=== PATIENT | female | born 1990 | race Caucasian/White ===

== ENCOUNTER 2016-08-10 12:25 | Emergency (ER) | payer OTHER ==
[~2016-08-10] VITALS: Ht 165.1 cm; Wt 142.7 kg
[~2016-08-10 12:25] MED LIST: CEPH500C PO; LORA-741 PO; NYSTPOW2 TOP; NZRCR TOP; SULF800T23 PO; TRAM-10 PO
[2016-08-10 12:30] VITALS: TEMP 36.6; Ht 165.1 cm; Wt 142.7 kg
[2016-08-10] MEDS ORDERED: PROCHLORPERAZINE 5 MG/ML 2 ML VIAL IV STA (12:52)
[2016-08-10] MEDS ORDERED: DEXAMETHASONE SOD INJ 4 MG/ML VIAL IV STA (12:52)
[2016-08-10] MEDS ORDERED: ACETAMINOPHEN 500 MG TAB PO STA (12:52)
[2016-08-10] MEDS ORDERED: DiphenhydrAMINE HCL 50 MG/ML VIAL IV STA (12:52)
[2016-08-10] MEDS ORDERED: SODIUM CHLORIDE 0.9% 1000ML 1,000 ML IV STA ×2 (12:52)
--- NOTE | 2016-08-10 13:16 | EMERGENCY ROOM VISIT NOTE ---
History Report prepared by Shukri: Bryce Pulido Under the Supervision of: Dr. Hayder Castro M.D. First contact with patient: 12:49 Chief Complaint: SHORTNESS OF BREATH Stated Complaint: SOB, DIZZY, STABBING PAINS, SWELLING Nursing Triage Summary: pt to the ED with c/o all over body aches weakness and SOB pt speaking full sent no resp distress History of Present Illness The patient is a 25 year old female who presents to the Emergency Room with complaints of a persistent headache beginning four days ago. She has a recent history of migraines. She states that she had a Toradol shot yesterday after she had been experiencing a migraine for past four days. The patient states that she developed several symptoms after receiving the Toradol shot. Her symptoms included recurrent nose bleeds, generalized body pain, generalized weakness, and shortness of breath. She rates her headache as an 8/10 in severity. The patient denies any fevers or cough. She has no known sick contacts. She denies any chance of . Source of History: patient Onset: four days ago Position: head Symptom Intensity: 8/10 Timing: other (persistent) Associated Symptoms: + SOB, + weakness (generalized), No cough, No fevers Note: The patient also complains of generalized body pain and recurrent nosebleeds. Review of Systems See HPI for pertinent positives & negatives. A total of 10 systems reviewed and were otherwise negative. Past Medical & Surgical Medical Problems: (1) History of PCOS Surgical Problems: (1) Hx of tonsillectomy (2) [place] teeth extracted Family History Cancer Diabetes mellitus Gallbladder disease Heart disease Hypertension Kidney disease Kidney stones Seizures Social History Smoking Status: Never Smoker Alcohol Use: none Drug Use: none Marital Status: in relationship Housing Status: lives with family Occupation Status: employed Current/Historical Medications Scheduled Cephalexin Monohydrate (Keflex), 1 CAP PO TID Cephalexin Monohydrate (Keflex), 500 MG PO TID Ketoconazole (Ketoconazole), 1 APPL TOP UD Nystatin (Mycostatin), 1 APPL TOP UD Sulfa/Trimethoprim (Bactrim Ds 800MG/160MG), 1 TAB PO BID Scheduled PRN Lorazepam (Ativan), 0.5 MG PO Q4H PRN for Anxiety Tramadol (Ultram), 50 MG PO Q4H PRN for Pain Allergies Coded Allergies: Furosemide (Unverified Allergy, Unknown, hives, 08/10/16) Physical Exam Vital Signs Date Time Temp Pulse Resp B/P Pulse Ox O2 Delivery O2 Flow Rate FiO2 08/10/16 15:26 77 18 125/76 98 08/10/16 14:13 72 18 133/86 95 Room Air 08/10/16 12:30 36.6 87 20 139/85 99 Room Air Physical Exam GENERAL: Patient is in no acute distress. HEENT: No acute trauma, normocephalic atraumatic, mucous membranes moist, no nasal congestion, no scleral icterus. Pupils equal and reactive to light. NECK: No stridor, no adenopathy, no meningismus, trachea is midline. LUNGS: Clear to auscultation bilaterally, no wheeze, no rhonchi, breath sounds equal. HEART: Without murmurs gallops or rubs, regular rate and rhythm. ABDOMEN: Soft, nontender, bowel sounds positive, no hernias, no peritonitis. EXTREMITIES: No cyanosis or edema, full range of motion of all the joints without pain or difficulty, no signs for acute trauma. NEUROLOGIC: Oriented x 3, no acute motor or sensory deficits, no focal weakness. No cerebellar deficits. SKIN: No rash, no jaundice, no diaphoresis Medical Decision & Procedures ER Provider Diagnostic Interpretation: X ray results and stated below per my interpretation and radiologist interpretation. Other radiology results and stated below per my review and radiologist interpretation: CT SCAN OF THE BRAIN WITHOUT IV CONTRAST FINDINGS: Brain parenchyma: The brain parenchyma is normal in appearance. There is no hemorrhage, mass effect, or evidence of acute territorial ischemia by CT criteria. Greer-white matter is preserved. No extra-axial fluid collection is seen. Ventricles, sulci, cisterns: Normal in configuration. Intracranial vasculature: The visualized intracranial vasculature at the skull base is normal in appearance. Calvarium: Unremarkable. Sinuses and mastoids: The visualized paranasal sinuses are clear. The mastoid air cells are well pneumatized. Orbits: The bony orbits are grossly intact. IMPRESSION: No acute intracranial abnormality. Electronically signed by: Hayder Munoz M.D. TWO VIEW CHEST FINDINGS: PA and lateral chest radiographs are compared to study dated 07/05/2015 and correlated with chest CT dated 07/08/2013. The examination is degraded by large body habitus. The cardiomediastinal silhouette is unremarkable. There are low lung volumes. The lungs and pleural spaces are clear. There is no pneumothorax. The bony thorax appears intact. IMPRESSION: Low lung volumes with no active disease in the chest. Electronically signed by: Hayder Munoz M.D. Laboratory Results 08/10/16 13:10 Red Blood Count 4.71, Mean Corpuscular Volume 79.2, Mean Corpuscular Hemoglobin 26.1, Mean Corpuscular Hemoglobin Concent 33.0, Mean Platelet Volume 9.5, Neutrophils (%) (Auto) 69.6, Lymphocytes (%) (Auto) 21.6, Monocytes (%) (Auto) 7.1, Eosinophils (%) (Auto) 0.9, Basophils (%) (Auto) 0.4, Neutrophils # (Auto) 6.74, Lymphocytes # (Auto) 2.09, Monocytes # (Auto) 0.69, Eosinophils # (Auto) 0.09, Basophils # (Auto) 0.04 08/10/16 13:10 Test 08/10/16 12:46 08/10/16 13:10 Urine Color YELLOW Urine Appearance CLEAR (CLEAR) Urine pH 5.0 (4.5-7.5) Urine Specific [place] 1.020 (1.000-1.030) Urine Protein TRACE (NEG) Urine Glucose (UA) NEG (NEG) Urine Ketones NEG (NEG) Urine Occult Blood 3+ (NEG) Urine Nitrite NEG (NEG) Urine Bilirubin NEG (NEG) Urine Urobilinogen NEG (NEG) Urine Leukocyte Esterase TRACE (NEG) Urine RBC 5-10 /hpf (0-4) Urine WBC 10-30 /hpf (0-5) Urine Epithelial Cells 10-20 /lpf (0-5) Urine Bacteria 3+ (NEG) White Blood Count 9.69 K/uL (4.8-10.8) Red Blood Count 4.71 M/uL (4.2-5.4) Hemoglobin 12.3 g/dL (12.0-16.0) Hematocrit 37.3 % (37-47) Mean Corpuscular Volume 79.2 fL (80-100) Mean Corpuscular Hemoglobin 26.1 pg (25-34) Mean Corpuscular Hemoglobin Concent 33.0 g/dl (32-36) Platelet Count 307 K/uL (130-400) Mean Platelet Volume 9.5 fL (7.4-10.4) Neutrophils (%) (Auto) 69.6 % Lymphocytes (%) (Auto) 21.6 % Monocytes (%) (Auto) 7.1 % Eosinophils (%) (Auto) 0.9 % Basophils (%) (Auto) 0.4 % Neutrophils # (Auto) 6.74 K/uL (1.4-6.5) Lymphocytes # (Auto) 2.09 K/uL (1.2-3.4) Monocytes # (Auto) 0.69 K/uL (0.11-0.59) Eosinophils # (Auto) 0.09 K/uL (0-0.5) Basophils # (Auto) 0.04 K/uL (0-0.2) RDW Standard Deviation 39.4 fL (36.4-46.3) RDW Coefficient of Variation 13.9 % (11.5-14.5) Immature Granulocyte % (Auto) 0.4 % Immature Granulocyte # (Auto) 0.04 K/uL (0.00-0.02) Erythrocyte Sedimentation Rate 16 mm/hr (0-21) Anion Gap 9.0 mmol/L (3-11) Est Creatinine Clear Calc Drug Dose 156.9 ml/min Estimated GFR () 120.6 Estimated GFR (Non- 104.0 BUN/Creatinine Ratio 18.6 (10-20) Calcium Level 9.3 mg/dl (8.5-10.1) Human Chorionic Gonadotropin, Qual NEG (NEG) Laboratory results reviewed by me. Medications Administered Medications (Trade) Dose Ordered Sig/Lonnie Route Start Time Stop Time Status Last Admin Dose Admin Prochlorperazine Edisylate 10 mg 10 mg NOW STAT IV 08/10/16 12:52 08/10/16 12:56 DC 08/10/16 13:10 10 MG Sodium Chloride 1,000 ml @ 999 mls/hr Q1H1M STAT IV 08/10/16 12:52 08/10/16 13:52 DC 08/10/16 12:52 999 MLS/HR Sodium Chloride (Nss 1000ml) 1,000 ml @ 200 mls/hr Q5H STAT IV 08/10/16 12:52 08/10/16 15:55 DC 08/10/16 12:52 200 MLS/HR Diphenhydramine HCl (Benadryl Inj) 50 mg NOW STAT IV 08/10/16 12:52 08/10/16 12:56 DC 08/10/16 13:10 50 MG Dexamethasone Sodium Phosphate (Decadron Inj) 10 mg NOW STAT IV 08/10/16 12:52 08/10/16 12:56 DC 08/10/16 13:10 10 MG Acetaminophen (Tylenol Tab) 1,000 mg NOW STAT PO 08/10/16 12:52 08/10/16 12:56 DC 08/10/16 13:09 1,000 MG ED Course 1251: The patient was evaluated in room C11. A complete history and physical exam was performed. 1252: Ordered Tylenol Tab 1000 mg PO, Decadron Inj 10 mg IV, Benadryl Inj 50 mg IV, Sodium Chloride 1000 ml @ 200 mls/hr IV, Sodium Chloride 1000 ml @ 999 mls/ hr IV, Compazine 10 mg IV. 1454: Reevaluated the patient. Discussed results and discharge instructions: she verbalized understanding and agreement. The patient is ready for discharge. Medical Decision The patient is a 25 year old female who presents to the ED with complaints of a headache. Differential diagnoses considered include migraine headache, tensions headache, dehydration, infection, intracranial bleeding, intracranial mass, pneumonia, meningitis, as well as other etiologies were considered. There is no leukocytosis or concerning anemia. No significant electrolyte abnormality or kidney failure. testing was negative. Sedimentation rate was not elevated making ongoing infection/inflammation less likely. Urinalysis shows possible infection, urine culture is pending. Brain CT shows no acute bleed or mass effect. On exam, the patient was not febrile or toxic, she had no signs of meningismus. There were no focal neurologic deficits. Chest film was done, no evidence for pneumonia or CHF, no mediastinal widening. The patient presents with multiple complaints, her primary complaint though was a headache. She has had headaches similar to this in the past. The patient received IV Compazine, IV Benadryl, IV Decadron. She was given oral Tylenol and IV saline. She feels markedly improved. The patient is being discharged. I will have her on Keflex for 1 week for the possibility of a UTI, rest and hydration were encouraged. She was reassured and discharged home with outpatient follow-up. Her headache does seem migrainous. Impression Primary Impression: Headache Additional Impressions: SOB (shortness of breath) UTI (urinary tract infection) Scribe Attestation The scribe's documentation has been prepared under my direction and personally reviewed by me in its entirety. I confirm that the note above accurately reflects all work, treatment, procedures, and medical decision making performed by me. Departure Information Dispostion Home / Self-Care Prescriptions Cephalexin Monohydrate (Keflex) 500 Mg Cap 500 MG PO TID for 7 Days, #21 CAP Prov: Hayder Castro M.D. 08/10/16 Referrals Berkley Pavon D.O. (PCP) Forms HOME CARE DOCUMENTATION FORM, IMPORTANT VISIT INFORMATION Patient Instructions My [facility] Additional Instructions rest sleep stay well hydrated return if worsening keflex 3x per day for [address] scan and chest film were ok today Problem Qualifiers
[2016-08-10 13:24] LABS: BASO % 0.4 %; BASO ABS # 0.04 K/uL (0-0.2); COMPLETE YES; EOS % 0.9 %; HEMATOCRIT 37.3 % (37-47); IG% 0.4 %; LYMPH % 21.6 %; LYMPH ABS # 2.09 K/uL (1.2-3.4); MEAN CELL VOLUME 79.2 fL (80-100); MEAN CORPUSCULAR HEMOGLOBIN 26.1 pg (25-34); MEAN PLATELET VOLUME 9.5 fL (7.4-10.4); MONO % 7.1 %; NEUT % 69.6 %; PLATELET COUNT 307 K/uL (130-400); RED BLOOD COUNT 4.71 M/uL (4.2-5.4); WHITE BLOOD COUNT 9.69 K/uL (4.8-10.8)
[2016-08-10 13:29] LABS: MANUAL MICROSCOPIC REQUIRED? YES; REVIEW REQ? NO; URINE APPEARANCE CLEAR (CLEAR); URINE BILIRUBIN NEG (NEG); URINE COLOR YELLOW; URINE NITRITE NEG (NEG); UROBILINOGEN NEG (NEG)
[2016-08-10 13:42] LABS: BUN/CREATININE RATIO 18.6 (10-20); CALCIUM 9.3 mg/dl (8.5-10.1); CREATININE 0.79 mg/dl (0.60-1.20); POTASSIUM 3.9 mmol/L (3.5-5.1)
[2016-08-10 13:44] LABS: URINE BACTERIA 3+ (NEG)
--- NOTE | 2016-08-10 13:44 | DIAGNOSTIC IMAGING REPORT ---
CT SCAN OF THE BRAIN WITHOUT IV CONTRAST CLINICAL HISTORY: Dizziness. Headache. COMPARISON STUDY: CT the brain dated 07/05/2015. TECHNIQUE: Unenhanced axial CT scan of the brain is performed from the vertex to the skull base. Automated dose control exposure was utilized. CT DOSE: 537.48 mGy.cm FINDINGS: Brain parenchyma: The brain parenchyma is normal in appearance. There is no hemorrhage, mass effect, or evidence of acute territorial ischemia by CT criteria. Greer-white matter is preserved. No extra-axial fluid collection is seen. Ventricles, sulci, cisterns: Normal in configuration. Intracranial vasculature: The visualized intracranial vasculature at the skull base is normal in appearance. Calvarium: Unremarkable. Sinuses and mastoids: The visualized paranasal sinuses are clear. The mastoid air cells are well pneumatized. Orbits: The bony orbits are grossly intact. IMPRESSION: No acute intracranial abnormality. Electronically signed by: Hayder Munoz M.D. 08/10/2016 1:42 PM Dictated Date/Time: 08/10/2016 1:41 PM
[2016-08-10 13:47] LABS: ZZUR CULT IF INDIC CLEAN CATCH YES
[2016-08-10 13:51] LABS: PREG INTERNAL POSITIVE QC POS CONTROL LINE
[2016-08-10 13:52] LABS: PREG INTERNAL NEGATIVE QC NEG CLEAR BACKGROUND
--- NOTE | 2016-08-10 14:21 | DIAGNOSTIC IMAGING REPORT ---
TWO VIEW CHEST CLINICAL HISTORY: Dyspnea. FINDINGS: PA and lateral chest radiographs are compared to study dated 07/05/2015 and correlated with chest CT dated 07/08/2013. The examination is degraded by large body habitus. The cardiomediastinal silhouette is unremarkable. There are low lung volumes. The lungs and pleural spaces are clear. There is no pneumothorax. The bony thorax appears intact. IMPRESSION: Low lung volumes with no active disease in the chest. Electronically signed by: Hayder Munoz M.D. 08/10/2016 2:20 PM Dictated Date/Time: 08/10/2016 2:19 PM
[2016-08-10] MEDS ORDERED: CEPH500C PO (14:59)
[2016-08-10 15:26] VITALS: BP 125/76; PULSE 77; O2SAT 98
== END 2016-08-10 15:27 | disposition home or self-care (01) ==
LOC: C.EDB 12:25 → C.EDC 15:27
DX: R51 Headache (principal); R06.02 Shortness of breath; N39.0 Urinary tract infection, site not specified

== ENCOUNTER 2016-11-13 09:40 | Emergency (ER) | payer OTHER ==
[~2016-11-13] VITALS: Ht 165.1 cm; Wt 139.4 kg
[~2016-11-13 09:40] MED LIST changes: -SULF800T23 PO
[2016-11-13 09:42] VITALS: TEMP 36.8; Ht 165.1 cm; Wt 139.4 kg
[2016-11-13] MEDS ORDERED: ONDANSETRON INJ 2 MG/ML 2 ML VIAL IV STA (09:50)
[2016-11-13] MEDS ORDERED: SODIUM CHLORIDE 0.9% 1000ML 1,000 ML IV STA ×2 (09:50)
--- NOTE | 2016-11-13 09:58 | EMERGENCY ROOM VISIT NOTE ---
History Report prepared by Shukri: Mayelin Benitez Under the Supervision of: Dr. Norma Alejandra M.D. First contact with patient: 09:47 Chief Complaint: VOMITING Stated Complaint: NAUSEA, VOMITING - REFERRED DUE TO DEHYDRATION History of Present Illness The patient is a 26 year old female who presents to the Emergency Room with complaints of multiple episodes of vomiting beginning a few days prior to arrival. The patient has been experiencing nausea and diarrhea also. She states that she does feel dehydrated. The patient is experiencing lower abdominal pain that she describes as a stabbing sensation. She denies a fever today but states that the past few days she did have one but has been taking Tylenol. The patient denies chance, exposure to illness or blood in vomit. Her LNMP was in June. She still has her gallbladder. 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 A total of 10 systems reviewed and were otherwise negative. Past Medical & Surgical Medical Problems: (1) History of PCOS Surgical Problems: (1) Hx of tonsillectomy (2) [place] teeth extracted Family History Cancer Diabetes mellitus Gallbladder disease Heart disease Hypertension Kidney disease Kidney stones Seizures Social History Smoking Status: Never Smoker Alcohol Use: none Drug Use: none Marital Status: in relationship Housing Status: lives with family Occupation Status: employed Current/Historical Medications Scheduled Ketoconazole (Ketoconazole), 1 APPL TOP UD Ondasetron Odt (Zofran Odt), 4 MG SL Q6H Scheduled PRN Lorazepam (Ativan), 0.5 MG PO Q4H PRN for Anxiety Tramadol (Ultram), 50 MG PO Q4H PRN for Pain Allergies Coded Allergies: Furosemide (Unverified Allergy, Unknown, hives, 08/10/16) Physical Exam Vital Signs Date Time Temp Pulse Resp B/P Pulse Ox O2 Delivery O2 Flow Rate FiO2 11/13/16 12:01 68 18 123/72 98 11/13/16 09:42 36.8 71 18 170/88 96 Room Air Physical Exam Vital signs reviewed. General: Obese female, in no significant distress. HEENT: No scleral icterus, PERRLA, neck supple. Atraumatic. Cardiovascular: Regular rate and rhythm, no extra sounds. Pulmonary: Clear to auscultation bilaterally, normal work of breathing. Abdomen: Soft, nontender, nondistended, positive bowel sounds. Musculoskeletal: Atraumatic, no peripheral edema. Neurologic: Patient awake alert and oriented x 3, full strength in all 4 extremities. Cranial nerves 2 through 12 grossly intact. Skin: Warm, dry, no rash Medical Decision & Procedures Laboratory Results 11/13/16 10:20 Red Blood Count 4.98, Mean Corpuscular Volume 79.9, Mean Corpuscular Hemoglobin 25.9, Mean Corpuscular Hemoglobin Concent 32.4, Mean Platelet Volume 9.2, Neutrophils (%) (Auto) 64.9, Lymphocytes (%) (Auto) 27.5, Monocytes (%) (Auto) 5.4, Eosinophils (%) (Auto) 1.5, Basophils (%) (Auto) 0.3, Neutrophils # (Auto) 4.84, Lymphocytes # (Auto) 2.05, Monocytes # (Auto) 0.40, Eosinophils # (Auto) 0.11, Basophils # (Auto) 0.02 11/13/16 10:20 Test 11/13/16 00:00 11/13/16 10:20 Urine Color YELLOW Urine Appearance CLOUDY (CLEAR) Urine pH 5.0 (4.5-7.5) Urine Specific [place] 1.023 (1.000-1.030) Urine Protein NEG (NEG) Urine Glucose (UA) NEG (NEG) Urine Ketones NEG (NEG) Urine Occult Blood 3+ (NEG) Urine Nitrite NEG (NEG) Urine Bilirubin NEG (NEG) Urine Urobilinogen NEG (NEG) Urine Leukocyte Esterase MODERATE (NEG) Urine WBC (Auto) 10-30 /hpf (0-5) Urine RBC (Auto) 0-4 /hpf (0-4) Urine Hyaline Casts (Auto) 1-5 /lpf (0-5) Urine Epithelial Cells (Auto) >30 /lpf (0-5) Urine Bacteria (Auto) 1+ (NEG) Urine Yeast (Auto) (NONE PRSENT) Urine Test NEG (NEG) White Blood Count 7.45 K/uL (4.8-10.8) Red Blood Count 4.98 M/uL (4.2-5.4) Hemoglobin 12.9 g/dL (12.0-16.0) Hematocrit 39.8 % (37-47) Mean Corpuscular Volume 79.9 fL (80-100) Mean Corpuscular Hemoglobin 25.9 pg (25-34) Mean Corpuscular Hemoglobin Concent 32.4 g/dl (32-36) Platelet Count 292 K/uL (130-400) Mean Platelet Volume 9.2 fL (7.4-10.4) Neutrophils (%) (Auto) 64.9 % Lymphocytes (%) (Auto) 27.5 % Monocytes (%) (Auto) 5.4 % Eosinophils (%) (Auto) 1.5 % Basophils (%) (Auto) 0.3 % Neutrophils # (Auto) 4.84 K/uL (1.4-6.5) Lymphocytes # (Auto) 2.05 K/uL (1.2-3.4) Monocytes # (Auto) 0.40 K/uL (0.11-0.59) Eosinophils # (Auto) 0.11 K/uL (0-0.5) Basophils # (Auto) 0.02 K/uL (0-0.2) RDW Standard Deviation 40.3 fL (36.4-46.3) RDW Coefficient of Variation 14.1 % (11.5-14.5) Immature Granulocyte % (Auto) 0.4 % Immature Granulocyte # (Auto) 0.03 K/uL (0.00-0.02) Anion Gap 5.0 mmol/L (3-11) Est Creatinine Clear Calc Drug Dose 198.5 ml/min Estimated GFR () 145.0 Estimated GFR (Non- 125.1 BUN/Creatinine Ratio 14.7 (10-20) Calcium Level 8.6 mg/dl (8.5-10.1) Magnesium Level 2.2 mg/dl (1.8-2.4) Total Bilirubin 0.4 mg/dl (0.2-1) Direct Bilirubin < 0.1 mg/dl (0-0.2) Aspartate Amino Transf (AST/SGOT) 9 U/L (15-37) Alanine Aminotransferase (ALT/SGPT) 26 U/L (12-78) Alkaline Phosphatase 90 U/L (45-117) Total Protein 6.7 gm/dl (6.4-8.2) Albumin 3.2 gm/dl (3.4-5.0) Lipase 113 U/L (73-393) Date/Time Source Procedure Growth Status 11/13/16 00:00 Urine , Clean Catch Urine Culture - Final THREE TYPES OF ORGANSIMS PRESENT, ALL... Complete Laboratory results per my review. Medications Administered Medications (Trade) Dose Ordered Sig/Lonnie Route Start Time Stop Time Status Last Admin Dose Admin Sodium Chloride 1,000 ml @ 200 mls/hr Q5H STAT IV 11/13/16 09:50 11/13/16 12:37 DC 11/13/16 10:29 200 MLS/HR Sodium Chloride (Nss 1000ml) 1,000 ml @ 999 mls/hr Q1H1M STAT IV 11/13/16 09:50 11/13/16 10:50 DC 11/13/16 10:29 999 MLS/HR ED Course 0948: Past medical records reviewed. The patient was evaluated in room B5. A complete history and physical examination was performed. 0950: Sodium Chloride 1,000 ml @ 999 mls/hr IV, Sodium Chloride 1,000 ml @ 200 mls/hr IV, Zofran Inj 8 mg IV. 1141: I reevaluated the patient. 1156: Upon reevaluation, the patient appeared to have improvement of her symptoms. I discussed findings with her. She verbalized agreement of the treatment plan. She was discharged home. Medical Decision The patient is a 26 year old female who presents to the ED with complaints of vomiting. Differentials includes gastroenteritis, food borne illness, infections, appendicitis, diverticulitis, inflammatory bowel disease, obstruction, GI bleed, biliary pathology, as well as others were entertained. This patient was evaluated and appeared to be in some discomfort. IV access was obtained and laboratory work was drawn. The patient was placed on the classroom monitor and found to be in a normal sinus rhythm. Patient was hydrated with normal saline solution, refused IV Zofran. Patient's laboratory work is unrevealing. Patient was feeling much better after the above interventions. She was discharged follow-up with her primary care physician. She will return to the ER for worsening of symptoms or any medical concerns. Impression Primary Impression: Vomiting Scribe Attestation The scribe's documentation has been prepared under my direction and personally reviewed by me in its entirety. I confirm that the note above accurately reflects all work, treatment, procedures, and medical decision making performed by me. Departure Information Dispostion Home / Self-Care Prescriptions Ondasetron Odt (ZOFRAN ODT) 4 Mg Tab 4 MG SL Q6H for Nausea, #20 TAB Prov: Norma Alejandra M.D. 11/13/16 Referrals Berkley Pavon D.O. (PCP) Forms HOME CARE DOCUMENTATION FORM, IMPORTANT VISIT INFORMATION Patient Instructions My [facility] Additional Instructions Diagnosis: Vomiting Drink plenty of clear fluids. Zofran 4 mg ODT every 6 hours as needed for nausea. Follow-up with your physician this week for reevaluation. Return to the ER for worsening of symptoms or any medical concerns.
[2016-11-13 10:31] LABS: BASO % 0.3 %; BASO ABS # 0.02 K/uL (0-0.2); COMPLETE YES; EOS % 1.5 %; HEMATOCRIT 39.8 % (37-47); IG% 0.4 %; LYMPH % 27.5 %; LYMPH ABS # 2.05 K/uL (1.2-3.4); MEAN CELL VOLUME 79.9 fL (80-100); MEAN CORPUSCULAR HEMOGLOBIN 25.9 pg (25-34); MEAN CORPUSCULAR HGB CONC 32.4 g/dl (32-36); MEAN PLATELET VOLUME 9.2 fL (7.4-10.4); MONO % 5.4 %; NEUT % 64.9 %; PLATELET COUNT 292 K/uL (130-400); RED BLOOD COUNT 4.98 M/uL (4.2-5.4); WHITE BLOOD COUNT 7.45 K/uL (4.8-10.8)
[2016-11-13 10:45] LABS: URINE APPEARANCE CLOUDY (CLEAR); URINE BILIRUBIN NEG (NEG); URINE COLOR YELLOW; URINE EPITHELIAL CELL AUTO >30 /lpf (0-5); URINE NITRITE NEG (NEG); URINE SPECIFIC GRAVITY 1.023 (1.000-1.030); UROBILINOGEN NEG (NEG); ZZUR CULT IF INDIC CLEAN CATCH YES
[2016-11-13 10:47] LABS: ALT/SGPT 26 U/L (12-78); AST/SGOT 9 U/L (15-37); BLOOD UREA NITROGEN 9 mg/dl (7-18); BUN/CREATININE RATIO 14.7 (10-20); CALCIUM 8.6 mg/dl (8.5-10.1); CARBON DIOXIDE 30 mmol/L (21-32); CHLORIDE 110 mmol/L (98-107); CREATININE 0.61 mg/dl (0.60-1.20); GLUCOSE 110 mg/dl (70-99); MAGNESIUM 2.2 mg/dl (1.8-2.4); POTASSIUM 4.1 mmol/L (3.5-5.1); SODIUM 145 mmol/L (136-145)
[2016-11-13 10:49] LABS: MANUAL MICROSCOPIC REQUIRED? NO; REVIEW REQ? YES
[2016-11-13 10:50] LABS: ALKALINE PHOSPHATASE 90 U/L (45-117)
[2016-11-13] MEDS ORDERED: ONDA4TAB10 SL (11:52)
[2016-11-13 12:01] VITALS: BP 123/72; PULSE 68; O2SAT 98
== END 2016-11-13 12:03 | disposition home or self-care (01) ==
LOC: C.EDB 09:41
DX: R11.2 Nausea with vomiting, unspecified (principal); R19.7 Diarrhea, unspecified; R10.30 Lower abdominal pain, unspecified; R50.9 Fever, unspecified; E28.2 Polycystic ovarian syndrome; Z83.3 Family history of diabetes mellitus; Z82.49 Family history of ischemic heart disease and other diseases of the circulatory system; Z84.1 Family history of disorders of kidney and ureter; Z82.0 Family history of epilepsy and other diseases of the nervous system

== ENCOUNTER 2017-01-16 12:19 | Emergency (ER) | payer OTHER ==
[~2017-01-16] VITALS: Ht 165.1 cm; Wt 138.8 kg
[~2017-01-16 12:19] MED LIST changes: -CEPH500C PO; -NYSTPOW2 TOP; +ONDA4TAB10 SL
[2017-01-16 12:22] VITALS: TEMP 36.7; Ht 165.1 cm; Wt 138.8 kg
[2017-01-16] MEDS ORDERED: PROCHLORPERAZINE 5 MG/ML 2 ML VIAL IV STA (13:13)
[2017-01-16] MEDS ORDERED: DiphenhydrAMINE HCL 50 MG/ML VIAL IV STA (13:13)
[2017-01-16] MEDS ORDERED: DEXAMETHASONE SOD INJ 10 MG/ML VIAL IV ONE (13:15)
[2017-01-16 13:29] LABS: BASO % 0.5 %; BASO ABS # 0.04 K/uL (0-0.2); COMPLETE YES; EOS % 1.3 %; HEMATOCRIT 43.1 % (37-47); IG% 0.5 %; MEAN CELL VOLUME 81.3 fL (80-100); MEAN CORPUSCULAR HEMOGLOBIN 26.8 pg (25-34); MEAN CORPUSCULAR HGB CONC 32.9 g/dl (32-36); MEAN PLATELET VOLUME 9.8 fL (7.4-10.4); MONO % 4.9 %; NEUT % 67.8 %; PLATELET COUNT 326 K/uL (130-400); WHITE BLOOD COUNT 8.39 K/uL (4.8-10.8)
[2017-01-16 13:34] LABS: BUN/CREATININE RATIO 12.6 (10-20); CALCIUM 9.2 mg/dl (8.5-10.1); MAGNESIUM 2.1 mg/dl (1.8-2.4); POTASSIUM 3.9 mmol/L (3.5-5.1)
[2017-01-16 13:36] LABS: ALB/GLOB RATIO 0.9 (0.9-2)
--- NOTE | 2017-01-16 13:42 | EMERGENCY ROOM VISIT NOTE ---
History First contact with patient: 12:58 Chief Complaint: DIZZY Stated Complaint: NAUSEA,MIGRAINE, DIZZINESS, LIGHTHEADED Nursing Triage Summary: pt states, "My mom made me come in here." pt c/o intermittent dizziness and migraines for past month. pt states 2 weeks ago she became dizzy in the shower and fell. pt hit head on shower, -loc. pt was seen at a urgent care and was told she sprained her left ankle. today she became dizzy/lightheaded since this AM. mother became concerned and was told to come here. mother is not present in triage. History of Present Illness The patient is a 26 year old female who presents to the Emergency Room with complaints of a migraine 3 days. The patient states she has been having migraines intermittently for a few weeks. The migraines to make her dizzy and lightheaded. She states approximately 2 weeks ago, she had a migraine which was giving her the symptoms, so she got into the shower, where she fell and sprained her ankle. The patient does not like taking her prescription for Imitrex because it makes her feel nauseated and fatigued. She states this episode, she did take the medication, then it made her vomit. She was seen here in July for the same symptoms, where she had a CT scan of her head completed as well as a chest x-ray. The patient states the symptoms and pain she is experiencing now are the same as her typical migraines, however it seems to be lasting longer this time. The patient states she has not changed anything in her life recently to cause her worsening symptoms. She does follow with Dr. Amaya for her migraines, however has not seen neurology. The patient reports nausea, vomiting, frontal headache which radiates to her face and makes her teeth hurt. The patient does admit to body aches and weakness when she is experiencing all of her symptoms. She does report occasional palpitations, however states she has been worked up for this in the past with a negative event recorder. The patient denies visual disturbances, loss of consciousness, altered mental status, pain in a different location of her head, fever, chills, or other associated symptoms. The patient states she did take an Excedrin migraine pill this morning at approximately 8 AM. Review of Systems A complete 10 point review of systems was reviewed with the patient with pertinent positives and negatives as per history of present illness. All else were negative. Past Medical/Surgical History Medical Problems: (1) History of PCOS Surgical Problems: (1) Hx of tonsillectomy (2) [place] teeth extracted Migraines, seizures Family History Cancer Diabetes mellitus Gallbladder disease Heart disease Hypertension Kidney disease Kidney stones Seizures Social History Smoking Status: Never Smoker Alcohol Use: none Drug Use: none Marital Status: in relationship Housing Status: lives with family Occupation Status: employed Current/Historical Medications Scheduled Ondasetron Odt (Zofran Odt), 4 MG SL Q6H Scheduled PRN Lorazepam (Ativan), 0.5 MG PO Q4H PRN for Anxiety Tramadol (Ultram), 50 MG PO Q4H PRN for Pain Allergies Coded Allergies: Furosemide (Unverified Allergy, Unknown, hives, 08/10/16) Physical Exam Vital Signs Date Time Temp Pulse Resp B/P (MAP) Pulse Ox O2 Delivery O2 Flow Rate FiO2 01/16/17 14:13 74 18 92/62 97 Room Air 01/16/17 12:59 80 114/77 89 145/88 93 118/96 01/16/17 12:22 36.7 88 18 146/88 96 Room Air Physical Exam Vital Signs: Reviewed Nurse's notes, vital signs stable. GENERAL: 26-year-old female, who appears in pain, but non toxic in appearance and in no acute distress. MENTAL STATUS: Alert, oriented, and coherent. HEENT: Normocephalic. PERRLA. EOMI. Nares patent without nuchal rigidity. Tympanic membranes pearly tompkins without erythema or effusion bilaterally. Mucous membranes moist. NECK: Supple, no nuchal rigidity, nontender, no lymphadenopathy. HEART: Regular rhythm and normal rate without murmurs, ectopy, gallops, or rubs. LUNGS: Clear to auscultation bilaterally without wheezes, rales or rhonchi. No dullness to percussion. No accessory muscle use. No retractions. SKIN: Normal. NEUROLOGICAL: Pupils are round, equal and react to light. The optic fundi are normal and the discs are flat. The patient moves all extremities well and the gait is normal. Normal cerebellar function testing. Medical Decision & Procedures ER Provider Diagnostic Interpretation: Labs: Without concerning anemia, leukocytosis, or thrombocytopenia. Urine test negative. Electrolytes, renal, and liver function tests without acute abnormalities. U/A with mild elevations in WBC, Leukocyte esterase, and RBC. There were significant epithelial cells noted. I did review previous U/A's and they have been consistent with these findings. I do not feel that the patient is experiencing a urinary etiology of illness, and instead, feel that this was a contaminated specimen, and encouraged the patient to follow-up with her PCP, especially if she is experiencing any urinary symptoms. Laboratory Results 01/16/17 12:40 Red Blood Count 5.30, Mean Corpuscular Volume 81.3, Mean Corpuscular Hemoglobin 26.8, Mean Corpuscular Hemoglobin Concent 32.9, Mean Platelet Volume 9.8, Neutrophils (%) (Auto) 67.8, Lymphocytes (%) (Auto) 25.0, Monocytes (%) (Auto) 4.9, Eosinophils (%) (Auto) 1.3, Basophils (%) (Auto) 0.5, Neutrophils # (Auto) 5.69, Lymphocytes # (Auto) 2.10, Monocytes # (Auto) 0.41, Eosinophils # (Auto) 0.11, Basophils # (Auto) 0.04 01/16/17 12:40 Test 01/16/17 12:16 01/16/17 12:26 01/16/17 12:40 Urine Color YELLOW Urine Appearance CLEAR (CLEAR) Urine pH 5.0 (4.5-7.5) Urine Specific [place] 1.025 (1.000-1.030) Urine Protein NEG (NEG) Urine Glucose (UA) NEG (NEG) Urine Ketones NEG (NEG) Urine Occult Blood NEG (NEG) Urine Nitrite NEG (NEG) Urine Bilirubin NEG (NEG) Urine Urobilinogen NEG (NEG) Urine Leukocyte Esterase SMALL (NEG) Urine WBC (Auto) 10-30 /hpf (0-5) Urine RBC (Auto) 5-10 /hpf (0-4) Urine Hyaline Casts (Auto) 1-5 /lpf (0-5) Urine Epithelial Cells (Auto) >30 /lpf (0-5) Urine Bacteria (Auto) 1+ (NEG) Urine Renal Epithelial Cells /lpf (0-5) Urine Yeast (Auto) (NONE PRSENT) Urine Test NEG (NEG) White Blood Count 8.39 K/uL (4.8-10.8) Red Blood Count 5.30 M/uL (4.2-5.4) Hemoglobin 14.2 g/dL (12.0-16.0) Hematocrit 43.1 % (37-47) Mean Corpuscular Volume 81.3 fL (80-100) Mean Corpuscular Hemoglobin 26.8 pg (25-34) Mean Corpuscular Hemoglobin Concent 32.9 g/dl (32-36) Platelet Count 326 K/uL (130-400) Mean Platelet Volume 9.8 fL (7.4-10.4) Neutrophils (%) (Auto) 67.8 % Lymphocytes (%) (Auto) 25.0 % Monocytes (%) (Auto) 4.9 % Eosinophils (%) (Auto) 1.3 % Basophils (%) (Auto) 0.5 % Neutrophils # (Auto) 5.69 K/uL (1.4-6.5) Lymphocytes # (Auto) 2.10 K/uL (1.2-3.4) Monocytes # (Auto) 0.41 K/uL (0.11-0.59) Eosinophils # (Auto) 0.11 K/uL (0-0.5) Basophils # (Auto) 0.04 K/uL (0-0.2) RDW Standard Deviation 41.6 fL (36.4-46.3) RDW Coefficient of Variation 14.1 % (11.5-14.5) Immature Granulocyte % (Auto) 0.5 % Immature Granulocyte # (Auto) 0.04 K/uL (0.00-0.02) Anion Gap 5.0 mmol/L (3-11) Est Creatinine Clear Calc Drug Dose 120.7 ml/min Estimated GFR () 90.1 Estimated GFR (Non- 77.7 BUN/Creatinine Ratio 12.6 (10-20) Calcium Level 9.2 mg/dl (8.5-10.1) Magnesium Level 2.1 mg/dl (1.8-2.4) Total Bilirubin 0.6 mg/dl (0.2-1) Aspartate Amino Transf (AST/SGOT) 16 U/L (15-37) Alanine Aminotransferase (ALT/SGPT) 33 U/L (12-78) Alkaline Phosphatase 92 U/L (45-117) Total Protein 7.6 gm/dl (6.4-8.2) Albumin 3.6 gm/dl (3.4-5.0) Globulin 4.0 gm/dl (2.5-4.0) Albumin/Globulin Ratio 0.9 (0.9-2) Medications Administered Medications (Trade) Dose Ordered Sig/Lonnie Route Start Time Stop Time Status Last Admin Dose Admin Diphenhydramine HCl (Benadryl Inj) 50 mg NOW STAT IV 01/16/17 13:13 01/16/17 13:17 DC 01/16/17 13:28 50 MG Prochlorperazine Edisylate (Compazine Inj) 10 mg NOW STAT IV 01/16/17 13:13 01/16/17 13:17 DC 01/16/17 13:28 10 MG Dexamethasone Sodium Phosphate (Decadron Inj) 10 mg NOW ONCE IV 01/16/17 13:15 01/16/17 13:17 DC 01/16/17 13:28 10 MG Sodium Chloride 500 ml @ 999 mls/hr Q31M STAT IV 01/16/17 13:50 01/16/17 14:20 DC 01/16/17 14:12 999 MLS/HR ED Course The patient was seen and evaluated as above. Labs were drawn. I reviewed the patient's previous medical records. She was seen in the ED for the same symptoms in July of this year. The patient was given IV medications: 10mg Decadron, 50mg Benadryl, 10mg Compazine, as she was given in July and experienced complete resolution of her symptoms at that time. The patient was given 500mL NSS Bolus. She did report significant improvement in her symptoms. I reviewed all lab work-up and discharge instructions and she was discharged home in good condition. Medical Decision The patient presented today c/o migraine with associated dizziness, lightheadedness, and nausea. This is similar to her previous episodes of severe migraines. Throughout the course of the patient's care, I considered etiologies including migraine, headache, medication-induced headache, dehydration, intracranial hemorrhage, malignancy, and others. Based on negative lab work and almost full resolution of symptoms with medications given in the ED, I do feel that this headache is migrainous. I did consider further imaging of the patient's head, however based on her current symptoms being similar to previous symptoms, and previous history of negative CT scan completed in July, I feel that outpatient work-up is appropriate for this patient. Impression Primary Impression: Migraine Additional Impression: Dizziness Departure Information Dispostion Home / Self-Care Condition GOOD Referrals Berkley Pavon D.O. (PCP) Emily Kraus D.O. Patient Instructions ED Headache Migraine, My [facility] Additional Instructions DO NOT drive, drink alcohol, operate machinery, or perform dangerous activities today. You were given medications in the ER that can affect your ability to safely function or operate a vehicle, as they can make you feel very tired. Rest today in a quiet, peaceful, dark environment and get a full 8-10 hrs of sleep tonight. Avoid loud noises, smoke/smoking, alcohol, bright lights, stress, or physical exertion today to minimize the chance the headache may return. Continue current medications as prescribed. Consider adding a Magnesium supplement, as this can help with headaches and migraines. Look into a migraine diet and follow this, as this can help with frequency of migraines. Drink plenty of fluids, as proper hydration can aid in the reduction of migraine symptoms. Ibuprofen(Motrin, Advil) may be used for fever or pain. Use 600mg every six hours as needed. Take with food. Avoid using more than 2400mg in a 24 hour period. Do not use 2400mg per day for more than three consecutive days without physician direction. Prolonged inappropriate use can lead to stomach upset or ulcers. (AND/OR) Acetaminophen(Tylenol) may be used for fever or pain. Use 1000mg every six hours as needed. Avoid using more than 3000mg in a 24 hour period. Return to the ER for passing out, worsening headache, vision problems, neck stiffness/pain, fevers, vomiting, worsening of your condition, or as needed. Follow up with your primary physician in 2-3 days for a recheck of your current condition. Please follow-up with them regarding your abnormal U/A, especially if you begin experiencing urinary symptoms. Consider follow-up with neurology regarding worsening migraine headaches. Problem Qualifiers Primary Impression: Migraine Migraine type: without aura Status migrainosus presence: with status migrainosus Intractability: not intractable Qualified Codes: G43.001 - Migraine without aura, not intractable, with status migrainosus
[2017-01-16] MEDS ORDERED: SODIUM CHLORIDE 0.9% 500ML 500 ML IV STA (13:50)
[2017-01-16 14:02] LABS: URINE APPEARANCE CLEAR (CLEAR); URINE BILIRUBIN NEG (NEG); URINE COLOR YELLOW; URINE EPITHELIAL CELL AUTO >30 /lpf (0-5); URINE NITRITE NEG (NEG); URINE SPECIFIC GRAVITY 1.025 (1.000-1.030); UROBILINOGEN NEG (NEG)
[2017-01-16 14:05] LABS: MANUAL MICROSCOPIC REQUIRED? NO; REVIEW REQ? YES
[2017-01-16 14:11] LABS: ZZUR CULT IF INDIC CLEAN CATCH YES
[2017-01-16 14:13] VITALS: BP 92/62; PULSE 74; O2SAT 97
== END 2017-01-16 14:40 | disposition home or self-care (01) ==
LOC: C.EDB 12:20 → C.EDA 14:40
DX: G43.001 Migraine without aura, not intractable, with status migrainosus (principal); R42 Dizziness and giddiness; E28.2 Polycystic ovarian syndrome; Z90.89 Acquired absence of other organs; Z98.818 Other dental procedure status; Z83.3 Family history of diabetes mellitus; Z82.49 Family history of ischemic heart disease and other diseases of the circulatory system; Z84.1 Family history of disorders of kidney and ureter; Z82.0 Family history of epilepsy and other diseases of the nervous system

== ENCOUNTER 2017-01-24 00:37 | Emergency (ER) | payer OTHER ==
[~2017-01-24] VITALS: Ht 165.1 cm; Wt 140.9 kg
[~2017-01-24 00:37] MED LIST changes: -NZRCR TOP
[2017-01-24 00:41] VITALS: TEMP 36.6; Ht 165.1 cm; Wt 140.9 kg
[2017-01-24] MEDS ORDERED: METOCLOPRAMIDE HCL INJ 5 MG/ML 2 ML VIAL IM STA (01:02)
[2017-01-24] MEDS ORDERED: KETOROLAC TROMETHAMINE 60 MG/2 ML VIAL IM STA (01:02)
[2017-01-24 01:41] VITALS: BP 126/67; PULSE 93; O2SAT 98
--- NOTE | 2017-01-24 04:02 | EMERGENCY ROOM VISIT NOTE ---
History First contact with patient: 00:45 Chief Complaint: HEADACHE Stated Complaint: NAUSEA,VOMITING,MIGRAINE,DIZZINESS History of Present Illness The patient is a 26 year old female who presents to the Emergency Room with complaints of nausea, vomiting, lightheadedness and migraine for the past few hours. Patient has a history of migraines and symptoms feel similar. Headache was slow in onset. 6 out of 10 throughout the temporal region. Patient denies numbness, tingling, localized weakness, vision problems, chest pain, dyspnea, fever, chills, neck stiffness, cold symptoms, abdominal pain. She is tolerate by mouth fluids and food. Review of Systems See HPI for pertinent positives & negatives. A total of 10 systems reviewed and were otherwise negative. Past Medical/Surgical History Medical Problems: (1) History of PCOS Surgical Problems: (1) Hx of tonsillectomy (2) [place] teeth extracted Family History Cancer Diabetes mellitus Gallbladder disease Heart disease Hypertension Kidney disease Kidney stones Seizures Social History Smoking Status: Never Smoker Alcohol Use: none Drug Use: none Marital Status: in relationship Housing Status: lives with family Occupation Status: employed Current/Historical Medications No Active Prescriptions or Reported Meds Physical Exam Vital Signs Date Time Temp Pulse Resp B/P (MAP) Pulse Ox O2 Delivery O2 Flow Rate FiO2 01/24/17 01:41 93 18 126/67 98 01/24/17 00:41 36.6 89 20 146/94 97 Room Air Pain Rating (0-10): 8.0 Physical Exam VITALS: Vitals are noted on the nurse's note and reviewed by myself. Vital signs stable. GENERAL: Pleasant female ambulating without difficulties, in no acute distress, nondiaphoretic, well-developed well-nourished. SKIN: The skin was without rashes, erythema, edema, or bruising. There is no tenting of the skin. Capillary reflex less than 2 seconds. HEAD: Normocephalic atraumatic. EARS: External auditory canals clear, tympanic membranes pearly tompkins without erythema or effusion bilaterally. EYES: Pupils equal round and reactive to light and accommodation. Conjunctivae without injection, sclerae without icterus. Extraocular movements intact. NOSE: Patent, turbinates without inflammation or discharge. No sinus tenderness. MOUTH: Mucous membranes moist. Pharynx without erythema or exudate. Uvula midline. Airway patent. Tongue does not deviate. NECK: Supple without nuchal rigidity. No lymphadenopathy. No thyromegaly. Cervical spine is nontender. No JVD. No meningeal signs HEART: Regular rate and rhythm without murmurs gallops or rubs. LUNGS: Clear to auscultation bilaterally without wheezes, rales or rhonchi. No dullness to percussion. No retractions or accessory muscle use. ABDOMEN: Positive bowel sounds x 4. Normal tympanic percussion. Soft, nontender, without masses or organomegaly. Glass sign negative. No guarding or rebound tenderness. MUSCULOSKELETAL: No muscle atrophy, erythema, or edema noted. NEURO: Patient was alert and oriented to person place and time. Normal sensation to light and sharp touch. No focal neurological deficits. Cranial nerves II through XII grossly intact. No pronator drift. Cerebellar exam intact Medical Decision & Procedures Medications Administered Medications (Trade) Dose Ordered Sig/Lonnie Route Start Time Stop Time Status Last Admin Dose Admin Metoclopramide HCl (Reglan Inj) 10 mg NOW STAT IM 01/24/17 01:02 01/24/17 01:03 DC 01/24/17 01:24 10 MG Ketorolac Tromethamine (Toradol Inj) 60 mg NOW STAT IM 01/24/17 01:02 01/24/17 01:03 DC 01/24/17 01:23 60 MG ED Course Prior records/ancillary studies reviewed. Additional history obtained from family. Triage Nursing notes reviewed. The patient's history was concerning for headache. Differential diagnosis: Etiologies such as migraine headache, meningitis, sinusitis, CO exposure, ICH, SAH, infection, tumor, headache, sinus thrombosis, arterial dissection, as well as others were entertained. Physical examination findings: As above. Non-focal. ER treatment provided: Toradol, Reglan IM On reassessment the patient felt better. Diagnostics interpreted by me: Deferred This appears to be consistent with migraine. Patient was neurovascularly and neurologically intact. She was well-appearing. No meningeal signs. She is advised to follow-up family care in a few days or here in the ER sooner for headache, fevers, neck stiffness, worsening signs or symptoms or as needed. By the evaluation outlined above emergent etiologies such as meningitis, sinusitis , CO exposure, ICH, SAH, infection, temporal arteritis, tumor, sinus thrombosis , arterial dissection, as well as others were deemed relatively unlikely. The pt informed about the findings as listed above. All questions were answered and pleased with the treatment. Return instructions were outlined and the patient was discharged in stable condition. Referral: The patient was referred back to their primary care physician for follow-up in 2 to 3 days for a recheck of the current condition. Medical Decision As above Medication Reconcilliation Current Medication List: was personally reviewed by me Blood Pressure Screening Patient's blood pressure: Normal blood pressure Impression Primary Impression: Migraine Departure Information Dispostion Home / Self-Care Condition GOOD Prescriptions No Active Prescriptions or Reported Meds Referrals Berkley Pavon D.O. (PCP) Forms HOME CARE DOCUMENTATION FORM, IMPORTANT VISIT INFORMATION Patient Instructions Headaches Migraine and Tension, My [facility] Additional Instructions DO NOT drive, drink alcohol, operate machinery, or perform dangerous activities today. You were given medications in the ER that can affect your ability to safely function or operate a vehicle. Rest today in a quiet, peaceful, dark environment and get a full 8-10 hrs of sleep tonight. Avoid loud noises, smoke/smoking, alcohol, bright lights, stress, or physical exertion today to minimize the chance the headache may return. Continue current medications. Ibuprofen(Motrin, Advil) may be used for fever or pain. Use 600mg every six hours as needed. Take with food. Avoid using more than 2400mg in a 24 hour period. Do not use 2400mg per day for more than three consecutive days without physician direction. Prolonged inappropriate use can lead to stomach upset or ulcers. (AND/OR) Acetaminophen(Tylenol) may be used for fever or pain. Use 1000mg every six hours as needed. Avoid using more than 3000mg in a 24 hour period. Return to the ER for passing out, worsening headache, vision problems, neck stiffness/pain, fevers, vomiting, worsening of your condition, or as needed. Follow up with your primary physician and/or a neurologist in 2-3 days for a recheck of your current condition. Problem Qualifiers Primary Impression: Migraine Migraine type: without aura Status migrainosus presence: without status migrainosus Intractability: not intractable Qualified Codes: G43.009 - Migraine without aura, not intractable, without status migrainosus
== END 2017-01-24 01:41 | disposition home or self-care (01) ==
LOC: C.EDB 00:38 → C.EDC 01:41
DX: G43.009 Migraine without aura, not intractable, without status migrainosus (principal); E28.2 Polycystic ovarian syndrome; Z83.3 Family history of diabetes mellitus; Z82.49 Family history of ischemic heart disease and other diseases of the circulatory system; Z84.1 Family history of disorders of kidney and ureter; Z82.0 Family history of epilepsy and other diseases of the nervous system

== ENCOUNTER 2017-09-11 12:18 | Emergency (ER) | payer OTHER ==
[~2017-09-11] VITALS: Ht 165.1 cm; Wt 137.0 kg
[2017-09-11 12:23] VITALS: TEMP 36.7; Ht 165.1 cm; Wt 137.0 kg
[2017-09-11] MEDS ORDERED: SODIUM CHLORIDE 0.9% 1000ML 1,000 ML IV STA (12:52)
[2017-09-11] MEDS ORDERED: ONDANSETRON INJ 2 MG/ML 2 ML VIAL IV STA (12:52)
[2017-09-11 13:04] LABS: BASO % 0.3 %; BASO ABS # 0.02 K/uL (0-0.2); EOS % 1.7 %; EOS ABS # 0.12 K/uL (0-0.5); HEMATOCRIT 40.9 % (37-47); IG# 0.03 K/uL (0.00-0.02); LYMPH ABS # 1.96 K/uL (1.2-3.4); MEAN CELL VOLUME 82.5 fL (80-100); MEAN CORPUSCULAR HEMOGLOBIN 28.2 pg (25-34); MEAN CORPUSCULAR HGB CONC 34.2 g/dl (32-36); MEAN PLATELET VOLUME 9.3 fL (7.4-10.4); MONO % 5.4 %; MONO ABS # 0.39 K/uL (0.11-0.59); NEUT % 65.2 %; NEUT ABS # 4.75 K/uL (1.4-6.5); PLATELET COUNT 277 K/uL (130-400); RED CELL DISTRIBUTION WIDTH CV 13.2 % (11.5-14.5); RED CELL DISTRIBUTION WIDTH SD 39.9 fL (36.4-46.3); WHITE BLOOD COUNT 7.27 K/uL (4.8-10.8)
[2017-09-11 13:16] LABS: ALBUMIN 3.6 gm/dl (3.4-5.0); CALCIUM 8.8 mg/dl (8.5-10.1); CREATININE 0.67 mg/dl (0.60-1.20); POTASSIUM 3.5 mmol/L (3.5-5.1)
[2017-09-11 13:19] LABS: TOTAL PROTEIN 7.6 gm/dl (6.4-8.2)
[2017-09-11] MEDS ORDERED: BUPR75TA20 PO (13:51)
[2017-09-11] MEDS ORDERED: GLC/500 PO (13:51)
[2017-09-11] MEDS ORDERED: ONDA4TAB10 SL (14:51)
[2017-09-11 14:56] VITALS: BP 155/99; PULSE 66; O2SAT 100
--- NOTE | 2017-09-12 07:19 | EMERGENCY ROOM VISIT NOTE ---
ED Visit Note First contact with patient: 12:25 Chief Complaint: Abdominal pain. History of Present Illness: Ms. Johansen is a 27 year-old white female who ambulates into the ED accompanied by her complaining of generalized quadrant abdominal pain. Historically patient reports reports a history of polycystic ovary syndrome. She denies any abdominal surgeries. Patient reports a gradual onset of diffuse abdominal pain that started 3-4 days ago. Since that time the pain has been constant but has waxed and waned in intensity. The pain is currently described as cramping sensation diffusely in her abdomen. The pain is nonradiating. She has not identified any aggravating or alleviating factors related to the pain. She has not taken any medications for pain prior to arrival at the hospital. Associated with her pain she reports she has had multiple episodes of vomiting; up to 5 times, per day. The vomitus is bilious in nature and she has not seen any blood in her vomit. She also reports that she has been also having multiple episodes of diarrhea; she reports up to 10 per day. She describes her diarrhea as light brown and mostly liquid with a few formed components. She denies seeing any blood or melena. She has not taken any medications for her vomiting or diarrhea. Additionally she expresses concerns about possible dehydration because of these episodes. Lastly just prior to discharge patient reports that she has been having ongoing light vaginal bleeding for several months with no associated symptoms. Patient denies fevers, chills, sweats, lightheadedness, dizziness, recent antibiotic use in the last 3 months, no travel outside [place] in the last 6 months. Skin eruptions, skin color changes, upper respiratory tract symptoms, shortness of breath, chest pain, urinary symptoms, hematuria, back pain. Review of Systems: As noted above in history of present illness. All body systems were reviewed and found to be negative as noted above. Past Medical History: As noted above, unspecified skin disorder, asthma, bronchitis, pneumonia, status post wisdom teeth extraction and tonsillectomy. Current Medications: Glucophage, Wellbutrin. Allergies to Medications: Lasix. Social History: Patient is employed; she lives with her and feels safe in her home environment; she denies tobacco and alcohol use. Physical Examination: Vital Signs: Date Time Temp Pulse Resp B/P (MAP) Pulse Ox O2 Delivery O2 Flow Rate FiO2 3/15/18 14:56 66 18 155/99 100 Room Air 09/11/17 13:36 66 20 108/79 98 Room Air 09/11/17 12:23 36.7 64 16 164/106 97 GENERAL: 27-year-old female in mild distress due to symptoms, nontoxic-appearing , afebrile and hemodynamically stable. NEUROLOGICAL: Awake, alert and oriented to person, place and time. Answering questions appropriately and following commands. Normal gait. Good hand eye coordination. SKIN: Warm, dry and pink. No soft tissue eruptions or trauma noted. HEENT: Atraumatic and normocephalic. PERRLA. Sclera white and conjunctiva pink. Oral cavity moist and pink. Pharynx is nonerythematous or edematous. Speech normal. No lymphadenopathy. Trachea midline. No jugular venous distention. BACK: No tenderness over the bony spine. No CVA tenderness. THORAX: Lungs sounds are clear to auscultation and equal bilaterally with symmetrical chest wall. No wheezing, rales or rhonchi. No crepitus, tenderness , subcutaneous air or deformities noted. HEART: Regular rate and rhythm. No gallops, rubs or murmurs are appreciated. ABDOMEN: Obese and soft with mild diffuse tenderness throughout her abdomen. Positive bowel sounds in all quadrants. No guarding, rigidity or organomegaly. EXTREMITIES: Moves all extremities well on command and with purpose. All distal neurovascular statuses are intact and equal bilaterally. ED Course: Patient is assessed as noted above. Patient's medication list was reviewed. Laboratory Testing: Test 09/11/17 12:45 09/11/17 13:09 09/11/17 14:45 Range/Units White Blood Count 7.27 4.8-10.8 K/uL Red Blood Count 4.96 4.2-5.4 M/uL Hemoglobin 14.0 12.0-16.0 g/dL Hematocrit 40.9 37-47 % Mean Corpuscular Volume 82.5 80-100 fL Mean Corpuscular Hemoglobin 28.2 25-34 pg Mean Corpuscular Hemoglobin Concent 34.2 32-36 g/dl Platelet Count 277 130-400 K/uL Mean Platelet Volume 9.3 7.4-10.4 fL Neutrophils (%) (Auto) 65.2 % Lymphocytes (%) (Auto) 27.0 % Monocytes (%) (Auto) 5.4 % Eosinophils (%) (Auto) 1.7 % Basophils (%) (Auto) 0.3 % Neutrophils # (Auto) 4.75 1.4-6.5 K/uL Lymphocytes # (Auto) 1.96 1.2-3.4 K/uL Monocytes # (Auto) 0.39 0.11-0.59 K/uL Eosinophils # (Auto) 0.12 0-0.5 K/uL Basophils # (Auto) 0.02 0-0.2 K/uL RDW Standard Deviation 39.9 36.4-46.3 fL RDW Coefficient of Variation 13.2 11.5-14.5 % Immature Granulocyte % (Auto) 0.4 % Immature Granulocyte # (Auto) 0.03 0.00-0.02 K/uL Sodium Level 140 136-145 mmol/L Potassium Level 3.5 3.5-5.1 mmol/L Chloride Level 107 98-107 mmol/L Carbon Dioxide Level 27 21-32 mmol/L Anion Gap 6.0 3-11 mmol/L Blood Urea Nitrogen 11 7-18 mg/dl Creatinine 0.67 0.60-1.20 mg/dl Est Creatinine Clear Calc Drug Dose 177.2 ml/min Estimated GFR () 139.6 Estimated GFR (Non- 120.5 BUN/Creatinine Ratio 16.6 10-20 Random Glucose 99 70-99 mg/dl Calcium Level 8.8 8.5-10.1 mg/dl Total Bilirubin 0.8 0.2-1 mg/dl Direct Bilirubin 0.1 0-0.2 mg/dl Aspartate Amino Transf (AST/SGOT) 25 15-37 U/L Alanine Aminotransferase (ALT/SGPT) 39 12-78 U/L Alkaline Phosphatase 99 45-117 U/L Total Protein 7.6 6.4-8.2 gm/dl Albumin 3.6 3.4-5.0 gm/dl Lipase 100 73-393 U/L Human Chorionic Gonadotropin, Qual NEG NEG Bedside Troponin I < 0.030 0-0.045 ng/ml Urine Color DK YELLOW Urine Appearance CLOUDY CLEAR Urine pH 5.0 4.5-7.5 Urine Specific Commodore 1.027 1.000-1.030 Urine Protein NEG NEG Urine Glucose (UA) NEG NEG Urine Ketones NEG NEG Urine Occult Blood 3+ NEG Urine Nitrite NEG NEG Urine Bilirubin NEG NEG Urine Urobilinogen NEG NEG Urine Leukocyte Esterase SMALL NEG Urine WBC (Auto) >30 0-5 /hpf Urine RBC (Auto) 5-10 0-4 /hpf Urine Hyaline Casts (Auto) 0 0-5 /lpf Urine Epithelial Cells (Auto) >30 0-5 /lpf Urine Bacteria (Auto) 1+ NEG Urine Pathogenic Casts 0 /lpf Urine Mucus PRESENT NONE PRSENT Urine Yeast (Auto) NONE PRSENT Patient was offered imaging studies and refused. Patient was hydrated with normal saline and she received 4 mg of Zofran IV for nausea. Patient was offered pain medications and refused. Patient was not able to supply me with a stool study for testing. Patient was reassessed multiple times during her stay in the emergency department. Patient was educated about today's findings and instructed on her treatment plan ; she verbalized understanding and agreement with this plan. Clinical Impression: Gastroenteritis. Decision-Making: Initially my differential diagnosis I considered gastroenteritis, bowel obstruction, colitis, diverticulitis, C. difficile and other diarrheal disease. Disposition: Patient discharged home in stable condition accompanied by her ; prior to departure she was reassessed and subjectively reported she was pain and symptom-free. She reported while in the emergency department she had no additional episodes of diarrhea or vomiting. Plan: Patient is encouraged to use 650 mg of acetaminophen every 6 hours as needed for pain. Patient was prescribed Zofran 4 mg every 6 hours as needed for nausea/vomiting. Patient was encouraged to use OTC Imodium for diarrhea and follow packaging instructions. Patient was encouraged to stay well-hydrated with increased clear fluids. Patient was encouraged to use a bland diet for the next 48 hours. Patient was encouraged to follow-up with her PCP for recheck if no better in 3- 4 days. Patient was encouraged to return the ED for worsening pain, worsening vomiting/ diarrhea, bloody vomitus/diarrhea, fevers or any new/concerning symptoms.
== END 2017-09-11 15:21 | disposition home or self-care (01) ==
LOC: C.EDB 12:19 → C.EDA 15:21
DX: K52.9 Noninfective gastroenteritis and colitis, unspecified (principal); Z91.040 Latex allergy status; J45.909 Unspecified asthma, uncomplicated

== ENCOUNTER 2020-06-01 21:53 | Inpatient (IN) ==
[2020-06-01] MEDS ORDERED: KETOROLAC 30 MG/ML VIAL IV STA (22:13)
[2020-06-01] MEDS ORDERED: DEXAMETHASONE SOD INJ 10 MG/ML VIAL IV ONE (22:13)
[2020-06-01] MEDS ORDERED: ACETAMINOPHEN 1,000 MG/100 ML VIAL IV STA (22:13)
[2020-06-01] MEDS ORDERED: SODIUM CHLORIDE 0.9% 1000ML 1,000 ML IV SCH ×2 (22:15→23:45)
--- NOTE | 2020-06-01 22:25 | Emergency Department Note ---
History of Present Illness General Chief complaint: Flu Like Symptoms Stated complaint: COUGH, SOB, FEVER Time Seen by Provider: 06/01/20 22:01 History of Present Illness Maximum Pain Intensity: 6 This is a 29-year-old female presenting to the emergency department for evaluation of fevers, chills, and difficulty breathing. The patient is employed at a local [employer], [employer], and has had multiple exposures to COVID- 19. The patient has had flulike symptoms for about the past 2 weeks and has had negative COVID-19 testing on 05/20/2020, and 05/23/2020. The patient ultimately purchased a home pulse oximeter and has been monitoring her breathing at home. When the patient walks up and down stairs she states that her saturation is dropping into the low 80s. She feels short of breath at rest and is 90% on room air. The patient has been taking intermittent ibuprofen for her fever. She does have a nonproductive cough and has been using an inhaler at home without significant relief of symptoms. The patient states that she feels worse today, and did contact her PCP, who evidently referred her to the ER for further evaluation. She rates her current discomfort a 6/10. She is diabetic and states her sugars have been doing well. Home Medications Medication Instructions Recorded Confirmed Type atorvastatin 20 mg PO DAILY 10/17/19 06/01/20 History empagliflozin [Jardiance] 10 mg PO DAILY 10/17/19 06/01/20 History semaglutide [Ozempic] 2 mg SUBCUT WK 10/17/19 06/01/20 History metformin 500 mg PO BID 05/23/20 06/01/20 History albuterol sulfate 2 inha INH Q6H PRN 06/01/20 06/01/20 History benzonatate 200 mg PO TID PRN 06/01/20 06/01/20 History ondansetron HCl 4 mg PO DIRECTED PRN 06/01/20 06/01/20 History sumatriptan succinate 100 mg PO DIRECTED PRN 06/01/20 06/01/20 History Allergies Allergy/AdvReac Type Severity Reaction Status Date / Time No Known Allergies Allergy Verified 06/01/20 22:49 Past Med/Surg History Medical History (Updated 06/02/20 @ 01:25 by Michi Browne PA-C) Abnormal uterine bleeding Anemia SIGNIFICANT ABNORMAL UTERINE BLEEDING= REASON FOR PROCEDURE Diabetes mellitus PER PATIENT, ON METFORMIN 2/2 PCOS; HGBA1C 7.5% ON PREOP LABS 07/24/18 History of PCOS ON METFORMIN Migraine Morbid obesity Surgical History History of tonsillectomy History of wisdom tooth extraction Social History Smoking Status: Never smoker Second Hand Exposure: No; Hx Alcohol Use: No Hx Substance Use: No Preferred Language: Macedonian Communication Ability: Effective Mint Wafer Depositor Required: No Beliefs That Will Affect Care: None Current Living Situation: Spouse Feels Safe at Home: Yes Assistive Devices: Glasses Review of Systems A total of 10 systems reviewed and were otherwise negative Physical Exam Vital Signs Vital Signs - 24 hr 06/01/20 21:54 06/01/20 22:46 06/01/20 22:56 Temperature 38.7 C H Temperature Source Temporal Artery Scan Pulse Rate 117 H 111 H 111 H Pulse Rate [Right Radial] Pulse Rate from SpO2 Sensor 111 H 110 H Respiratory Rate 18 22 22 Respiratory Effort / Characteristics Blood Pressure 147/89 H 138/83 Blood Pressure Mean 108 106 Pulse Oximetry 90 92 92 Oxygen Delivery Method Room Air Sepsis Recent Fever Within 48 Hours Yes Sepsis New/Unexplained Change in Mental Status No Sepsis Action Taken by Nursing No Action Required 06/01/20 23:00 06/01/20 23:01 06/01/20 23:10 Temperature Temperature Source Pulse Rate 109 H 110 H 107 H Pulse Rate [Right Radial] Pulse Rate from SpO2 Sensor 109 H 110 H Respiratory Rate 24 19 22 Respiratory Effort / Characteristics Blood Pressure 166/126 H Blood Pressure Mean 146 Pulse Oximetry 92 92 Oxygen Delivery Method Sepsis Recent Fever Within 48 Hours Sepsis New/Unexplained Change in Mental Status Sepsis Action Taken by Nursing 06/01/20 23:20 06/01/20 23:30 06/01/20 23:31 Temperature Temperature Source Pulse Rate 104 H 101 H 105 H Pulse Rate [Right Radial] Pulse Rate from SpO2 Sensor 105 H 101 H 107 H Respiratory Rate 23 20 Respiratory Effort / Characteristics Blood Pressure Blood Pressure Mean 142 Pulse Oximetry 94 93 92 Oxygen Delivery Method Sepsis Recent Fever Within 48 Hours Sepsis New/Unexplained Change in Mental Status Sepsis Action Taken by Nursing 06/01/20 23:40 06/01/20 23:50 06/02/20 00:00 Temperature Temperature Source Pulse Rate 102 H 100 H 97 H Pulse Rate [Right Radial] Pulse Rate from SpO2 Sensor 103 H 100 H 97 H Respiratory Rate 20 Respiratory Effort / Characteristics Blood Pressure Blood Pressure Mean Pulse Oximetry 93 94 90 Oxygen Delivery Method Sepsis Recent Fever Within 48 Hours Sepsis New/Unexplained Change in Mental Status Sepsis Action Taken by Nursing 06/02/20 00:02 06/02/20 00:10 06/02/20 00:20 Temperature Temperature Source Pulse Rate 96 H 98 H 90 Pulse Rate [Right Radial] Pulse Rate from SpO2 Sensor 97 H 98 H 92 H Respiratory Rate 15 24 22 Respiratory Effort / Characteristics Blood Pressure Blood Pressure Mean 210 Pulse Oximetry 91 93 95 Oxygen Delivery Method Sepsis Recent Fever Within 48 Hours Sepsis New/Unexplained Change in Mental Status Sepsis Action Taken by Nursing 06/02/20 00:40 06/02/20 00:50 06/02/20 01:00 Temperature Temperature Source Pulse Rate 89 86 88 Pulse Rate [Right Radial] Pulse Rate from SpO2 Sensor 89 87 88 Respiratory Rate 19 25 H Respiratory Effort / Characteristics Blood Pressure 113/71 Blood Pressure Mean 86 Pulse Oximetry 94 92 93 Oxygen Delivery Method Sepsis Recent Fever Within 48 Hours Sepsis New/Unexplained Change in Mental Status Sepsis Action Taken by Nursing 06/02/20 01:01 06/02/20 01:10 06/02/20 01:20 Temperature Temperature Source Pulse Rate 83 87 83 Pulse Rate [Right Radial] Pulse Rate from SpO2 Sensor 84 87 83 Respiratory Rate 24 22 Respiratory Effort / Characteristics Blood Pressure Blood Pressure Mean Pulse Oximetry 93 93 92 Oxygen Delivery Method Sepsis Recent Fever Within 48 Hours Sepsis New/Unexplained Change in Mental Status Sepsis Action Taken by Nursing 06/02/20 01:30 06/02/20 01:31 06/02/20 01:40 Temperature Temperature Source Pulse Rate 94 H 85 86 Pulse Rate [Right Radial] Pulse Rate from SpO2 Sensor 90 85 86 Respiratory Rate 16 20 Respiratory Effort / Characteristics Blood Pressure 134/86 Blood Pressure Mean 99 Pulse Oximetry 91 90 90 Oxygen Delivery Method Sepsis Recent Fever Within 48 Hours Sepsis New/Unexplained Change in Mental Status Sepsis Action Taken by Nursing 06/02/20 01:46 06/02/20 01:50 06/02/20 02:00 Temperature Temperature Source Pulse Rate 89 93 H Pulse Rate [Right Radial] 79 Pulse Rate from SpO2 Sensor 88 Respiratory Rate 23 Respiratory Effort / Characteristics Non-Labored Spontaneous Blood Pressure 139/91 Blood Pressure Mean 104 Pulse Oximetry 90 92 94 Oxygen Delivery Method Room Air Sepsis Recent Fever Within 48 Hours Sepsis New/Unexplained Change in Mental Status Sepsis Action Taken by Nursing 06/02/20 02:01 Temperature Temperature Source Pulse Rate 96 H Pulse Rate [Right Radial] Pulse Rate from SpO2 Sensor Respiratory Rate Respiratory Effort / Characteristics Blood Pressure Blood Pressure Mean Pulse Oximetry Oxygen Delivery Method Sepsis Recent Fever Within 48 Hours Sepsis New/Unexplained Change in Mental Status Sepsis Action Taken by Nursing VITALS: Vitals are noted on the nurse's note and reviewed by myself. Vital signs with noted tachycardia and fever. O2 sat is 90% on room air. GENERAL: Morbidly obese white female who appears ill on presentation. She is with noted dry cough. She is able to speak in full sentences. HEAD: Normocephalic atraumatic. MOUTH: Mucous membranes moist. Tonsils are not enlarged. Pharynx without erythema, blood, or exudate. Uvula midline. Airway patent. NECK: Supple without nuchal rigidity. No lymphadenopathy. No thyromegaly. Cervical spine is nontender. HEART: Tachycardic rate with regular rhythm LUNGS: Distant but generally clear ABDOMEN: Positive normal bowel sounds x 4. Soft, nontender, without masses or organomegaly. No guarding or rebound tenderness. MUSCULOSKELETAL: No muscle atrophy, erythema, or edema noted. Full range of motion in all extremities NEURO: Patient was alert and oriented to person place and time. CN II through XII grossly intact. Course Administered Medications Discontinued Medications Albuterol (Albut/Ipratrop 3mg/0.5mg Neb 3 Ml Vial) 3 ml NEB NOW STA Stop: 06/02/20 01:32 Last Admin: 06/02/20 01:45 Dose: 3 ml Documented by: [id number] Dexamethasone (Dexamethasone Sod Inj 10 Mg/Ml Vial) 10 mg IV NOW ONE Stop: 06/01/20 22:14 Last Admin: 06/01/20 22:49 Dose: 10 mg Documented by: [id number] Sodium Chloride (Nss 1000ml) 1,000 mls @ 999 mls/hr IV .Q1H1M RAFFAELE Stop: 06/01/20 23:15 Last Infusion: 06/02/20 00:05 Dose: 0 mls/hr Documented by: [id number] Admin: 06/01/20 22:48 Dose: 999 mls/hr Documented by: [id number] Acetaminophen (Ofirmev) 1,000 mg in 100 mls @ 400 mls/hr IV NOW STA Stop: 06/01/20 22:27 Last Infusion: 06/01/20 23:31 Dose: 0 mls/hr Documented by: [id number] Admin: 06/01/20 22:48 Dose: 400 mls/hr Documented by: [id number] Sodium Chloride (Nss 1000ml) 1,000 mls @ 999 mls/hr IV .Q1H1M RAFFAELE Stop: 06/02/20 00:45 Last Infusion: 06/02/20 01:20 Dose: 0 mls/hr Documented by: [id number] Admin: 06/02/20 00:17 Dose: 999 mls/hr Documented by: [id number] Piperacillin Sod/Tazobactam Sod (Zosyn) 4.5 gm in 120 mls @ 240 mls/hr IV NOW ONE Stop: 06/02/20 00:46 Last Infusion: 06/02/20 01:20 Dose: 0 mls/hr Documented by: [id number] Admin: 06/02/20 00:44 Dose: 240 mls/hr Documented by: [id number] Doxycycline Hyclate 100 mg/ (Dextrose) 110 mls @ 50 mls/hr IV NOW STA Stop: 06/02/20 03:47 Last Infusion: 06/02/20 04:00 Dose: 0 mls/hr Documented by: [id number] Admin: 06/02/20 01:56 Dose: 50 mls/hr Documented by: [id number] Insulin Glargine (Insulin Glargine Solostar 100 Units/Ml 3 Ml Pen) 10 units SC NOW STA Stop: 06/02/20 01:43 Last Admin: 06/02/20 02:04 Dose: 10 units Documented by: [id number] Cosigned by: [id number] Ioversol (Optiray 320 125ml) 125 ml IV ONCE ONE Stop: 06/02/20 00:48 Last Admin: 06/02/20 00:47 Dose: 86 ml Documented by: [id number] Ketorolac Tromethamine (Ketorolac 30 Mg/Ml Vial) 30 mg IV NOW STA Stop: 06/01/20 22:14 Last Admin: 06/01/20 22:49 Dose: 30 mg Documented by: [id number] Potassium Chloride (Potassium Chloride Crtab 20 Meq Tabcr) 40 meq PO NOW STA Stop: 06/02/20 01:34 Last Admin: 06/02/20 01:56 Dose: 40 meq Documented by: [id number] Critical Care Time I have personally spent greater than 32 minutes of critical care time in the direct management of this patient. This includes bedside care, interpretation of diagnostic studies, and testing, discussion with consultants, patient, and family members, and other required patient management activities. This 32 minutes is in excess of all separately billable procedures. Medical Decision Making Differential Diagnosis Differential diagnosis: Etiologies such as viral syndrome, otitis, pharyngitis, pneumonia, influenza, meningitis, urinary tract infection, septic arthritis, soft tissue infectious process, intra-abdominal process, sepsis, bacteremia, as well as others were entertained. Laboratory Data Result diagrams: 06/01/20 22:42 06/01/20 22:42 Lab Results 06/01/20 06/01/20 06/01/20 Range/Units 22:41 22:41 22:41 WBC (4.8-10.8) K/uL RBC (4.2-5.4) M/uL Hgb (12.0-16.0) g/dL Hct (37-47) % MCV (80-100) fL MCH (25-34) pg MCHC (32-36) g/dL RDW Std Deviation (36.4-46.3) fL RDW Coeff of Irvin (11.5-14.5) % Plt Count (130-400) K/uL MPV (7.4-10.4) fL Immature Gran % (Auto) % Neut % (Auto) % Lymph % (Auto) % Parke % (Auto) % Eos % (Auto) % Baso % (Auto) % Neut # (Auto) (1.4-6.5) K/uL Lymph # (Auto) (1.2-3.4) K/uL Parke # (Auto) (0.11-0.59) K/uL Eos # (Auto) (0-0.5) K/uL Baso # (Auto) (0-0.2) K/uL Immature Gran # (Auto) (0.00-0.02) K/uL PT 10.7 (9.0-12.0) Seconds INR 1.0 (0.9-1.1) APTT 28.5 (21.0-31.0) Seconds PTT Ratio 1.0 D-Dimer 910 H* (0-500) ug/L FEU VBG pH (7.36-7.41) VBG pCO2 (38-50) mmHg VBG pO2 mmHg VBG HCO3 mmol/L VBG O2 Saturation % VBG Base Excess mEq/L Barometric Pressure mm/Hg Sodium (136-145) mmol/L Potassium (3.5-5.1) mmol/L Chloride (98-107) mmol/L Carbon Dioxide (21-32) mmol/L Anion Gap (3-11) BUN (7-18) mg/dl Creatinine (0.6-1.2) mg/dl Est Cr Clr Drug Dosing ml/min Est GFR ( Amer) Est GFR (Non-Af Amer) BUN/Creatinine Ratio (10-20) Glucose (70-99) mg/dl Lactate (0.4-2.0) mmol/L Calcium (8.5-10.1) mg/dl Magnesium (1.8-2.4) mg/dl Total Bilirubin (0.2-1) mg/dl AST (15-37) U/L ALT (12-78) U/L Alkaline Phosphatase (45-117) U/L Troponin I (0-0.045) ng/ml Total Protein (6.4-8.2) gm/dl Albumin (3.4-5.0) gm/dl Globulin (2.5-4.0) gm/dl Albumin/Globulin Ratio (0.9-2) TSH (0.300-4.500) uIu/ml HCG, Qual Negative (Negative) Urine Color Urine Appearance (Clear) Urine pH (4.5-7.5) Ur Specific Bunn (1.000-1.030) Urine Protein (Negative) Urine Glucose (UA) (Negative) Urine Ketones (Negative) Urine Blood (Negative) Urine Nitrite (Negative) Urine Bilirubin (Negative) Urine Urobilinogen (Negative) Ur Leukocyte Esterase (Negative) Lyme Disease IgG Ab Negative (Negative) Lyme Disease IgM Ab Negative (Negative) COVID-19 Eval Order Influ A Molecular Assay (Negative) Influ B Molecular Assay (Negative) SARS-CoV-2, RNA, NAAT (NEGATIVE) Blood Type A Positive Antibody Screen NEGATIVE 06/01/20 06/01/20 06/01/20 Range/Units 22:42 22:42 22:42 WBC 4.96 (4.8-10.8) K/uL RBC 4.70 (4.2-5.4) M/uL Hgb 13.6 (12.0-16.0) g/dL Hct 39.3 (37-47) % MCV 83.6 (80-100) fL MCH 28.9 (25-34) pg MCHC 34.6 (32-36) g/dL RDW Std Deviation 41.1 (36.4-46.3) fL RDW Coeff of Irvin 13.4 (11.5-14.5) % Plt Count 198 (130-400) K/uL MPV 9.3 (7.4-10.4) fL Immature Gran % (Auto) 0.4 % Neut % (Auto) 75.0 % Lymph % (Auto) 18.1 % Parke % (Auto) 6.3 % Eos % (Auto) 0.0 % Baso % (Auto) 0.2 % Neut # (Auto) 3.72 (1.4-6.5) K/uL Lymph # (Auto) 0.90 L (1.2-3.4) K/uL Parke # (Auto) 0.31 (0.11-0.59) K/uL Eos # (Auto) 0.00 (0-0.5) K/uL Baso # (Auto) 0.01 (0-0.2) K/uL Immature Gran # (Auto) 0.02 (0.00-0.02) K/uL PT (9.0-12.0) Seconds INR (0.9-1.1) APTT (21.0-31.0) Seconds PTT Ratio D-Dimer (0-500) ug/L FEU VBG pH (7.36-7.41) VBG pCO2 (38-50) mmHg VBG pO2 mmHg VBG HCO3 mmol/L VBG O2 Saturation % VBG Base Excess mEq/L Barometric Pressure mm/Hg Sodium 137 (136-145) mmol/L Potassium 3.2 L (3.5-5.1) mmol/L Chloride 101 (98-107) mmol/L Carbon Dioxide 28 (21-32) mmol/L Anion Gap 8.0 (3-11) BUN 6 L (7-18) mg/dl Creatinine 0.84 (0.6-1.2) mg/dl Est Cr Clr Drug Dosing 137.5 ml/min Est GFR ( Amer) 108.9 Est GFR (Non-Af Amer) 93.9 BUN/Creatinine Ratio 7.3 L (10-20) Glucose 248 H (70-99) mg/dl Lactate 3.1 H* (0.4-2.0) mmol/L Calcium 8.5 (8.5-10.1) mg/dl Magnesium 1.8 (1.8-2.4) mg/dl Total Bilirubin 1.3 H (0.2-1) mg/dl AST 44 H (15-37) U/L ALT 70 (12-78) U/L Alkaline Phosphatase 106 (45-117) U/L Troponin I < 0.015 (0-0.045) ng/ml Total Protein 6.9 (6.4-8.2) gm/dl Albumin 3.0 L (3.4-5.0) gm/dl Globulin 3.9 (2.5-4.0) gm/dl Albumin/Globulin Ratio 0.8 L (0.9-2) TSH 0.843 (0.300-4.500) uIu/ml HCG, Qual (Negative) Urine Color Urine Appearance (Clear) Urine pH (4.5-7.5) Ur Specific Bunn (1.000-1.030) Urine Protein (Negative) Urine Glucose (UA) (Negative) Urine Ketones (Negative) Urine Blood (Negative) Urine Nitrite (Negative) Urine Bilirubin (Negative) Urine Urobilinogen (Negative) Ur Leukocyte Esterase (Negative) Lyme Disease IgG Ab (Negative) Lyme Disease IgM Ab (Negative) COVID-19 Eval Order Influ A Molecular Assay (Negative) Influ B Molecular Assay (Negative) SARS-CoV-2, RNA, NAAT (NEGATIVE) Blood Type Antibody Screen 06/01/20 06/01/20 06/01/20 Range/Units 22:42 22:55 22:55 WBC (4.8-10.8) K/uL RBC (4.2-5.4) M/uL Hgb (12.0-16.0) g/dL Hct (37-47) % MCV (80-100) fL MCH (25-34) pg MCHC (32-36) g/dL RDW Std Deviation (36.4-46.3) fL RDW Coeff of Irvin (11.5-14.5) % Plt Count (130-400) K/uL MPV (7.4-10.4) fL Immature Gran % (Auto) % Neut % (Auto) % Lymph % (Auto) % Parke % (Auto) % Eos % (Auto) % Baso % (Auto) % Neut # (Auto) (1.4-6.5) K/uL Lymph # (Auto) (1.2-3.4) K/uL Parke # (Auto) (0.11-0.59) K/uL Eos # (Auto) (0-0.5) K/uL Baso # (Auto) (0-0.2) K/uL Immature Gran # (Auto) (0.00-0.02) K/uL PT (9.0-12.0) Seconds INR (0.9-1.1) APTT (21.0-31.0) Seconds PTT Ratio D-Dimer (0-500) ug/L FEU VBG pH 7.42 H (7.36-7.41) VBG pCO2 42 (38-50) mmHg VBG pO2 28 mmHg VBG HCO3 27 mmol/L VBG O2 Saturation < 60.0 % VBG Base Excess 1.9 mEq/L Barometric Pressure 736.4 mm/Hg Sodium (136-145) mmol/L Potassium (3.5-5.1) mmol/L Chloride (98-107) mmol/L Carbon Dioxide (21-32) mmol/L Anion Gap (3-11) BUN (7-18) mg/dl Creatinine (0.6-1.2) mg/dl Est Cr Clr Drug Dosing ml/min Est GFR ( Amer) Est GFR (Non-Af Amer) BUN/Creatinine Ratio (10-20) Glucose (70-99) mg/dl Lactate (0.4-2.0) mmol/L Calcium (8.5-10.1) mg/dl Magnesium (1.8-2.4) mg/dl Total Bilirubin (0.2-1) mg/dl AST (15-37) U/L ALT (12-78) U/L Alkaline Phosphatase (45-117) U/L Troponin I (0-0.045) ng/ml Total Protein (6.4-8.2) gm/dl Albumin (3.4-5.0) gm/dl Globulin (2.5-4.0) gm/dl Albumin/Globulin Ratio (0.9-2) TSH (0.300-4.500) uIu/ml HCG, Qual (Negative) Urine Color Urine Appearance (Clear) Urine pH (4.5-7.5) Ur Specific Bunn (1.000-1.030) Urine Protein (Negative) Urine Glucose (UA) (Negative) Urine Ketones (Negative) Urine Blood (Negative) Urine Nitrite (Negative) Urine Bilirubin (Negative) Urine Urobilinogen (Negative) Ur Leukocyte Esterase (Negative) Lyme Disease IgG Ab (Negative) Lyme Disease IgM Ab (Negative) COVID[facility]19 [facility] Molecular Assay Negative (Negative) Influ B Molecular Assay Negative (Negative) SARS-CoV-2, RNA, NAAT (NEGATIVE) Blood Type Antibody Screen 06/01/20 06/02/20 06/02/20 Range/Units 22:55 00:15 00:43 WBC (4.8-10.8) K/uL RBC (4.2-5.4) M/uL Hgb (12.0-16.0) g/dL Hct (37-47) % MCV (80-100) fL MCH (25-34) pg MCHC (32-36) g/dL RDW Std Deviation (36.4-46.3) fL RDW Coeff of Irvin (11.5-14.5) % Plt Count (130-400) K/uL MPV (7.4-10.4) fL Immature Gran % (Auto) % Neut % (Auto) % Lymph % (Auto) % Parke % (Auto) % Eos % (Auto) % Baso % (Auto) % Neut # (Auto) (1.4-6.5) K/uL Lymph # (Auto) (1.2-3.4) K/uL Parke # (Auto) (0.11-0.59) K/uL Eos # (Auto) (0-0.5) K/uL Baso # (Auto) (0-0.2) K/uL Immature Gran # (Auto) (0.00-0.02) K/uL PT (9.0-12.0) Seconds INR (0.9-1.1) APTT (21.0-31.0) Seconds PTT Ratio D-Dimer (0-500) ug/L FEU VBG pH (7.36-7.41) VBG pCO2 (38-50) mmHg VBG pO2 mmHg VBG HCO3 mmol/L VBG O2 Saturation % VBG Base Excess mEq/L Barometric Pressure mm/Hg Sodium (136-145) mmol/L Potassium (3.5-5.1) mmol/L Chloride (98-107) mmol/L Carbon Dioxide (21-32) mmol/L Anion Gap (3-11) BUN (7-18) mg/dl Creatinine (0.6-1.2) mg/dl Est Cr Clr Drug Dosing ml/min Est GFR ( Amer) Est GFR (Non-Af Amer) BUN/Creatinine Ratio (10-20) Glucose (70-99) mg/dl Lactate 1.3 (0.4-2.0) mmol/L Calcium (8.5-10.1) mg/dl Magnesium (1.8-2.4) mg/dl Total Bilirubin (0.2-1) mg/dl AST (15-37) U/L ALT (12-78) U/L Alkaline Phosphatase (45-117) U/L Troponin I (0-0.045) ng/ml Total Protein (6.4-8.2) gm/dl Albumin (3.4-5.0) gm/dl Globulin (2.5-4.0) gm/dl Albumin/Globulin Ratio (0.9-2) TSH (0.300-4.500) uIu/ml HCG, Qual (Negative) Urine Color Yellow Urine Appearance Clear (Clear) Urine pH 5.0 (4.5-7.5) Ur Specific Bunn 1.021 (1.000-1.030) Urine Protein Negative (Negative) Urine Glucose (UA) 2+ H (Negative) Urine Ketones Negative (Negative) Urine Blood Negative (Negative) Urine Nitrite Negative (Negative) Urine Bilirubin Negative (Negative) Urine Urobilinogen Negative (Negative) Ur Leukocyte Esterase Negative (Negative) Lyme Disease IgG Ab (Negative) Lyme Disease IgM Ab (Negative) COVID-19 Eval Order Influ A Molecular Assay (Negative) Influ B Molecular Assay (Negative) SARS-CoV-2, RNA, NAAT NEGATIVE (NEGATIVE) Blood Type Antibody Screen Imaging Data Radiologist's Impression: Preliminary Findings Only See Final Report For Complete Findings CTA CHEST: No pulmonary embolus. Bilateral infiltrates. Reduced lung volumes. Mild mediastinal and hilar adenopathy Fatty liver. Generous sized liver and spleen. MDM Narrative Physical exam and history were performed. Nursing notes, EMR, and Medication List were personally reviewed. Patient appears to have fever and shortness of breath symptoms bringing her to the ER. 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 She was cared for using COVID-19 precautions. IV access was established and labs were obtained. The patient was given IV fluids, IV Tylenol, IV Toradol, and IV Decadron. The case was discussed with my attending physician, Dr. Gonzales who remained involved in care and decision-making. Blood cultures were gathered. An order was placed for continuous cardiac monitoring. The monitor shows a rate of 80 with normal sinus rhythm. The patient's blood work is as above and was reviewed. She does not have a significantly elevated white blood cell count, gross anemia, bandemia, or significant electrolyte imbalance. INR is 1.0. VBG is fairly unremarkable. Glucose is 248. Lactic acid is elevated at 3.1 and she was given additional fluids. Troponin x1 is negative. D-dimer is elevated at over 900 and she was sent to CT scan for CTA. Urine does not show gross evidence of infection. Influenza is negative. In-house COVID-19 test is negative. Chest x-ray was reviewed by myself and my attending and we do have concern for bilateral pneumonia. CT scan was ultimately reviewed as well by myself and radiology, and CT scan does show bilateral infiltrates without acute pulmonary emboli. On reevaluation the patient did start to feel much better. Her pulse normalized and her temperature began to improve. She did feel somewhat better after the Decadron and continue to have a pulse ox of roughly 93%. We did start her on Zosyn here in the ER. Overall the patient does not appear well for discharge home. The concern is that she has a bilateral pneumonia with hypoxia and possible sepsis. She does have multiple negative COVID-19 test, but this does remain a concern. The case was discussed with the on-call hospitalist who agreed to evaluate patient here in the ER. Please see their dictation for further patient course, plan, and disposition. The chart was completed utilizing [employer] Voice Recognition Software. Grammatical errors, random word insertions, pronoun errors, and incomplete sentences are an occasional consequence of this system due to software limitations, ambient noise, and hardware issues. Any formal questions or concerns about the content, text, or information contained within the body of this dictation should be directly addressed to the provider for clarification. . Impression & Plan Sepsis, Fever, Pneumonia, Shortness of breath, Hypoxia Discharge Plan Visit Data Chief Complaint: Flu Like Symptoms Stated Complaint: COUGH, SOB, FEVER ED Provider: Buddy Gonzales ED Midlevel Provider: Michi Browne Discharge Problem: Sepsis, Fever, Pneumonia, Shortness of breath, Hypoxia Patient Disposition: Admitted As Inpatient Discharge Instructions Interventions: ED Discharge Assessment Last Done: 06/02/20 04:18 Discharge Problem: Sepsis Qualifiers: Sepsis type: sepsis due to unspecified organism Sepsis acute organ dysfunction status: without acute organ dysfunction Qualified Code(s): A41.9 - Sepsis, unspecified organism Fever Qualifiers: Fever type: unspecified Qualified Code(s): R50.9 - Fever, unspecified Pneumonia Qualifiers: Aspiration pneumonia type: unspecified Laterality: bilateral Lung location: unspecified part of lung
[2020-06-01 22:57] LABS: Base Excess VBG 1.9 mEq/L; HCO3 VBG 27 mmol/L; PCO2 VBG 42 mmHg (38-50); PO2 VBG 28 mmHg; pH VBG 7.42 (7.36-7.41)
[2020-06-01 23:02] LABS: Basophils # (auto) 0.01 K/uL (0-0.2); Basophils % (auto) 0.2 %; Hematocrit (blood only) 39.3 % (37-47); Hemoglobin 13.6 g/dL (12.0-16.0); Immature Granulocytes # (auto) 0.02 K/uL (0.00-0.02); Immature Granulocytes % (auto) 0.4 %; Lymphocytes % (auto) 18.1 %; Mean Corpuscular Hemoglobin 28.9 pg (25-34); Mean Corpuscular Hgb Conc 34.6 g/dL (32-36); Mean Corpuscular Volume 83.6 fL (80-100); Mean Platelet Volume 9.3 fL (7.4-10.4); Monocytes # (auto) 0.31 K/uL (0.11-0.59); Monocytes % (auto) 6.3 %; Neutrophils # (auto) 3.72 K/uL (1.4-6.5); Platelet Count 198 K/uL (130-400); RDW Coefficient of Variation 13.4 % (11.5-14.5); RDW Standard Deviation 41.1 fL (36.4-46.3); White Blood Count 4.96 K/uL (4.8-10.8)
[2020-06-01 23:08] LABS: Oxygen Saturation VBG < 60.0 %
[2020-06-01 23:10] LABS: Partial Thromboplastin Time 28.5 Seconds (21.0-31.0); Prothrombin Time 10.7 Seconds (9.0-12.0)
[2020-06-01 23:20] LABS: D Dimer 910 ug/L FEU (0-500)
[2020-06-01 23:21] LABS: Alanine Aminotransferase 70 U/L (12-78); Aspartate Aminotransferase 44 U/L (15-37); BUN Creatinine Ratio 7.3 (10-20); Blood Urea Nitrogen 6 mg/dl (7-18); Calcium 8.5 mg/dl (8.5-10.1); Carbon Dioxide 28 mmol/L (21-32); Chloride 101 mmol/L (98-107); Creatinine Clr Calc Pharmacy 137.5 ml/min; Est GFR (African American) 108.9; Est GFR (Non-African American) 93.9; Glucose 248 mg/dl (70-99); Potassium 3.2 mmol/L (3.5-5.1); Sodium 137 mmol/L (136-145)
[2020-06-01 23:29] LABS: Pregnancy Test, Serum Negative (Negative)
[2020-06-01 23:30] LABS: Influenza A virus by PCR Negative (Negative); Influenza B virus by PCR Negative (Negative)
[2020-06-01 23:32] LABS: Albumin Globulin Ratio 0.8 (0.9-2); Alkaline Phosphatase 106 U/L (45-117); Bilirubin,Total 1.3 mg/dl (0.2-1); Globulin 3.9 gm/dl (2.5-4.0); Thyroid Stimulating Hormone 0.843 uIu/ml (0.300-4.500); Total Protein 6.9 gm/dl (6.4-8.2); Troponin I < 0.015 ng/ml (0-0.045)
[2020-06-01 23:58] LABS: Lyme Ab IgG w/WB Rflx Negative (Negative); Lyme Ab IgM w/WB Rflx Negative (Negative)
[2020-06-02] MEDS ORDERED: PIPERACILL/TAZOBAC CONSULT ACTIVE PRN (00:17)
[2020-06-02] MEDS ORDERED: PIPERACILLIN/TAZOBACTAM 4.5 GM/120 ML BAG IV ONE (00:17)
[2020-06-02 00:44] LABS: Appearance Urine Clear (Clear); Bilirubin Urine Negative (Negative); Blood Urine Negative (Negative); Color Urine Yellow; Glucose Urine UA 2+ (Negative); Ketones Urine Negative (Negative); Leukocyte Esterase Urine Negative (Negative); Nitrite Urine Negative (Negative); Protein Urine Negative (Negative); Specific Gravity Urine 1.021 (1.000-1.030); Urobilinogen Urine Negative (Negative)
[2020-06-02] MEDS ORDERED: OPTIRAY 320 125ml IV ONE (00:47)
[2020-06-02] MEDS ORDERED: ALBUT/IPRATROP 3MG/0.5MG NEB 3 ML VIAL NEB STA (01:31)
[2020-06-02] MEDS ORDERED: POTASSIUM CHLORIDE CRTAB 20 MEQ TABCR PO STA (01:33)
[2020-06-02] MEDS ORDERED: DOXYCYCLINE HYCLATE 100 MG in DEXTROSE 5% 100 ML IV STA (01:36)
[2020-06-02] MEDS ORDERED: INSULIN GLARGINE SOLOSTAR 100 UNITS/ML 3 ML PEN SC STA ×2 (01:42→07:28)
[2020-06-02 01:50] LABS: Magnesium 1.8 mg/dl (1.8-2.4)
--- NOTE | 2020-06-02 02:15 | History & Physical Report ---
Date of Service June 02, 2020 Assessment & Plan (1) Severe sepsis: SIRS plus hypoxemia plus lactic acidosis secondary to community-acquired bronchopneumonia Rule out C. difficile DM2 on oral medications, patient hyperglycemic Hemoglobin A1c of 6.7, May 2019 Hypokalemia secondary to diarrhea symptoms fatty liver as per records anxiety/mood disorder, at baseline Medical telemetry Cultures, Ceftriaxone, Doxycycline Nebs, prednisone course given bronchospasm and hypoxemia Stool C. difficile Replace potassium, IVF Basal insulin, ISS BG goal [id number], carb count coverage, update hemoglobin A1c DVT prophylaxis per Lovenox subcu Full code Text document was generated using [employer] voice recognition software. It may contain grammatical or spelling errors. Kindly contact undersigned for clarification of any documentation item in question. History of Present Illness Chief Complaint: Hypoxemia, worsening shortness of breath Primary Care Provider: Berkley Pavon, History obtained from patient and records. Medical history significant for DM2 on oral medications, fatty liver as per records, PCOS, anxiety/mood disorder. Few weeks history of flulike symptoms, fever, chills, dry cough symptoms. No chest pain, no S OB. No aspiration. Loose stools nonbloody without abdominal pain. 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 2 outpatient Covid 19 tests were negative. Supportive management recommended by PCP on telemedicine visit 2 days ago. At home yesterday, patient noted O2 sats to be 80s with home pulse ox. Worsening shortness of breath and cough symptoms without chest pain. At the ER, patient received Zosyn for sepsis. Decadron given as well. Medical History as above Surgical History : Dental surgery, hysteroscopy with by biopsy and polypectomy, tonsillectomy/adenoidectomy Family History : Breast cancer, ITP, diabetes, heart disease, ovarian cancer, uterine cancer Personal/Social history : Non-smoker, no EtOH intake, [employer] Allergies Allergy/AdvReac Type Severity Reaction Status Date / Time No Known Allergies Allergy Verified 06/01/20 22:49 Home Medications Medication Instructions Recorded Confirmed Type atorvastatin 20 mg PO DAILY 10/17/19 06/01/20 History empagliflozin [Jardiance] 10 mg PO DAILY 10/17/19 06/01/20 History semaglutide [Ozempic] 2 mg SUBCUT WK 10/17/19 06/01/20 History metformin 500 mg PO BID 05/23/20 06/01/20 History albuterol sulfate 2 inha INH Q6H PRN 06/01/20 06/01/20 History benzonatate 200 mg PO TID PRN 06/01/20 06/01/20 History ondansetron HCl 4 mg PO DIRECTED PRN 06/01/20 06/01/20 History sumatriptan succinate 100 mg PO DIRECTED PRN 06/01/20 06/01/20 History Past Med/Surg History Medical History (Updated 06/02/20 @ 07:47 by Miguel Diaz MD) Abnormal uterine bleeding Anemia SIGNIFICANT ABNORMAL UTERINE BLEEDING= REASON FOR PROCEDURE Diabetes mellitus PER PATIENT, ON METFORMIN 2/2 PCOS; HGBA1C 7.5% ON PREOP LABS 07/24/18 History of PCOS ON METFORMIN Migraine Morbid obesity Surgical History History of tonsillectomy History of wisdom tooth extraction Social History Smoking Status: Never smoker Second Hand Exposure: No; Hx Alcohol Use: No Hx Substance Use: No Preferred Language: [place] Islander Communication Ability: Effective Staff Counsel Required: No Beliefs That Will Affect Care: None Current Living Situation: Spouse and Family Current Living Situation Comment: and children Other Information That Helps Us Care for You: No Feels Safe at Home: Yes Safety Concerns: Feels Safe At This Time Assistive Devices: Glasses Review of Systems Review of Systems: As per HPI, all 10 systems reviewed, all other ROS negative Physical Exam Physical Exam: GENERAL: Slightly uncomfortable, morbidly obese, minimal respiratory distress SKIN: Normal color, warm HEENT: [place] palpebral conjunctivae, no ptosis, dry buccal mucosa NECK : Supple, short neck, no tenderness CHEST : Decreased breath sounds, occasional expiratory wheezes, no tenderness HEART : RRR, no obvious murmurs ABDOMEN: Some distention, nontender EXTREMITIES : Minimal LE swelling, no LE tenderness, no other conspicuous deformities noted NEUROLOGIC : Coherent, no facial asymmetry, no other gross focality Results & Data Results & Data ([facility]) Vital Signs (Past 12 Hours) Vital Signs Temp Pulse Pulse Resp BP Pulse Ox 06/02/20 01:46 79 23 90 12/04/20 01:00 88 25 H 113/71 93 06/02/20 00:50 86 19 92 06/02/20 00:40 89 94 06/02/20 00:20 90 22 95 06/02/20 00:10 98 H 24 93 06/02/20 00:02 96 H 15 91 06/02/20 00:00 97 H 90 06/01/20 23:50 100 H 20 94 06/01/20 23:40 102 H 93 06/01/20 23:31 105 H 20 92 06/01/20 23:30 101 H 93 06/01/20 23:20 104 H 23 94 06/01/20 23:10 107 H 22 06/01/20 23:01 110 H 19 92 06/01/20 23:00 109 H 24 166/126 H 92 06/01/20 22:56 111 H 22 92 06/01/20 22:46 111 H 22 138/83 92 06/01/20 21:54 38.7 C H 117 H 18 147/89 H 90 Laboratory Results Laboratory Results WBC 4.96 K/uL (4.8-10.8) 06/01/20 22:42 RBC 4.70 M/uL (4.2-5.4) 06/01/20 22:42 Hgb 13.6 g/dL (12.0-16.0) 06/01/20 22:42 Hct 39.3 % (37-47) 06/01/20 22:42 MCV 83.6 fL (80-100) 06/01/20 22:42 MCH 28.9 pg (25-34) 06/01/20 22:42 MCHC 34.6 g/dL (32-36) 06/01/20 22:42 RDW Std Deviation 41.1 fL (36.4-46.3) 06/01/20 22:42 RDW Coeff of Irvin 13.4 % (11.5-14.5) 06/01/20 22:42 Plt Count 198 K/uL (130-400) 06/01/20 22:42 MPV 9.3 fL (7.4-10.4) 06/01/20 22:42 Immature Gran % (Auto) 0.4 % 06/01/20 22:42 Neut % (Auto) 75.0 % 06/01/20 22:42 Lymph % (Auto) 18.1 % 06/01/20 22:42 [place] % (Auto) 6.3 % 06/01/20 22:42 Eos % (Auto) 0.0 % 06/01/20 22:42 Baso % (Auto) 0.2 % 06/01/20 22:42 Neut # (Auto) 3.72 K/uL (1.4-6.5) 06/01/20 22:42 Lymph # (Auto) 0.90 K/uL (1.2-3.4) L 06/01/20 22:42 [place] # (Auto) 0.31 K/uL (0.11-0.59) 06/01/20 22:42 Eos # (Auto) 0.00 K/uL (0-0.5) 06/01/20 22:42 Baso # (Auto) 0.01 K/uL (0-0.2) 06/01/20 22:42 Immature Gran # (Auto) 0.02 K/uL (0.00-0.02) 06/01/20 22:42 PT 10.7 Seconds (9.0-12.0) 06/01/20 22:41 INR 1.0 (0.9-1.1) 06/01/20 22:41 APTT 28.5 Seconds (21.0-31.0) 06/01/20 22:41 PTT Ratio 1.0 06/01/20 22:41 D-Dimer 910 ug/L FEU (0-500) H* 06/01/20 22:41 VBG pH 7.42 (7.36-7.41) H 06/01/20 22:42 VBG pCO2 42 mmHg (38-50) 06/01/20 22:42 VBG pO2 28 mmHg 06/01/20 22:42 VBG HCO3 27 mmol/L 06/01/20 22:42 VBG O2 Saturation < 60.0 % 06/01/20 22:42 VBG Base Excess 1.9 mEq/L 06/01/20 22:42 Barometric Pressure 736.4 mm/Hg 06/01/20 22:42 Sodium 137 mmol/L (136-145) 06/01/20 22:42 Potassium 3.2 mmol/L (3.5-5.1) L 06/01/20 22:42 Chloride 101 mmol/L (98-107) 06/01/20 22:42 Carbon Dioxide 28 mmol/L (21-32) 06/01/20 22:42 Anion Gap 8.0 (3-11) 06/01/20 22:42 BUN 6 mg/dl (7-18) L 06/01/20 22:42 Creatinine 0.84 mg/dl (0.6-1.2) 06/01/20 22:42 Est Cr Clr Drug Dosing 137.5 ml/min 06/01/20 22:42 Est GFR ( Amer) 108.9 06/01/20 22:42 Est GFR (Non-Af Amer) 93.9 06/01/20 22:42 BUN/Creatinine Ratio 7.3 (10-20) L 06/01/20 22:42 Glucose 248 mg/dl (70-99) H 06/01/20 22:42 Lactate 1.3 mmol/L (0.4-2.0) 06/02/20 00:43 Calcium 8.5 mg/dl (8.5-10.1) 06/01/20 22:42 Magnesium 1.8 mg/dl (1.8-2.4) 06/01/20 22:42 Total Bilirubin 1.3 mg/dl (0.2-1) H 06/01/20 22:42 AST 44 U/L (15-37) H 06/01/20 22:42 ALT 70 U/L (12-78) 06/01/20 22:42 Alkaline Phosphatase 106 U/L (45-117) 06/01/20 22:42 Troponin I < 0.015 ng/ml (0-0.045) 06/01/20 22:42 Total Protein 6.9 gm/dl (6.4-8.2) 06/01/20 22:42 Albumin 3.0 gm/dl (3.4-5.0) L 06/01/20 22:42 Globulin 3.9 gm/dl (2.5-4.0) 06/01/20 22:42 Albumin/Globulin Ratio 0.8 (0.9-2) L 06/01/20 22:42 TSH 0.843 uIu/ml (0.300-4.500) 12/03/20 22:42 HCG, Qual Negative (Negative) 06/01/20 22:41 Urine Color Yellow 06/02/20 00:15 Urine Appearance Clear (Clear) 06/02/20 00:15 Urine pH 5.0 (4.5-7.5) 06/02/20 00:15 Ur Specific [place] 1.021 (1.000-1.030) 06/02/20 00:15 Urine Protein Negative (Negative) 06/02/20 00:15 Urine Glucose (UA) 2+ (Negative) H 06/02/20 00:15 Urine Ketones Negative (Negative) 06/02/20 00:15 Urine Blood Negative (Negative) 06/02/20 00:15 Urine Nitrite Negative (Negative) 06/02/20 00:15 Urine Bilirubin Negative (Negative) 06/02/20 00:15 Urine Urobilinogen Negative (Negative) 06/02/20 00:15 Ur Leukocyte Esterase Negative (Negative) 06/02/20 00:15 Lyme Disease IgG Ab Negative (Negative) 06/01/20 22:41 Lyme Disease IgM Ab Negative (Negative) 06/01/20 22:41 COVID-19 Eval Order Covid19 IDNow [facility] 06/01/20 22:55 Influ A Molecular Assay Negative (Negative) 06/01/20 22:55 Influ B Molecular Assay Negative (Negative) 06/01/20 22:55 SARS-CoV-2, RNA, NAAT NEGATIVE (NEGATIVE) 06/01/20 22:55 Blood Type A Positive 06/01/20 22:41 Antibody Screen NEGATIVE 06/01/20 22:[address] chest initial read: Bilateral infiltrates. Reduced lung volumes. Mild mediastinal and hilar adenopathy. Fatty liver. Generous sized liver and spleen. EKG as per my interpretation:Rate 110, sinus tachycardia, normal axis, no ischemia
[2020-06-02] MEDS ORDERED: ACETAMINOPHEN 325 MG TAB PO PRN (04:37)
[2020-06-02] MEDS ORDERED: traMADol HCL 50 MG TABLET PO PRN (04:37)
[2020-06-02] MEDS ORDERED: PROMETHAZINE HCL 12.5 MG in SODIUM CHLORIDE 0.9% 50 ML IV PRN (04:37)
[2020-06-02] MEDS ORDERED: POTASSIUM CHLORIDE 40 MEQ in SODIUM CHLORIDE 0.9% 1000ML 1,000 ML IV ONE (04:37)
[2020-06-02] MEDS ORDERED: MAGNESIUM SULFATE / D5W 1 GM/100 ML BAG IV ONE (04:37)
[2020-06-02] MEDS ORDERED: GLUCOSE 10 TABS/TUBE PO PRN (04:37)
[2020-06-02] MEDS ORDERED: GLUCAGON FOR INJ 1 MG VIAL SQ PRN (04:37)
[2020-06-02] MEDS ORDERED: DEXTROSE 50% 50 ML SYRINGE IV PRN (04:37)
[2020-06-02] MEDS ORDERED: GLUCOSE 40% GEL 15 GM TUBE PO PRN (04:37)
[2020-06-02] MEDS ORDERED: CARBOHYDRATES FOR HYPOGLYCEMIA PO PRN (04:37)
[2020-06-02] MEDS: guaiFENesin 600 MG TABCR PO SCH ×3 (05:38→21:58)
[2020-06-02] MEDS: INSULIN ASPART 100 UNITS/ML 3 ML PEN SC SCH ×5 (05:39→22:00)
[2020-06-02 06:32] LABS: Hemoglobin 13.2 g/dL (12.0-16.0); Immature Granulocytes # (auto) 0.01 K/uL (0.00-0.02); Immature Granulocytes % (auto) 0.4 %; Lymphocytes % (auto) 21.6 %; Mean Corpuscular Hemoglobin 28.1 pg (25-34); Mean Corpuscular Hgb Conc 33.8 g/dL (32-36); Mean Platelet Volume 9.4 fL (7.4-10.4); Monocytes # (auto) 0.06 K/uL (0.11-0.59); Monocytes % (auto) 2.2 %; Neutrophils # (auto) 2.11 K/uL (1.4-6.5); Neutrophils % (auto) 75.8 %; Platelet Count 186 K/uL (130-400); RDW Coefficient of Variation 13.6 % (11.5-14.5); RDW Standard Deviation 41.2 fL (36.4-46.3); White Blood Count 2.78 K/uL (4.8-10.8)
[2020-06-02 07:09] LABS: BUN Creatinine Ratio 11.8 (10-20); Creatinine Clr Calc Pharmacy 195.6 ml/min; Est GFR (African American) 142.8; Est GFR (Non-African American) 123.2; Potassium 3.7 mmol/L (3.5-5.1)
--- NOTE | 2020-06-02 07:18 | XRay Report ---
XR chest 1V portable HISTORY: 29 years-old Female Fever. Cough. Covid exposures. Acute cough with fever COMPARISON: CTA of the chest 06/02/2020, chest radiograph 05/23/2020 TECHNIQUE: Portable AP view of the chest FINDINGS: The cardiac silhouette is upper limits of normal in size. Mediastinal contours are within normal limi ts. Lungs are mildly hypoinflated. Patchy bilateral airspace opacities. No pneumothorax, pleural effu emmie or overt pulmonary edema. Bones appear grossly intact. IMPRESSION: Patchy bilateral airspace opacities are suggestive of multifocal pneumonia. ACT 112: Negative or not required by law. The above report was generated using voice recognition software. It may contain grammatical, syntax o r spelling errors. Electronically signed by: David Garcia M.D. 06/02/2020 7:16 AM
[2020-06-02 07:21] LABS: Beta-Hydroxybutyrate 2.35 mg/dl (0.2-2.81)
--- NOTE | 2020-06-02 07:46 | Electrocardiogram Report ---
Test Reason : Blood Pressure : / mmHG Vent. Rate : 111 BPM Atrial Rate : 111 BPM P-R Int : 170 ms QRS Dur : 082 ms QT Int : 314 ms P-R-T Axes : 022 023 017 degrees QTc Int : 427 ms Sinus tachycardia Abnormal ECG When compared with ECG of 24-JUL-2018 14:08, No significant change was found Confirmed by Ross Carranza ([id number]) on 06/02/2020 7:46:05 AM Referred By: REFERRED SELF Confirmed By:Andrae Carranza
[2020-06-02] MEDS: ALBUT/IPRATROP 3MG/0.5MG NEB 3 ML VIAL NEB SCH ×3 (07:51→15:10)
--- NOTE | 2020-06-02 08:10 | CT Scan Report ---
CT ANGIOGRAM OF THE CHEST CLINICAL HISTORY: Cough and fever. Elevated d-dimer. COMPARISON STUDY: Chest x-ray dated 06/01/2020. Chest CT dated 07/08/2013. TECHNIQUE: Following the IV administration of 86 cc of Optiray 320, CT angiogram of the chest was per formed from the upper abdomen to the thoracic inlet utilizing the pulmonary embolus protocol. Images are reviewed in the axial, sagittal, and coronal planes. 3-D MIPS images are created and assessed. IV contrast was administered without complication. A dose lowering technique was utilized adhering to the principles of ALARA. The examination is degraded by motion artifact. CT DOSE: 859.77 mGy.cm FINDINGS: Thyroid: Mildly enlarged and normal in attenuation. Thoracic aorta: The thoracic aorta is normal in caliber and demonstrates bovine variant arch anatomy. No dissection is seen. Pulmonary vasculature: The pulmonary trunk is dilated measuring up to 3.4 cm in diameter. This sugges ts pulmonary artery hypertension. There are no filling defects identified in main, lobar, or proximal segmental pulmonary branches to suggest pulmonary embolus. Evaluation of the peripheral branches is degraded by motion artifact. Heart: The heart is normal in size and without pericardial effusion. Lungs and pleural spaces: Evaluation of the lung parenchyma is degraded by motion artifact. There is multifocal airspace consolidation seen throughout both lungs, most confluent in the upper lobes and i n the left lower lobe. No pleural effusion is identified. The trachea and central airways are clear. Mediastinum: There are prominent subcentimeter mediastinal lymph nodes. Earlene: Mildly enlarged hilar lymph nodes measure up to 12 mm short axis. Axillae: There is no axillary lymphadenopathy. Upper abdomen: The liver is enlarged and steatotic. The spleen is enlarged, measuring over 16 cm in l ength. Skeletal structures: No lytic or blastic bony lesions are seen. IMPRESSION: 1. There is no evidence of pulmonary embolus in the main, lobar, or proximal segmental pulmonary bjorn lisandro. Evaluation of the peripheral branches is degraded by motion artifact. 2. Multifocal airspace consolidation is typical for pneumonia. Radiographic follow-up to resolution i s recommended. 3. Hepatomegaly and hepatic steatosis. 4. Splenomegaly. 5. Mildly enlarged hilar lymph nodes are likely on a reactive basis. 6. Additional findings as above. ACT 112: Negative or not required by law. Electronically signed by: Hayder Munoz M.D. 06/02/2020 8:09 AM
[2020-06-02] MEDS ORDERED: INSULIN HUMAN NPH SC SCH (09:00)
[2020-06-02] MEDS ORDERED: predniSONE 20 MG TAB PO SCH (09:00)
[2020-06-02] MEDS: ATORVASTATIN 20 MG TAB PO SCH (09:35)
[2020-06-02] MEDS: ENOXAPARIN INJ 40 MG/0.4 ML SYR SQ SCH (09:35)
[2020-06-02] MEDS: predniSONE 20 MG TAB PO SCH (09:36)
[2020-06-02] MEDS: cefTRIAXone SODIUM 2,000 MG in DEXTROSE 5% 50 ML IV SCH (09:36)
[2020-06-02] MEDS: NovoLIN-N (NPH) PER UNIT CHARGE SQ SCH (09:38)
[2020-06-02] MEDS: ACETAMINOPHEN 325 MG TAB PO PRN (15:42)
[2020-06-02] MEDS: BENZONATATE 100 MG CAPSULE PO PRN (15:42)
--- NOTE | 2020-06-02 18:22 | Hospitalist Progress Note ---
Date of Service June 02, 2020 Assessment & Plan (1) Severe sepsis: Met sepsis criteria on admission with tachycardia, febrile and elevated Lactate CXR on admission showed patchy bilateral airspace opacities are suggestive of multifocal pneumonia. CTA chest showed no evidence of pulmonary embolus in the main, lobar, or proximal segmental pulmonary arteries. Multifocal airspace consolidation is typical for pneumonia. COVID 19 and influenza negative on admission (Pt had multiple negative COVID 19 tests) Received dexamethasone and Zosyn in the ER Currently on Doxy and IV rocephin and prednisone Continue oxygen supplement and respiratory treatment If no improvement, will consider to consult pulmonology Blood cx pending Continue monitor closely Diabetes type 2 Last hba1c 6.7 Will check Hba1c Continue insulin and Novolog sliding scale while inpatient Hypokalemia Possible related to diarrhea K on admission 3.2 , replaced K 3.7 today Continue monitor BMP Diarrhea Stool for Cidff negative Continue monitor electrolytes Elevated D-dimer Mostly due to acute illness/Pneumonia CTA chest showed no evidence of PE DVT prophylaxis On Lovenox subcu Full code Admission and Anticipated Discharge Date Admission Date: June 02, 2020 Subjective Follow up for SOB Pt was seen and examined Lying in bed with no distress Pt said that she continues to cough and unable to spit the phlegm out She said that her breathing seems to feel a little better compare to when she came Denies any chest pain, palpitation, dizziness and fever Physical Exam Physical Exam: General- No acute distress Head- atraumatic Eyes- PERRL, EOMI, ENT- oropharynx clear Neck- supple, no JVD Lungs- clear to auscultation Heart- regular rhythm; no murmur Abdomen- normal bowel sounds, soft, nontender Extremities- no calf tenderness Neuro- alert, oriented x 3; PERRL, EOMI; no facial palsy; no dysarthria Skin- warm & dry Results & Data Results & Data ([facility]) Vital Signs (Past 12 Hours) Vital Signs Temp Pulse Pulse Resp BP Pulse Ox 06/02/20 15:26 36.7 C 99 H 22 115/79 06/02/20 15:10 75 16 92 06/02/20 15:00 77 06/02/20 11:00 36.9 C 101 H 30 H 127/78 90 06/02/20 10:46 107 H 19 90 06/02/20 07:51 78 16 94 06/02/20 07:40 70 06/02/20 07:00 36.5 C 85 30 H 145/91 H 92 06/02/20 06:45 82
[2020-06-02] MEDS: ALBUTEROL HFA 8 GM INHALER INH SCH (20:12)
[2020-06-02] MEDS: IPRATROPIUM BROMIDE HFA INHALER INH SCH (20:12)
[2020-06-02] MEDS: DOXYCYCLINE HYCLATE 100 MG CAP PO SCH (21:59)
[2020-06-03] MEDS: ACETAMINOPHEN 325 MG TAB PO PRN (00:27)
[2020-06-03] MEDS: BENZONATATE 100 MG CAPSULE PO PRN ×2 (00:27→08:11)
[2020-06-03] MEDS: IPRATROPIUM BROMIDE HFA INHALER INH SCH ×4 (07:32→21:56)
[2020-06-03] MEDS: ALBUTEROL HFA 8 GM INHALER INH SCH ×5 (07:33→21:57)
[2020-06-03] MEDS: INSULIN ASPART 100 UNITS/ML 3 ML PEN SC SCH ×4 (08:00→20:32)
[2020-06-03] MEDS: ATORVASTATIN 20 MG TAB PO SCH (09:00)
[2020-06-03] MEDS ORDERED: INSULIN GLARGINE SOLOSTAR 100 UNITS/ML 3 ML PEN SC SCH ×4 (09:00→12:35)
[2020-06-03] MEDS: NovoLIN-N (NPH) PER UNIT CHARGE SQ SCH (09:27)
[2020-06-03] MEDS: guaiFENesin 600 MG TABCR PO SCH ×2 (09:27→20:30)
[2020-06-03] MEDS: ENOXAPARIN INJ 40 MG/0.4 ML SYR SQ SCH (09:27)
[2020-06-03] MEDS: cefTRIAXone SODIUM 2,000 MG in DEXTROSE 5% 50 ML IV SCH (09:28)
[2020-06-03] MEDS: predniSONE 20 MG TAB PO SCH (09:28)
[2020-06-03] MEDS: DOXYCYCLINE HYCLATE 100 MG CAP PO SCH ×2 (09:29→20:30)
[2020-06-03] MEDS ORDERED: PHARMACY GLYCEMIC MGMT CONSULT PRN (11:45)
[2020-06-03 17:15] LABS: Alanine Aminotransferase 50 U/L (12-78); Albumin Level 2.6 gm/dl (3.4-5.0); Aspartate Aminotransferase 21 U/L (15-37); BUN Creatinine Ratio 20.2 (10-20); Blood Urea Nitrogen 10 mg/dl (7-18); Calcium 8.4 mg/dl (8.5-10.1); Carbon Dioxide 26 mmol/L (21-32); Chloride 110 mmol/L (98-107); Creatinine Clr Calc Pharmacy 230.1 ml/min; Est GFR (African American) > 150.0; Est GFR (Non-African American) 129.9; Glucose 170 mg/dl (70-99); Sodium 141 mmol/L (136-145)
[2020-06-03 17:31] LABS: Albumin Globulin Ratio 0.7 (0.9-2); Alkaline Phosphatase 92 U/L (45-117); Bilirubin,Total 0.7 mg/dl (0.2-1); Globulin 3.6 gm/dl (2.5-4.0); Total Protein 6.2 gm/dl (6.4-8.2)
--- NOTE | 2020-06-03 18:46 | Hospitalist Progress Note ---
Date of Service June 03, 2020 Assessment & Plan (1) Severe sepsis: Met sepsis criteria on admission with tachycardia, febrile and elevated Lactate CXR on admission showed patchy bilateral airspace opacities are suggestive of multifocal pneumonia. CTA chest showed no evidence of pulmonary embolus in the main, lobar, or proximal segmental pulmonary arteries. Multifocal airspace consolidation is typical for pneumonia. COVID 19 and influenza negative on admission (Pt had multiple negative COVID 19 tests) Received dexamethasone and Zosyn in the ER Currently on Doxy and IV Rocephin and prednisone Continue oxygen supplement and respiratory treatment Will consult pulmonology, case discussed with Dr. Spears Blood cx no growth so far Will check biofire Continue monitor closely Diabetes type 2 Last hba1c 6.7. Continue to hold oral med Continue insulin and Novolog sliding scale while inpatient Hypokalemia Possible related to diarrhea K on admission 3.2 , replaced K stable Continue monitor BMP Diarrhea Stool for Cidff negative Continue monitor electrolytes Elevated D-dimer Mostly due to acute illness/Pneumonia CTA chest showed no evidence of PE DVT prophylaxis On Lovenox subcu Full code Admission and Anticipated Discharge Date Admission Date: June 02, 2020 Subjective Pt was seen and examined for follow up of SOB Lying in bed with no distress. Pt said that she continues to cough. She said that her breathing is the same compare to yesterday. Denies any chest pain, palpitation, dizziness and fever Physical Exam Physical Exam: General- No acute distress Head- atraumatic Eyes- PERRL, EOMI, ENT- oropharynx clear Neck- supple, no JVD Lungs- clear to auscultation Heart- regular rhythm; no murmur Abdomen- normal bowel sounds, soft, nontender Extremities- no calf tenderness Neuro- alert, oriented x 3; PERRL, EOMI; no facial palsy; no dysarthria Skin- warm & dry
[2020-06-03] MEDS: guaiFENesin/CODEINE 100MG/10MG 5ML UDC PO PRN (20:29)
[2020-06-03] MEDS ORDERED: Nursing to Pharmacy Communication SCH (21:45)
[2020-06-04] MEDS: INSULIN ASPART 100 UNITS/ML 3 ML PEN SC SCH ×6 (00:13→20:49)
[2020-06-04] MEDS: BENZONATATE 100 MG CAPSULE PO PRN ×2 (00:38→12:44)
[2020-06-04 06:06] LABS: Estimated Average Glucose 146 mg/dl; Hemoglobin A1C 6.7 % (4.5-5.6)
[2020-06-04] MEDS: ALBUTEROL HFA 8 GM INHALER INH SCH (07:16)
[2020-06-04] MEDS: IPRATROPIUM BROMIDE HFA INHALER INH SCH (07:16)
[2020-06-04 08:07] LABS: Basophils # (auto) 0.01 K/uL (0-0.2); Basophils % (auto) 0.2 %; Hematocrit (blood only) 37.5 % (37-47); Hemoglobin 12.7 g/dL (12.0-16.0); Immature Granulocytes # (auto) 0.04 K/uL (0.00-0.02); Immature Granulocytes % (auto) 0.7 %; Lymphocytes # (auto) 1.41 K/uL (1.2-3.4); Lymphocytes % (auto) 23.9 %; Mean Corpuscular Hemoglobin 29.1 pg (25-34); Mean Corpuscular Hgb Conc 33.9 g/dL (32-36); Mean Corpuscular Volume 85.8 fL (80-100); Mean Platelet Volume 9.5 fL (7.4-10.4); Monocytes # (auto) 0.43 K/uL (0.11-0.59); Monocytes % (auto) 7.3 %; Neutrophils # (auto) 4.02 K/uL (1.4-6.5); Neutrophils % (auto) 67.9 %; Platelet Count 249 K/uL (130-400); RDW Coefficient of Variation 13.5 % (11.5-14.5); RDW Standard Deviation 42.5 fL (36.4-46.3); Red Blood Count 4.37 M/uL (4.2-5.4); White Blood Count 5.91 K/uL (4.8-10.8)
[2020-06-04] MEDS: DOXYCYCLINE HYCLATE 100 MG CAP PO SCH (08:48)
[2020-06-04] MEDS: ENOXAPARIN INJ 40 MG/0.4 ML SYR SQ SCH (08:49)
[2020-06-04] MEDS: predniSONE 20 MG TAB PO SCH (08:49)
[2020-06-04] MEDS: ATORVASTATIN 20 MG TAB PO SCH (08:50)
[2020-06-04] MEDS: guaiFENesin 600 MG TABCR PO SCH ×2 (08:50→20:47)
[2020-06-04] MEDS ORDERED: INSULIN GLARGINE SOLOSTAR 100 UNITS/ML 3 ML PEN SC SCH ×2 (09:00→21:00)
[2020-06-04] MEDS ORDERED: NovoLIN-N (NPH) PER UNIT CHARGE SQ SCH (09:00)
[2020-06-04] MEDS: cefTRIAXone SODIUM 2,000 MG in DEXTROSE 5% 50 ML IV SCH (09:05)
--- NOTE | 2020-06-04 10:14 | Pharmacy Report ---
Pharmacy Glycemic Short Note 2 - Date of Service June 04, 2020 - Glycemic Short BSG Results (Last 24 hours): 06/03/20 06/03/20 06/03/20 03:35 11:24 16:38 Glucose 170 H POC Glucose 259 H 226 H 06/03/20 06/04/20 06/04/20 20:21 00:09 03:47 Glucose POC Glucose 213 H 131 H 173 H 06/04/20 07:33 Glucose POC Glucose 142 H OUTPATIENT ANTIDIABETIC REGIMEN: * Metformin 500 mg PO BIDM * Jardiance 10 mg PO daily * Ozempic 2 mg SC weekly (Wednesdays) * HbA1c: 6.7% (06/03/20) ASSESSMENT: * BH is a 29 year old female with sepsis secondary to community-acquired bronchopneumonia * Currently ordered ceftriaxone, doxycycline, and prednisone 20 mg PO daily * BSGs very poorly controlled during this admission * Pharmacy consulted yesterday afternoon for BSG of 259 mg/dL at lunch * Changes made yesterday include: increasing Lantus dose and tightening Novolog considerably * BSGs since time of consult, 226, 213, 131, 173, and 142 mg/dL * Continue with tightened Novolog parameters * Fasting BSG this morning of 142 mg/dL * Will plan for Lantus 25 units SC BID * Prednisone discontinued -> will discontinue NPH and loosen currently ordered insulin doses/parameters PLAN FOR INPATIENT GLYCEMIC CONTROL: * Hold outpatient oral diabetes medications * Basal insulin - Lantus scale, discontinue NPH * NPH 20 units (0.15 unit/kg) SQ given this morning with prednisone * - Prednisone now discontinued, so will discontinue NPH * Lantus 25 units SQ given this morning * Will utilize Lantus scale ongoing given discontinuation of steroids (15-25 units - see EHR for details) * Bolus insulin - loosen * NovoLog per scale ACHS or Q6hrs while NPO * Goal Range: Low 110 mg/dL - High 140 mg/dL * Correction Factor: 20 mg/dL/unit * Nutritional / Prandial insulin per carb ratio of 1 unit per 7 grams CHO consumed PLAN FOR DISCHARGE: * Reasonable HbA1c goal for most non- adults is less than 7% * HbA1c of 6.7% is at goal - reasonable to continue outpatient regimen at discharge
--- NOTE | 2020-06-04 10:49 | Pulmonary Consultation ---
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 Presentation is consistent with community-acquired pneumonia. I suspect that given the constellation of signs and symptoms (infiltrates seen on her CT chest, her fever of 101.7 on arrival and cough), she likely has pneumonia, possibly atypical. Her procalcitonin was within normal limits, but the procalcitonin level can be normal in atypical bacterial pneumonia. I recommended adding a urine Legionella. COVID-19 testing has been negative on multiple occasions. Bio fire testing was negative. I will change the doxycycline to azithromycin for coverage of possible Legionella pneumonia. Additionally, she was previously on doxycycline as an outpatient and failed outpatient therapy. I am going to discontinue prednisone as I do not think that it has a significant role here. It can worsen her underlying diabetes and mood disorder. Obesity and V/Q mismatch is likely contributing to her hypoxia. I encouraged ambulation during hospitalization. Weight loss and exercise is advised (her BMI is 51.1). Pulmonary will continue to follow along with you. Thank you for the consult. Please call with questions. Aspiration pneumonia type: unspecified Laterality: bilateral Lung location: unspecified part of lung (2) Shortness of breath: (3) Hypoxia: (4) Diabetes mellitus: (5) Morbid obesity: History of Present Illness Reason for Consultation: Multifocal infiltrates on CT chest and hypoxia Requesting Physician: Dr. Pavon Attending Physician: Savanah Marroquin MD History of Present Illness 29-year-old female with a past medical history of morbid obesity, fatty liver disease, PCOS, endometriosis, depression, anxiety, diabetes mellitus type 2 and mood disorder who presented to the hospital due to flulike symptoms, dry cough and shortness of breath. Patient is an [employer] SWITCH[employer] OPERATOR in a skilled nursing with many COVID-19 patients. She has been tested twice before for COVID-19 which have been negative. She had a bio fire test today which is pending. She had a chest x-ray on May 20 with no overt findings. Chest x-ray on May 23 with no significant findings aside for mild right hemidiaphragmatic elevation. Chest x-ray on 06/01/2020 demonstrated patchy bilateral airspace opacities. CTA of her chest on 06/02/2020 demonstrated multifocal airspace consolidation and mildly enlarged hilar lymph nodes. No pleural effusions were seen. CBC has not demonstrated any significant peripheral eosinophilia. Procalcitonin level of 0.06 whichis within normal limits. CBC within normal limits. She did have leukopenia present yesterday which has resolved. On arrival on 06/01/2020 her lactate was 3.1. It has since normalized. She is currently on Rocephin and doxycycline. She is also currently on 20 mg of prednisone for bronchospasm. She received a course of doxycycline on May 23 when she was discharged from the ER. She notes that her symptoms seem to be improving slightly. She continues to have a very significant cough. She notes that when she uses an inhaler she coughs very vigorously the point of almost having emesis. She notes that she has a dry cough. She denies any hemoptysis. No current fevers. She does have shortness of breath with minimal exertion. She describes that she was sick with pneumonia in July. She notes that she frequently gets pneumonia. She has a daughter with asthma. She lives in an apartment in [facility]. They have forced air heating. They do not have any pets. She is a non-smoker. She does not use e-cigarettes or vaping. 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 She notes that she lost 40 to 50 pounds over the last 3 months with diet and exercise. She denies any history of snoring. She has no family history of obstructive sleep apnea that she is aware of. Allergies Allergy/AdvReac Type Severity Reaction Status Date / Time No Known Allergies Allergy Verified 06/01/20 22:49 Home Medications Medication Instructions Recorded Confirmed Type atorvastatin 20 mg PO DAILY 10/17/19 06/01/20 History empagliflozin [Jardiance] 10 mg PO DAILY 10/17/19 06/01/20 History semaglutide [Ozempic] 2 mg SUBCUT WK 10/17/19 06/01/20 History metformin 500 mg PO BID 05/23/20 06/01/20 History albuterol sulfate 2 inha INH Q6H PRN 06/01/20 06/01/20 History benzonatate 200 mg PO TID PRN 06/01/20 06/01/20 History ondansetron HCl 4 mg PO DIRECTED PRN 06/01/20 06/01/20 History sumatriptan succinate 100 mg PO DIRECTED PRN 06/01/20 06/01/20 History Patient History Medical History Abnormal uterine bleeding Anemia SIGNIFICANT ABNORMAL UTERINE BLEEDING= REASON FOR PROCEDURE Diabetes mellitus PER PATIENT, ON METFORMIN 2/2 PCOS; HGBA1C 7.5% ON PREOP LABS 07/24/18 History of PCOS ON METFORMIN Migraine Morbid obesity Surgical History History of tonsillectomy History of wisdom tooth extraction Social History Smoking Status: Never smoker Second Hand Exposure: No; Hx Alcohol Use: No Hx Substance Use: No Preferred Language: Czech Communication Ability: Effective Patient Observer Required: No Beliefs That Will Affect Care: None Current Living Situation: Spouse and Family Current Living Situation Comment: and children Other Information That Helps Us Care for You: No Feels Safe at Home: Yes Safety Concerns: Feels Safe At This Time Assistive Devices: Glasses and Oxygen - Continuous Review of Systems Review of Systems: All systems reviewed & are unremarkable except as noted in HPI & below Results & Data Results & Data ([place]) Vital Signs (Past 12 Hours) Vital Signs Temp Pulse Pulse Resp BP Pulse Ox 06/04/20 07:44 98.1 F 63 18 120/82 94 06/04/20 07:30 47 L 06/04/20 07:18 66 20 94 06/04/20 02:15 87 06/03/20 23:30 98.1 F 55 L 18 141/86 H 97 I personally reviewed her CT chest, vital signs and labs. PG Care Time/CCT Total # of Minutes Spent Total Time Spent with Patient: Total time spent is greater than 50% in coordination of care (as documented) at patient's floor/unit and/or counseling patient: Coding Level of Care Code 63092 Inpt Consult Level 5 Diagnoses Pneumonia J18.9 Aspiration pneumonia type: unspecified Laterality: bilateral Lung location: unspecified part of lung Shortness of breath R06.02 Hypoxia R09.02 Diabetes mellitus E11.9 Morbid obesity E66.01
[2020-06-04 10:53] LABS: Adenovirus PCR Not Detected (NotDetected); Bordetella parapertussis PCR Not Detected (NotDetected); Bordetella pertussis PCR Not Detected (NotDetected); Chlamydia pneumoniae PCR Not Detected (NotDetected); Coronavirus 229E PCR Not Detected (NotDetected); Coronavirus CoV-2 (COVID19)PCR Not Detected (NotDetected); Coronavirus HKU1 PCR Not Detected (NotDetected); Coronavirus NL63 PCR Not Detected (NotDetected); Coronavirus OC43PCR Not Detected (NotDetected); Human Metapneumovirus PCR Not Detected (NotDetected); Influenza A PCR Not Detected (NotDetected); Influenza B PCR Not Detected (NotDetected); Mycoplasma pneumoniae PCR Not Detected (NotDetected); Parainfluenza Virus 1 PCR Not Detected (NotDetected); Parainfluenza Virus 2 PCR Not Detected (NotDetected); Parainfluenza Virus 3 PCR Not Detected (NotDetected); Parainfluenza Virus 4 PCR Not Detected (NotDetected); Respiratory Syncytial VirusPCR Not Detected (NotDetected); Rhinovirus/Enterovirus PCR Not Detected (NotDetected)
[2020-06-04] MEDS ORDERED: ALBUTEROL HFA 8 GM INHALER INH PRN (10:57)
[2020-06-04] MEDS ORDERED: IPRATROPIUM BROMIDE HFA INHALER INH PRN (10:58)
[2020-06-04] MEDS ORDERED: AZITHROMYCIN 500 MG in DEXTROSE 5% 250 ML IV ONE (11:00)
--- NOTE | 2020-06-04 17:30 | Hospitalist Progress Note ---
Date of Service June 04, 2020 Assessment & Plan (1) Severe sepsis: Met sepsis criteria on admission with tachycardia, febrile and elevated Lactate CXR on admission showed patchy bilateral airspace opacities are suggestive of multifocal pneumonia. CTA chest showed no evidence of pulmonary embolus in the main, lobar, or proximal segmental pulmonary arteries. Multifocal airspace consolidation is typical for pneumonia. COVID 19 and influenza negative on admission (Pt had multiple negative COVID 19 tests) Received dexamethasone and Zosyn in the ER Currently on Doxy and IV Rocephin and prednisone Continue oxygen supplement and respiratory treatment Pulmonology consulted, case discussed with Dr. Spears Steroid was discontinued and antibiotic was changed to Zithromax Blood cx no growth so far Will check biofire pending Continue monitor closely Diabetes type 2 Last hba1c 6.7. Continue to hold oral med Continue insulin and Novolog sliding scale while inpatient Hypokalemia Possible related to diarrhea K on admission 3.2 , replaced K stable Continue monitor BMP Obesity BMI 49 Counseling on weight loss Diarrhea Stool for Cidff negative Continue monitor electrolytes Elevated D-dimer Mostly due to acute illness/Pneumonia CTA chest showed no evidence of PE DVT prophylaxis On Lovenox subcu Full code Admission and Anticipated Discharge Date Admission Date: June 02, 2020 Subjective Pt was seen and examined for follow up of SOB Lying in bed with no distress. Pt said that she continues to cough, but unable to spit the phlegm out Denies any chest pain, palpitation, dizziness and fever Physical Exam Physical Exam: General- No acute distress Head- atraumatic Eyes- PERRL, EOMI, ENT- oropharynx clear Neck- supple, no JVD Lungs- clear to auscultation Heart- regular rhythm; no murmur Abdomen- normal bowel sounds, soft, nontender Extremities- no calf tenderness Neuro- alert, oriented x 3; PERRL, EOMI; no facial palsy; no dysarthria Skin- warm & dry Results & Data Results & Data ([facility]) Vital Signs (Past 12 Hours) Vital Signs Temp Pulse Pulse Resp BP Pulse Ox 06/04/20 16:00 74 06/04/20 14:59 36.7 C 63 18 142/77 H 96 06/04/20 07:44 36.7 C 63 18 120/82 94 06/04/20 07:30 47 L 06/04/20 07:18 66 20 94
[2020-06-04] MEDS: guaiFENesin/CODEINE 100MG/10MG 5ML UDC PO PRN (21:04)
[2020-06-05] MEDS: BENZONATATE 100 MG CAPSULE PO PRN (02:07)
[2020-06-05 07:11] LABS: Creatinine Clr Calc Pharmacy 182.2 ml/min; Est GFR (African American) 140.5; Est GFR (Non-African American) 121.2
[2020-06-05] MEDS: ATORVASTATIN 20 MG TAB PO SCH (07:39)
[2020-06-05] MEDS: ENOXAPARIN INJ 40 MG/0.4 ML SYR SQ SCH (07:39)
[2020-06-05] MEDS: guaiFENesin 600 MG TABCR PO SCH (07:39)
[2020-06-05] MEDS: guaiFENesin/CODEINE 100MG/10MG 5ML UDC PO PRN (07:42)
[2020-06-05] MEDS: cefTRIAXone SODIUM 2,000 MG in DEXTROSE 5% 50 ML IV SCH (07:48)
[2020-06-05] MEDS: INSULIN ASPART 100 UNITS/ML 3 ML PEN SC SCH ×2 (08:30→12:33)
[2020-06-05] MEDS ORDERED: INSULIN GLARGINE SOLOSTAR 100 UNITS/ML 3 ML PEN SC SCH (09:00)
[2020-06-05] MEDS ORDERED: AZITHROMYCIN 250 MG in DEXTROSE 5% 250 ML IV SCH (09:00)
--- NOTE | 2020-06-05 09:43 | Pulmonology Progress Note ---
Date of Service June 05, 2020 Assessment & Plan (1) Pneumonia: Impression: 29-year-old female admitted with patchy parenchymal infiltrates concerning for bronchopneumonia but negative procalcitonin, negative bio fire, and multiple negative Covid tests. She is on day #2 Rocephin azithromycin and appears to be clinically improving with improvement in her oxygen saturations. Recommendation: 1. Probable pneumonia: This could be an atypical infection. Agree with a azithromycin. Can transition Rocephin to Ceftin to complete 7 to 10-day course once she is felt appropriate for transition to outpatient therapy. Outpatient clinical follow-up with her primary care provider in 2 to 3 weeks including possible repeat chest x-ray may be warranted. 2. Patient was encouraged to get out of bed and ambulate. Ambulatory oxygen saturation should be assessed prior to dismissal from the hospital. Available to assist if needed. Please contact us if we can be of additional assistance. Aspiration pneumonia type: unspecified Laterality: bilateral Lung location: unspecified part of lung (2) Shortness of breath: (3) Hypoxia: Admission and Anticipated Discharge Date Admission Date: June 02, 2020 Subjective Patient seen and examined. Discussed with Dr. Spears. She reports feeling better. She continues to have a dry nonproductive cough. No shortness of breath and she has been weaned off oxygen with oxygen saturations 88-90 on room air. Her fever curve is better. She denies any chest pain. No night sweats. She is tolerating antibiotics well. Review of Systems Review of Systems: All systems reviewed & are unremarkable except as noted in HPI & below Physical Exam Constitutional: WD/WN, vitals as above Neck: trachea midline, no thyromegaly Respiratory: normal respiratory effort Auscultation: + rales Cardiovascular: RRR, no murmur, no edema Gastrointestinal (Abdomen): normal bowel sounds, soft, nontender, no hepatosplenomegaly Musculoskeletal: Extremities: extremities normal to inspection Skin: no rashes, warm and dry Neurologic: Nonfocal exam Lymphatic: no cervical lymphadenopathy Results & Data Results & Data ([facility]) Vital Signs (Past 12 Hours) Vital Signs Temp Pulse Pulse Resp BP Pulse Ox 06/05/20 08:35 90 06/05/20 07:28 36.5 C 52 L 20 142/90 H 94 06/05/20 04:21 36.5 C 49 L 20 156/83 H 95 06/05/20 00:00 52 L 06/04/20 23:00 37.1 C 50 L 20 162/97 H 96 Laboratory Results 06/04/20 07:26 06/05/20 05:49 Diagnostic Findings No new imaging PG Care Time/CCT Total # of Minutes Spent Total Time Spent with Patient: Total time spent is greater than 50% in coordination of care (as documented) at patient's floor/unit and/or counseling patient: Coding Level of Care Code 01044 Subseq Hosp Care Lvl 3 Diagnoses Pneumonia J18.9 Aspiration pneumonia type: unspecified Laterality: bilateral Lung location: unspecified part of lung Shortness of breath R06.02 Hypoxia R09.02
--- NOTE | 2020-06-05 12:01 | Pharmacy Report ---
Glycemic Control Progress Note - Date of Service June 05, 2020 - Scope Glycemic Pharmacist consulted for glycemic control to write orders per [facility] inpatient glycemic control protocol. - Objective Accuchecks BSG(last 24 hours):: 06/03/20 06/04/20 06/04/20 07:35 16:39 20:10 POC Glucose 219 H 240 H 237 H 06/05/20 06/05/20 07:36 11:50 POC Glucose 92 111 H HbA1c:: Hemoglobin A1c 6.7 % (4.5-5.6) H 06/03/20 03:35 - Recent Pertinent Medications The patient is currently receiving: * Basal insulin: Lantus 25 units every 12 hours * Correctional Insulin: Novolog Correction per scale ACHS Goal Range: Low 110 mg/dL - High 140 mg/dL Correction Factor: 20 mg/dL/unit * Prandial insulin: Per carb ratio of 1 unit per 7 grams CHO consumed - Outpatient Anti-Diabetic Meds metformin 500 mg BID Jardiance 10 mg daily Ozempic on Wednesdays - Assessment & Plan ASSESSMENT: * See progress note from 06/03/20 for more background info, in short: * Pt receiving SQ basal bolus insulin regimen for hyperglycemia secondary to b aseline DM (outpatient regimen on hold). Patient currently receiving Rocephin and Zithromax. She was receiving prednisone 20 mg daily but last dose was yesterday. * Patient is currently receiving an average of 106 units of insulin per day * 70 units of basal insulin * 36 units of prandial/correctional insulin * BSGs ranging 136 - 240 mg/dl over the past 24hrs * Changes needed to insulin regimen: * AM Fasting BSG = 92 mg/dl. This is in goal range for patient based on inpatient targets and co-morbidities. Fasting BSG trended downwards rapidly from 142 mg/dL to 92 mg/dL. Will reduce basal insulin by 20% to Lantus 20 units BID (less than weight-based stress of 2). * Post-prandial BSGs are in range therefore no changes needed to CF/CR. These were already loosened yesterday. * Total daily dose = ? units. Expect to drastically decrease with steroid use. * Additional notes / comments: continue to hold oral medications PLAN FOR INPATIENT GLYCEMIC CONTROL: * DECREASING Lantus to 20 units SQ BID * Continuing correction factor of 20 mg/dl/unit * Continuing carb ratio of 1 unit per 7 grams CHO consumed * Continuing goal range of Low 110 mg/dL - High 140 mg/dL RECOMMENDATIONS FOR DISCHARGE: * Patient's HbA1C is well controlled for her age. Continue current regimen. * Could consider titrating metformin to maximum tolerated dose (ideally 1000 mg BID). This will not cause hypoglycemia and should not affect other medications. Thank you.
--- NOTE | 2020-06-05 16:00 | Hospitalist Progress Note ---
Date of Service June 05, 2020 Assessment & Plan (1) Severe sepsis: Met sepsis criteria on admission with tachycardia, febrile and elevated Lactate CXR on admission showed patchy bilateral airspace opacities are suggestive of multifocal pneumonia. CTA chest showed no evidence of pulmonary embolus in the main, lobar, or proximal segmental pulmonary arteries. Multifocal airspace consolidation is typical for pneumonia. COVID 19 and influenza negative on admission (Pt had multiple negative COVID 19 tests) Received dexamethasone and Zosyn in the ER Currently on Doxy and IV Rocephin and prednisone Continue oxygen supplement and respiratory treatment Pulmonology consulted Steroid was discontinued and antibiotic doxycycline was changed to Zithromax Blood cx no growth so far Biofire was negative Pt would like to go home today because she missed her kids case discussed with Dr. Sarkar recommended to transition Rocephin to Ceftin to complete 7 to 10-day course Will need a repeat CXR in 2 to 3 weeks with her PCP 2 step exercise done today that suggested pt will need 2L NC with ambulation Diabetes type 2 Last hba1c 6.7. Will resume PO diabetes med on discharge Continue insulin and Novolog sliding scale while inpatient Hypokalemia Possible related to diarrhea K on admission 3.2 , replaced K stable Continue monitor BMP Obesity BMI 49 Counseling on weight loss Diarrhea Stool for Cidff negative Continue monitor electrolytes Elevated D-dimer Mostly due to acute illness/Pneumonia CTA chest showed no evidence of PE DVT prophylaxis On Lovenox subcu Full code Disposition Discharge home today Admission and Anticipated Discharge Date Admission Date: June 02, 2020 Subjective Pt was seen and seen examined Sitting in chair with no distress Pt said that she feels a little better She said that she wants to go home today She said that she missed her kids She does not want to spend another night in the hospital She had a 2 step exercised done that suggested that she will require 2L NC on ambulation She said that he cough improves Currently denies any chest pain, palpitation, dizziness and fever Physical Exam Physical Exam: General- No acute distress Head- atraumatic Eyes- PERRL, EOMI, ENT- oropharynx clear Neck- supple, no JVD Lungs- clear to auscultation Heart- regular rhythm; no murmur Abdomen- normal bowel sounds, soft, nontender Extremities- no calf tenderness Neuro- alert, oriented x 3; PERRL, EOMI; no facial palsy; no dysarthria Skin- warm & dry Results & Data Results & Data ([facility]) Vital Signs (Past 12 Hours) Vital Signs Temp Pulse Pulse Pulse Pulse Pulse Resp 06/05/20 14:06 100 H 107 H 97 H 80 06/05/20 11:53 36.5 C 72 18 06/05/20 08:35 06/05/20 07:28 36.5 C 52 L 20 06/05/20 04:21 36.5 C 49 L 20 Resp Resp Resp BP Pulse Ox Pulse Ox Pulse Ox 06/05/20 14:06 19 18 18 90 87 L 06/05/20 11:53 122/88 90 06/05/20 08:35 90 06/05/20 07:28 142/90 H 94 06/05/20 04:21 156/83 H 95 Pulse Ox Pulse Ox 06/05/20 14:06 93 93 06/05/20 11:53 06/05/20 08:35 06/05/20 07:28 06/05/20 04:21
--- NOTE | 2020-06-09 00:04 | Discharge Summary ---
Date of Service June 05, 2020 Admission HPI Per Admitting Provider History obtained from patient and records. Medical history significant for DM2 on oral medications, fatty liver as per records, PCOS, anxiety/mood disorder. Few weeks history of flulike symptoms, fever, chills, dry cough symptoms. No chest pain, no S OB. No aspiration. Loose stools nonbloody without abdominal pain. 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 2 outpatient Covid 19 tests were negative. Supportive management recommended by PCP on telemedicine visit 2 days ago. At home yesterday, patient noted O2 sats to be 80s with home pulse ox. Worsening shortness of breath and cough symptoms without chest pain. At the ER, patient received Zosyn for sepsis. Decadron given as well. Medical History as above Surgical History : Dental surgery, hysteroscopy with by biopsy and polypectomy, tonsillectomy/adenoidectomy Family History : Breast cancer, ITP, diabetes, heart disease, ovarian cancer, uterine cancer Personal/Social history : Non-smoker, no EtOH intake, [employer] Admission Exam Per Admitting Provider GENERAL: Slightly uncomfortable, morbidly obese, minimal respiratory distress SKIN: Normal color, warm HEENT: Maurice palpebral conjunctivae, no ptosis, dry buccal mucosa NECK : Supple, short neck, no tenderness CHEST : Decreased breath sounds, occasional expiratory wheezes, no tenderness HEART : RRR, no obvious murmurs ABDOMEN: Some distention, nontender EXTREMITIES : Minimal LE swelling, no LE tenderness, no other conspicuous deformities noted NEUROLOGIC : Coherent, no facial asymmetry, no other gross focality Principal Diagnosis Pneumonia Diabetes type 2 Hypokalemia Diarrhea Elevated D-dimer Discharge Exam General- No acute distress Head- atraumatic Eyes- PERRL, EOMI, ENT- oropharynx clear Neck- supple, no JVD Lungs- clear to auscultation Heart- regular rhythm; no murmur Abdomen- normal bowel sounds, soft, nontender Extremities- no calf tenderness Neuro- alert, oriented x 3; PERRL, EOMI; no facial palsy; no dysarthria Skin- warm & dry Discharge Data Allergies Allergy/AdvReac Type Severity Reaction Status Date / Time No Known Allergies Allergy Verified 06/01/20 22:49 Consultations 06/02/20 01:19 ED Decision to Admit Stat 06/04/20 07:00 Consult Pulmonology Routine Ordered Studies 06/02/20 00:12 CT angio chest PE protocol Urgent CT ANGIOGRAM OF THE CHEST CLINICAL HISTORY: Cough and fever. Elevated d-dimer. COMPARISON STUDY: Chest x-ray dated 06/01/2020. Chest CT dated 07/08/2013. TECHNIQUE: Following the IV administration of 86 cc of Optiray 320, CT angiogram of the chest was performed from the upper abdomen to the thoracic inlet utilizing the pulmonary embolus protocol. Images are reviewed in the axial, sagittal, and coronal planes. 3-D MIPS images are created and assessed. IV contrast was administered without complication. A dose lowering technique was utilized adhering to the principles of ALARA. The examination is degraded by motion artifact. CT DOSE: 859.77 mGy.cm FINDINGS: Thyroid: Mildly enlarged and normal in attenuation. Thoracic aorta: The thoracic aorta is normal in caliber and demonstrates bovine variant arch anatomy. No dissection is seen. Pulmonary vasculature: The pulmonary trunk is dilated measuring up to 3.4 cm in diameter. This suggests pulmonary artery hypertension. There are no filling defects identified in main, lobar, or proximal segmental pulmonary branches to suggest pulmonary embolus. Evaluation of the peripheral branches is degraded by motion artifact. Heart: The heart is normal in size and without pericardial effusion. Lungs and pleural spaces: Evaluation of the lung parenchyma is degraded by motion artifact. There is multifocal airspace consolidation seen throughout both lungs, most confluent in the upper lobes and in the left lower lobe. No pleural effusion is identified. The trachea and central airways are clear. Mediastinum: There are prominent subcentimeter mediastinal lymph nodes. Earlene: Mildly enlarged hilar lymph nodes measure up to 12 mm short axis. Axillae: There is no axillary lymphadenopathy. Upper abdomen: The liver is enlarged and steatotic. The spleen is enlarged, measuring over 16 cm in length. Skeletal structures: No lytic or blastic bony lesions are seen. IMPRESSION: 1. There is no evidence of pulmonary embolus in the main, lobar, or proximal segmental pulmonary arteries. Evaluation of the peripheral branches is degraded by motion artifact. 2. Multifocal airspace consolidation is typical for pneumonia. Radiographic follow-up to resolution is recommended. 3. Hepatomegaly and hepatic steatosis. 4. Splenomegaly. 5. Mildly enlarged hilar lymph nodes are likely on a reactive basis. 6. Additional findings as above. ACT 112: Negative or not required by law. Electronically signed by: Hayder Munoz M.D. 06/02/2020 8:09 AM Dictated: 06/02/20803Transcribed: 06/02/20803 XR chest 1V portable HISTORY: 29 years-old Female Fever. Cough. Covid exposures. Acute cough with fever COMPARISON: CTA of the chest 06/02/2020, chest radiograph 05/23/2020 TECHNIQUE: Portable AP view of the chest FINDINGS: The cardiac silhouette is upper limits of normal in size. Mediastinal contours are within normal limits. Lungs are mildly hypoinflated. Patchy bilateral airspace opacities. No pneumothorax, pleural effusion or overt pulmonary edema. Bones appear grossly intact. IMPRESSION: Patchy bilateral airspace opacities are suggestive of multifocal pneumonia. ACT 112: Negative or not required by law. The above report was generated using voice recognition software. It may contain grammatical, syntax or spelling errors. Electronically signed by: David Garcia M.D. 06/02/2020 7:16 AM Dictated: 06/02/20714Transcribed: 06/02/20714 Hospital Course (1) Severe sepsis: Met sepsis criteria on admission with tachycardia, febrile and elevated Lactate CXR on admission showed patchy bilateral airspace opacities are suggestive of multifocal pneumonia. CTA chest showed no evidence of pulmonary embolus in the main, lobar, or proximal segmental pulmonary arteries. Multifocal airspace consolidation is typical for pneumonia. COVID 19 and influenza negative on admission (Pt had multiple negative COVID 19 tests) Received dexamethasone and Zosyn in the ER Currently on Doxy and IV Rocephin and prednisone Continue oxygen supplement and respiratory treatment Pulmonology consulted Steroid was discontinued and antibiotic doxycycline was changed to Zithromax Blood cx no growth so far Biofire was negative Pt would like to go home today because she missed her kids case discussed with Dr. Sarkar recommended to transition Rocephin to Ceftin to c omplete 7 to 10-day course Will need a repeat CXR in 2 to 3 weeks with her PCP 2 step exercise done today that suggested pt will need 2L NC with ambulation Diabetes type 2 Last hba1c 6.7. Will resume PO diabetes med on discharge Continue insulin and Novolog sliding scale while inpatient Hypokalemia Possible related to diarrhea K on admission 3.2 , replaced K stable Continue monitor BMP Obesity BMI 49 Counseling on weight loss Diarrhea Stool for Cidff negative Continue monitor electrolytes Elevated D-dimer Mostly due to acute illness/Pneumonia CTA chest showed no evidence of PE DVT prophylaxis On Lovenox subcu Full code Disposition Discharge home today Total Time Total Time Spent Total Time Spent (In Minutes): 35 minutes Total Time Includes: Examination of the Patient, Discharge Planning, Medication Reconciliation, Communication With Other Providers and Other Discharge Plan Discharge Items Patient Disposition: Home - Self-Care Reason For Visit: sepsis Discharge Diagnosis: Pneumonia Diabetes type 2 Hypokalemia Diarrhea Elevated D-dimer Activity: Resume your previous activity Non-emergency contact: Primary Care Provider Call non-emergency contact if: you have any medication questions and your temperature is above 101 Follow-up/Referrals: Berkley Pavon DO [Primary Care Provider] - (Date & Time 06/09/2020 10:00 AM Provider Berkley Pavon DO Department [facility] ) Diet: Carb Consistent or DM2 Addtl Attending Provider Instructions: Follow up with your primary care provider Dr. Sales on 06/09/2020 @ 10:00 AM Your physician will order a repeat Chest xray for you in 3 to 4 weeks Complete the course of the antibiotic with Ceftin and Zithromax Continue oxygen supplement with 2L NC with ambulation (Needs oxygen on discharge) Continue monitor your blood sugar Counseling on diet and weight loss Seek medical attention if you develop any fever or worsening shortness breath Pending Studies at Discharge: Yes Studies:: Urine legionella pending Stand-Alone Forms: My My[employer], Smoking Cessation Medications and DC Order Prescriptions: New azithromycin [Zithromax] 250 mg tablet 250 mg PO DAILY 5 Days Qty: 5 RF: 0 cefdinir 300 mg capsule 300 mg PO BID 5 Days Qty: 10 RF: 0 Continued sumatriptan succinate 100 mg tablet 100 mg PO DIRECTED PRN (Reason: Migraine Headache) RF: 0 ondansetron HCl 4 mg tablet 4 mg PO DIRECTED PRN (Reason: Nausea) RF: 0 benzonatate 200 mg capsule 200 mg PO TID PRN (Reason: Cough) RF: 0 albuterol sulfate 90 mcg/actuation HFA aerosol inhaler 2 inha INH Q6H PRN (Reason: Shortness Of Breath Or Wheezing) RF: 0 atorvastatin 20 mg tablet 20 mg PO DAILY RF: 0 Jardiance 10 mg tablet 10 mg PO DAILY RF: 0 Ozempic 0.25 mg or 0.5 mg(2 mg/1.5 mL) pen injector 2 mg SUBCUT WK RF: 0 metformin 500 mg tablet extended release 24 hr 500 mg PO BID RF: 0 Discharge Orders: Discharge Order (Routine); Ordered 06/05/20 Ordered By: Savanah Marroquin Admission Data Admit Date/Time: 06/02/20 02:09 Attending Provider: Savanah Marroquin Admit Provider: Miguel Diaz Primary Care Provider: Berkley Pavon Other Providers: Miguel Diaz ; David Spears Other Interventions: Discharge Summary Assessment (RN) Last Done: 06/05/20 16:51
== END 2020-06-05 17:30 | disposition home or self-care (01) | DRG 871 ==
LOC: ED 21:53 → 2N 06-02 02:09

== ENCOUNTER 2023-07-18 05:30 | Observation (INO) ==
--- NOTE | 2023-07-14 16:21 | Anesthesiology Consultation ---
Date of Service July 14, 2023 Assessment & Plan (1) Encounter for pre-operative examination: Plan - check BSG, BMP, EKG and urine test STAT am DOS. Fluid orders to anesthesiologist review am DOS. - semaglutide instructions: Patient informed by PAT RN to stop 7 days prior to surgery. - Per log feeder on 07/14/2023: No known infectious disease contacts, current infectious disease symptoms in past 10 days or COVID positive test result in the past 30 days. Chart Review Chart Review: Acceptable Risk for Surgery and Patient NOT seen in Pre Admission Testing History Surgery Operation Date: 07/18/23 07:00 Proposed Procedures p Total Laparoscopic Hysterectomy, Bilateral Salpingectomy and Cystoscopy, Possible Laparotomy as Any Indicated Procedure - Demetrio Ge MD Height/Weight Height: 5 ft 4.75 in Weight: 127.913 kg Allergies Allergy/AdvReac Type Severity Reaction Status Date / Time No Known Allergies Allergy Verified 07/18/23 05:51 Medications Home Medications Medication Instructions Recorded Confirmed Last Taken atorvastatin 20 mg tablet 20 mg PO HS 10/17/19 07/18/23 07/17/23 20:30 semaglutide 0.25 mg or 0.5 mg (2 0.5 mg subcut WE 10/17/19 07/18/23 07/06/23 20:30 mg/1.5 mL) subcutaneous pen injector (Ozempic) cyclobenzaprine 10 mg tablet 10 mg PO UD PRN Spasms 09/17/20 07/18/23 Unknown multivitamin 1 tab PO QAM 10/27/20 07/18/23 07/15/23 08:00 cholecalciferol (vitamin D3) 125 125 mcg PO WK 07/14/23 07/18/23 07/11/23 08:00 mcg (5,000 unit) tablet (Vitamin D3) galcanezumab-gnlm 120 mg/mL 120 mg subcut MONTHLY 07/14/23 07/18/23 06/23/23 subcutaneous syringe (Emgality) ibuprofen 600 mg tablet 600 mg PO Q6H PRN Pain 07/14/23 07/18/23 Unknown rizatriptan 10 mg tablet (Maxalt) 10 mg PO DIRECTED 07/14/23 07/18/23 Unknown topiramate 100 mg tablet (Topamax) 100 mg PO HS 07/14/23 07/18/2307/17/24 20:30 Active Medications Generic Name Dose Route Start Last Admin Trade Name Jani PRN Reason Stop Dose Admin Lactated Ringer's 1,000 mls @ 125 mls/hr 07/18/23 06:00 07/18/23 06:14 Lr IV 07/18/23 13:59 125 mls/hr .Q8H RAFFAELE Administration Scopolamine 1 mg 07/18/23 06:39 07/18/23 06:43 Scopolamine 1 Mg Tdsy TD 07/18/23 06:40 1 mg ONE ONE Administration Past Medical History Medical History GERD (gastroesophageal reflux disease) Dysphagia follows with [facility] Fatty liver Iron deficiency anemia Nodular thyroid disease monitors every 6 mos History of COVID-19 Dx 04/2020. Symptoms at time of fever, SOB, body aches > resolved DM type 2 (diabetes mellitus, type 2) NIDDM Thyroid goiter Severe sepsis due to bilat pneumonia 2019 Abnormal uterine bleeding Morbid obesity History of PCOS Migraine Past Family History Family History Grandfather (Maternal) Diabetes Mother Diabetes Grandmother (Maternal) Diabetes Other No family history of adverse response to anesthesia Past Surgical History Surgical History History of endometrial ablation History of arthroscopy left knee History of D&C History of wisdom tooth extraction History of tonsillectomy Social History Smoking Status: Never smoker Do You Dip or Chew Tobacco: No Hx Alcohol Use: No Hx Substance Use: No substance use type: does not use Physical Exam Vital Signs Last Vital Signs Temp 36.7 C 07/18/23 05:59 Pulse 82 07/18/23 05:59 Resp 20 07/18/23 05:59 BP 133/83 07/18/23 05:59 Pulse Ox 99 07/18/23 05:59 O2 Del Method Room Air 07/18/23 05:59 Testing Laboratory Results 07/18/23 05:43 07/18/23 05:52 POC Glucose 135 H 07/18/23 05:43 POC Ur Test NEG 07/08/2023 WBC: 8.1 H/H: PLATELETS: 280,000
[2023-07-18] MEDS ORDERED: LACTATED RINGER'S 1,000 ML IV SCH ×2 (06:00→10:30)
[2023-07-18 06:19] LABS: BUN Creatinine Ratio 16.9 (10-20); Calcium 8.8 mg/dl (8.6-10.3); Creatinine Clr Calc Pharmacy 154.4 ml/min; Est GFR (African American) 130.6 ml/min; Est GFR (Non-African American) 112.7 ml/min; Potassium 3.4 mmol/L (3.5-5.1)
[2023-07-18] MEDS ORDERED: SCOPOLAMINE 1 MG TDSY TD ONE ×2 (06:39→06:42)
[2023-07-18] MEDS ORDERED: ePHEDrine sulfate 50 MG/ML AMP IV PRN (06:41)
[2023-07-18] MEDS ORDERED: ATROPINE SULFATE 0.1 MG/ML 10ML SYR IV PRN (06:41)
[2023-07-18] MEDS ORDERED: PROMETHAZINE HCL 6.25 MG in SODIUM CHLORIDE 0.9% 50 ML IV PRN (06:41)
[2023-07-18] MEDS ORDERED: ONDANSETRON INJ 2 MG/ML 2 ML VIAL IV PRN ×2 (06:41→10:29)
[2023-07-18] MEDS ORDERED: HYDROmorphone INJ 1 MG/ML SYRINGE IV PRN (06:41)
[2023-07-18] MEDS ORDERED: MIDAZOLAM HCL 1 MG/ML 2ML VIAL ONE (06:47)
[2023-07-18] MEDS ORDERED: PROPOFOL IV EMULSION 10 MG/ML 20 ML VIAL IV ONE (06:47)
[2023-07-18] MEDS ORDERED: DEXAMETHASONE SOD INJ 4 MG/ML VIAL ONE (06:47)
[2023-07-18] MEDS ORDERED: fentaNYL citrate PF 100 MCG/2 ML VIAL ONE (06:47)
[2023-07-18] MEDS ORDERED: LIDOCAINE 2% 2 ML VIAL/AMP(20MG/ML) INFIL ONE (06:47)
[2023-07-18] MEDS ORDERED: ONDANSETRON INJ 2 MG/ML 2 ML VIAL ONE ×2 (06:47→08:25)
[2023-07-18] MEDS ORDERED: METHYLENE BLUE 0.5% 10 ML VIAL ONE (06:49)
[2023-07-18] MEDS ORDERED: BUPIVACAINE/EPINEPHRINE 0.5% MPF 1:200,000 30 ML VIAL ONE (06:49)
--- NOTE | 2023-07-18 07:09 | History & Physical Bridge Note ---
Date of Service July 18, 2023 History & Physical Bridge Note I have examined the patient, reviewed the History & Physical and in the interval since the performance of the History & Physical I have noted the following changes of clinical significance: no changes noted
--- OUTSIDE RECORDS SUMMARY | 2023-07-18 07:22 | External Medical Summary | Summary of Care ---
Author Name Unknown Organization [facility] Address [address] [place] [address] Phone [phone] Care Team Providers Care Call Center Recruiter Name Role Phone Unavailable Primary Care Provider Unavailabl e Reason for Visit * Reason Comments Pre-Op Testing Encounter Details Date Type Department Care Team (Late st Contact Info) Description 07/08/2023 2:30 PM EST Office [facility] [address] [place] [address] Demetrio Ge MD [address] [place] [address] Preop testing* Allergies No known active allergiesdocumented as of this encounter (statuses as of 07/08/2023) Medications Medication Sig Dispensed Refills Start Date End Date Status Multiple Vitamins-Minerals (WOMENS MULTI VITAMIN & MINERAL) TABS Take 1 Tablet by mouth in the morning. 0 Active OneTouch Verio IQ System w/Device Kit Test once a day e 1165 1 Kit 1 02/02/2021 Active OneTouch Verio In Vitro Strip (Glucose Blood) Test once a day e 1165 100 Strip 3 08/17/2021 Active traZODone HCl 100 MG Oral Tablet (Desyrel) One tablet daily at bedtime 30 Tablet 5 08/27/2022 Active Clindamycin Phosphate 1 % External Gel Apply topically to affected area 2 times a day. To affected area of skin. 60 g 11 09/25/2022 Active Clinitest Rapid COVID-19 Test In Vitro Kit (COVID-19 At Home Antigen Test) test as directed 5 Kit 0 10/17/2022 Active Topiramate 50 MG Oral Tablet (topAMAX) TAKE TWO TABLETS BY MOUTH AT BEDTIME 180 Tablet 3 07/12/2022 4 Active OneTouch Delica Plus [id number] USE TO TEST ONCE DAILY 100 Each 3 07/10/2022 4 Active Emgality 120 MG/ML Subcutaneous Solution Auto-injector (Galcanezumab-gnlm) Inject 1 mL under the skin every month. 1 mL 5 03/07/2023 Active Ventolin HFA 108 (90 Base) MCG/ACT Inhalation Aerosol Solution Inhale 2 Puffs by mouth in the morning and 2 Puffs at noon and 2 Puffs in the evening and 2 Puffs before bedtime. 18 g 2 03/22/2023 Active Famotidine 10 MG Oral Tablet (Pepcid AC)Indications:Reflu x pharyngitis Take 1 Tablet by mouth in the morning and 1 Tablet before bedtime. 30 Tablet 4 03/25/2023 Active Additional Information Patient not taking.Reported on 07/08/2023 Azelastine HCl 0.1 % Nasal Solution (Astelin)Indications :Chronic rhinitis Administer 1 [place] into nostril in the morning and 1 [place] before bedtime. 30 mL 6 03/25/2023 Active Atorvastatin Calcium 20 MG Oral Tablet (Lipitor)Indications :Dyslipidemia, goal LDL below 100 TAKE ONE TABLET BY MOUTH EVERY DAY 90 Tablet 1 04/07/2023 4 Active Omeprazole 20 MG Oral Capsule Delayed Release (PriLOSEC) Take 1 Capsule by mouth in the morning for 20 days. 1 hour before the first meal of the day. 20 Capsule 0 04/05/2023 4 Active Benzonatate 100 MG Oral Capsule Take 1 Capsule by mouth 3 times a day as needed for Cough. 30 Capsule 1 04/05/2023 Active Ozempic (2 MG/DOSE) 8 MG/3ML Subcutaneous Solution Pen-injector (Semaglutide (2 MG/DOSE))Indications :PCOS (polycystic ovarian syndrome),Type 2 diabetes mellitus (HCC) INJECT 2MG UNDER THE SKIN ONCE A WEEK 9 mL 6 06/05/2023 12/06/202 4 Active Rizatriptan Benzoate 10 MG Oral Tablet Disintegrating Take 1 Tablet by mouth as needed for Migraine. May repeat in 2 hours if needed. Do not take more than 20mg in 24 hours. 10 Tablet 3 06/24/2023 Active Vitamin D (Ergocalciferol) 1.25 MG (45559 UT) Oral Capsule (Drisdol) Take 1 Capsule by mouth once a week. 8 Capsule 0 06/24/2023 Active documented as of this encounter (statuses as of 07/08/2023) Active Problems Problem Noted Date Diagnosed Date Body mass index (BMI) of 45.0 to 49.9 in adult 0 10/07/2022 Overview: Per Obesity protocol - bmi= 49.00 01/13/13 Migraine without aura and wi thout status migrainosus, not intractable 05/07/2022 Morbid obesity due to excess calories 09/09/2019 Iron deficiency anemia due to chronic blood loss 07/14/2018 PCOS (polycystic ovarian syndrome) 03/06/2017 Iron deficiency anemia 11/07/2014 Fatty liver 09/15/2014 Anxiety 11/26/2013 Type 2 diabetes mellitus 05/28/2012 Overview: GESTATIONAL DIABETES -. Recommend monitoring blood sugars four times daily with Fasting Blood Sugar (FBS) and 1 hour postprandial measurements, with goal of keeping FBS <90 and 1h PP <140. Patients should report blood sugar levels to [facility] department weekly. - . Dietary consult to be done PANCHO to instruct patient on appropriate nutrition and diet to aid in control of blood sugars. - . If medication is required to control blood sugars, then should have [facility] ultrasound for growth every 4 weeks. . Recommend surveillance and delivery as follows: - If blood sugars are well-controlled by diet alone, delivery should be accomplished by 41w 0d with surveillance (twice weekly NST/weekly OLIVA) after 40w 0d. - If patient requires medications to control blood sugars or if signs of macrosomia/IUGR exist, then recommend twice weekly NST/weekly OLIVA starting at 32 weeks and delivery after 39w 0d and accomplished by EDC. - If poor blood sugar control may recommend delivery at 37-38 weeks after amniocentesis to prove lung maturity. 8. Recommend intrapartum monitoring of blood sugars every 1-2 hours and treatment with insulin (either SC or IV) as indicated. 9. Recommend FBS be checked prior to patient's hospital discharge after delivery. 10. Recommend 2 hour glucose tolerance testing with 75-gram glucose load 6-8 weeks to ensure that her diabetes resolves after delivery. documented as of this encounter (statuses as of 07/08/2023) Resolved Problems Problem Noted Date Diagnosed Date Resolved Date Major depressive disorder, r ecurrent episode, moderate 04/24/2018 04/05/2023 Body mass index (BMI) of 50. 0 to 59.9 in adult 03/31/2017 10/10/2022 Overview: Per Obesity protocol #1 - bmi= 49.00 01/13/13 Obesity, morbid (more than 1 00 lbs over ideal weight or BMI > 40) 01/13/2013 04/03/2017 Overview: bmi= 49.00 01/13/13 Injury of foot, left 01/13/2013 017 Contusion of knee, left 01/13/2013 09/0 12/2016 Strain of knee and leg, left 01/13/2013 03/06/2017 ADVANCE DIRECTIVE INFORMATION 08/17/2012 08/17/2012 Overview: No, Advance Directive brochure offered, patient declined. labor 07/10/2012 03/06/2017 Overview: + FFN 07/08. Cervix closed, +contractions 07/10: Betamethasone 12mg, started on procardia 10mg q4h. Pt advised to have 2nd betamethasone at L&D on 07/11. Obesity, morbid (more than 1 00 lbs over ideal weight or BMI > 40) 06/18/2012 03/06/2017 Overview: 1. Recommend restricting weight gain during to 11-20 pounds. Consider referral for nutrition consult. (consult placed) 2. For patients with Class 3 obesity, we recommend baseline pre-eclamptic labs - wnl 4. Recommend [facility] ultrasound for anatomy screen at 20 weeks and for growth every 6 to 8 weeks after 24 weeks. NL GROWTH AT 32 WK 35 wks - EFW 2728 398 gm = 6 lbs 0 ozs (67 %) 5. For patients with Class 3 obesity, we recommend surveillance with twice weekly NST/weekly OLIVA to begin at 32 weeks and delivery by EDC. 6. Recommend anesthesia consult during the antepartum period. (Consult placed 06/22/12.) Supervision of high-risk pre gnancy of young multigravida 06/11/2012 09/26/2014 Overview: Sign permit for Bt Induction scheduled 09/14 at 39 1/7. Abnormal maternal glucose to lerance, complicating , childbirth, or the puerperium, unspecified as to episode of care 04/03/2012 06/18/2012 Overview: Failed 3hr GTT at 15 weeks. Care Analyst/educator appt ordered, blood sugar supplies ordered Pt has not gotten MA active thus far (04/23/2012) states info is at MA office. Advised pt to call our office when MA is active so we can set up appt for business controller and she can get supplies at pharmacy. F/u at next visit to ensure this is done. Encounter for supervision of other normal 02/19/2012 06/18/2012 Overview: Urine culture contaminated at [facility], repeat next visit. Urine culture obtained 02/22/12 Ivy Olivas LPN UTI-rx given. KRIS next visit - contam, consider neg ICD-10 update of inactive term Hx of preeclampsia, prior pr egnancy, currently 02/19/2012 09/26/2014 Overview: Preeclampsia labs ordered at [facility]--WNL. 24hr urine protein 0.07 Obesity in 02/19/2012 012 Overview: Early glucola 175- 3hr GTT ordered documented as of this encounter (statuses as of 07/08/2023) Immunizations Name Administration Dates Next Due COVID-19 mRNA, LNP-s, No Pre serve, 2-Dose Series (Moderna) 11/23/2020,10/24/2020 DT - Diptheria/Tetanus (PEDS) 06/24/2009, 006 DTaP Dipth/Tet/Acell Pertussis (Infanrix), Peds 02/27/1996,10/27/1992,02/16/1991,12/21,1990 Diptheria/Tetanus (Adult) 06/24/2009 Hepatitis B, 0-19 yrs 09/12/2003, 003,08/13/2002,07/16 Hepatitis B, 20+ yrs 09/09/2019,02/26/2019,01/22 IPV - Polio Virus Vaccine (Inact) 1995,10/27/1992,1990,11/03 MMR - Measles/Mumps/Rubella Vaccine 08/28,08/11/2017,02/27/1996,12/22 PPD 08/11/2017,08/04/2017 Pneumococcal Conjugate Vacci ne, 20-valent ([id number]) 06/13/2022 Pneumococcal Polysaccharide PPV23 (Pneumovax) 07/28/2018 Seasonal Influenza Virus Vac cine, Unspecified Formulation 04/04/2020,03/09/2019,04/17/2018 Seasonal Influenza, PF, 6 M & above, IM , (FluLaval or Fluzone) 04/05/2023,04/03/2022,04/04/2020,03/09,04/17/2018 Seasonal Influenza, Split, I IV3, With Preserve, Inj 03/09/2015 TDAP (age 10 and older)(Boostrix) 07/28/2018, Varicella Vaccine (Chicken Pox) 07/16/2002 documented as of this encounter Social History Tobacco Use Types Packs/Day Years Used Date Smoking Tobacco: Never Smokeless Tobacco: Never Alcohol Use Standard Drinks/Week Comments No 0 (1 standard drink = 0.6 oz pur e alcohol) PHQ-2 Answer Date Recorded PHQ Adult Total Score 0 06/11/2022 Hunger Vital Sign Answer Date Recorded Worried About Running Out of Food in the Last Ye ar Never true 08/06/2019 Ran Out of Food in the Last Year Never true 08/06/2019 Sex and Gender Information Value Date Recorded Sex Assigned at Not on file Gender Identity Not on file Sexual Orientation Not on file Job Start Date Occupation Industry Not on file Not on file Not on file documented as of this encounter Last Filed Vital Signs Vital Sign Reading Time Taken Comments Blood Pressure 118/84 07/08/2023 2:19 PM EST Pulse - - Temperature 36.4 C (97.5 F) 07/08/2023 2:19 PM ES T Respiratory Rate - - Oxygen Saturation - - Inhaled Oxygen Concentration - - Weight 130.6 kg (288 lb) 07/08/2023 2:19 PM EST Height 163.8 cm (5' 4.49") 07/08/2023 2:19 PM ES T Body Mass Index 48.69 07/08/2023 2:19 PM EST documented in this encounter Progress Notes * Demetrio Ge MD - 07/08/2023 2:44 PM EST Pt here for preop History and physical examination done Consnet obtained documented in this encounter H&P Notes * Demetrio Ge MD - 07/08/2023 2:41 PM EST Images from the original note were not included. [place] [id number] Appt line [phone] Patient is a 32-year-old status post endometrial ablation and failed medical management which included IUD Nexplanon and OCP. Patient had an ablation performed in October 2022 and continues to report heavy bleeding with menses patient wishes to have hysterectomy. 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 Denies h/o STDs and abnormal Paps. Her past medical/surgical histories and current medications are recorded in the electronic record. Past Surgical History: Procedure Laterality Date DENTAL SURGERY PROCEDURE NEC 06/30/2007 no comps HYSTEROSCOPY W/BIOPSY AND/OR POLYPECTOMY W/WO D&C 2019 INFORMATION 11/17/2020 D&C, EM ablation KNEE ARTHROSCOPY/MENISCECTOMY Left 11/16/2021 ARTHROSCOPY KNEE MEDIAL OR LATERAL MENISCECTOMY performed by Claudio Mendez Jr., MD at OR [facility] REMOVE TONSILS & ADENOIDS, AGE 12+ 06/30/2007 no comps Family History Problem Relation Age of Onset Hypertension Mother Thyroid Disorder Mother Ovarian cancer Mother 26 had oophorectomy and complete hysterectomy Other (insomnia) Mother Heart Disorder Father Hypertension Father Colon polyps Father Other (endometriosis) Sister Uterine cancer Sister 27 had full hysterectomy Other (pcos) Sister Blood Disorder Daughter ITP Diabetes Grandmother (Maternal) ovarian and uterine Ovarian cancer Grandmother (Maternal) Diabetes Grandfather (Maternal) Ovarian cancer Grandfather (Maternal) Breast Cancer Grandfather (Maternal) Cancer Grandmother (Paternal) ovarian + uterine at same time (premenopausal), uterine and recently breast cancer Diabetes Aunt (Unspecified) Breast Cancer Aunt (Unspecified) History Social History Socioeconomic History Marital status: Spouse name: Not on file Number of children: 1 Years of education: 14 Highest education level: Not on file Occupational History Occupation: unemployed 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 Tobacco Use Smoking status: Never Smokeless tobacco: Never Substance and Sexual Activity Alcohol use: No Drug use: No Comment: denies Sexual activity: Yes Partners: Male control/protection: Surgical Comment: vasectomy Other Topics Concern Not on file Social History Narrative Not on file Social Determinants of Health Financial Resource Strain: Not on file Food Insecurity: No Food Insecurity (08/06/2019) Hunger Vital Sign Worried About Running Out of Food in the Last Year: Never true Ran Out of Food in the Last Year: Never true Transportation Needs: Not on file Physical Activity: Not on file Stress: Not on file Social Connections: Not on file Intimate Partner Violence: Not on file Housing Stability: Not on file @[employer]S@ Physical Exam: BP 118/84 | Temp 36.4 C (97.5 F) | Ht 1.638 m (5' 4.49") | Wt 130.6 kg (288 lb) | LMP (LMP Unknown) | BMI 48.69 kg/m | BSA 2.44 m CV: S1, S2. Regular rate and Rhythm Lungs: Clear to auscultation bilaterally. Abdomen: Soft Extremities: Soft non tender calves bilaterally. A/P: 32 year old year old Failed endometrial ablation Body mass index is 48.69 kg/m. We have discussed the risk alternatives and complications of surgery including more surgery to correct complication,risk of anesthesia,infection,damage to internal organs and . We have also discussed the possibility that pt's present situation may not change. Pt is aware and wishes to proceed to surgery. Consent is signed Pt scheduled for the ff procedures 1. Total laparoscopic hysterectomy 2. Bilateral salpingectomy 4. Possible laparotomy 5. Possible cystoscopy Demetrio Ge MD 07/08/2023 2:42 PM documented in this encounter Nursing Notes * Nicole Huddleston LPN - 07/08/2023 2:19 PM EST Pre-op, DOS 07/18/23. TLH, BL salpingectomy, possible laparotomy. documented in this encounter Plan of Treatment Upcoming Encounters Date Type Department Care Team (Late st Contact Info) Description 07/22/2023 11:20 AM EST Office Visit Family [facility] [place] [address] [place] [id number] Ashish Vicente MD [address] [place] [address] 08/04/2023 11:30 AM EST Office Visit Gynecology/Obstetrics [facility] [address] [place] [address] Demetrio Ge MD [address] [facility] [place] [address] 12/02/2023 7:00 AM EDT Appointment Radiology, [address] [place] [address] 12/19/2023 11:30 AM EDT Office Visit Endocrinology, [place] [address] [place] [address] Edgar Suazo CRNP [address] [place] [address] 02/19/2024 10:00 AM EDT Office Visit Endocrinology, [place] [address] [place] [address] Patricia Coffman MD 03/31/2024 7:40 AM EDT Office Visit Neurology, [place] [address] [place] [address] Serenity Gandara PA-C [facility] [address] Health Maintenance Due Date Last Done Comments HPV/Co-Test 2020 Diabetic Foot Exam 02/01/2021 02/02/2020, 03/09/2019 Diabetic Eye Exam 12/18/2022 12/18/2021, 04/06/2020 COVID-19 Vaccine ( season) 2023 11/23/2020, 10/24/2020 Cervical Cancer Screening 04/07/2023 Pap Smear 04/07/2023 04/07/2020, 02/2020, 05/20/2017, Additional history exists Depression Screening 06/11/2023 06/11/2022 HbA1c 12/19/2023 06/19/2023, 01/29, 04/09/2022, Additional history exists Albumin/Creatinine Ratio 04/06/2024 023, 09/28/2021, 09/07/2020, Additional history exists GFR 04/25/2024 04/25/2023, 01/29, 04/09/2022, Additional history exists DTaP,Tdap,and Td Vaccines (11 - Td or Tdap) 07/28/2028 07/28/2018, 06/24/2009, 06/24/2009, Additional history exists Hepatitis B Completed 09/09/2019, 01/30, 01/22/2019, Additional history exists Pneumococcal Vaccine: Pediatrics (0 to 5 Years) and At-Risk Patients (6 to 64 Years) Completed 06/13/2022, 07/28/2018 Influenza Vaccine (FLU shot) Completed 12/2022, 04/03/2022, 04/04/2020, Additional history exists GARDASIL-HPV IMMUNIZATION SERIES Aged Out No longer eligible based on patient's age to complete this topic MENINGOCOCCAL (MENACTRA/MENVEO) Aged Out No longer eligible based on patient's age to complete this topic documented as of this encounter Medical Devices Not on filedocumented as of this encounter Visit Diagnoses Diagnosis Preop testing- Primary Preoperative examination, unspecified documented in this encounter
--- OUTSIDE RECORDS SUMMARY | 2023-07-18 07:22 | External Medical Summary | Summary of Care ---
Author Name Unknown Organization [facility] Address [address] [place] [address] Phone [phone] Care Team Providers Care Central Office Repairer Name Role Phone Unavailable Primary Care Provider Unavailabl e Reason for Visit * Reason Comments Outpatient Testing Encounter Details Date Type Department Care Team (Late st Contact Info) Description 07/08/2023 3:40 PM EST Laboratory Laboratory [facility] [address] [place] [address] [facility] [address] [facility] [place] [address] Preop testing Allergies No known active allergiesdocumented as of [...] 3 07/12/2022 4 Active OneTouch Delica Plus [id number] USE TO TEST ONCE DAILY 100 Each [...] Nasal Solution (Astelin)Indications :Chronic rhinitis Administer 1 [place] into nostril in the morning and 1 [place] before bedtime. 30 mL 6 03/25/2023 Active [...] ONCE A WEEK 9 mL 6 06/05/2023 4 Active Rizatriptan Benzoate 10 MG Oral Tablet Disintegrating Take 1 Tablet by mouth as needed for Migraine. May repeat in 2 hours if needed. Do not take more than 20mg in 24 hours. 10 Tablet 3 06/24/2023 Active Vitamin D (Ergocalciferol) 1.25 MG (83260 UT) Oral Capsule (Drisdol) Take 1 Capsule [...] Patients should report blood sugar levels to [facility] department weekly. - . Dietary consult to be done PANCHO to instruct patient on appropriate nutrition and diet to aid in control of blood sugars. - . If medication is required to control blood sugars, then should have [facility] ultrasound for growth every 4 weeks. . [...] left 01/13/2013 017 Contusion of knee, left 01/13/2013/0 12/2016 Strain of knee and leg, left [...] baseline pre-eclamptic labs - wnl 4. Recommend M ultrasound for anatomy screen at 20 weeks [...] Overview: Failed 3hr GTT at 15 weeks. Plasma Table Operator/educator appt ordered, blood sugar supplies ordered Pt has not gotten MA active thus far (04/23/2012) states info is at MA office. Advised pt to call our office when MA is active so we can set up appt for acute specialist and she can get supplies at pharmacy. F/u at next visit to ensure this is done. Encounter for supervision of other normal 02/19/2012 06/18/2012 Overview: Urine culture contaminated at [facility], repeat next visit. Urine culture obtained 02/22/12 Ivy Olivas LPN UTI-rx given. KRIS next visit - contam, consider neg ICD-10 update of inactive term Hx of preeclampsia, prior pr egnancy, currently 02/19/2012 09/26/2014 Overview: Preeclampsia labs ordered at [facility]--WNL. 24hr urine protein 0.07 Obesity in [...] PPD 08/11/2017,08/04/2017 Pneumococcal Conjugate Vacci ne, 20-valent ([id number]) 06/13/2022 Pneumococcal Polysaccharide PPV23 (Pneumovax) 07/28/2018 Seasonal [...] on file documented as of this encounter Plan of Treatment Upcoming Encounters Date Type Department Care Team (Late st Contact Info) Description 07/22/2023 11:20 AM EST Office Visit [facility] [address] [facility] [place] [address] Ashish Vicente MD 21 [facility] [place] [address] 08/04/2023 11:30 AM EST Office Visit Gynecology/Obstetrics [facility] [address] [facility] [place] [address] Demetrio Ge MD 132 [facility] [place] [address] 12/02/2023 7:00 AM EDT Appointment Radiology, [address] [place] [address] 12/19/2023 11:30 AM EDT Office Visit Endocrinology, [place] [address] [place] [address] Edgar Suazo CRNP [address] [place] [address] 02/19/2024 10:00 AM EDT Office Visit Endocrinology, [place] [address] [place] [address] Patricia Coffman MD 03/31/2024 7:40 AM EDT [facility] [place] [facility] [address] Serenity Gandara PA-C [facility] [place] [address] Pending Results Name Type Priority Associated Diagnoses Date /Time CBC WITH WBC DIFFERENTIAL Lab Routine Preop testing 07/08/2023 3:23 PM EST CBC Lab Routine Preop testing 07/08/2023 3:23 PM EST DIFFERENTIAL, AUTOMATED Lab Routine Preop testing 07/08/2023 3:23 PM EST Health Maintenance Due Date Last Done Comments [...] of this encounter Visit Diagnoses Diagnosis Preop testing Preoperative examination, unspecified documented in this encounter
--- OUTSIDE RECORDS SUMMARY | 2023-07-18 07:23 | External Medical Summary | Summary of Care ---
Author Name Unknown Organization [facility] Address [address] [place] [address] Phone [phone] Care Team Providers Care Bowling Alley Manager Name Role Phone Unavailable Primary Care Provider Unavailabl e Reason for Visit * Reason Onset Date Comments Appointment 07/03/2023 Encounter Details Date Type Department Care Team (Late st Contact Info) Description 07/03/2023 Telephone Gynecology/Obstetrics [facility] [address] [place] [address] Demetrio Ge MD [address] [place] [address] Appointment Allergies No known active allergiesdocumented as of this encounter (statuses as of 07/03/2023) Medications Medication Sig Dispensed Refills Start Date End Date Status Multiple Vitamins-Minerals (WOMENS MULTI VITAMIN & MINERAL) TABS Take 1 Tablet by mouth in the morning. 0 Active DropletTouch Verio IQ System w/Device Kit Test once [...] as directed 5 Kit 0 10/17/2022 Active Additional Information Patient not taking.Reported on 04/05/2023 Topiramate 50 MG Oral Tablet (topAMAX) TAKE TWO TABLETS BY MOUTH AT BEDTIME 180 Tablet 3 07/12/2022 4 Active OneTouch Delica Plus Oliyun79H USE TO TEST ONCE DAILY 100 Each [...] before bedtime. 30 Tablet 4 03/25/2023 Active Azelastine HCl 0.1 % Nasal Solution (Astelin)Indications :Chronic rhinitis Administer 1 Ismay into nostril in the morning and 1 Ismay before bedtime. 30 mL 6 03/25/2023 Active Atorvastatin Calcium 20 MG Oral Tablet (Lipitor)Indications :Dyslipidemia, goal LDL below 100 TAKE ONE TABLET BY MOUTH EVERY DAY 90 Tablet 1 04/07/2023 4 Active Benzonatate 100 MG Oral Capsule [...] 06/24/2023 Active Vitamin D (Ergocalciferol) 1.25 MG (53555 UT) Oral Capsule (Drisdol) Take 1 Capsule by mouth once a week. 8 Capsule 0 06/24/2023 Active documented as of this encounter (statuses as of 07/03/2023) Active Problems Problem Noted Date Diagnosed Date [...] Patients should report blood sugar levels to [facility] department weekly. - . Dietary consult to be done PANCHO to instruct patient on appropriate nutrition and diet to aid in control of blood sugars. - . If medication is required to control blood sugars, then should have [facility] ultrasound for growth every 4 weeks. . [...] as of this encounter (statuses as of 07/03/2023) Resolved Problems Problem Noted Date Diagnosed Date [...] left 01/13/2013 017 Contusion of knee, left 01/13/201312/2016 Strain of knee and leg, left 01/13/2013 [...] Overview: Failed 3hr GTT at 15 weeks. Bun Panner/educator appt ordered, blood sugar supplies ordered Pt has not gotten MA active thus far (04/23/2012) states info is at MA office. Advised pt to call our office when MA is active so we can set up appt for residential installer and she can get supplies at pharmacy. F/u at next visit to ensure this is done. Encounter for supervision of other normal 02/19/2012 06/18/2012 Overview: Urine culture contaminated at [facility], repeat next visit. Urine culture obtained 02/22/12 Ivy Olivas LPN UTI-rx given. KRIS next visit - contam, consider neg ICD-10 update of inactive term Hx of preeclampsia, prior pr egnancy, currently 02/19/2012 09/26/2014 Overview: Preeclampsia labs ordered at [facility]--WNL. 24hr urine protein 0.07 Obesity in 02/19/2012 012 Overview: Early glucola 175- 3hr GTT ordered documented as of this encounter (statuses as of 07/03/2023) Immunizations Name Administration Dates Next Due COVID-19 mRNA, LNP-s, No Pre serve, 2-Dose Series (Moderna) 11/23/2020,10/24/2020 DT - Diptheria/Tetanus (PEDS) 06/24/2009, 006 DTaP Dipth/Tet/Acell Pertussis (Infanrix), Peds 02/27/1996,10/27/1992,02/16/1991,12/21,1990 Diptheria/Tetanus (Adult) 06/24/2009 Hepatitis B, 0-19 yrs 09/12/2003, 003,08/13/2002,07/16 Hepatitis B, 20+ yrs 09/09/2019,02/26/2019,01/22 IPV - Polio Virus Vaccine (Inact) 1995,10/27/1992,1990,11/03 MMR - Measles/Mumps/Rubella Vaccine 08/28,08/11/2017,02/27/1996,12/22 PPD 08/11/2017,08/04/2017 Pneumococcal Conjugate Vacci ne, 20-valent ([id number]) 06/13/2022 Pneumococcal Polysaccharide PPV23 (Pneumovax) 07/28/2018 Seasonal [...] on file documented as of this encounter Miscellaneous Notes * Telephone Encounter - Nancy Bueno OSA - 07/03/2023 5:18 PM EST Pt called in wondering when she would be scheduled for her hysterectomy is staying she was told someone was to reach out to her 2 months ago no one reached out yet please assist Thank you documented in this encounter Plan of Treatment Upcoming Encounters Date Type Department Care Team (Late st Contact Info) Description 07/11/2023 11:00 AM EST Office Visit [facility] [place] [facility] [address] Ashish Vicente MD 21 [facility] [place] [address] 12/02/2023 7:00 AM EDT Appointment Radiology, [address] [place] [address] 12/19/2023 11:30 AM EDT Office Visit Endocrinology, [place] [address] [place] [address] Edgar Suazo CRNP [address] [place] [address] 02/19/2024 10:00 AM EDT Office Visit Endocrinology, [place] [address] [place] [address] Patricia Coffman MD 03/31/2024 7:40 AM EDT Office Visit Neurology, [place] [address] [place] [address] Serenity Gandara PA-C 21 [facility] [place] [address] Health Maintenance Due Date Last Done Comments [...]
--- OUTSIDE RECORDS SUMMARY | 2023-07-18 07:23 | External Medical Summary ---
Author Name Unknown Address Unknown Organization K[facility] [place] [address] Laboratory Report Ordering Provider Test Date Status OLGA ROBLEDO 07/08/2023 15:23:30 Final Observation Date Value Abnormality Reference (Units ) Status WBC, Total 07/08/2023 15:23:30 8.19 4.00-10.8 0 (K/uL) Final RBC 07/08/2023 15:23:30 4.68 3.85-5.15 (M/uL) Final Hemoglobin 07/08/2023 15:23:30 13.6 12.0-15.3 (g/dL) Final HCT 07/08/2023 15:23:30 40.4 36.0-45.2 (%) Final MCV 07/08/2023 15:23:30 86.3 81.5-97.5 (fL) Final MCH 07/08/2023 15:23:30 29.1 27.0-34.0 (pg) Final MCHC 07/08/2023 15:23:30 33.7 32.0-36.0 (g/dL) Final RDW 07/08/2023 15:23:30 13.2 11.5-15.5 (%) Final Platelets 07/08/2023 15:23:30 280 140-400 (K /uL) Final MPV 07/08/2023 15:23:30 10.0 6.6-11.1 ( fL) Final Performing Location [facility] [place] [address]
--- OUTSIDE RECORDS SUMMARY | 2023-07-18 07:23 | External Medical Summary | Summary of Care ---
Author Name Unknown Organization [facility] Address [address] [place] [address] Phone [phone] Care Team Providers Care Chain Tender Name Role Phone Unavailable Primary Care Provider Unavailabl e Reason for Visit * Reason Onset Date Comments Appointment 07/03/2023 Encounter Details Date Type Department Care Team (Late st Contact Info) Description 07/03/2023 Telephone Gynecology/Obstetrics [facility] [address] [place] [address] Demetrio Ge MD [address] [place] [address] Appointment Allergies No known active allergiesdocumented as of this encounter (statuses as of 07/04/2023) Medications Medication Sig Dispensed Refills Start Date End Date Status Multiple Vitamins-Minerals (WOMENS MULTI VITAMIN & MINERAL) TABS Take 1 Tablet by mouth in the morning. 0 Active CompuMedTouch Verio IQ System w/Device Kit Test once [...] 3 07/12/2022 4 Active OneTouch Delica Plus [id number] USE TO TEST ONCE DAILY 100 Each [...] Nasal Solution (Astelin)Indications :Chronic rhinitis Administer 1 [place] into nostril in the morning and 1 [place] before bedtime. 30 mL 6 03/25/2023 Active [...] 06/24/2023 Active Vitamin D (Ergocalciferol) 1.25 MG (37569 UT) Oral Capsule (Drisdol) Take 1 Capsule by mouth once a week. 8 Capsule 0 06/24/2023 Active documented as of this encounter (statuses as of 07/04/2023) Active Problems Problem Noted Date Diagnosed Date [...] Patients should report blood sugar levels to [facility] department weekly. - . Dietary consult to be done PANCHO to instruct patient on appropriate nutrition and diet to aid in control of blood sugars. - . If medication is required to control blood sugars, then should have [facility] ultrasound for growth every 4 weeks. . [...] as of this encounter (statuses as of 07/04/2023) Resolved Problems Problem Noted Date Diagnosed Date [...] Overview: Failed 3hr GTT at 15 weeks. Hardboard Supervisor/educator appt ordered, blood sugar supplies ordered Pt has not gotten MA active thus far (04/23/2012) states info is at MA office. Advised pt to call our office when MA is active so we can set up appt for parts facilitator and she can get supplies at pharmacy. F/u at next visit to ensure this is done. Encounter for supervision of other normal 02/19/2012 06/18/2012 Overview: Urine culture contaminated at [facility], repeat next visit. Urine culture obtained 02/22/12 Ivy Olivas LPN UTI-rx given. KRIS next visit - contam, consider neg ICD-10 update of inactive term Hx of preeclampsia, prior pr egnancy, currently 02/19/2012 09/26/2014 Overview: Preeclampsia labs ordered at [facility]--WNL. 24hr urine protein 0.07 Obesity in 02/19/2012 012 Overview: Early glucola 175- 3hr GTT ordered documented as of this encounter (statuses as of 07/04/2023) Immunizations Name Administration Dates Next Due COVID-19 mRNA, LNP-s, No Pre serve, 2-Dose Series (Moderna) 11/23/2020,10/24/2020 DT - Diptheria/Tetanus (PEDS) 06/24/2009, 006 DTaP Dipth/Tet/Acell Pertussis (Infanrix), Peds 02/27/1996,10/27/1992,02/16/1991,12/21,1990 Diptheria/Tetanus (Adult) 06/24/2009 Hepatitis B, 0-19 yrs 09/12/2003, 003,08/13/2002,07/16 Hepatitis B, 20+ yrs 09/09/2019,02/26/2019,01/22 IPV - Polio Virus Vaccine (Inact) 1995,10/27/1992,1990,11/03 MMR - Measles/Mumps/Rubella Vaccine 08/28,08/11/2017,02/27/1996,12/22 PPD 08/11/2017,08/04/2017 Pneumococcal Conjugate Vacci ne, 20-valent ([id number]) 06/13/2022 Pneumococcal Polysaccharide PPV23 (Pneumovax) 07/28/2018 Seasonal [...] encounter Miscellaneous Notes * Telephone Encounter - Kristan Garcia, VALERIE - 07/04/2023 7:31 AM EST Looks like this pt see Dr. Ge * Telephone Encounter - Nancy BuenoVALERIE - 07/03/2023 5:18 PM EST Pt called [...] Description 07/11/2023 11:00 AM EST Office Visit [address] [place] [address] Ashish Vicente MD [address] [facility] [place] [address] 12/02/2023 7:00 AM EDT Appointment Radiology, [facility] [address] [facility] [address] 12/19/2023 11:30 AM EDT Office Visit Endocrinology, [place] [address] [place] [address] Edgar Suazo CRNP [address] [place] [address] 02/19/2024 10:00 AM EDT Office Visit Endocrinology, [place] [address] [place] [address] Patricia Coffman MD 03/31/2024 7:40 AM EDT Office Visit Neurology, [place] [address] [place] [address] Serenity Gandara PA-C 21 [facility] [place] [address] Health Maintenance Due Date Last Done Comments [...]
--- OUTSIDE RECORDS SUMMARY | 2023-07-18 07:23 | External Medical Summary | Summary of Care ---
Author Name Unknown Organization [facility] Address [address] [place] [address] Phone [phone] Care Team Providers Care Academic Support Director Name Role Phone Unavailable Primary Care Provider Unavailabl e Reason for Visit * Reason Comments Outpatient Testing Encounter Details Date Type Department Care Team (Late st Contact Info) Description 07/08/2023 3:40 PM EST Laboratory Laboratory [facility] [address] [place] [address] [facility] [address] [facility] [place] [address] Preop testing Allergies No known active allergiesdocumented [...] 3 07/12/2022 4 Active OneTouch Delica Plus Pordsv44O USE TO TEST ONCE DAILY 100 Each [...] Nasal Solution (Astelin)Indications :Chronic rhinitis Administer 1 Harvey into nostril in the morning and 1 Harvey before bedtime. 30 mL 6 03/25/2023 Active [...] 06/24/2023 Active Vitamin D (Ergocalciferol) 1.25 MG (53173 UT) Oral Capsule (Drisdol) Take 1 Capsule [...] Patients should report blood sugar levels to [facility] department weekly. - . Dietary consult to be done PANCHO to instruct patient on appropriate nutrition and diet to aid in control of blood sugars. - . If medication is required to control blood sugars, then should have [facility] ultrasound for growth every 4 weeks. [...] Overview: Failed 3hr GTT at 15 weeks. Liner Man/educator appt ordered, blood sugar supplies ordered Pt has not gotten MA active thus far (04/23/2012) states info is at MA office. Advised pt to call our office when MA is active so we can set up appt for boiler/chiller technician and she can get supplies at pharmacy. F/u at next visit to ensure this is done. Encounter for supervision of other normal 02/19/2012 06/18/2012 Overview: Urine culture contaminated at [facility], repeat next visit. Urine culture obtained 02/22/12 Ivy Olivas LPN UTI-rx given. KRIS next visit - contam, consider neg ICD-10 update of inactive term Hx of preeclampsia, prior pr egnancy, currently 02/19/2012 09/26/2014 Overview: Preeclampsia labs ordered at [facility]--WNL. 24hr urine protein 0.07 Obesity in 02/19/2012 [...] PPD 08/11/2017,08/04/2017 Pneumococcal Conjugate Vacci ne, 20-valent ([id number]) 06/13/2022 Pneumococcal Polysaccharide PPV23 (Pneumovax) 07/28/2018 Seasonal [...] Description 07/22/2023 11:20 AM EST Office Visit [facility] 21 [facility] [place] [address] Ashish Vicente MD 21 [facility] [place] [address] 08/04/2023 11:30 AM EST Office Visit Gynecology/Obstetrics [facility] 132 [facility] [place] [address] Demetrio Ge MD 132 [facility] [place] [address] 12/02/2023 7:00 AM EDT Appointment Radiology, [address] [place] [address] 12/19/2023 11:30 AM EDT Office Visit Endocrinology, [place] [address] [place] [address] Edgar Suazo CRNP [address] [place] [address] 02/19/2024 10:00 AM EDT Office Visit Endocrinology, [place] [address] [place] [address] Patricia Coffman MD 03/31/2024 7:40 AM EDT Office Visit Neurology, [place] [address] [facility] [address] Serenity Gandara PA-C [address] [place] [place] [address] Pending Results Name Type Priority Associated Diagnoses [...]
--- OUTSIDE RECORDS SUMMARY | 2023-07-18 07:23 | External Medical Summary ---
Author Name Unknown Address Unknown Organization [facility] [place] [address] Laboratory Report Ordering Provider Test Date Status OLGA ROBLEDO 07/08/2023 15:23:30 Final Observation Date Value Abnormality Reference (Units ) Status SYNC LEUKOCYTES IN BLOOD BY AUTOMATED COUNT 07/08/2023 15:23:30 8.19 4.00-10.80 (K/uL) Final Segs 07/08/2023 15:23:30 65.4 40.0-75.0 (%) Final Lymphs % 07/08/2023 15:23:30 24.4 18.0-42.0 (%) Final Monos 07/08/2023 15:23:30 8.2 1.0-11.0 (%) Final Eosinophils 07/08/2023 15:23:30 1.5 0.0-6.0 (%) Final Basos 07/08/2023 15:23:30 0.5 0.0-2.0 (%) Final Absolute Segs 07/08/2023 15:23:30 5.36 1.80-7.70 (K/uL) Final Lymphs, absolute 07/08/2023 15:23:30 2.00 1.00-4.80 (K/ul) Final Monos, Abs 07/08/2023 15:23:30 0.67 0.00-1.10 (K/uL) Final Eos, Abs 07/08/2023 15:23:30 0.12 0.00-0.70 (K/uL) Final Basos, Abs 07/08/2023 15:23:30 0.04 0.00-0.20 (K/uL) Final Performing Location [facility] [place] [address]
--- OUTSIDE RECORDS SUMMARY | 2023-07-18 07:23 | External Medical Summary | Summary of Care ---
Author Name Unknown Organization [facility] Address [address] [place] [address] Phone [phone] Care Team Providers Care Wrapper Stemmer Hand Name Role Phone Unavailable Primary Care Provider Unavailabl e Reason for Visit * Reason Onset Date Comments Appointment 07/03/2023 Encounter Details Date Type Department Care Team (Late st Contact Info) Description 07/03/2023 Telephone Gynecology/Obstetrics [facility] [address] [place] [address] Demetrio Ge MD [address] [employer] [place] [address] Appointment Allergies No known active allergiesdocumented as of this encounter (statuses as of 07/04/2023) Medications Medication Sig Dispensed Refills Start Date End Date Status Multiple Vitamins-Minerals (WOMENS MULTI VITAMIN & MINERAL) TABS Take 1 Tablet by mouth in the morning. 0 Active Global Value CommerceTouch Verio IQ System w/Device Kit Test once [...] 3 07/12/2022 4 Active OneTouch Delica Plus Medovm13T USE TO TEST ONCE DAILY 100 Each [...] Nasal Solution (Astelin)Indications :Chronic rhinitis Administer 1 [place] into nostril in the morning and 1 [place] before bedtime. 30 mL 6 03/25/2023 Active [...] 06/24/2023 Active Vitamin D (Ergocalciferol) 1.25 MG (23896 UT) Oral Capsule (Drisdol) Take 1 Capsule [...] Patients should report blood sugar levels to [facility] department weekly. - . Dietary consult to be done PANCHO to instruct patient on appropriate nutrition and diet to aid in control of blood sugars. - . If medication is required to control blood sugars, then should have [facility] ultrasound for growth every 4 weeks. [...] Overview: Failed 3hr GTT at 15 weeks. Hyperion Analyst/educator appt ordered, blood sugar supplies ordered Pt has not gotten MA active thus far (04/23/2012) states info is at MA office. Advised pt to call our office when MA is active so we can set up appt for rn birthing and she can get supplies at pharmacy. F/u at next visit to ensure this is done. Encounter for supervision of other normal 02/19/2012 06/18/2012 Overview: Urine culture contaminated at [facility], repeat next visit. Urine culture obtained 02/22/12 Ivy Olivas LPN UTI-rx given. KRIS next visit - contam, consider neg ICD-10 update of inactive term Hx of preeclampsia, prior pr egnancy, currently 02/19/2012 09/26/2014 Overview: Preeclampsia labs ordered at [facility]--WNL. 24hr urine protein 0.07 Obesity [...] PPD 08/11/2017,08/04/2017 Pneumococcal Conjugate Vacci ne, 20-valent ([id number]) 06/13/2022 Pneumococcal Polysaccharide PPV23 (Pneumovax) 07/28/2018 Seasonal [...] encounter Miscellaneous Notes * Telephone Encounter - Rosemary Torres OSA - 07/04/2023 8:08 AM EST LM on pt VM to call and schedule surgery. Pt was seen by Dr Ge on 06/03/23. * Telephone Encounter - Kristan Garcia OSA - 07/04/2023 7:31 AM EST Looks like this pt see Dr. Ge * Telephone Encounter - Nancy Bueno OSA [...] Description 07/11/2023 11:00 AM EST Office Visit [address] [address] [place] [address] 12/02/2023 7:00 AM EDT Appointment Radiology, [facility] [address] [place] [address] 12/19/2023 11:30 AM EDT Office Visit Endocrinology, [place] [address] [place] [address] Edgar Suazo CRNP [address] [place] [address] 02/19/2024 10:00 AM EDT Office Visit Endocrinology, [place] [address] [place] [address] Patricia Coffman MD 03/31/2024 7:40 AM EDT Office Visit Neurology, [place] [address] Serenity Gandara PA-C [place] [address] Health Maintenance Due Date Last Done Comments [...]
--- OUTSIDE RECORDS SUMMARY | 2023-07-18 07:23 | External Medical Summary | Summary of Care ---
Author Name Unknown Organization [facility] Address [address] [place] [address] Phone [phone] Care Team Providers Care Materials Inspector Name Role Phone Unavailable Primary Care Provider Unavailabl e Reason for Visit * Reason Onset Date Comments Appointment 07/03/2023 Encounter Details Date Type Department Care Team (Late st Contact Info) Description 07/03/2023 Telephone Gynecology/Obstetrics [facility] [address] [place] [address] Demetrio Ge MD [address] [employer] [place] [address] Appointment Allergies No known active allergiesdocumented as of this encounter (statuses as of 07/04/2023) Medications Medication Sig Dispensed Refills Start Date End Date Status Multiple Vitamins-Minerals (WOMENS MULTI VITAMIN & MINERAL) TABS Take 1 Tablet by mouth in the morning. 0 Active PakSenseTouch Verio IQ System w/Device Kit Test once [...] 3 07/12/2022 4 Active OneTouch Delica Plus Wwhral51K USE TO TEST ONCE DAILY 100 Each [...] Nasal Solution (Astelin)Indications :Chronic rhinitis Administer 1 [place] into nostril in the morning and 1 [place] before bedtime. 30 mL 6 03/25/2023 Active [...] 06/24/2023 Active Vitamin D (Ergocalciferol) 1.25 MG (53391 UT) Oral Capsule (Drisdol) Take 1 Capsule [...] Patients should report blood sugar levels to [facility] department weekly. - . Dietary consult to be done PANCHO to instruct patient on appropriate nutrition and diet to aid in control of blood sugars. - . If medication is required to control blood sugars, then should have [facility] ultrasound for growth every 4 weeks. [...] Overview: Failed 3hr GTT at 15 weeks. Implementation Engineer/educator appt ordered, blood sugar supplies ordered Pt has not gotten MA active thus far (04/23/2012) states info is at MA office. Advised pt to call our office when MA is active so we can set up appt for global compensation analyst and she can get supplies at pharmacy. F/u at next visit to ensure this is done. Encounter for supervision of other normal 02/19/2012 06/18/2012 Overview: Urine culture contaminated at [facility], repeat next visit. Urine culture obtained 02/22/12 Ivy Olivas LPN UTI-rx given. KRIS next visit - contam, consider neg ICD-10 update of inactive term Hx of preeclampsia, prior pr egnancy, currently 02/19/2012 09/26/2014 Overview: Preeclampsia labs ordered at [facility]--WNL. 24hr urine protein 0.07 Obesity in 02/19/2012 [...] PPD 08/11/2017,08/04/2017 Pneumococcal Conjugate Vacci ne, 20-valent ([id number]) 06/13/2022 Pneumococcal Polysaccharide PPV23 (Pneumovax) 07/28/2018 Seasonal [...] Encounter - Rosemary Torres OSA - 07/04/2023 9:33 AM EST Pt scheduled for surgery on 07/18/23. Pt aware of dates. * Telephone Encounter - Rosemary Torres OSA [...] 07/08/2023 2:30 PM EST Office Visit Gynecology/Obstetrics [facility] [address] [place] [address] Demetrio Ge MD 132 [place] [address] 07/11/2023 11:00 AM EST Office Visit [place] [address] [place] [phone] Ashish Vicente MD [address] [place] [address] 08/04/2023 11:30 AM EST Office Visit Gynecology/Obstetrics [facility] Ashraf [address] [place] [address] Demetrio Ge MD [address] [place] [address] 12/02/2023 7:00 AM EDT Appointment Radiology, [facility] [address] [facility] [address] 12/19/2023 11:30 AM EDT Office Visit Endocrinology, [place] [address] [place] [address] Edgar Suazo CRNP [address] [place] [address] 02/19/2024 10:00 AM EDT Office Visit Endocrinology, [address] [address] Patricia Coffman MD 03/31/2024 7:40 AM EDT Office Visit Neurology, [place] 21 [facility] [place] [address] Serenity Gandara PA-C 21 [facility] [place] [address] Health Maintenance Due Date Last Done Comments HPV/Co-Test 2020 Diabetic Foot Exam 02/01/2021 02/02/2020, 03/09/2019 Diabetic Eye Exam 12/18/2022 12/18/2021, 04/06/2020 COVID-19 Vaccine ( season) 2023 11/23/2020, 10/24/2020 Cervical Cancer Screening 04/07/2023 Pap Smear 04/07/2023 04/07/2020, 1002/2020, 05/20/2017, Additional history exists Depression Screening 06/11/2023 06/11/2022 HbA1c 12/19/2023 06/19/2023, 0807/2022, 04/09/2022, Additional history exists Albumin/Creatinine Ratio 04/06/2024 [...]
--- OUTSIDE RECORDS SUMMARY | 2023-07-18 07:24 | External Medical Summary | Summary of Care ---
Author Name Unknown Organization [facility] Address [address] [place] [address] Phone [phone] Care Team Providers Care Special Trackwork Blacksmith Name Role Phone Unavailable Primary Care Provider Unavailabl e Encounter Details Date Type Department Care Team (Latest Contact Info) Description 07/02/2023 8:55 AM EST - 07/02/2023 11:59 PM EST Hospital Encounter Radiology, [address] [id number] Arrived Discharge Disposition: Home - Self Care Allergies No known active allergiesdocumented as of this encounter (statuses as of 07/03/2023) Medications Medication Sig Dispensed Refills Start Date End Date Status Multiple Vitamins-Minerals (WOMENS MULTI VITAMIN & MINERAL) TABS Take 1 Tablet by mouth in the morning. 0 Active EosceneTouch Verio IQ System w/Device Kit Test once [...] 3 07/12/2022 4 Active OneTouch Delica Plus [id number] USE TO TEST ONCE DAILY 100 Each [...] Nasal Solution (Astelin)Indications :Chronic rhinitis Administer 1 [place] into nostril in the morning and 1 [place] before bedtime. 30 mL 6 03/25/2023 Active [...] 06/24/2023 Active Vitamin D (Ergocalciferol) 1.25 MG (11644 UT) Oral Capsule (Drisdol) Take 1 Capsule [...] Patients should report blood sugar levels to [facility] department weekly. - . Dietary consult to be done PANCHO to instruct patient on appropriate nutrition and diet to aid in control of blood sugars. - . If medication is required to control blood sugars, then should have [facility] ultrasound for growth every 4 weeks. [...] 01/13/2013 017 Contusion of knee, left 01/13/2013 09/12/2016 Strain of knee and leg, left 01/13/2013 [...] baseline pre-eclamptic labs - wnl 4. Recommend MFM ultrasound for anatomy screen at 20 weeks [...] Overview: Failed 3hr GTT at 15 weeks. Personal Financial Counselor/educator appt ordered, blood sugar supplies ordered Pt has not gotten MA active thus far (04/23/2012) states info is at MA office. Advised pt to call our office when MA is active so we can set up appt for scalp treatment specialist and she can get supplies at pharmacy. F/u at next visit to ensure this is done. Encounter for supervision of other normal 02/19/2012 06/18/2012 Overview: Urine culture contaminated at [facility], repeat next visit. Urine culture obtained 02/22/12 Ivy Olivas LPN UTI-rx given. KRIS next visit - contam, consider neg ICD-10 update of inactive term Hx of preeclampsia, prior pr egnancy, currently 02/19/2012 09/26/2014 Overview: Preeclampsia labs ordered at [facility]--WNL. 24hr urine protein 0.07 Obesity in 02/19/2012 [...] PPD 08/11/2017,08/04/2017 Pneumococcal Conjugate Vacci ne, 20-valent ([id number]) 06/13/2022 Pneumococcal Polysaccharide PPV23 (Pneumovax) 07/28/2018 Seasonal [...] Description 07/11/2023 11:00 AM EST [place] [facility] [address] [place] [place] [address] Ashish Vicente MD [address] [place] [address] 12/02/2023 7:00 AM EDT Appointment Radiology, [facility] [address] [facility] [place] [address] 12/19/2023 11:30 AM EDT Office Visit Endocrinology, [place] [address] [place] [address] Edgar Suazo CRNP [address] [place] [address] 02/19/2024 10:00 AM EDT Office Visit Endocrinology, [place] [address] [place] [address] Patricia Coffman MD 03/31/2024 7:40 AM EDT Office Visit Neurology, [place] [address] [address] [facility] [place] [address] Serenity Gandara PA-C [address] [facility] [address] Health Maintenance Due Date Last Done Comments [...] Not on filedocumented as of this encounter Procedures Procedure Name Priority Date/Time Associated Diagnosis Comments FLUORO SWALLOWING FUNCTION W VIDEO CINE Routine 07/02/2023 10:00 AM EST Pharyngoesophageal dysphagia Multinodular goiter documented in this encounter Administered Medications Inactive Administered Medications - up to 3 most recent administrations Medication Order MAR Action Action Date Dose Rate Site barium sulfate 60% (Ez Paque) oral susp 90 mL 90 mL, Oral, ONCE, On Fri07/02/23 at 1031, For 1 dose, Radiology Medication Routing (Non-IR) Given 07/02/2023 10:30 AM EST 90 mL documented in this encounter
--- OUTSIDE RECORDS SUMMARY | 2023-07-18 07:24 | External Medical Summary | Summary of Care ---
Author Name Unknown Organization [facility] Address [address] [place] [address] Phone [phone] Care Team Providers Care Media Production Support Manager Name Role Phone Unavailable Primary Care Provider Unavailabl e Reason for Visit * Reason Onset Date Comments Test Results 07/03/2023 Encounter Details Date Type Department Care Team (Late st Contact Info) Description 07/03/2023 Telephone Otolaryngology, [facility] [place] [address] [place] [phone] Rhea Baker MD [address] [place] [address] Test Results Allergies No known active allergiesdocumented as of this encounter (statuses as of 07/03/2023) Medications Medication Sig Dispensed Refills Start Date End Date Status Multiple Vitamins-Minerals (WOMENS MULTI VITAMIN & MINERAL) TABS Take 1 Tablet by mouth in the morning. 0 Active HaolianluoTouch Verio IQ System w/Device Kit Test once [...] 3 07/12/2022 4 Active OneTouch Delica Plus [id number] USE TO TEST ONCE DAILY 100 Each [...] Nasal Solution (Astelin)Indications :Chronic rhinitis Administer 1 [place] into nostril in the morning and 1 [place] before bedtime. 30 mL 6 03/25/2023 Active [...] 06/24/2023 Active Vitamin D (Ergocalciferol) 1.25 MG (91510 UT) Oral Capsule (Drisdol) Take 1 Capsule [...] Patients should report blood sugar levels to [facility] department weekly. - . Dietary consult to be done PANCHO to instruct patient on appropriate nutrition and diet to aid in control of blood sugars. - . If medication is required to control blood sugars, then should have [facility] ultrasound for growth every 4 weeks. [...] baseline pre-eclamptic labs - wnl 4. Recommend [facility] ultrasound for anatomy screen at 20 weeks [...] Overview: Failed 3hr GTT at 15 weeks. Acoustical Engineer/educator appt ordered, blood sugar supplies ordered Pt has not gotten MA active thus far (04/23/2012) states info is at MA office. Advised pt to call our office when MA is active so we can set up appt for chief i dispatcher and she can get supplies at pharmacy. F/u at next visit to ensure this is done. Encounter for supervision of other normal 02/19/2012 06/18/2012 Overview: Urine culture contaminated at [facility], repeat next visit. Urine culture obtained 02/22/12 Ivy Olivas LPN UTI-rx given. KRIS next visit - contam, consider neg ICD-10 update of inactive term Hx of preeclampsia, prior pr egnancy, currently 02/19/2012 09/26/2014 Overview: Preeclampsia labs ordered at [facility]--WNL. 24hr urine protein 0.07 Obesity in [...] PPD 08/11/2017,08/04/2017 Pneumococcal Conjugate Vacci ne, 20-valent ([id number]) 06/13/2022 Pneumococcal Polysaccharide PPV23 (Pneumovax) 07/28/2018 Seasonal [...] encounter Miscellaneous Notes * Telephone Encounter - Merline Ceballos LPN - 07/03/2023 1:43 PM EST Patient aware and verbalized understanding. * Telephone Encounter - Rhea Baker MD - 07/03/2023 1:30 PM EST The patient know swallow study was normal. documented in this encounter Plan of Treatment Upcoming Encounters Date Type Department Care Team (Late st Contact Info) Description 07/11/2023 11:00 AM EST Office [address] [place] [address] Ashish Vicente MD [address] [place] [address] 12/02/2023 7:00 AM EDT Appointment Radiology, [facility] [address] [facility] [place] [address] 12/19/2023 11:30 AM EDT Office Visit Endocrinology, [place] [address] [place] [address] Edgar Suazo CRNP [address] [place] [address] 02/19/2024 10:00 AM EDT Office Visit Endocrinology, [place] [address] [place] [address] Patricia Coffman MD 03/31/2024 7:40 AM EDT Office Visit Neurology, [place] [address] [facility] [place] [address] Serenity Gandara PA-C [address] [facility] [address] Health Maintenance Due Date Last Done Comments [...]
--- OUTSIDE RECORDS SUMMARY | 2023-07-18 07:24 | External Medical Summary | Summary of Care ---
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 [employer] Name Role Phone Unavailable Primary Care Provider Unavailabl e Reason for Visit * Reason Comments NEW PATIENT Thyroid Status Encounter Details Date Type Department Care Team (Late st Contact Info) Description 06/19/2023 11:30 AM EST Office Visit Endocrinology, [place] [address], [place] [id number] Edgar Suazo CRNP [address], [place] [id number] Type 2 diabetes mellitus without complication, without long-term current use of insulin (HCC)*; Multinodular goiter; Left thyroid nodule Allergies No known active allergiesdocumented as of this encounter (statuses as of 06/19/2023) Medications Medication Sig Dispensed Refills Start Date End Date Status Multiple Vitamins-Minerals (WOMENS MULTI VITAMIN & MINERAL) TABS Take 1 Tablet by mouth in the morning. 0 Active CityzenithTouch Verio IQ System w/Device Kit Test once a day e 1165 1 Kit 1 02/02/2021 Active OneTouch Verio In Vitro Strip (Glucose Blood) Test once a day e 1165 100 Strip 3 08/17/2021 Active Rizatriptan Benzoate 10 MG Oral Tablet Disintegrating Take 1 Tablet by mouth as needed for Migraine. May repeat in 2 hours if needed. Do not take more than 20mg in 24 hours. 10 Tablet 3 07/09/2022 Active traZODone HCl 100 MG Oral Tablet [...] 3 07/12/2022 4 Active OneTouch Delica Plus [id number] USE TO TEST ONCE DAILY 100 Each 3 07/10/2022 4 Active Emgality 120 MG/ML Subcutaneous Solution Auto-injector (GalcanezOSIsoft-[facility]) Inject 1 mL under the skin every [...] Nasal Solution (Astelin)Indications :Chronic rhinitis Administer 1 [place] into nostril in the morning and 1 Dayton before bedtime. 30 mL 6 03/25/2023 Active [...] of the day. 20 Capsule 0 04/05/2023 3 Active Benzonatate 100 MG Oral Capsule Take 1 Capsule by mouth 3 times a day as needed for Cough. 30 Capsule 1 04/05/2023 Active Ozempic (2 MG/DOSE) 8 MG/3ML Subcutaneous Solution Pen-injector (Semaglutide (2 MG/DOSE))Indications :PCOS (polycystic ovarian syndrome),Type 2 diabetes mellitus (HCC) INJECT 2MG UNDER THE SKIN ONCE A WEEK 9 mL 6 06/05/2023 4 Active documented as of this encounter (statuses as of 06/19/2023) Active Problems Problem Noted Date Diagnosed Date [...] Patients should report blood sugar levels to [facility] department weekly. - . Dietary consult to be done PANCHO to instruct patient on appropriate nutrition and diet to aid in control of blood sugars. - . If medication is required to control blood sugars, then should have [facility] ultrasound for growth every 4 weeks. [...] as of this encounter (statuses as of 06/19/2023) Resolved Problems Problem Noted Date Diagnosed Date [...] baseline pre-eclamptic labs - wnl 4. Recommend [facility] ultrasound for anatomy screen at 20 [...] Overview: Failed 3hr GTT at 15 weeks. Community Outreach Advocate/educator appt ordered, blood sugar supplies ordered Pt has not gotten MA active thus far (04/23/2012) states info is at MA office. 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 F/u at next visit to ensure this is done. Encounter for supervision of other normal 02/19/2012 06/18/2012 Overview: Urine culture contaminated at [facility], repeat next visit. Urine culture obtained 02/22/12 Ivy Olivas LPN UTI-rx given. KRIS next visit - contam, consider neg ICD-10 update of inactive term Hx of preeclampsia, prior pr egnancy, currently 02/19/2012 09/26/2014 Overview: Preeclampsia labs ordered at [facility]--WNL. 24hr urine protein 0.07 Obesity in 02/19/2012 012 Overview: Early glucola 175- 3hr GTT ordered documented as of this encounter (statuses as of 06/19/2023) Immunizations Name Administration Dates Next Due COVID-19 mRNA, LNP-s, No Pre serve, 2-Dose Series (Moderna) 11/23/2020,10/24/2020 DT - Diptheria/Tetanus (PEDS) 06/24/2009, 006 DTaP Dipth/Tet/Acell Pertussis (Infanrix), Peds 02/27/1996,10/27/1992,02/16/1991,12/21,1990 Diptheria/Tetanus (Adult) 06/24/2009 Hepatitis B, 0-19 yrs 09/12/2003, 003,08/13/2002,07/16 Hepatitis B, 20+ yrs 09/09/2019,02/26/2019,01/22 IPV - Polio Virus Vaccine (Inact) 1995,10/27/1992,1990,11/03 MMR - Measles/Mumps/Rubella Vaccine 08/28,08/11/2017,02/27/1996,12/22 PPD 08/11/2017,08/04/2017 Pneumococcal Conjugate Vacci ne, 20-valent ([id number]) 06/13/2022 Pneumococcal Polysaccharide PPV23 (Pneumovax) 07/28/2018 Seasonal [...] Date Smoking Tobacco: Never Smokeless Tobacco: Never Tobacco Cessation:Counseling Given: Not Answered Alcohol Use Standard Drinks/Week Comments No 0 [...] Sign Reading Time Taken Comments Blood Pressure 117/79 06/19/2023 11:10 AM EST Pulse 72 06/19/2023 11:10 AM EST Temperature 36.9 C (98.4 F) 06/19/2023 11:[address] Respiratory Rate - - Oxygen Saturation - - Inhaled Oxygen Concentration - - Weight 128.4 kg (283 lb) 06/19/2023 11:10 AM EST Height 163.8 cm (5' 4.49") 06/19/2023 11:[address] Body Mass Index 47.84 06/19/2023 11:10 AM EST documented in this encounter Progress Notes * Edgar Suazo CRNP - 06/19/2023 11:30 AM EST Follow-up of Nodular thyroid disease Thyroid goiter Dysphagia--not suggestive of compressive symptoms from goiter Type 2 diabetes mellitus Referred by: Augustina Dawkins PA-C History: Goiter Subcentimeter nodules Continues with dysphagia, follows with ENT. Will be completing additional testing. Continues on Ozempic for her DM. Last FNA completed 06/2022 on left lobe nodule = benign No history of head/neck irradiation No history of hyper/hypothyroidism. Hyper or hypothyroid treatment :No. Family history: Thyroid disease: Sister- hypothyroidism Thyroid cancer: Mother- thyroid cancer Mother- ovarian cancer Has seen ENT due to her neck symptoms: ENT provided the same recommendations as endocrinology evaluation/ recommendations: Per ENT: Called and spoke with Mrs. Johansen, reviewed recent ultrasound results. Dr. Sage does not feel that the size of the thyroid gland is not causing her compressive symptoms. Recommending to continue surveillance as recommended by endocrinology. No surgical intervention atthis time. ENT at [facility] - completing a swallowing study (scheduled next month). Placed on omeprazole, Claritin, and nasal spray. Also seen by audiology - normal hearing per their report. CT scan in March did not demonstrate any compression on surrounding structures. Sees ENT again next month. 11/13/2020 ACTH stim test done---due to her concerns: ACTH 16.5 Appropriate response of cortisol----ruling out adrenal insufficiency -TSH receptor antibody positive rest of the antibodies are negative Ref. Range 04/27/2020 12:19 TSH RECEPTOR AB Latest Ref Range: <=2.00 IU/L 2.40 (H) Ref. Range 04/27/2020 12:19 THYROID PEROXIDASE AB Latest Ref Range: <34 IU/mL <5.0 Normal TSH: TSH 0.27 - 4.2 uIU/mL 1.36 07/2020 Normal dexamethasone suppression test----ruling out [place] syndrome Cortisol, Post 1mg Dexamethasone supression <=1.8 ug/dL 0.7 --normal FSH, LH, estradiol Normal thyroid function test DHEA-SULFATE 18 - 391 mcg/dL 150 Interval history: Type 2 DM: Checks BS on and off --does not have a PCP currently to manage diabetes Hemoglobin AIC Results: Lab Results Component Value Date/Time HEMOGLOBIN A1C - [facility] 5.7 (H) 02/18/2023 11:42 AM HEMOGLOBIN A1C - [facility] 6.6 (H) 04/09/2022 11:28 AM HEMOGLOBIN A1C - [facility] 7.3 (H) 09/28/2021 11:01 AM HEMOGLOBIN A1C - [facility] 6.7 (H) 04/06/2020 12:37 PM HEMOGLOBIN A1C - [facility] 7.1 (H) 11/26/2019 03:59 PM HEMOGLOBIN A1C - [facility] 9.2 (H) 07/23/2019 04:15 PM -on Ozempic 2 mg per week -Jardiance 10 mg daily--stopped- due to yeast infection -metformin-stopped-- uncontrolled GI issues Weight: Stable Diet: Tried keto Recently started back on low carb, No known macro or microvascular complications Hyperlipidemia: On atorvastatin 04/09/2022: Triglycerides <=174 mg/dL 214 High Nodular thyroid: No thyroid medications She has been anxious and worried about the left nodule with FH of thyroid cancer (mother with lymphnode Mets) Status post FNA: 07/11/2022: A. Thyroid, Left, CT/US guided Fine Needle Aspiration: Adequacy: Satisfactory for evaluation. Category: Benign ([place] classification II). Interpretation: Benign follicular nodule. Other: Cellblock: The histological sections of the cellblock preparation are hypocellular. Evaluations: TSH Results: Lab Results Component Value Date/Time TSH - [facility] 2.05 02/18/2023 11:42 AM TSH - [facility] 2.03 04/09/2022 11:28 AM TSH - [facility] 2.49 09/28/2021 11:01 AM TSH - [facility] 1.36 04/06/2020 12:37 PM TSH - [facility] 3.09 01/01/2018 11:42 AM TSH - [facility] 1.62 05/20/2017 09:34 AM TSH RECEPTOR AB 2.40 (H) 04/27/2020 12:19 PM Imaging: Exam: US Soft Tissue Head and Neck, Thyroid Exam date and time: 03/11/2023 3:59 PM Age: 32 years old Clinical indication: Nontoxic single thyroid nodule; Nontoxic multinodular goiter; Nontoxic goiter, unspecified; Type 2 diabetes mellitus without complications; Hyperlipidemia, unspecified; Additional info: Thyroid nodule-- monitoring TECHNIQUE: Imaging protocol: Real-time ultrasound scan of the neck with image documentation. Exam focused on the thyroid. COMPARISON: US HEAD AND NECK 03/30/2022 12:11 PM FINDINGS: Right thyroid lobe: 10.1 mL. Homogeneous echotexture without dominant solid or suspicious nodule. Left thyroid lobe: 9.1 mL. Homogeneous echotexture with a solid isoechoic nodule measuring 5 x 8 x 8 mm. Isthmus: 4 mm IMPRESSION: 1. No significant change in subcentimeter solid LEFT thyroid lobe nodule (TI-RADS 3). 2. Nonvisualization of the nodule in the RIGHT lobe identified on the previous exam. 03/2022: FINDINGS: Right thyroid lobe: 3.5 x 2.4 x 2.0 cm/13.1 mL. Homogeneously enlarged thyroid with few subcentimeter nodules largest hypoechoic nodule along its posterior margin measuring 4 x 6 x 6 mm. Left thyroid lobe: 5.6 x 2.5 x 1.7 cm/12.2 mL. Homogeneously enlarged thyroid with a few scattered subcentimeter nodules, largest echogenic nodule in its inferior pole measuring 5 x 7 x 9 mm. Isthmus: 4 mm IMPRESSION: 1. Diffusely enlarged thyroid gland demonstrating a few scattered subcentimeter nodules. 2. RIGHT lobe nodule not clearly discernible on the prior study and LEFT lobe nodule is unchanged. 3. Recommend correlation with thyroid function tests/thyroid scan, correlation with prior histopathology results and/or repeat FNA of the dominant nodule. 05/03/2020 CT neck:----did not show any airway compression IMPRESSION 1. Mild thyromegaly with a small 4 mm nodule along the lower left thyroid pole. 2. No pathologically enlarged cervical adenopathy. 05/03/2020 barium swallow: IMPRESSION Unremarkable esophagram. Medication review/evaluating weight gain: -she is noted to have diabetes Reports no specific provider monitoring or managing her diabetes Would benefit from endocrinology evaluation and follow-up MEDS Current Outpatient Medications Medication Sig Dispense Refill Multiple Vitamins-Minerals (WOMENS MULTI VITAMIN & MINERAL) TABS Take 1 Tablet by mouth in the morning. YUPPTV IQ System w/Device Kit Test once a day e 1165 1 Kit 1 YUPPTV In Vitro Strip (Glucose Blood) Test once a day e 1165 100 Strip 3 Rizatriptan Benzoate 10 MG Oral Tablet Disintegrating Take 1 Tablet by mouth as needed for Migraine. May repeat in 2 hours if needed. Do not take more than 20mg in 24 hours. 10 Tablet 3 traZODone HCl 100 MG Oral Tablet (Desyrel) One tablet daily at bedtime 30 Tablet 5 Clindamycin Phosphate 1 % External Gel Apply topically to affected area 2 times a day. To affected area of skin. 60 g 11 Topiramate 50 MG Oral Tablet (topAMAX) TAKE TWO TABLETS BY MOUTH AT BEDTIME 180 Tablet 3 Crowd Technologiesuch Delica Plus [id number] USE TO TEST ONCE DAILY 100 Each 3 Emgality 120 MG/ML Subcutaneous Solution Auto-injector (Galcanezumab-[facility]) Inject 1 mL under the skin every month. 1 mL 5 Ventolin HFA 108 (90 Base) MCG/ACT Inhalation Aerosol Solution Inhale 2 Puffs by mouth in the morning and 2 Puffs at noon and 2 Puffs in the evening and 2 Puffs before bedtime. 18 g 2 Famotidine 10 MG Oral Tablet (Pepcid AC) Take 1 Tablet by mouth in the morning and 1 Tablet before bedtime. 30 Tablet 4 Azelastine HCl 0.1 % Nasal Solution (Astelin) Administer 1 Dayton into nostril in the morning and 1 [place] before bedtime. 30 mL 6 Atorvastatin Calcium 20 MG Oral Tablet (Lipitor) TAKE ONE TABLET BY MOUTH EVERY DAY 90 Tablet 1 Omeprazole 20 MG Oral Capsule Delayed Release (PriLOSEC) Take 1 Capsule by mouth in the morning for20 days. 1 hour before the first meal of the day. 20 Capsule 0 Benzonatate 100 MG Oral Capsule Take 1 Capsule by mouth 3 times a day as needed for Cough. 30 Capsule 1 Ozempic (2 MG/DOSE) 8 MG/3ML Subcutaneous Solution Pen-injector (Semaglutide (2 MG/DOSE)) INJECT 2MG UNDER THE SKIN ONCE A WEEK 9 mL 6 Clinitest Rapid COVID-19 Test In Vitro Kit (COVID-19 At Home Antigen Test) test as directed (Patient not taking: Reported on 04/05/2023) 5 Kit 0 No current facility-administered medications for this visit. ROS As above in HPI PE Filed Vitals: 06/19/23 1110 BP: 117/79 Pulse: 72 Temp: 36.9 C (98.4 F) Weight: 128.4 kg (283 lb) Height: 1.638 m (5' 4.49") Body mass index is 47.84 kg/m. General appearance: Well-developed, well-nourished, not in distress Pleasant and obese female Eyes: JEANIE, EOMI ENT: Normal mucous membrane Hump at the base of the neck Neck: Diffusely enlarged goiter, no palpable thyroid nodule, no cervical lymphadenopathy Cardiovascular system: Regular rate and rhythm, no murmur, no lower extremity swelling Respiratory system: Clear breath sounds bilaterally Gastrointestinal system/ abdomen: Non tender No abnormal stretch wong Musculoskeletal: No kyphosis/ joint swelling Neurological: Awake alert and oriented x3 Psychiatric: Cooperative and appropriate mood RECORDS I reviewed the available medical records and have summarized the relevant information per HPI above. Labs and imaging as above IMP Type 2 diabetes mellitus without complication, without long-term current use of insulin (HCC) (Primary) - US HEAD AND NECK; Future; Expected date: 12/19/2023 - TSH WITH FREE T4 IF INDICATED; Future; Expected date: 06/19/2023 - HEMOGLOBIN A1C; Future; Expected date: 06/19/2023 - 25-HYDROXY VITAMIN D; Future; Expected date: 06/19/2023 Multinodular goiter - US HEAD AND NECK; Future; Expected date: 12/19/2023 - TSH WITH FREE T4 IF INDICATED; Future; Expected date: 06/19/2023 Left thyroid nodule - US HEAD AND NECK; Future; Expected date: 12/19/2023 - TSH WITH FREE T4 IF INDICATED; Future; Expected date: 06/19/2023 Follow Up: Return in about 6 months (around 12/19/2023) for Thyroid f/u. 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 | For: Thyroid f/u I spent a total of 30-39 minutes (exact time 30 mins) on the date of service in preparation, delivery, and documentation of the care provided to Yvonne Johansen excluding any time spent in the performance of separately billed services. MISSY [facility], [address] [address] documented in this encounter Nursing Notes * Thea Brar MED ASSIST - 06/19/2023 11:04 AM EST Patient was instructed to not get up on the exam table/exam chair until directed and assisted by their provider; patient is to remain seated in the chair/ wheelchair/ exam table/ exam chair for fall prevention and safety reasons. Patient is aware to have assistance to step down off exam table/exam chair with personnel. Patient voiced full comprehension of instructions. Patient denies any signs or symptoms of Covid. Thea Brar MA Adult Endocrinology documented in this encounter Plan of Treatment Upcoming Encounters Date Type Department Care Team (Late st Contact Info) Description 06/19/2023 12:30 PM EST Laboratory Outpatient Laboratory, [address] [address] [place], Lab B[facility] [place] [address] Type 2 diabetes mellitus without complication, without long-term current use of insulin (HCC); Multinodular goiter; Left thyroid nodule 07/01/2023 11:00 AM EST Office Visit Otolaryngology [facility] [address] [place] [address] Rhea Baker MD [address] [place] [address] 07/01/2023 11:00 AM EST Rehab Services Voice Lab [facility] [place] [address] Ton Mcdermott, CCC-RIGGER HELPER [address] [facility] [place] [address] 07/02/2023 9:00 AM EST Rehab Services Voice Lab, [facility] [address] [place] [address] Ton Mcdermott, CCC-RIGGER HELPER [address] [facility] [place] [address] 07/02/2023 9:30 AM EST Appointment Radiology, [facility] [address] [place] [address] 07/11/2023 11:00 AM EST Office Visit [facility] [address] [facility] [place] [phone] Ashish Vicente [facility] [address] 12/02/2023 7:00 AM EDT Appointment Radiology, [address] [place] [address] 12/19/2023 11:30 AM EDT Office Visit Endocrinology, [address] [place] [address] Edgar Shah CRNP [address] [place] [address] 02/19/2024 10:00 AM EDT Office Visit Endocrinology, [place] [address] [place] [address] Patricia Coffman MD 03/31/2024 7:40 AM EDT Office Visit Neurology, [place] [address] [place] [address] Serenity Gandara PA-C [address] [facility] [place], [place] [id number] Scheduled Orders Name Type Priority Associated Diagnoses Orde r Schedule US HEAD AND NECK Medical Imaging Routine Type 2 diabetes mellitus without complication, without long-term current use of insulin (HCC) Multinodular goiter Left thyroid nodule Expected: 12/19/2023, Expires: 07/20/2024 TSH WITH FREE T4 IF INDICATED Lab Routine Type 2 diabetes mellitus without complication, without long-term current use of insulin (HCC) Multinodular goiter Left thyroid nodule Expected: 06/19/2023, Expires: 06/19/2024 HEMOGLOBIN A1C Lab Routine Type 2 diabetes mellitus without complication, without long-term current use of insulin (HCC) Expected: 06/19/2023, Expires: 06/19/2024 25-HYDROXY VITAMIN D Lab Routine Type 2 diabetes mellitus without complication, without long-term current use of insulin (HCC) Expected: 06/19/2023, Expires: 06/19/2024 Health Maintenance Due Date Last Done Comments HPV/Co-Test 2020 Diabetic Foot Exam 02/01/2021 02/02/2020, 03/09/2019 Diabetic Eye Exam 12/18/2022 12/18/2021, 04/06/2020 COVID-19 Vaccine ( season) 2023 11/23/2020, 10/24/2020 Cervical Cancer Screening 04/07/2023 Pap Smear 04/07/2023 04/07/2020, 10/02/2020, 05/20/2017, Additional history exists Depression Screening 06/11/2023 06/11/2022 HbA1c 08/21/2023 02/18/2023, 03/30, 09/28/2021, Additional history exists Albumin/Creatinine Ratio 04/06/2024 023, [...] as of this encounter Visit Diagnoses Diagnosis Type 2 diabetes mellitus without complication, without long-term current use of insulin (HCC)- Primary Multinodular goiter Nontoxic multinodular goiter Left thyroid nodule Nontoxic uninodular goiter Type 2 diabetes mellitus without complication, without long-term current use of insulin (HCC) Multinodular goiter Nontoxic multinodular goiter Left thyroid nodule Nontoxic uninodular goiter documented in this encounter
--- OUTSIDE RECORDS SUMMARY | 2023-07-18 07:24 | External Medical Summary | Summary of Care ---
Author Name Unknown Organization [facility] Address [address] [place] [address] Phone [phone] Care Team Providers Care Resistor Coater Name Role Phone Unavailable Primary Care Provider Unavailabl e Reason for Visit * Reason Comments Voice Change dysphagia Encounter Details Date Type Department Care Team (Late st Contact Info) Description 07/01/2023 11:00 AM EST Rehab Services Voice Lab [facility] [address] [place] [address] Ton Mcdermott, [facility] [employer] OPERATOR [address] [place] [address] Voice disorder* Allergies No known active allergiesdocumented as of this encounter (statuses as of 07/01/2023) Medications Medication Sig Dispensed Refills Start Date [...] 3 07/12/2022 4 Active OneTouch Delica Plus [id number] USE TO TEST ONCE DAILY 100 Each 3 07/10/2022 4 Active Emgality 120 MG/ML Subcutaneous Solution Auto-injector (Galcanezumab-gn) Inject 1 mL under the skin every [...] Nasal Solution (Astelin)Indications :Chronic rhinitis Administer 1 [place] into nostril in the morning and 1 [place] before bedtime. 30 mL 6 03/25/2023 Active [...] 06/24/2023 Active Vitamin D (Ergocalciferol) 1.25 MG (21621 UT) Oral Capsule (Drisdol) Take 1 Capsule by mouth once a week. 8 Capsule 0 06/24/2023 Active documented as of this encounter (statuses as of 07/01/2023) Active Problems Problem Noted Date Diagnosed Date [...] Patients should report blood sugar levels to [facility] department weekly. - . Dietary consult to be done PANCHO to instruct patient on appropriate nutrition and diet to aid in control of blood sugars. - . If medication is required to control blood sugars, then should have [facility] ultrasound for growth every 4 weeks. . [...] as of this encounter (statuses as of 07/01/2023) Resolved Problems Problem Noted Date Diagnosed Date [...] Overview: Failed 3hr GTT at 15 weeks. Gang Investigator/educator appt ordered, blood sugar supplies ordered Pt has not gotten MA active thus far (04/23/2012) states info is at MA office. Advised pt to call our office when MA is active so we can set up appt for social problems specialist and she can get supplies at pharmacy. F/u at next visit to ensure this is done. Encounter for supervision of other normal 02/19/2012 06/18/2012 Overview: Urine culture contaminated at [facility], repeat next visit. Urine culture obtained 02/22/12 Ivy Olivas LPN UTI-rx given. KRIS next visit - contam, consider neg ICD-10 update of inactive term Hx of preeclampsia, prior pr egnancy, currently 02/19/2012 09/26/2014 Overview: Preeclampsia labs ordered at [facility]--WNL. 24hr urine protein 0.07 Obesity in 02/19/2012 012 Overview: Early glucola 175- 3hr GTT ordered documented as of this encounter (statuses as of 07/01/2023) Immunizations Name Administration Dates Next Due COVID-19 mRNA, LNP-s, No Pre serve, 2-Dose Series (Moderna) 11/23/2020,10/24/2020 DT - Diptheria/Tetanus (PEDS) 06/24/2009, 006 DTaP Dipth/Tet/Acell Pertussis (Infanrix), Peds 02/27/1996,10/27/1992,02/16/1991,12/21,1990 Diptheria/Tetanus (Adult) 06/24/2009 Hepatitis B, 0-19 yrs 09/12/2003, 003,08/13/2002,07/16 Hepatitis B, 20+ yrs 09/09/2019,02/26/2019,01/22 IPV - Polio Virus Vaccine (Inact) 1995,10/27/1992,1990,11/03 MMR - Measles/Mumps/Rubella Vaccine 08/28,08/11/2017,02/27/1996,12/22 PPD 08/11/2017,08/04/2017 Pneumococcal Conjugate Vacci ne, 20-valent ([id number]) 06/13/2022 Pneumococcal Polysaccharide PPV23 (Pneumovax) 07/28/2018 Seasonal [...] on file documented as of this encounter Progress Notes * Ton Mcdermott, [facility]NER [facility] OPERATOR - 07/01/2023 3:58 PM EST CLINIC NOTES Voice Lab [facility] [address] [place] [address] Yvonne Johansen : 1990 07/01/2023 VOICE EVALUATION REPORT 32 year old female seen for voice evaluation on the referral from Rhea Baker MD. 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 Symptoms are stable and worse if she speaks for longer periods of time . Notes frequent throat clearing which is nonproductive . Occasional coughing dysphagia stuck sensation in the throat poi nting to the level of the cricopharyngeus . Scheduled for video fluoroscopic swallowing function test tomorrow at [facility] Medical history significant for reflux and recently began taking omeprazole Vocal analysis reveals mild hoarse vocal quality with adequate pitch loudness rate and resonance (G1, R 1, B 0, A 0, S 0). Phonatory ability indicates maximum phonation time at 7 seconds with steady tone. Frequency range of Average speaking fundamental frequency is at 198 Hz with the range at 11 Hz. Frequency perturbation is at 0.78 % with amplitude perturbation at 0.26 dB. Intensity level is 70 dB. Vocal mechanism was explained to the patient in relationship to stroboscopy findings . Hygienic voice therapy was discussed to include hydration, throat-clearing behaviors and maintaining strict reflux precautions with pamphlet given. Patient already scheduled for video fluoroscopic swallowing function test tomorrow at [facility] . IMPRESSIONS: Mild hoarse vocal quality with adequate pitch loudness rate and resonance . Primary logic factors that of bilateral pseudosulcus and posterior laryngeal erythema secondary to the pharyngo pharyngo reflux . RECOMMENDATIONS: Follow-through on strict hygienic voice therapy as described above Video fluoroscopic swallowing function test scheduled for tomorrow Ton Mcdermott CCC-CORNER BEAD OPERATOR [facility] 07/01/2023 3:59 PM * Ton Mcdermott, GEN-CORNER BEAD OPERATOR - 07/01/2023 3:52 PM EST CLINIC NOTES Voice Lab [facility] [address] [place] [address] Yvonne Johansen : 1990 07/01/2023 STROBOSCOPY REPORT 32 year old female seen for stroboscopy on a referral from Rhea Baker MD. 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 Results of the stroboscopy are as follows: Vocal fold edge--smooth and straight Glottic closure--complete Phase closure--normal Vertical level of vocal fold approximation--equal Amplitude--normal bilaterally Mucosal wave--normal bilaterally Vibratory behavior--always fully present bilaterally Phase symmetry--regular Periodicity--regular Ventricular folds--equal symmetry with normal movement Arytenoids--equal symmetry with normal movement Hyperfunction--not present Ton Mcdermott CCC-CORNER BEAD OPERATOR 07/01/2023 3:57 PM documented in this encounter Plan of Treatment Upcoming Encounters Date Type Department Care Team (Late st Contact Info) Description 07/02/2023 9:00 AM EST Rehab Services Voice Lab, [facility] [address] [place] [address] Ton Mcdermott, CCC-[employer]NER BEAD OPERATOR [address] [place] [address] 07/02/2023 9:30 AM EST Appointment Radiology, [facility] [address] [place] [phone] 07/11/2023 11:00 AM EST Office Visit [address] [place] [phone] Ashish Vicente MD [address] [facility] [place] [address] 12/02/2023 7:00 AM EDT Appointment Radiology, [facility] [address] [place] [address] 12/19/2023 11:30 AM EDT Office Visit Endocrinology, [address] [address] Edgar Suazo CRNP [address] [place] [address] 02/19/2024 10:00 AM EDT Office Visit Endocrinology, [address] [address] Patricia Coffman MD 03/31/2024 7:40 AM EDT Office Visit Neurology, [place] [address] [facility] [place] [address] Serenity Gandara PA-C [address] [facility] [address] Health Maintenance Due Date Last Done Comments [...] as of this encounter Visit Diagnoses Diagnosis 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
--- OUTSIDE RECORDS SUMMARY | 2023-07-18 07:24 | External Medical Summary | Summary of Care ---
Author Name Unknown Organization [facility] Address [address] [place] [address] Phone [phone] Care Team Providers Care Entry Level Name Role Phone Berkley Pavon DO Primary Care Provider [phone] Encounter Details Date Type Department Care Team (Late st Contact Info) Description 03/31/2023 Telephone Otolaryngology [facility] [address] [facility] [place] [address] Rhea Baker MD [address] [facility] [place] [address] Allergies No known active allergiesdocumented as of this encounter (statuses as of 06/30/2023) Medications Medication Sig Dispensed Refills Start Date [...] MOUTH AT BEDTIME 180 Tablet 3 07/12/2022 09/22/2023 Active OneTouch Delica Plus [id number] USE TO TEST ONCE DAILY 100 Each 3 07/10/2022 07/10/2023 Active Emgality 120 MG/ML Subcutaneous Solution Auto-injector [...] Active Famotidine 10 MG Oral Tablet (Pepcid AC)Indications:Refl ux pharyngitis Take 1 Tablet by mouth in the morning and 1 Tablet before bedtime. 30 Tablet 4 03/25/2023 Active Azelastine HCl 0.1 % Nasal Solution (Astelin)Indication s:Chronic rhinitis Administer 1 [place] into nostril in the morning and 1 [place] before bedtime. 30 mL 6 03/25/2023 Active documented as of this encounter (statuses as of 06/30/2023) Active Problems Problem Noted Date Diagnosed Date [...] Patients should report blood sugar levels to [facility] department weekly. - . Dietary consult to be done PANCHO to instruct patient on appropriate nutrition and diet to aid in control of blood sugars. - . If medication is required to control blood sugars, then should have [facility] ultrasound for growth every 4 weeks. [...] as of this encounter (statuses as of 06/30/2023) Resolved Problems Problem Noted Date Diagnosed Date [...] Overview: Failed 3hr GTT at 15 weeks. Labor Supervisor/educator appt ordered, blood sugar supplies ordered Pt has not gotten MA active thus far (04/23/2012) states info is at MA office. Advised pt to call our office when MA is active so we can set up appt for supervisor alteration workroom and she can get supplies at pharmacy. [...] as of this encounter (statuses as of 06/30/2023) Immunizations Name Administration Dates Next Due COVID-19 mRNA, LNP-s, No Pre serve, 2-Dose Series (Moderna) 11/23/2020,10/24/2020 DT - Diptheria/Tetanus (PEDS) 06/24/2009, 006 DTaP Dipth/Tet/Acell Pertussis (Infanrix), Peds 02/27/1996,10/27/1992,02/16/1991,12/21,1990 Diptheria/Tetanus (Adult) 06/24/2009 Hepatitis B, 0-19 yrs 09/12/2003, 003,08/13/2002,07/16 Hepatitis B, 20+ yrs 09/09/2019,02/26/2019,01/22 IPV - Polio Virus Vaccine (Inact) 1995,10/27/1992,1990,11/03 MMR - Measles/Mumps/Rubella Vaccine 08/28,08/11/2017,02/27/1996,12/22 PPD 08/11/2017,08/04/2017 Pneumococcal Conjugate Vacci ne, 20-valent ([id number]) 06/13/2022 Pneumococcal Polysaccharide PPV23 (Pneumovax) 07/28/2018 Seasonal Influenza Virus Vac cine, Unspecified Formulation 04/04/2020,03/09/2019,04/17/2018 Seasonal Influenza, PF, 6 M & above, IM , (FluLaval or Fluzone) 04/03/2022,04/04/2020,03/09/2019,04/17 Seasonal Influenza, Split, I IV3, With Preserve, [...] encounter Miscellaneous Notes * Telephone Encounter - Shakila Acuña OSA - 03/31/2023 9:02 AM EDT Called pt to schedule video swallow at [facility] for pt to return call. Shakila Acuña documented in this encounter Plan of Treatment Upcoming Encounters Date Type Department Care Team (Late st Contact Info) Description 07/01/2023 11:00 AM EST Office Visit Otolaryngology [facility] [address] [place] [address] Rhea Baker MD [address] [place] [address] 07/01/2023 11:00 AM EST Rehab Services Voice Lab [facility] [address] [place] [address] Ton Mcdermott, [facility] [address] [place] [address] 07/02/2023 9:00 AM EST Rehab Services Voice Lab, [facility] [address] [place] [address] Ton Mcdermott, [facility] [employer] [address] [facility] [place] [address] 07/02/2023 9:30 AM EST Appointment Radiology, [facility] [address] [place] [phone] 07/11/2023 11:00 AM EST Office Visit Family [facility] [address] [place] [phone] Ashish Vicente MD [address] [place] [address] 12/02/2023 7:00 AM EDT Appointment Radiology, [address] [address] 12/19/2023 11:30 AM EDT Office Visit Endocrinology, [place] [address] [place] [address] Edgar Suazo CRNP [address] [place] [address] 02/19/2024 10:00 AM EDT Office Visit Endocrinology, [place] [address] [place] [address] Patricia Coffman MD 03/31/2024 7:40 AM EDT Office Visit Neurology, [place] [address] [facility] [place] [address] Serenity Gandara PA-C [address] [place] [address] Health Maintenance Due Date Last Done Comments [...] Not on filedocumented as of this encounter Care Teams Entry Level Relationship Specialty Start Date End Date Berkley Pavon DO [address] [place] [address] PCP - General Family Medicine 02/18/23 04/22/23 documented as of this encounter
--- OUTSIDE RECORDS SUMMARY | 2023-07-18 07:24 | External Medical Summary | Summary of Care ---
Author Name Unknown Organization [facility] Address [address] [place] [address] Phone [phone] Care Team Providers Care Grease Man Name Role Phone Unavailable Primary Care Provider Unavailabl e Reason for Visit * Reason Comments Follow Up Videostroboscopy Encounter Details Date Type Department Care Team (Latest Contact Info) Description 07/01/2023 11:00 AM EST Office Visit Otolaryngology [facility] [address] [facility] [place] [address] Rhea Baker MD [address] [place] [address] Pharyngoesophageal dysphagia* Allergies No known active allergiesdocumented as of [...] 3 07/12/2022 4 Active OneTouch Delica Plus [id number] USE TO TEST ONCE DAILY 100 Each [...] Nasal Solution (Astelin)Indications :Chronic rhinitis Administer 1 Cucumber into nostril in the morning and 1 Cucumber before bedtime. 30 mL 6 03/25/2023 Active [...] 06/24/2023 Active Vitamin D (Ergocalciferol) 1.25 MG (25698 UT) Oral Capsule (Drisdol) Take 1 Capsule [...] Patients should report blood sugar levels to [facility] department weekly. - . Dietary consult to be done PANCHO to instruct patient on appropriate nutrition and diet to aid in control of blood sugars. - . If medication is required to control blood sugars, then should have [facility] ultrasound for growth every 4 weeks. . [...] baseline pre-eclamptic labs - wnl 4. Recommend [facility] ultrasound for anatomy screen at 20 weeks [...] Overview: Failed 3hr GTT at 15 weeks. Associate Designer/educator appt ordered, blood sugar supplies ordered Pt has not gotten MA active thus far (04/23/2012) states info is at MA office. Advised pt to call our office when MA is active so we can set up appt for supervisor coil winding and she can get supplies at pharmacy. F/u at next visit to ensure this is done. Encounter for supervision of other normal 02/19/2012 06/18/2012 Overview: Urine culture contaminated at [facility], repeat next visit. Urine culture obtained 02/22/12 Ivy Olivas LPN UTI-rx given. KRIS next visit - contam, consider neg ICD-10 update of inactive term Hx of preeclampsia, prior pr egnancy, currently 02/19/2012 09/26/2014 Overview: Preeclampsia labs ordered at [facility]--WNL. 24hr urine protein 0.07 [...] PPD 08/11/2017,08/04/2017 Pneumococcal Conjugate Vacci ne, 20-valent ([id number]) 06/13/2022 Pneumococcal Polysaccharide PPV23 (Pneumovax) 07/28/2018 Seasonal [...] Sign Reading Time Taken Comments Blood Pressure - - Pulse - - Temperature 36.7 C (98.1 F) 07/01/2023 1 0:53 AM EST Respiratory Rate - - Oxygen Saturation - - Inhaled Oxygen Concentration - - Weight 128.9 kg (284 lb 1.6 oz) 024 10:53 AM EST Height 163.8 cm (5' 4.49") 07/01/2023 1 0:53 AM EST Body Mass Index 48.03 07/01/2023 10:53 AM EST documented in this encounter Progress Notes * Rhea Baker MD - 07/01/2023 11:00 AM EST 07/01/2023 HISTORY OF PRESENT ILLNESS Nursing Notes: Keanu Eduardo, [facility] 07/01/23 1055 Signed Chief Complaint Patient presents with Follow Up Videostroboscopy Yvonne Johansen is a 32 year old female who presents today for a video strobe of her larynx. She states that she has hoarseness, dysphagia and a sore throat that has been ongoing for 2 years. This 32 year old YO female is seen at the request of Patricia Coffman MD (endocrinology) for the evaluation of right ear hearing loss and right otalgia. Symptoms started within the last 1.5-2 years. Bilateral tinnitus for several years, as well. Does feel like voice is more hoarse than usual the last 1.5-2 years. Per endocrinology as of 03/13/23: stable thyroid US, annual follow up in regards to thyroid monitoring. Denies unexplained weight loss. Denies otorrhea or recurrent infections. She follows with endocrinology for multinodular goiter. She was previously seen by Dr. Sage in 2020 for evaluation of her thyroid goiter as she felt it was causing dysphagia. However, US has shown stable size and at the time did not feel her thyroid was causing these symptoms. She has sub centimeter nodules and normal FNA of larger of those in Jun 2022 and was benign (see below). Family HX: Thyroid disease: Sister- hypothyroidism Thyroid cancer: Mother Ovarian cancer: Mother 03/11/23 Thyroid US: IMPRESSION: 1. No significant change in subcentimeter ([id number]) solid LEFT thyroid lobe nodule 2. Nonvisualization of the nodule in the RIGHT lobe identified on the previous exam. 07/11/2022 FNA of left thyroid nodule: A. Thyroid, Left, CT/US guided Fine Needle Aspiration: Adequacy: Satisfactory for evaluation. Category: Benign ([place] classification II). Interpretation: Benign follicular nodule. Other: Cellblock: The histological sections of the cellblock preparation are hypocellular. 05/03/2020 CT neck:----did not show any airway compression IMPRESSION 1. Mild thyromegaly with a small 4 mm nodule along the lower left thyroid pole. 2. No pathologically enlarged cervical adenopathy. 05/03/2020 barium swallow: IMPRESSION Unremarkable esophagram. Remaining ear review of symptoms reveals: Head trauma: denied Dizziness: vertigo denied Problem List Patient Active Problem List Diagnosis Code Type 2 diabetes mellitus (HCC) E11.9 Anxiety F41.9 Fatty liver K76.0 Iron deficiency anemia D50.9 PCOS (polycystic ovarian syndrome) E28.2 Iron deficiency anemia due to chronic blood loss D50.0 Morbid obesity due to excess calories ([facility]) E66.01 Migraine without aura and without status migrainosus, not intractable G43.009 Body mass index (BMI) of 45.0 to 49.9 in adult ([facility]) Z68.42 Past Medical History: Diagnosis Date Abnormal finding on Pap smear 2009, 2010 colpo WNL, paps WNL since then Depression 2009 prev on Celexa Endometriosis Hyperlipidemia Migraine Obesity, morbid (more than 100 lbs over ideal weight or BMI > 40) ([facility]) 06/18/2012 1. Recommend restricting weight gain during to 11-20 pounds. Consider referral for nutrition consult. (consult placed) 2. For patients with Class 3 obesity, we recommend baseline pre-eclamptic labs - wnl 4. Recommend MFM ultrasound for anatomy screen at 20 weeks and for growth every6 to 8 weeks after 24 weeks. NL GROWTH AT 32 WK 35 wks - EFW 2728 398 gm = 6 lbs 0 ozs (67 %) 5.For patients with Class 3 obesity, we recommend surveillance with twice weekly NST/weekly AFIto begin at 32 weeks and delivery by EDC. 6. Recommend anesthesia consult during the antepartum period. (Consult placed 06/22/12.) PCOS (polycystic ovarian syndrome) 2010 Metformin for short time Pre-eclampsia 2009 labor 07/10/2012 + FFN 07/08. Cervix closed, +contractions 07/10: Betamethasone 12mg, started on procardia 10mg q4h. Ptadvised to have 2nd betamethasone at L&D on 07/11. Past Surgical History: Procedure Laterality Date DENTAL SURGERY PROCEDURE NEC 06/30/2007 no comps HYSTEROSCOPY W/BIOPSY AND/OR POLYPECTOMY W/WO D&C 2019 INFORMATION 11/17/2020 D&C, EM ablation KNEE ARTHROSCOPY/MENISCECTOMY Left 11/16/2021 ARTHROSCOPY KNEE MEDIAL OR LATERAL MENISCECTOMY performed by Claudio Mendez Jr., MD at OR [facility] REMOVE TONSILS & ADENOIDS, AGE 12+ 06/30/2007 no comps Medications Current Outpatient Medications Medication Sig Dispense Refill Multiple Vitamins-Minerals (WOMENS MULTI VITAMIN & MINERAL) TABS Take 1 Tablet by mouth in the morning. NeXplore Verio IQ System w/Device Kit Test once a day e 1165 1 Kit 1 Phoodeezuch Verio In Vitro Strip (Glucose Blood) Test once a day e 1165 100 Strip 3 traZODone HCl 100 MG Oral Tablet (Desyrel) One tablet daily at bedtime 30 Tablet 5 Clindamycin Phosphate 1 % External Gel Apply topically to affected area 2 times a day. To affected area of skin. 60 g 11 Topiramate 50 MG Oral Tablet (topAMAX) TAKE TWO TABLETS BY MOUTH AT BEDTIME 180 Tablet 3 Haiku DeckTouch Delica Plus [id number] USE TO TEST ONCE DAILY 100 Each 3 Emgality 120 MG/ML Subcutaneous Solution Auto-injector (Galcanezumab-[facility]) Inject 1 mL under the skin [...] 0.1 % Nasal Solution (Astelin) Administer 1 Cucumber into nostril in the morning and 1 Cucumber before bedtime. 30 mL 6 Atorvastatin Calcium 20 MG Oral Tablet (Lipitor) TAKE ONE TABLET BY MOUTH EVERY DAY 90 Tablet 1 Benzonatate 100 MG Oral Capsule Take 1 Capsule by mouth 3 times a day as needed for Cough. 30 Capsule 1 Ozempic (2 MG/DOSE) 8 MG/3ML Subcutaneous Solution Pen-injector (Semaglutide (2 MG/DOSE)) INJECT 2MG UNDER THE SKIN ONCE A WEEK 9 mL 6 Rizatriptan Benzoate 10 MG Oral Tablet Disintegrating Take 1 Tablet by mouth as needed for Migraine. May repeat in 2 hours if needed. Do not take more than 20mg in 24 hours. 10 Tablet 3 Vitamin D (Ergocalciferol) 1.25 MG (29319 UT) Oral Capsule (Drisdol) Take 1 Capsule by mouth once aweek. 8 Capsule 0 Clinitest Rapid COVID-19 Test In Vitro Kit (COVID-19 At Home Antigen Test) test as directed (Patient not taking: Reported on 04/05/2023) 5 Kit 0 No current facility-administered medications for this visit. 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 PHYSICAL EXAMINATION: Vital Signs: Filed Vitals: 07/01/23 1053 Temp: 36.7 C (98.1 F) TempSrc: Tympanic Weight: 128.9 kg (284 lb 1.6 oz) Height: 1.638 m (5' 4.49") General: this is a healthy appearing female who appears her stated age. The patient is alert and appropriately verbally conversant without hoarseness. Face: The face was inspected and no cutaneous masses or lesions were visualized. There was no erythema or edema noted. Facial movement was symmetric without weakness. No skin lesions were detected. There was no sinus tenderness elicited. The parotid and submandibular glands were normal to palpation. Eyes: Examination of the eyes revealed no lesions. Pupils were equal, round, and reactive to light and accommodation. Extra-ocular muscle function was intact. No nystagmus was observed. Nose: Septum nonobstructing, turbinates normal, no masses, polyps, or mucopus. Oral Cavity: Examination of the oral cavity revealed no mass lesions nor infection. The palate was noted to be intact without evidence of clefting. The tongue exhibited normal mobility. Mucosa was moist without lesion. The lips were free of lesion. Gums were free of inflammation. Dentition: unremarkeable Oropharynx: The oral pharynx was free of mass lesion or mucosal abnormality. The palate was noted to be without lesion. The uvula was normal appearing. The tonsils were surgically absent Ears: Examination of the ears revealed that the auricles were normally formed with no lesions. The external auditory canals were cleaned of any obstructing cerumen. See below procedure note. The tympanic membranes were intact and freely mobile to pneumatoscopy without perforation or significant retraction pockets. Neck: Visualization and palpation of the neck revealed no mass lesions, no thyromegaly or thyroid masses. No skin lesions or inflammatory processes were detected. The cervical musculature was normal to palpation. Lymphatics (cervical): There were no palpable lymph nodes in the posterior triangle, submandibular triangle, jugulodigastric region, or central neck. Lungs: normal respiratory effort Heart: normal rate Procedure: Due to patient's inability to cooperate with mirror exam or concern for structures otherwise not evaluated, fiberoptic examination of the larynx was performed. The nose was first topically decongested with topical oxymetazoline 0.05% spray and topically anesthetized with topical Lidocaine 4% spray. Nasopharynx was visualized and was without masses or lesions. Fiberoptic examination revealed no mass lesions. Vocal cord mobility was normal without paralysis or paresis. There was no significant edema or erythema of the larynx. Lingual tonsil hypertrophy. No vocal cord masses were visualized. Exam was negative for post cricoid or pyriform sinuses lesions. The patient tolerated the procedure well. Patient should refrain from eating or drinking for 30-45 minutes due to anesthesia of the pharynxand possible interference with swallowing. Dr. Rhea Baker performed the procedure. Please see Ton Mcdermott's note for more details. Overall normal exam except for signs of acid reflux. LAST VISIT: ASSESSMENT: 1. Otalgia, right - AUDIOLOGY LAB 2. Pharyngoesophageal dysphagia - FLUORO SWALLOWING FUNCTION W VIDEO CINE - VOICE LAB 3. Multinodular goiter - FLUORO SWALLOWING FUNCTION W VIDEO CINE - VOICE LAB 4. Chronic rhinitis - Azelastine HCl 0.1 % Nasal Solution (Astelin); Administer 1 Cucumber into nostril in the morning and1 Cucumber before bedtime. Dispense: 30 mL; Refill: 6 5. Reflux pharyngitis - Famotidine 10 MG Oral Tablet (Pepcid AC); Take 1 Tablet by mouth in the morning and 1 Tablet before bedtime. Dispense: 30 Tablet; Refill: 4 Plan: The patient was seen with Dr. Rhea Baker and her condition was extensively discussed with her. -hearing was within normal. Very small discrepancy in the lower frequencies which could be causing her tinnitus. Can continue to observe. -Start Pepcid and Astelin for reflux and drainage -Schedule with Ton Mcdermott for video swallow and voice lab -May consider stroboscopy , as well -Pt verbalized understanding and agrees with plan. -Questions/Concerns addressed. Endocrinology input: No changes in the thyroid nodule Annual follow-up is reasonable with regards to thyroid nodule TODAY'S VISIT: Please see the speech pathologist's note for further details. Scheduled for a swallow study tomorrow. I spent a total of 40-54 minutes (exact time 40 mins) on the date of service in preparation, delivery, and documentation of the care provided to Yvonne Johansen excluding any time spent in the performance of separately billed services. Rhea Baker MD [facility] Otolaryngology - Head and Neck Surgery [place], [place] 07/01/2023 11:10 AM documented in this encounter Nursing Notes * Keanu Eduardo CMA - 07/01/2023 10:54 AM EST Chief Complaint Patient presents with Follow Up Videostroboscopy Yvonne Johansen is a 32 year old female who presents today for a video strobe of her larynx. She states that she has hoarseness, dysphagia and a sore throat that has been ongoing for 2 years. documented in this encounter Plan of Treatment Upcoming Encounters Date Type Department Care Team (Late st Contact Info) Description 07/02/2023 9:00 AM EST Rehab Services Voice Lab, [facility] [address] [place] [address] Ton Mcdermott, [facility] DON[facility] RECRUITER SUPERVISOR [address] [facility] [place] [address] 07/02/2023 9:30 AM EST Appointment Radiology, [address] [phone] 07/11/2023 11:00 AM EST Office Visit [facility] [address] [place] [address] Ashish Vicente MD [address] [place] [address] 12/02/2023 7:00 AM EDT Appointment Radiology, [address] [address] 12/19/2023 11:30 AM EDT Office Visit Endocrinology, [place] [address] [place] [address] Edgar Suazo CRNP [address] [place] [address] 02/19/2024 10:00 AM EDT Office Visit Endocrinology, [place] [address] [facility] [place], [place] [address] Patricia Coffman MD 03/31/2024 7:40 AM EDT Office Visit Neurology, [place] [address] [place] [address] Serenity Gandara PA-C [address] [place] [address] Health Maintenance Due Date Last Done Comments [...] as of this encounter Visit Diagnoses Diagnosis Pharyngoesophageal dysphagia- Primary Dysphagia, pharyngoesophageal phase documented in this encounter
--- OUTSIDE RECORDS SUMMARY | 2023-07-18 07:24 | External Medical Summary | Summary of Care ---
Author Name Unknown Organization [facility] Address [address] [place] [address] Phone [phone] Care Team Providers Care Neurophysiologist Name Role Phone Unavailable Primary Care Provider Unavailabl e Reason for Visit * Reason Onset Date Comments Medication Refill 06/21/2023 Encounter Details Date Type Department Care Team (Late st Contact Info) Description 06/21/2023 Refill Neurology [facility] [address] [place] [address] Serenity Gandara PA-C [address] [facility] [place], [place] [phone] Allergies No known active allergiesdocumented as of this encounter (statuses as of 06/24/2023) Medications Medication Sig Dispensed Refills Start Date End Date Status Multiple Vitamins-Minerals (WOMENS MULTI VITAMIN & MINERAL) TABS Take 1 Tablet by mouth in the morning. 0 Active Tune CloutTouch Verio IQ System w/Device Kit Test once [...] 3 07/12/2022 4 Active OneTouch Delica Plus [id number] USE TO TEST ONCE DAILY 100 Each [...] Nasal Solution (Astelin)Indication s:Chronic rhinitis Administer 1 [place] into nostril in the morning and 1 [place] before bedtime. 30 mL 6 03/25/2023 Active Atorvastatin Calcium 20 MG Oral Tablet (Lipitor)Indication s:Dyslipidemia, goal LDL below 100 TAKE ONE TABLET BY MOUTH EVERY DAY 90 Tablet 1 04/07/2023 4 Active Benzonatate 100 MG Oral Capsule Take 1 Capsule by mouth 3 times a day as needed for Cough. 30 Capsule 1 04/05/2023 Active Ozempic (2 MG/DOSE) 8 MG/3ML Subcutaneous Solution Pen-injector (Semaglutide (2 MG/DOSE))Indication s:PCOS (polycystic ovarian syndrome),Type 2 diabetes mellitus (HCC) INJECT 2MG UNDER THE SKIN ONCE A WEEK 9 mL 6 06/05/2023 4 Active Rizatriptan Benzoate 10 MG Oral Tablet Disintegrating Take 1 Tablet by mouth as needed for Migraine. May repeat in 2 hours if needed. Do not take more than 20mg in 24 hours. 10 Tablet 3 06/24/2023 Active Rizatriptan Benzoate 10 MG Oral Tablet Disintegrating Take 1 Tablet by mouth as needed for Migraine. May repeat in 2 hours if needed. Do not take more than 20mg in 24 hours. 10 Tablet 3 07/09/2022 3 Discontinu ed(Refill) documented as of this encounter (statuses as of 06/24/2023) Active Problems Problem Noted Date Diagnosed Date [...] Patients should report blood sugar levels to [facility] department weekly. - . Dietary consult to be done PANCHO to instruct patient on appropriate nutrition and diet to aid in control of blood sugars. - . If medication is required to control blood sugars, then should have [facility] ultrasound for growth every 4 weeks. [...] as of this encounter (statuses as of 06/24/2023) Resolved Problems Problem Noted Date Diagnosed Date [...] Overview: Failed 3hr GTT at 15 weeks. Director Food Safety/educator appt ordered, blood sugar supplies ordered Pt has not gotten MA active thus far (04/23/2012) states info is at MA office. Advised pt to call our office when MA is active so we can set up appt for gis specialist and she can get supplies at pharmacy. F/u at next visit to ensure this is done. Encounter for supervision of other normal 02/19/2012 06/18/2012 Overview: Urine culture contaminated at [facility], repeat next visit. Urine culture obtained 02/22/12 Ivy Olivas LPN UTI-rx given. KRIS next visit - contam, consider neg ICD-10 update of inactive term Hx of preeclampsia, prior pr egnancy, currently 02/19/2012 09/26/2014 Overview: Preeclampsia labs ordered at [facility]--WNL. 24hr urine protein 0.07 Obesity in 02/19/2012 012 Overview: Early glucola 175- 3hr GTT ordered documented as of this encounter (statuses as of 06/24/2023) Immunizations Name Administration Dates Next Due COVID-19 mRNA, LNP-s, No Pre serve, 2-Dose Series (Moderna) 11/23/2020,10/24/2020 DT - Diptheria/Tetanus (PEDS) 06/24/2009, 006 DTaP Dipth/Tet/Acell Pertussis (Infanrix), Peds 02/27/1996,10/27/1992,02/16/1991,12/21,1990 Diptheria/Tetanus (Adult) 06/24/2009 Hepatitis B, 0-19 yrs 09/12/2003, 003,08/13/2002,07/16 Hepatitis B, 20+ yrs 09/09/2019,02/26/2019,01/22 IPV - Polio Virus Vaccine (Inact) 1995,10/27/1992,1990,11/03 MMR - Measles/Mumps/Rubella Vaccine 08/28,08/11/2017,02/27/1996,12/22 PPD 08/11/2017,08/04/2017 Pneumococcal Conjugate Vacci ne, 20-valent ([id number]) 06/13/2022 Pneumococcal Polysaccharide PPV23 (Pneumovax) 07/28/2018 Seasonal [...] encounter Miscellaneous Notes * Telephone Encounter - Serenity Gandara PA-C - 06/24/2023 9:25 AM ESTSigned Prescriptions: Disp Refills Rizatriptan Benzoate 10 MG Oral Tablet Dis*10 Tab*3 Sig: Take 1 Tablet by mouth as needed for Migraine. May repeat in 2 hours if needed. Do not take more than 20mg in 24 hours. Authorizing Provider: SERENITY GANDARA * Telephone Encounter - Yvonne Johansen LPN - 06/24/2023 9:02 AM ESTPending Prescriptions: Disp Refills Rizatriptan Benzoate 10 MG Oral Tablet Dis*10 Tab*3 Sig: Take 1Tablet by mouth as needed for Migraine. May repeat in 2 hours if needed. Do not take more than 20mgin 24 hours. documented in this encounter Plan of Treatment Upcoming Encounters Date Type Department Care Team (Late st Contact Info) Description 07/01/2023 11:00 AM EST Office Visit Otolaryngology [facility] [address] [place] [address] Rhea Baker MD [address] [place] [address] 07/01/2023 11:00 AM EST Rehab Services Voice Lab [facility] [address] [place] [address] Ton Mcdermott, [facility]GER [address] [place] [address] 07/02/2023 9:00 AM EST Rehab Services Voice Lab, [facility] [address] [place] [address] Ton Mcdermott, [facility]GER [facility] [place] [address] 07/02/2023 9:30 AM EST Appointment Radiology, [address] [phone] 07/11/2023 11:00 AM EST Office Visit [facility] [address] [place] [phone] Ashish Vicente MD [address] [place] [address] 12/02/2023 7:00 AM EDT Appointment Radiology, [address] [address] 12/19/2023 11:30 AM EDT Office Visit Endocrinology, [place] [address] [place] [address] Edgar Suazo CRNP [address] [place] [address] 02/19/2024 10:00 AM EDT Office Visit Endocrinology, [place] [address] [place] [address] Patricia Coffman MD 03/31/2024 7:40 AM EDT Office Visit Neurology, [place] [address] [facility] [place] [address] Serenity Gandara PA-C [address] [facility] [place] [address] Health Maintenance Due Date Last Done Comments HPV/Co-Test 2020 Diabetic Foot Exam 02/01/2021 02/02/2020, 03/09/2019 Diabetic Eye Exam 12/18/2022 12/18/2021, 04/06/2020 COVID-19 Vaccine (24 season) 2023 11/23/2020, 10/24/2020 Cervical Cancer Screening [...]
--- OUTSIDE RECORDS SUMMARY | 2023-07-18 07:24 | External Medical Summary | Summary of Care ---
Author Name Unknown Organization [facility] Address [address] [place] [address] Phone [phone] Care Team Providers Care Rejoiner Name Role Phone Unavailable Primary Care Provider Unavailabl e Reason for Visit * Reason Comments dysphagia Voice Change Encounter Details Date Type Department Care Team (Latest Contact Info) Description 07/02/2023 9:00 AM EST Rehab Services Voice Lab, [facility] [address] [place] [address] Ton Mcdermott, [facility]-PRINTED FORMS PROOFREADER [address] [place] [address] Dysphagia, oropharyngeal phase* Allergies No known active allergiesdocumented as of this encounter (statuses as of 07/02/2023) Medications Medication Sig Dispensed Refills Start Date End Date Status Multiple Vitamins-Minerals (WOMENS MULTI VITAMIN & MINERAL) TABS Take 1 Tablet by mouth in the morning. 0 Active ITA SoftwareTouch Verio IQ System w/Device Kit Test once [...] 3 07/12/2022 4 Active OneTouch Delica Plus [id number] USE TO TEST ONCE DAILY 100 Each [...] Nasal Solution (Astelin)Indications :Chronic rhinitis Administer 1 [place] into nostril in the morning and 1 [place] before bedtime. 30 mL 6 03/25/2023 Active [...] 06/24/2023 Active Vitamin D (Ergocalciferol) 1.25 MG (07605 UT) Oral Capsule (Drisdol) Take 1 Capsule by mouth once a week. 8 Capsule 0 06/24/2023 Active documented as of this encounter (statuses as of 07/02/2023) Active Problems Problem Noted Date Diagnosed Date [...] Patients should report blood sugar levels to [facility] department weekly. - . Dietary consult to be done PANCHO to instruct patient on appropriate nutrition and diet to aid in control of blood sugars. - . If medication is required to control blood sugars, then should have [facility] ultrasound for growth every 4 weeks. [...] as of this encounter (statuses as of 07/02/2023) Resolved Problems Problem Noted Date Diagnosed Date [...] baseline pre-eclamptic labs - wnl 4. Recommend [facility] ultrasound for anatomy screen at 20 [...] Overview: Failed 3hr GTT at 15 weeks. Elevated Guard/educator appt ordered, blood sugar supplies ordered Pt has not gotten MA active thus far (04/23/2012) states info is at MA office. Advised pt to call our office when MA is active so we can set up appt for carbon cleaner and she can get supplies at pharmacy. F/u at next visit to ensure this is done. Encounter for supervision of other normal 02/19/2012 06/18/2012 Overview: Urine culture contaminated at [facility], repeat next visit. Urine culture obtained 02/22/12 Ivy Olivas LPN UTI-rx given. KRIS next visit - contam, consider neg ICD-10 update of inactive term Hx of preeclampsia, prior pr egnancy, currently 02/19/2012 09/26/2014 Overview: Preeclampsia labs ordered at [facility]--WNL. 24hr urine protein 0.07 Obesity in 02/19/2012 012 Overview: Early glucola 175- 3hr GTT ordered documented as of this encounter (statuses as of 07/02/2023) Immunizations Name Administration Dates Next Due COVID-19 mRNA, LNP-s, No Pre serve, 2-Dose Series (Moderna) 11/23/2020,10/24/2020 DT - Diptheria/Tetanus (PEDS) 06/24/2009, 006 DTaP Dipth/Tet/Acell Pertussis (Infanrix), Peds 02/27/1996,10/27/1992,02/16/1991,12/21,1990 Diptheria/Tetanus (Adult) 06/24/2009 Hepatitis B, 0-19 yrs 09/12/2003, 003,08/13/2002,07/16 Hepatitis B, 20+ yrs 09/09/2019,02/26/2019,01/22 IPV - Polio Virus Vaccine (Inact) 1995,10/27/1992,1990,11/03 MMR - Measles/Mumps/Rubella Vaccine 08/28,08/11/2017,02/27/1996,12/22 PPD 08/11/2017,08/04/2017 Pneumococcal Conjugate Vacci ne, 20-valent ([id number]) 06/13/2022 Pneumococcal Polysaccharide PPV23 (Pneumovax) 07/28/2018 Seasonal [...] of this encounter Progress Notes * Ton Mcdermott CCC-SLP - 07/02/2023 2:40 PM EST CLINIC NOTES Voice Lab, [address] [address] Yvonne Johansen : 1990 07/02/2023 Following evaluation I reviewed the findings with the patient utilizing the fluoroscopy monitor . She was also able to monitor her swallowing in real-time during the study . Recommendations were reviewed per my evaluation report. Questions were answered. An Stewart eSgura think that is all Ton Mcdermott CCC-PRINTED FORMS PROOFREADER [facility] - [facility] 07/02/2023 2:40 PM * Ton Mcdermott CCC-SLP - 07/02/2023 2:30 PM EST CLINIC NOTES Voice Lab, [address] [address] Yvonneniurka Johansen : 1990 07/02/2023 VIDEO FLUOROSCOPIC SWALLOWING FUNCTION TEST The patient is seen at the request of Dr. Rhea Baker of Otolaryngology for a swallowing issue. Patient indicates a stuck sensation for dry foods and liquids pointing to the level of the cricopharyngeus . This occurs intermittently and has been ongoing for the past 2 years. This was not precipitated by any illness intubation or psychogenic factors . She is currently PO regular diet and all liquids but staying away from dry foods . Patient underwent stroboscopy yesterday with Dr. Baker and myself. 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 Patient had an esophagram in April of 2020 which was within normal limits . Patient notes occasional coughing with stuck sensation . Senses of taste smell and temperature are adequate. Patient is trying to lose weight . She has reflux and is currently on medication for this . She experiences new pneumonia 1 time per year of unknown etiology (but does not expect aspiration related) she has asthma and utilizes inhaler p.r.n. . She is currently being followed by Dr. Baker as well as endocrinology for thyroid issues . She notes intermittent odynophagia . Oral mechanism examination reveals adequate facial symmetry. Oral cavity is moist. Exhibits naturaldentition on both arches. Structure and mobility of the tongue, lips, cheeks, and jaw are adequate.Velum is in the midline and elevates adequately bilaterally. Speech, voice, diadochokinesis, oral pressure, and protective mechanisms are within normal limits. Swallowing study was performed in Radiology. AP view - reveals adequate approximation of the vocal folds to the midline for both dry swallow andphonation. There is appropriate laryngeal elevation and pharyngeal squeeze. Stage 1 (oral stage): Intermittent delayed initiation of swallow with bolus head to the vallecular space . A spontaneous swallow clears this area completely Stage 2 (pharyngeal stage): Base of the tongue does make contact with the posterior pharyngeal wallresulting in appropriate hyolaryngeal elevation and pharyngeal shortening . Epiglottic structure and inversion is adequate . She exhibits no laryngeal penetration or direct aspiration which places her at a score of 1 on the penetration aspiration scale (contrast does not enter the airway). Piriformsinuses are clear and there is appropriate pharyngoesophageal juncture opening . Stage 3 (esophageal stage) no bolus reversal or reflux was noted . Patient consumed foods from all levels, in addition to thin liquids. IMPRESSIONS: 1. 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 RECOMMENDATIONS: PO regular diet served moist (IDD SI-7) PO thin liquids (IDDSI-0) Alternate food and liquids 90 degree position while eating and for 1/2 hour after Maintain strict reflux precautions with pamphlet given Return p.r.n. Ton Mcdermott CCC-PRINTED FORMS PROOFREADER [facility] 07/02/2023 2:30 PM documented in this encounter Plan of Treatment Upcoming Encounters Date Type Department Care Team (Late st Contact Info) Description 07/11/2023 11:00 AM EST Office Visit Family Practice, [place] [address] [place] [phone] Ashish Vicente MD [address] [place] [address] 12/02/2023 7:00 AM EDT Appointment Radiology, [address] [place] [address] 12/19/2023 11:30 AM EDT Office Visit Endocrinology, [place] [address] [place] [address] Edgar Suazo CRNP [address] [place] [address] 02/19/2024 10:00 AM EDT Office Visit Endocrinology, [place] [address] [place] [address] Patricia Coffman MD 03/31/2024 7:40 AM EDT Office Visit Neurology, [place] [address] [place] [address] Serenity Gandara PA-C [address] [facility] [place] [address] Health Maintenance Due Date Last Done Comments [...] as of this encounter Visit Diagnoses Diagnosis Dysphagia, oropharyngeal phase- Primary documented in this encounter
--- OUTSIDE RECORDS SUMMARY | 2023-07-18 07:25 | External Medical Summary | Summary of Care ---
Author Name Unknown Organization [facility] Address [address] [place] [address] Phone [phone] Care Team Providers Care Edger Machine Setter Name Role Phone Unavailable Primary Care Provider Unavailabl e Reason for Visit * Reason Comments Oracle Adf Developer Return Encounter Details Date Type Department Care Team (Late st Contact Info) Description 06/03/2023 8:00 AM EST Office Visit Gynecology/Obstetric s Miguelito Ashraf [address] [place] [address] Demetrio Ge MD [address] [place] [address] Menorrhagia with regular cycle* Allergies No known active allergiesdocumented as of this encounter (statuses as of 06/03/2023) Medications Medication Sig Dispensed Refills Start Date [...] 3 07/12/2022 4 Active OneTouch Delica Plus [id number] USE TO TEST ONCE DAILY 100 Each 3 07/10/2022 4 Active Semaglutide (2 MG/DOSE) 8 MG/3ML Subcutaneous Solution Pen-injector (Ozempic) INJECT 2MG UNDER THE SKIN ONCE A WEEK 9 mL 6 04/25/2022 3 Active Emgality 120 MG/ML Subcutaneous Solution Auto-injector [...] Solution (Astelin)Indications :Chronic rhinitis Administer 1 [place] into nostril in the morning and 1 [place] before bedtime. 30 mL 6 03/25/2023 Active [...] for Cough. 30 Capsule 1 04/05/2023 Active documented as of this encounter (statuses as of 06/03/2023) Active Problems Problem Noted Date Diagnosed Date [...] Patients should report blood sugar levels to [facility] department weekly. - . Dietary consult to be done PANCHO to instruct patient on appropriate nutrition and diet to aid in control of blood sugars. - . If medication is required to control blood sugars, then should have [facility] ultrasound for growth every 4 weeks. [...] as of this encounter (statuses as of 06/03/2023) Resolved Problems Problem Noted Date Diagnosed Date [...] Overview: Failed 3hr GTT at 15 weeks. Hepatologist/educator appt ordered, blood sugar supplies ordered Pt has not gotten MA active thus far (04/23/2012) states info is at MA office. Advised pt to call our office when MA is active so we can set up appt for a&p technician and she can get supplies at pharmacy. F/u at next visit to ensure this is done. Encounter for supervision of other normal 02/19/2012 06/18/2012 Overview: Urine culture contaminated at [facility], repeat next visit. Urine culture obtained 02/22/12 Ivy Olivas LPN UTI-rx given. KRIS next visit - contam, consider neg ICD-10 update of inactive term Hx of preeclampsia, prior pr egnancy, currently 02/19/2012 09/26/2014 Overview: Preeclampsia labs ordered at [facility]--WNL. 24hr urine protein 0.07 Obesity in 02/19/2012 012 Overview: Early glucola 175- 3hr GTT ordered documented as of this encounter (statuses as of 06/03/2023) Immunizations Name Administration Dates Next Due COVID-19 mRNA, LNP-s, No Pre serve, 2-Dose Series (Moderna) 11/23/2020,10/24/2020 DT - Diptheria/Tetanus (PEDS) 06/24/2009, 006 DTaP Dipth/Tet/Acell Pertussis (Infanrix), Peds 02/27/1996,10/27/1992,02/16/1991,12/21,1990 Diptheria/Tetanus (Adult) 06/24/2009 Hepatitis B, 0-19 yrs 09/12/2003, 003,08/13/2002,07/16 Hepatitis B, 20+ yrs 09/09/2019,02/26/2019,01/22 IPV - Polio Virus Vaccine (Inact) 1995,10/27/1992,1990,11/03 MMR - Measles/Mumps/Rubella Vaccine 08/28,08/11/2017,02/27/1996,12/22 PPD 08/11/2017,08/04/2017 Pneumococcal Conjugate Vacci ne, 20-valent ([id number]) 06/13/2022 Pneumococcal Polysaccharide PPV23 (Pneumovax) 07/28/2018 SEASONAL INFLUENZA, PF, 6 M & Above, IM , (FLULAVAL or FLUZONE) 04/05/2023,04/03/2022,04/04/2020,03/09,04/17/2018 Seasonal Influenza Virus Vac cine, Unspecified Formulation 04/04/2020,03/09/2019,04/17/2018 Seasonal Influenza, Split, I IV3, With Preserve, [...] Sign Reading Time Taken Comments Blood Pressure 122/76 06/03/2023 8:10 AM EST Pulse - - Temperature - - Respiratory Rate - - Oxygen Saturation - - Inhaled Oxygen Concentration - - Weight 131.5 kg (290 lb) 06/03/2023 8:10 AM EST Height 163.8 cm (5' 4.49") 06/03/2023 8:10 AM ES T Body Mass Index 49.02 06/03/2023 8:10 AM EST documented in this encounter Progress Notes * Demetrio Ge MD - 06/03/2023 8:29 AM EST Patient is a 32-year-old status post endometrial ablation of the field medical management which included IUD Nexplanon and OCP. Patient had an ablation performed in October 2022 she presents today and continues to report heavy bleeding with menses patient wishes to have hysterectomy. 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 We discussed risks of hysterectomy including infection bleeding urinary incontinence dyspareunia chronic pelvic pain etc.. Patient wishes to proceed with surgery paperwork is therefore feel the and sent to [facility] for scheduling documented in this encounter Nursing Notes * Isabel Loza LPN - 06/03/2023 8:09 AM EST Pt is here for VB 2-3 weeks a month Clots Heavy documented in this encounter Plan of Treatment Upcoming Encounters Date Type Department Care Team (Late st Contact Info) Description 06/19/2023 11:30 AM EST [facility] [place] [address] [facility] [place] [address] Edgar Suazo CRNP [address] [facility] [place] [address] 07/01/2023 11:00 AM EST Office Visit Otolaryngology [facility] [address] [place] [address] Rhea Baker MD [address] [place] [address] 07/01/2023 11:00 AM EST Rehab Services Voice Lab [facility] [address] [place] [address] Ton Mcdermott, CCC-CONCENTRATOR OPERATOR [address] [place] [address] 07/02/2023 9:00 AM EST Rehab Services Voice Lab, [facility] [address] [facility] [address] Ton Mcdermott, [facility]-CONCENTRATOR OPERATOR [address] [place] [address] 07/02/2023 9:30 AM EST Appointment Radiology, [facility] [address] [facility] [phone] 07/11/2023 11:00 AM EST Office Visit Family [facility], [place] [address] [facility] [place] [phone] Ashish Vicente MD [address] [facility] [place] [address] 02/19/2024 10:00 AM EDT Office Visit Endocrinology, [address] [address] Patricia Coffman MD 03/31/2024 7:40 AM EDT Office Visit Neurology, [place] [address] [facility] [place] [address] Serenity Gandara PA-C [address] [facility] [place] [address] Health Maintenance Due Date Last Done Comments [...] as of this encounter Visit Diagnoses Diagnosis Menorrhagia with regular cycle- Primary Excessive or frequent menstruation documented in this encounter
--- OUTSIDE RECORDS SUMMARY | 2023-07-18 07:25 | External Medical Summary ---
Author Name Unknown Address Unknown Organization K01:[facility] - [address] [place] [address] Laboratory Report Ordering Provider Test Date Status TAM DAY 06/19/2023 11:56:57 Final Deficient: <20 ng/mL
Ins ufficient: 20-29 ng/mL
Recommended/Optimum:30-50 ng/mL

Vitamin D intoxication is rare. If suspicious of Vitamin D toxicity, evaluation of serum Calcium and PTH is recommended. Observation Date Value Abnormality Reference (Units ) Status 25-OH Vitamin D total 06/19/2023 11:56:57 15 Below low normal >19 (ng/mL) Final Performing Location [facility] - [address] [place] [address]
--- OUTSIDE RECORDS SUMMARY | 2023-07-18 07:25 | External Medical Summary ---
Author Name Unknown Address Unknown Organization K01[facility] [place] [address] [place] [address] Laboratory Report Ordering Provider Test Date Status TAM DAY 06/19/2023 11:56:57 Final Observation Date Value Abnormality Reference (Units ) Status HbA1C 06/19/2023 11:56:57 5.7 Above high normal 4. 0-5.6 (%) Final The use of HbA1c to monitor glycemic status is based on normal hemoglobin and HbA composition. This test should not be used in patients with abnormal hemoglobin that affects the half life of the red blood cell or the in vivo glycation rates. Glucose, estimated average 06/19/2023 11:56:57 117 <126 (mg/dL) Final Performing Location [facility] [place] [address] [place] [address]
--- OUTSIDE RECORDS SUMMARY | 2023-07-18 07:25 | External Medical Summary | Summary of Care ---
Author Name Unknown Organization [facility] Address [address] [place] [address] Phone [phone] Care Team Providers Care Candy Bar Attendant Name Role Phone Unavailable Primary Care Provider Unavailabl e Encounter Details Date Type Department Care Team (Late st Contact Info) Description 06/16/2023 Orders Only Outcomes Research Department [address] [place] [address] Carolyn Asthon CHRA [employer] Other*[id number] Allergies No known active allergiesdocumented as of this encounter (statuses as of 06/16/2023) Medications Medication Sig Dispensed Refills Start Date End Date Status Multiple Vitamins-Minerals (WOMENS MULTI VITAMIN & MINERAL) TABS Take 1 Tablet by mouth in the morning. 0 Active Gridtential Energyio IQ System w/Device Kit Test once a [...] 3 07/12/2022 4 Active OneTouch Delica Plus [id number] USE TO TEST ONCE DAILY 100 Each [...] Nasal Solution (Astelin)Indications :Chronic rhinitis Administer 1 [place] into nostril in the morning and 1 [place] before bedtime. 30 mL 6 03/25/2023 Active [...] as of this encounter (statuses as of 06/16/2023) Active Problems Problem Noted Date Diagnosed Date [...] Patients should report blood sugar levels to [facility] department weekly. - . Dietary consult to be done PANCHO to instruct patient on appropriate nutrition and diet to aid in control of blood sugars. - . If medication is required to control blood sugars, then should have [facility] ultrasound for growth every 4 weeks. [...] as of this encounter (statuses as of 06/16/2023) Resolved Problems Problem Noted Date Diagnosed Date [...] Overview: Failed 3hr GTT at 15 weeks. Real Estate Recruiter/educator appt ordered, blood sugar supplies ordered Pt has not gotten MA active thus far (04/23/2012) states info is at MA office. Advised pt to call our office when MA is active so we can set up appt for pan shover and she can get supplies at pharmacy. F/u at next visit to ensure this is done. Encounter for supervision of other normal 02/19/2012 06/18/2012 Overview: Urine culture contaminated at [facility], repeat next visit. Urine culture obtained 02/22/12 Ivy Olivas LPN UTI-rx given. KRIS next visit - contam, consider neg ICD-10 update of inactive term Hx of preeclampsia, prior pr eghannah, currently 02/19/2012 09/26/2014 Overview: Preeclampsia labs ordered at [facility]--WNL. 24hr urine protein 0.07 Obesity in 02/19/2012 012 Overview: Early glucola 175- 3hr GTT ordered documented as of this encounter (statuses as of 06/16/2023) Immunizations Name Administration Dates Next Due COVID-19 mRNA, LNP-s, No Pre serve, 2-Dose Series (Moderna) 11/23/2020,10/24/2020 DT - Diptheria/Tetanus (PEDS) 06/24/2009, 006 DTaP Dipth/Tet/Acell Pertussis (Infanrix), Peds 02/27/1996,10/27/1992,02/16/1991,12/21,1990 Diptheria/Tetanus (Adult) 06/24/2009 Hepatitis B, 0-19 yrs 09/12/2003, 003,08/13/2002,07/16 Hepatitis B, 20+ yrs 09/09/2019,02/26/2019,01/22 IPV - Polio Virus Vaccine (Inact) 1995,10/27/1992,1990,11/03 MMR - Measles/Mumps/Rubella Vaccine 08/28,08/11/2017,02/27/1996,12/22 PPD 08/11/2017,08/04/2017 Pneumococcal Conjugate Vacci ne, 20-valent ([id number]) 06/13/2022 Pneumococcal Polysaccharide PPV23 (Pneumovax) 07/28/2018 Seasonal [...] EST Office Visit Endocrinology, [place] [address] [facility] [place] [address] Edgar Suazo CRNP [address] [place] [facility] [place] [address] 07/01/2023 11:00 AM EST Office Visit Otolaryngology [facility] [address] [facility] [place] [address] Rhea Baker MD [address] [place] [address] 07/01/2023 11:00 AM EST Rehab Services Voice Lab [facility] [address] [place] [address] Ton Mcdermott, CCC-MECHANICAL CAR CHECKER [address] [facility] [place] [address] 07/02/2023 9:00 AM EST Rehab Services Voice Lab, [facility] [address] [place] [address] Ton Mcdermott, [facility]-MECHANICAL CAR CHECKER [address] [place] [place] [address] 07/02/2023 9:30 AM EST Appointment Radiology, [facility] [address] [place] [phone] 07/11/2023 11:00 AM EST Office Visit [facility] 21 [place] [phone] Ashish Vicente MD [address] [place] [address] 02/19/2024 10:00 AM EDT Office Visit Endocrinology, [place] [address] [place] [address] Patricia Coffman MD 03/31/2024 7:40 AM EDT Office Visit Neurology, [place] 21 [place] [address] Serenity Gandara PA-C 21 [place] [address] Scheduled Orders Name Type Priority Associated Diagnoses Orde r Schedule MYCODE SUBSEQUENT ADULT Lab Routine [employer] Other*[id number] Every 6 Months for 2 Occurrences starting 06/16/2023 until 07/05/2024 Health Maintenance Due Date Last Done Comments [...] as of this encounter Visit Diagnoses Diagnosis [employer] Other*[id number] documented in this encounter
--- OUTSIDE RECORDS SUMMARY | 2023-07-18 07:25 | External Medical Summary | Summary of Care ---
Author Name Unknown Organization [facility] Address [address] [place] [address] Phone [phone] Care Team Providers Care Hair Mixer Name Role Phone Unavailable Primary Care Provider Unavailabl e Encounter Details Date Type Department Care Team (Late st Contact Info) Description 06/12/2023 Telephone Otolaryngology [facility] [address] [place] [address] Rhea Baker MD [address] [place] [address] Allergies No known active allergiesdocumented as of [...] 3 07/12/2022 4 Active OneTouch Delica Plus [id number] USE TO TEST ONCE DAILY 100 Each [...] Nasal Solution (Astelin)Indications :Chronic rhinitis Administer 1 [place] into nostril in the morning and 1 [place] before bedtime. 30 mL 6 03/25/2023 Active [...] Patients should report blood sugar levels to [facility] department weekly. - . Dietary consult to be done PANCHO to instruct patient on appropriate nutrition and diet to aid in control of blood sugars. - . If medication is required to control blood sugars, then should have [facility] ultrasound for growth every 4 weeks. [...] Overview: Failed 3hr GTT at 15 weeks. Help Desk Operator/educator appt ordered, blood sugar supplies ordered Pt has not gotten MA active thus far (04/23/2012) states info is at MA office. Advised pt to call our office when MA is active so we can set up appt for clearance coordinator and she can get supplies at pharmacy. F/u at next visit to ensure this is done. Encounter for supervision of other normal 02/19/2012 06/18/2012 Overview: Urine culture contaminated at [facility], repeat next visit. Urine culture obtained 02/22/12 Ivy Olivas LPN UTI-rx given. KRIS next visit - contam, consider neg ICD-10 update of inactive term Hx of preeclampsia, prior pr egnancy, currently 02/19/2012 09/26/2014 Overview: Preeclampsia labs ordered at [facility]--WNL. 24hr urine protein 0.07 Obesity in [...] PPD 08/11/2017,08/04/2017 Pneumococcal Conjugate Vacci ne, 20-valent ([id number]) 06/13/2022 Pneumococcal Polysaccharide PPV23 (Pneumovax) 07/28/2018 Seasonal [...] encounter Miscellaneous Notes * Telephone Encounter - Esthela Heart LPN - 06/12/2023 1:04 PM EST Pt is schedule for strobe 07/01/[address] Baker. Then has fluro on 07/02/2022 with Ton Please advise if appointments are appropriate or does the strobe need to be after the Fluro. documented in this encounter Plan of Treatment Upcoming Encounters Date Type Department Care Team (Late st Contact Info) Description 06/19/2023 11:30 AM EST Office Visit Endocrinology, [place] [address] [place] [address] Edgar Suazo CRNP [address] [place] [address] 07/01/2023 11:00 AM EST Office Visit Otolaryngology [facility] 132 [facility] [place] [address] Rhea Baker MD 132 [facility] [place] [address] 07/01/2023 11:00 AM EST Rehab Services Voice Lab [facility] 132 [facility] [place] [address] Ton Mcdermott, [facility]-PRODUCT SAFETY PROFESSIONAL 132 [facility] [place] [address] 07/02/2023 9:00 AM EST Rehab Services Voice Lab, [facility] [address] [place] [address] Ton Mcdermott, CCC-PRODUCT SAFETY PROFESSIONAL 132 [facility] [place] [address] 07/02/2023 9:30 AM EST Appointment Radiology, [facility] 400 [facility] [place] [address] 07/11/2023 11:00 AM EST Office Visit [facility] 21 [facility] [place] [phone] Ashish Vicente MD 21 [place] [address] 02/19/2024 10:00 AM EDT Office Visit Endocrinology, [address] [place] [address] Patricia Coffman MD 03/31/2024 7:40 AM EDT Office Visit Neurology, [place] [address] [place] [address] Serenity Gandara PA-C [address] [place] [address] Health Maintenance Due Date Last Done Comments [...]
--- OUTSIDE RECORDS SUMMARY | 2023-07-18 07:25 | External Medical Summary | Summary of Care ---
Author Name Unknown Organization [facility] Address [address] [place] [address] Phone [phone] Care Team Providers Care Supervisor Scouring Pads Name Role Phone Unavailable Primary Care Provider Unavailabl e Reason for Visit * Reason Comments Outpatient Testing Encounter Details Date Type Department Care Team (Late st Contact Info) Description 06/19/2023 12:30 PM EST Laboratory Outpatient Laboratory, [place] [address] [place] [address] [place], Lab B1[facility] [address] [place] [address] Type 2 diabetes mellitus without complication, without long-term current use of insulin (HCC); Multinodular goiter; Left thyroid nodule Allergies No known active allergiesdocumented as of this encounter (statuses as of 06/19/2023) Medications Medication Sig Dispensed Refills Start Date End Date Status Multiple Vitamins-Minerals (WOMENS MULTI VITAMIN & MINERAL) TABS Take 1 Tablet by mouth in the morning. 0 Active ClearContextTouch Verio IQ System w/Device Kit Test once [...] 3 07/12/2022 4 Active OneTouch Delica Plus [id number] USE TO TEST ONCE DAILY 100 Each 3 07/10/2022 4 Active Emgality 120 MG/ML Subcutaneous Solution Auto-injector ([employer]) Inject 1 mL under the skin every [...] Nasal Solution (Astelin)Indications :Chronic rhinitis Administer 1 [place] into nostril in the morning and 1 [place] before bedtime. 30 mL 6 03/25/2023 Active [...] Overview: Failed 3hr GTT at 15 weeks. Mathematics Technician/educator appt ordered, blood sugar supplies ordered Pt has not gotten MA active thus far (04/23/2012) states info is at MA office. Advised pt to call our office when MA is active so we can set up appt for grocery team member and she can get supplies at pharmacy. F/u at next visit to ensure this is done. Encounter for supervision of other normal 02/19/2012 06/18/2012 Overview: Urine culture contaminated at [facility], repeat next visit. Urine culture obtained 02/22/12 Ivy Olivas LPN UTI-rx given. KRIS next visit - contam, consider neg ICD-10 update of inactive term Hx of preeclampsia, prior pr egnancy, currently 02/19/2012 09/26/2014 Overview: Preeclampsia labs ordered at [facility]--WNL. 24hr urine protein 0.07 Obesity in 02/19/2012 [...] PPD 08/11/2017,08/04/2017 Pneumococcal Conjugate Vacci ne, 20-valent ([id number]) 06/13/2022 Pneumococcal Polysaccharide PPV23 (Pneumovax) 07/28/2018 Seasonal [...] 07/01/2023 11:00 AM EST Office Visit Otolaryngology [facility] [address] [place] [address] Rhea Baker MD [address] [place] [address] 07/01/2023 11:00 AM EST Rehab Services Voice Lab [facility] [address] [place] [address] Ton Mcdermott, CCC-CABLE TOOL OPERATOR 132 [facility] [place] [address] 07/02/2023 9:00 AM EST Rehab Services Voice [facility] [address] [place] [address] Ton Mcdermott, CCC-CABLE TOOL OPERATOR 132 [facility] [place] [address] 07/02/2023 9:30 AM EST Appointment Radiology, [facility] [address] [place] [address] 07/11/2023 11:00 AM EST [facility] [phone] Ashish Vicente MD 21 [place] [address] 12/02/2023 7:00 AM EDT Appointment Radiology, [facility] [address] [place] [address] 12/19/2023 11:30 AM EDT Office Visit Endocrinology, [place] [address] [facility] [place], [place] [id number] Edgar Suazo CRNP [address] [place] [address] 02/19/2024 10:00 AM EDT Office Visit Endocrinology, [place] [address] [facility] [place] [address] Patricia Coffman MD 03/31/2024 7:40 AM EDT Office Visit Neurology, [place] [address] [place] [address] Serenity Gandara PA-C [address] [place] [address] Health Maintenance Due Date Last Done Comments [...]
--- OUTSIDE RECORDS SUMMARY | 2023-07-18 07:25 | External Medical Summary | Summary of Care ---
Author Name Unknown Organization [facility] Address [address] [place] [address] Phone [phone] Care Team Providers Care Solar Sales Energy Advisor Name Role Phone Unavailable Primary Care Provider Unavailabl e Reason for Visit * Reason Comments Medication Refill Encounter Details Date Type Department Care Team (Late st Contact Info) Description 06/05/2023 Refill Endocrinology, [place] [address] [place] [address] Patricia Coffman MD PCOS (polycystic ovarian syndrome)*; Type 2 diabetes mellitus (HCC) Allergies No known active allergiesdocumented as of this encounter (statuses as of 06/05/2023) Medications Medication Sig Dispensed Refills Start Date [...] 3 07/12/2022 4 Active OneTouch Delica Plus [id number] USE TO TEST ONCE DAILY 100 Each [...] Nasal Solution (Astelin)Indication s:Chronic rhinitis Administer 1 [place] into nostril in the morning and 1 [place] before bedtime. 30 mL 6 03/25/2023 Active [...] WEEK 9 mL 6 06/05/2023 4 Active Semaglutide (2 MG/DOSE) 8 MG/3ML Subcutaneous Solution Pen-injector (Filecoinempic) INJECT 2MG UNDER THE SKIN ONCE A WEEK 9 mL 6 04/25/2022 3 Discontinu ed(Refill) documented as of this encounter (statuses as of 06/05/2023) Active Problems Problem Noted Date Diagnosed Date [...] Patients should report blood sugar levels to [facility] department weekly. - . Dietary consult to be done PANCHO to instruct patient on appropriate nutrition and diet to aid in control of blood sugars. - . If medication is required to control blood sugars, then should have [facility] ultrasound for growth every 4 weeks. [...] as of this encounter (statuses as of 06/05/2023) Resolved Problems Problem Noted Date Diagnosed Date [...] Overview: Failed 3hr GTT at 15 weeks. Cabinet Maker/educator appt ordered, blood sugar supplies ordered Pt has not gotten MA active thus far (04/23/2012) states info is at MA office. Advised pt to call our office when MA is active so we can set up appt for publication designer and she can get supplies at pharmacy. F/u at next visit to ensure this is done. Encounter for supervision of other normal 02/19/2012 06/18/2012 Overview: Urine culture contaminated at [facility], repeat next visit. Urine culture obtained 02/22/12 Ivy Olivas LPN UTI-rx given. KRIS next visit - contam, consider neg ICD-10 update of inactive term Hx of preeclampsia, prior pr egnancy, currently 02/19/2012 09/26/2014 Overview: Preeclampsia labs ordered at [facility]--WNL. 24hr urine protein 0.07 Obesity in 02/19/2012 012 Overview: Early glucola 175- 3hr GTT ordered documented as of this encounter (statuses as of 06/05/2023) Immunizations Name Administration Dates Next Due COVID-19 mRNA, LNP-s, No Pre serve, 2-Dose Series (Moderna) 11/23/2020,10/24/2020 DT - Diptheria/Tetanus (PEDS) 06/24/2009, 006 DTaP Dipth/Tet/Acell Pertussis (Infanrix), Peds 02/27/1996,10/27/1992,02/16/1991,12/21,1990 Diptheria/Tetanus (Adult) 06/24/2009 Hepatitis B, 0-19 yrs 09/12/2003, 003,08/13/2002,07/16 Hepatitis B, 20+ yrs 09/09/2019,02/26/2019,01/22 IPV - Polio Virus Vaccine (Inact) 1995,10/27/1992,1990,11/03 MMR - Measles/Mumps/Rubella Vaccine 08/28,08/11/2017,02/27/1996,12/22 PPD 08/11/2017,08/04/2017 Pneumococcal Conjugate Vacci ne, 20-valent ([id number]) 06/13/2022 Pneumococcal Polysaccharide PPV23 (Pneumovax) 07/28/2018 SEASONAL [...] encounter Miscellaneous Notes * Telephone Encounter - Barb Turcios CRNP - 06/05/2023 8:15 AM ESTSigned Prescriptions: Disp Refills Ozempic (2 MG/DOSE) 8 MG/3ML Subcutaneous *9 mL 6 Sig: INJECT 2MG UNDER THE SKIN ONCE A WEEK Authorizing Provider: BARB TURCIOS * Telephone Encounter - Yvonne De La Torre LPN - 06/05/2023 7:45 AM ESTPending Prescriptions: Disp Refills Ozempic (2 MG/DOSE) 8 MG/3ML Subcutaneous *9 mL 6 Sig: INJECT 2MG UNDER THE SKIN ONCE A WEEK * Telephone Encounter - Yvonne De La Torre LPN - 06/05/2023 7:44 AM EST This medication has been pended for renewal in accordance with our office medication renewal policy.Pending Prescriptions: Disp Refills Ozempic (2 MG/DOSE) 8 MG/3ML Subcutaneous*9 mL 6 Sig: INJECT 2MG UNDER THE SKIN ONCE A WEEK 02/18/2023 (in office), Visit date not found (telemedicine) 06/19/2023 If no future appointments scheduled, and last appointment is greater than a year ago, please schedule patient for a follow-up appointment Last date the medication was ordered: 04/25/2022 Pharmacy: [facility] Labs: Lab Results Component Value Date/Time CREATININE - [facility] 0.8 04/25/2023 09:45 AM CREATININE - [facility] 0.7 06/13/2020 09:49 AM CRE[facility]ININE CLEARANCE [facility] 247 (H) 04/01/2012 08:50 AM CREATININE, 24 HOUR URINE - [facility] 1.194 04/01/2012 08:50 AM CREATININE, RANDOM URINE - [facility] 220 04/06/2023 06:03 PM CREATININE, RANDOM URINE - [facility] 70 08/19/2019 10:48 AM CREATININE-OUTSIDE LAB 0.66 09/17/2020 12:00 AM No components found for: "E G" documented in this encounter Plan of Treatment Upcoming Encounters Date Type Department Care Team (Late st Contact Info) Description 06/19/2023 11:30 AM EST Office Visit Endocrinology, [place] [address] [place] [address] Barb Turcios CRNP [address] [place] [address] 07/01/2023 11:00 AM EST Office Visit Otolaryngology [facility] [address] [place] [address] Rhea Baker MD [address] [place] [address] 07/01/2023 11:00 AM EST Rehab Services Voice Lab [facility] [address] [place] [address] Ton Mcdermott, [facility]-FUNERAL SERVICE LICENSEE [address] [place] [address] 07/02/2023 9:00 AM EST Rehab Services Voice Lab, [facility] [address] Ton Mcdermott, CCC-FUNERAL SERVICE LICENSEE [address] [place] [address] 07/02/2023 9:30 AM EST Appointment Radiology, [facility] [place] [address] 07/11/2023 11:00 AM EST Office Visit Family Practice, [place] [address] [place] [phone] Ashish Vicente MD [address] [place] [address] 02/19/2024 10:00 AM EDT Office Visit Endocrinology, [address] [place] [address] Patricia Coffman MD 03/31/2024 7:40 AM EDT Office Visit Neurology, [place] [address] [place] [address] Serenity Gandara PA-C [address] [place] [address] Health Maintenance Due Date Last Done Comments [...] as of this encounter Visit Diagnoses Diagnosis PCOS (polycystic ovarian syndrome)- Primary Polycystic ovaries Type 2 diabetes mellitus (HCC) Type II or unspecified type diabetes mellitus without mention of complication, not stated as uncontrolled documented in this encounter
--- OUTSIDE RECORDS SUMMARY | 2023-07-18 07:26 | External Medical Summary | Summary of Care ---
Author Name Unknown Organization [facility] Address [address] [place] [address] Phone [phone] Care Team Providers Care Head Grinder Name Role Phone Paradise Martines DO Primary Care Provider [phone] Reason for Visit * Reason Comments Medication Refill Encounter Details Date Type Department Care Team Description 04/05/2023 Refill Family Practice [facility] [address] [place] [address] Emily Gasca DO Dyslipidemia, goal LDL below 100 Allergies No known active allergiesdocumented as of this encounter (statuses as of 04/07/2023) Medications Medication Sig Dispensed Refills Start Date [...] 3 07/12/2022 4 Active OneTouch Delica Plus [id number] USE TO TEST ONCE DAILY 100 Each [...] Nasal Solution (Astelin)Indication s:Chronic rhinitis Administer 1 [place] into nostril in the morning and 1 [place] before bedtime. 30 mL 6 03/25/2023 Active [...] for Cough. 30 Capsule 1 04/05/2023 Active Atorvastatin Calcium 20 MG Oral Tablet (Lipitor)Indication s:Dyslipidemia, goal LDL below 100 TAKE ONE TABLET BY MOUTH EVERY DAY 90 Tablet 1 09/09/2022 3 Discontinu ed(Refill) documented as of this encounter (statuses as of 04/07/2023) Active Problems Problem Noted Date Body mass index (BMI) of 45.0 to 49.9 in adult 10/07/2022 Overview: Per Obesity protocol - bmi= 49.00 01/13/13 Migraine without aura and without status migrainosus, not intractable 05/07/2022 Morbid obesity due to excess calories Iron deficiency anemia due to chronic bl ood loss 07/14/2018 PCOS (polycystic ovarian syndrome) 03/06 Iron deficiency anemia 11/07/2014 Fatty liver 09/15/2014 Anxiety 11/26/2013 Type 2 diabetes mellitus 05/28/2012 Overview: GESTATIONAL DIABETES -. Recommend monitoring blood sugars four times daily with Fasting Blood Sugar (FBS) and 1 hour postprandial measurements, with goal of keeping FBS <90 and 1h PP <140. Patients should report blood sugar levels to [facility] department weekly. - . Dietary consult to be done PANCHO to instruct patient on appropriate nutrition and diet to aid in control of blood sugars. - . If medication is required to control blood sugars, then should have [facility] ultrasound for growth every 4 weeks. [...] as of this encounter (statuses as of 04/07/2023) Resolved Problems Problem Noted Date Resolved Date Major depressive disorder, recurrent episode, mo derate 04/24/2018 04/05/2023 Body mass index (BMI) of 50.0 to 59.9 in adult 1 10/10/2022 Overview: Per Obesity protocol #1 - bmi= 49.00 01/13/13 Obesity, morbid (more than 1 00 lbs over ideal weight or BMI > 40) 01/13/2013 04/03/2017 Overview: bmi= 49.00 01/13/13 Injury of foot, left 01/13/2013 03/06/2017 Contusion of knee, left 01/13/2013 03/06/20 17 Strain of knee and leg, left 01/13/201312/2016 ADVANCE DIRECTIVE INFORMATION 08/17/2012 Overview: No, Advance Directive brochure offered, [...] period. (Consult placed 06/22/12.) Supervision of high-risk of emerita gonsalez igravida 06/11/2012 09/26/2014 Overview: Sign permit for Bt Induction scheduled 09/14 at 39 1/7. Abnormal maternal glucose to lerance, complicating , childbirth, or the puerperium, unspecified as to episode of care 04/03/2012 06/18/2012 Overview: Failed 3hr GTT at 15 weeks. Medical Transcriptionist/educator appt ordered, blood sugar supplies ordered Pt has not gotten MA active thus far (04/23/2012) states info is at MA office. Advised pt to call our office when MA is active so we can set up appt for tattoo designer and she can get supplies at pharmacy. F/u at next visit to ensure this is done. Encounter for supervision of other normal pregna ncy 02/19/2012 06/18/2012 Overview: Urine culture contaminated at [facility], repeat next visit. Urine culture obtained 02/22/12 Ivy Olivas LPN UTI-rx given. KRIS next visit - contam, consider neg ICD-10 update of inactive term Hx of preeclampsia, prior , currently p regnant 02/19/2012 09/26/2014 Overview: Preeclampsia labs ordered at [facility]--WNL. 24hr urine protein 0.07 Obesity in 02/19/2012 06/18/2012 Overview: Early glucola 175- 3hr GTT ordered documented as of this encounter (statuses as of 04/07/2023) Immunizations Name Administration Dates Next Due COVID-19 mRNA, LNP-s, No Pre serve, 2-Dose Series (Moderna) 11/23/2020,10/24/2020 DT - Diptheria/Tetanus (PEDS) 06/24/2009, 006 DTaP Dipth/Tet/Acell Pertussis (Infanrix), Peds 02/27/1996,10/27/1992,02/16/1991,12/21,1990 Diptheria/Tetanus (Adult) 06/24/2009 Hepatitis B, 0-19 yrs 09/12/2003, 003,08/13/2002,07/16 Hepatitis B, 20+ yrs 09/09/2019,02/26/2019,01/22 IPV - Polio Virus Vaccine (Inact) 1995,10/27/1992,1990,11/03 MMR - Measles/Mumps/Rubella Vaccine 08/28,08/11/2017,02/27/1996,12/22 PPD 08/11/2017,08/04/2017 Pneumococcal Conjugate Vacci ne, 20-valent ([id number]) 06/13/2022 Pneumococcal Polysaccharide PPV23 (Pneumovax) 07/28/2018 SEASONAL [...] drink = 0.6 oz pur e alcohol) Food Insecurity Answer Date Recorded Within the past 12 months, y ou worried that your food would run out before you got money to buy more. Never true 08/06/2019 Within the past 12 months, t he food you bought just didn't last and you didn't have money to get more. Never true 08/06/2019 Sex Assigned at Date Recorded Not on file Job Start Date Occupation Industry Not on file Not on file Not on file documented as of this encounter Miscellaneous Notes * Telephone Encounter - Paradise Martines DO - 04/07/2023 1:19 PM EDTSigned Prescriptions: Disp Refills Atorvastatin Calcium 20 MG Oral Tablet (Li*90 Tab*1 Sig: TAKE ONE TABLET BY MOUTH EVERY DAY Authorizing Provider: PARADISE MARTINES * Telephone Encounter - Ross Avila [facility] - 04/06/2023 3:27 PM EDT Pending Prescriptions: Disp Refills Atorvastatin Calcium 20 MG Oral Tablet (Li*90 Tab*1 Sig: TAKE ONE TABLET BY MOUTH EVERY DAY documented in this encounter Plan of Treatment Upcoming Encounters Date Type Specialty Care Team Description 06/26/2023 Appointment Radiology 07/01/2023 Office Visit Otolaryngology Rhea Baker MD [address] [place] [address] 07/01/2023 Rehab Services Otolaryngology Ton Mcdermott, [facility]-HOME VISITS NURSE [address] [place] [address] 02/19/2024 Office Visit Endocrinology Patricia Coffman MD [address] [place] [address] 03/31/2024 Office Visit Neurology Serenity Gandara PA-C [address] [place] [address] Health Maintenance Due Date Last Done Comments HPV/Co-Test 2020 Diabetic Foot Exam 02/01/2021 02/02/2020, 03/09/2019 DIABETES-EYE EXAM 12/18/2022 12/18/2021, 04/06/2020 COVID-19 Vaccine ( season) 2023 11/23/2020, 10/24/2020 Cervical Cancer Screening 04/07/2023 Pap Smear 04/07/2023 04/07/2020, 02/2020, 05/20/2017, Additional history exists Depression Screening 06/11/2023 06/11/2022 HbA1c 08/21/2023 02/18/2023, 03/30, 09/28/2021, Additional history exists GFR 02/19/2024 02/18/2023, 03/30, 09/28/2021, Additional history exists Albumin/Creatinine Ratio 04/06/2024 023, 09/28/2021, 09/07/2020, Additional history exists DTaP,Tdap,and Td Vaccines (11 [...] as of this encounter Visit Diagnoses Diagnosis Dyslipidemia, goal LDL below 100 Other and unspecified hyperlipidemia documented in this encounter Care Teams Head Grinder Relationship Specialty Start Date End Date Paradise Martines, DO [address] [place] [address] PCP - General Family Medicine 02/18/23 documented as of this encounter
--- OUTSIDE RECORDS SUMMARY | 2023-07-18 07:26 | External Medical Summary ---
Author Name Unknown Address Unknown Organization K09:[facility] [place] [address] Laboratory Report Ordering Provider Test Date Status VALENTIN REGALADO 04/25/2023 09:45:28 Final Observation Date Value Abnormality Reference (Units ) Status Creatinine 04/25/2023 09:45:28 0.8 0.5-1.0 (mg/dL) Final Glomerular filtration rate/1.73 sq M.predicted [Volume Rate/Area] in Serum, Plasma or Blood by Creatinine-based formula (CKD-EPI) 04/25/2023 09:45:28 >90 >=60 (mL/min) Final eGFR is calculated based on the CKD-EPI 2020 equation Performing Location [facility] [address]
--- OUTSIDE RECORDS SUMMARY | 2023-07-18 07:26 | External Medical Summary | Summary of Care ---
Author Name Unknown Organization [facility] Address [address] [place] [address] Phone [phone] Care Team Providers Care Brand Activation Manager Name Role Phone Unavailable Primary Care Provider Unavailabl e Reason for Visit * Reason Comments Dosage Adjustment Via Phone (anticoag Cl inic) Encounter Details Date Type Department Care Team (Late st Contact Info) Description 05/02/2023 7:30 AM EDT Pharmacy Neurology, [place] [address] [place] [address] [place], Pharmacist Neurology [address] [place] [address] Encounter for long-term current use of medication* Allergies No known active allergiesdocumented as of this encounter (statuses as of 05/02/2023) Medications Medication Sig Dispensed Refills Start Date [...] 3 07/12/2022 4 Active OneTouch Delica Plus [id number] USE TO TEST ONCE DAILY 100 Each [...] Nasal Solution (Astelin)Indications :Chronic rhinitis Administer 1 Baxley into nostril in the morning and 1 Baxley before bedtime. 30 mL 6 03/25/2023 Active Atorvastatin Calcium 20 MG Oral Tablet (Lipitor)Indications :Dyslipidemia, goal LDL below 100 TAKE ONE TABLET BY MOUTH EVERY DAY 90 Tablet 1 04/07/2023 4 Active Benzonatate 100 MG Oral Capsule Take 1 Capsule by mouth 3 times a day as needed for Cough. 30 Capsule 1 04/05/2023 Active documented as of this encounter (statuses as of 05/02/2023) Active Problems Problem Noted Date Diagnosed Date [...] Patients should report blood sugar levels to [facility] department weekly. - . Dietary consult to be done PANCHO to instruct patient on appropriate nutrition and diet to aid in control of blood sugars. - . If medication is required to control blood sugars, then should have [facility] ultrasound for growth every 4 weeks. [...] as of this encounter (statuses as of 05/02/2023) Resolved Problems Problem Noted Date Diagnosed Date [...] baseline pre-eclamptic labs - wnl 4. Recommend [facility] ultrasound for anatomy screen at 20 [...] Overview: Failed 3hr GTT at 15 weeks. Sales Administration Specialist/educator appt ordered, blood sugar supplies ordered Pt has not gotten MA active thus far (04/23/2012) states info is at MA office. Advised pt to call our office when MA is active so we can set up appt for primary care coordinator and she can get supplies at pharmacy. F/u at next visit to ensure this is done. Encounter for supervision of other normal 02/19/2012 06/18/2012 Overview: Urine culture contaminated at [facility], repeat next visit. Urine culture obtained 02/22/12 Ivy Olivas LPN UTI-rx given. KRIS next visit - contam, consider neg ICD-10 update of inactive term Hx of preeclampsia, prior pr egnancy, currently 02/19/2012 09/26/2014 Overview: Preeclampsia labs ordered at [facility]--WNL. 24hr urine protein 0.07 Obesity in 02/19/2012 012 Overview: Early glucola 175- 3hr GTT ordered documented as of this encounter (statuses as of 05/02/2023) Immunizations Name Administration Dates Next Due COVID-19 mRNA, LNP-s, No Pre serve, 2-Dose Series (Moderna) 11/23/2020,10/24/2020 DT - Diptheria/Tetanus (PEDS) 06/24/2009, 006 DTaP Dipth/Tet/Acell Pertussis (Infanrix), Peds 02/27/1996,10/27/1992,02/16/1991,12/21,1990 Diptheria/Tetanus (Adult) 06/24/2009 Hepatitis B, 0-19 yrs 09/12/2003, 003,08/13/2002,07/16 Hepatitis B, 20+ yrs 09/09/2019,02/26/2019,01/22 IPV - Polio Virus Vaccine (Inact) 1995,10/27/1992,1990,11/03 MMR - Measles/Mumps/Rubella Vaccine 08/28,08/11/2017,02/27/1996,12/22 PPD 08/11/2017,08/04/2017 Pneumococcal Conjugate Vacci ne, 20-valent ([id number]) 06/13/2022 Pneumococcal Polysaccharide PPV23 (Pneumovax) 07/28/2018 SEASONAL [...] as of this encounter Progress Notes * Angelika Mcelroy, PHARM Student - 05/02/2023 10:23 AM EDT Attempt 2 documented in this encounter Plan of Treatment Upcoming Encounters Date Type Department Care Team (Late st Contact Info) Description 05/05/2023 7:30 AM EST Pharmacy Neurology, [place] [address] [place] [phone] [place], Pharmacist Neurology [address] [place] [address] 06/26/2023 9:30 AM EST Hospital Encounter Radiology, [address] [phone] 07/01/2023 11:00 AM EST Office Visit Otolaryngology [facility] [address] [facility] [place] [address] Rhea Baker MD 132 [facility] [place] [address] 07/01/2023 11:00 AM EST Rehab Services Voice Lab [facility] [address] [facility] [place] [address] Ton Mcdermott, [facility]-INSTRUMENTATION CHEMIST 132 [place] [address] 07/11/2023 11:00 AM EST Office Visit Family [facility] [place] [address] [place] [phone] Ashish Vicente MD 21 [facility] [place] [address] 02/19/2024 10:00 AM EDT Office Visit Endocrinology, [place] [address] [place] [facility] [place] [address] Patricia Coffman MD [address] [place] [facility] [place] [address] 03/31/2024 7:40 AM EDT [facility] [address] [place] [phone] Serenity Gandara PA-C [address] [place] [address] Health Maintenance Due Date Last Done Comments [...] as of this encounter Visit Diagnoses Diagnosis Encounter for long-term current use of medication- Primary documented in this encounter
--- OUTSIDE RECORDS SUMMARY | 2023-07-18 07:26 | External Medical Summary | Summary of Care ---
Author Name Unknown Organization [facility] Address [address] [place] [address] Phone [phone] Care Team Providers Care Hot Wort Settler Name Role Phone LibradoBerkley Digna PENALOZA Primary Care Provider [phone] Reason for Visit * Reason Onset Date Comments Cough Cough for 5 week s Medication Administration 04/05/2023 Flu an d/or Pneumo Inj Encounter Details Date Type Department Care Team Description 04/05/2023 Office Visit [facility] 21 [facility] [place] [address] Ramiro Carcamo MD [address] [facility] [place] [id number] Chronic cough*; Type 2 diabetes mellitus with other specified complication, without long-term current use of insulin (HCC); Need for prophylactic vaccination and inoculation against influenza Allergies No known active allergiesdocumented as of this encounter (statuses as of 04/06/2023) Medications Medication Sig Dispensed Refills Start Date End Date Status Multiple Vitamins-Minerals (WOMENS MULTI VITAMIN & MINERAL) TABS Take 1 Tablet by mouth in the morning. 0 Active fitmobio IQ System w/Device Kit Test once a day e 1165 1 Kit 1 02/02/2021 Active TRADE TO REBATEuch Verio In Vitro Strip (Glucose Blood) Test [...] Additional Information Patient not taking.Reported on 04/05/2023 Atorvastatin Calcium 20 MG Oral Tablet (Lipitor)Indications :Dyslipidemia, goal LDL below 100 TAKE ONE TABLET BY MOUTH EVERY DAY 90 Tablet 1 09/09/2022 4 Active Topiramate 50 MG Oral Tablet (topAMAX) TAKE TWO TABLETS BY MOUTH AT BEDTIME 180 Tablet 3 07/12/2022 4 Active OneTouch Delica Plus [id number] USE TO TEST ONCE DAILY 100 Each [...] Nasal Solution (Astelin)Indications :Chronic rhinitis Administer 1 Ruthven into nostril in the morning and 1 Ruthven before bedtime. 30 mL 6 03/25/2023 Active Omeprazole 20 MG Oral Capsule Delayed Release (PriLOSEC) Take 1 Capsule by mouth in the morning for 20 days. 1 hour before the first meal of the day. 20 Capsule 0 04/05/2023 Active Benzonatate 100 MG Oral Capsule Take 1 Capsule by mouth 3 times a day as needed for Cough. 30 Capsule 1 04/05/2023 Active documented as of this encounter (statuses as of 04/06/2023) Active Problems Problem Noted Date Body mass [...] Patients should report blood sugar levels to [facility] department weekly. - . Dietary consult to be done PANCHO to instruct patient on appropriate nutrition and diet to aid in control of blood sugars. - . If medication is required to control blood sugars, then should have [facility] ultrasound for growth every 4 weeks. [...] as of this encounter (statuses as of 04/06/2023) Resolved Problems Problem Noted Date Resolved Date [...] Overview: Failed 3hr GTT at 15 weeks. Jointer Machine Operator/educator appt ordered, blood sugar supplies ordered Pt has not gotten MA active thus far (04/23/2012) states info is at MA office. Advised pt to call our office when MA is active so we can set up appt for finisher card tender and she can get supplies at pharmacy. F/u at next visit to ensure this is done. Encounter for supervision of other normal pregna ncy 02/19/2012 06/18/2012 Overview: Urine culture contaminated at [facility], repeat next visit. Urine culture obtained 02/22/12 Ivy Olivas, SPEECH COMMUNICATION INSTRUCTOR UTI-rx given. KRIS next visit - contam, consider neg ICD-10 update of inactive term Hx of preeclampsia, prior , currently p regnant 02/19/2012 09/26/2014 Overview: Preeclampsia labs ordered at [facility]--WNL. 24hr urine protein 0.07 Obesity in 02/19/2012 06/18/2012 Overview: Early glucola 175- 3hr GTT ordered documented as of this encounter (statuses as of 04/06/2023) Immunizations Name Administration Dates Next Due COVID-19 mRNA, LNP-s, No Pre serve, 2-Dose Series (Moderna) 11/23/2020,10/24/2020 DT - Diptheria/Tetanus (PEDS) 06/24/2009, 006 DTaP Dipth/Tet/Acell Pertussis (Infanrix), Peds 02/27/1996,10/27/1992,02/16/1991,12/21,1990 Diptheria/Tetanus (Adult) 06/24/2009 Hepatitis B, 0-19 yrs 09/12/2003, 003,08/13/2002,07/16 Hepatitis B, 20+ yrs 09/09/2019,02/26/2019,01/22 IPV - Polio Virus Vaccine (Inact) 1995,10/27/1992,1990,11/03 MMR - Measles/Mumps/Rubella Vaccine 08/28,08/11/2017,02/27/1996,12/22 PPD 08/11/2017,08/04/2017 Pneumococcal Conjugate Vacci ne, 20-valent ([id number]) 06/13/2022 Pneumococcal Polysaccharide PPV23 (Pneumovax) 07/28/2018 SEASONAL [...] Sign Reading Time Taken Comments Blood Pressure 124/84 04/05/2023 3:13 PM EDT Pulse 78 04/05/2023 3:13 PM EDT Temperature 36.2 C (97.2 F) 04/05/2023 3:13 PM ED T Respiratory Rate - - Oxygen Saturation 98% 04/05/2023 3:13 PM EDT Inhaled Oxygen Concentration - - Weight 129.5 kg (285 lb 9.6 oz) 04/05/2023 3:13 PM EDT Height - - Body Mass Index 48.28 03/25/2023 1:13 PM EDT documented in this encounter Progress Notes * Renetta Mattson LPN - 04/05/2023 3:32 PM EDT PRE - ADMINISTRATION DOCUMENTATION Are you experiencing any cold symptoms or fever? No Have you had Guillain-[place] Syndrome (an illness that causes paralysis) within the last 6 weeks? No Have you had the flu shot in the past? YES Have you ever had a reaction to the flu shot? No Renetta Mattson LPN, 04/05/2023 3:32 PM Immunization Administration Documentation Time Out Procedure Performed: Yes Patient Identified (Ask Name/Date of ): Yes Does the patient have a fever greater than 101 degrees today? No Patient allergic to latex? No VFC Stock: No Immunization(s) verified: Yes, Immunization Name: Flu, VIS Sheet(s) given: Yes Verified Side and Site: Yes Verified Shot(s) with Parent(s)/Patient: Yes * Ramiro Carcamo MD - 04/05/2023 3:19 PM EDT Subjective Yvonne Johansen is a 32 year old year old female who presents for Cough (Cough for 5 weeks ) Cough 5 weeks ago Its a dry cough Gets hoarse when she coughs all day Has been taking azelastine BID, Albuterol inhaler Has not made a difference Has completed steroids and antibiotics 2 weeks ago Home covid negative Seeing ENT- They recommeded a video swallow Cough has been ongoing since US of neck- jhoarse since ENT note rom 03/22 "Nasopharynx was visualized and was without masses or lesions. Fiberoptic examination revealed no mass lesions. Vocal cord mobility was normal without paralysis or paresis. There was no significant edema or erythema of the larynx. Lingual tonsil hypertrophy. No vocal cord masses were visualized. Exam was negative for post cricoid or pyriform sinuses lesions. " Objective Filed Vitals: 04/05/23 1513 BP: 124/84 Pulse: 78 Temp: 36.2 C (97.2 F) TempSrc: Tympanic SpO2: 98% Weight: 129.5 kg (285 lb 9.6 oz) Physical Exam Physical Exam HENT: Right Ear: Tympanic membrane, ear canal and external ear normal. There is no impacted cerumen. Left Ear: Tympanic membrane, ear canal and external ear normal. There is no impacted cerumen. Nose: Nose normal. No congestion or rhinorrhea. Mouth/Throat: Mouth: Mucous membranes are moist. Pulmonary: Effort: Pulmonary effort is normal. No respiratory distress. Breath sounds: Normal breath sounds. No stridor. No wheezing, rhonchi or rales. Chest: Chest wall: No tenderness. CMP, Lipid Panel, and Hemoglobin A1C Assessment and plan Chronic cough (Primary) Multiple possible differential-mass effect from thyroid swelling-upper respiratory symptoms-post viral cough-Gastroesophageal Reflux Disease Patient has already completed antibiotics and steroids and I do not see the value in further exposure to these medicines For right now we will do conservative care and will do a short trial of omeprazole for 2 weeks to see if it makes a difference Will do some Tessalon Perles for suppression of the cough reflex Will check in with patient in 2 weeks and if no improvement will get a chest x-ray Multiple individuals in the family with cancer Patient is in agreement with this plan Physical exam was completely normal Type 2 diabetes mellitus with other specified complication, without long-term current use of insulin (HCC) - ALBUMIN / CREATININE RATIO, URINE; Future; Expected date: 04/05/2023 Need for prophylactic vaccination and inoculation against influenza - INFLUENZA VACC, QUAD, PF, 6 MONTHS & UP, 0.5 ML, IM Other orders - Omeprazole 20 MG Oral Capsule Delayed Release (PriLOSEC); Take 1 Capsule by mouth in the morning for 20 days. 1 hour before the first meal of the day. - Benzonatate 100 MG Oral Capsule; Take 1 Capsule by mouth 3 times a day as needed for Cough. Check-out note: Video swallow ordered by ENT Follow up Total time today including reviewing chart before the visit, pertinent labs, imaging reports, face to face time, and documentation time was 25 minutes. The above was discussed and understanding was expressed. The patient agrees with the plan. Ramiro Carcamo MD This note may have been completed in part utilizing [employer] Speech Voice Recognition Software. Due to technical limitations of the software, Grammatical errors, random word insertions, prounoun errors, and incomplete sentences are an occasional consequence of this system due to software limitations, ambient noise, and hardware issues. Any formal questions or concerns about the content, text, or information contained within the body of this dictation should be directly addressed to the provider for clarification. documented in this encounter Nursing Notes * Sherrill Hill LPN - 04/05/2023 3:13 PM EDT Chief Complaint Patient presents with Cough Cough for 5 weeks documented in this encounter Miscellaneous Notes * Addendum Note - SACHI Gonsalez - 04/06/2023 6:02 PM EDTAddended by: EVA PARSON on: 04/06/2023 06:02 PM Modules accepted: Orders documented in this encounter Plan of Treatment Upcoming Encounters Date Type Specialty Care Team Description 06/26/2023 Appointment Radiology 07/01/2023 Office Visit Otolaryngology Rhea Baker MD [address] [place] [address] 07/01/2023 Rehab Services Otolaryngology Ton Mcdermott, [facility]-LOCOMOTIVE MECHANIC [address] [place] [address] 02/19/2024 Office Visit Endocrinology Patricia Coffman MD [address] [facility] [place] [address] 03/31/2024 Office Visit Neurology Serenity Gandara PA-C [address] [place] [address] Pending Results Name Type Priority Associated Diagnoses Date /Time ALBUMIN / CREATININE RATIO, URINE Lab Routine Type 2 diabetes mellitus with other specified complication, without long-term current use of insulin (HCC) 04/06/2023 6:03 PM EDT Health Maintenance Due Date Last Done Comments HPV/Co-Test 2020 Diabetic Foot Exam 02/01/2021 02/02/2020, 03/09/2019 Albumin/Creatinine Ratio 09/28/2022 022, 09/07/2020, 08/19/2019 DIABETES-EYE EXAM 12/18/2022 12/18/2021, 04/06/2020 COVID-19 Vaccine ( season) 2023 11/23/2020, 10/24/2020 Cervical Cancer Screening 04/07/2023 Pap Smear 04/07/2023 04/07/2020, 02/2020, 05/20/2017, Additional history exists Depression Screening 06/11/2023 06/11/2022 HbA1c 08/21/2023 02/18/2023, 03/30, 09/28/2021, Additional history exists GFR 02/19/2024 02/18/2023, 03/30, 09/28/2021, Additional history exists DTaP,Tdap,and Td Vaccines (11 [...] as of this encounter Visit Diagnoses Diagnosis Chronic cough- Primary Cough Type 2 diabetes mellitus with other specified complication, without long-term current use of insulin (HCC) Need for prophylactic vaccination and inoculation against influenza documented in this encounter Care Teams Hot Wort Settler Relationship Specialty Start Date End Date Berkley Pavon, DO [address] [place] [address] PCP - General Family Medicine 02/18/23 documented as of this encounter
--- OUTSIDE RECORDS SUMMARY | 2023-07-18 07:26 | External Medical Summary | Summary of Care ---
Author Name Unknown Organization [facility] Address [address] [place] [address] Phone [phone] Care Team Providers Care Powertrain Engineer Name Role Phone Unavailable Primary Care Provider Unavailabl e Reason for Visit * Reason Comments Outpatient Testing Encounter Details Date Type Department Care Team (Late st Contact Info) Description 04/25/2023 9:40 AM EDT Laboratory Laboratory [facility] [address] [place] [phone] [place], [address] [place] [address] Goiter; Multinodular goiter Allergies No known active allergiesdocumented as of this encounter (statuses as of 04/25/2023) Medications Medication Sig Dispensed Refills Start Date [...] 3 07/12/2022 4 Active OneTouch Delica Plus [id number] USE TO TEST ONCE DAILY 100 Each [...] Nasal Solution (Astelin)Indications :Chronic rhinitis Administer 1 Hilbert into nostril in the morning and 1 Hilbert before bedtime. 30 mL 6 03/25/2023 Active [...] as of this encounter (statuses as of 04/25/2023) Active Problems Problem Noted Date Diagnosed Date [...] Patients should report blood sugar levels to [facility] department weekly. - . Dietary consult to be done PANCHO to instruct patient on appropriate nutrition and diet to aid in control of blood sugars. - . If medication is required to control blood sugars, then should have [facility] ultrasound for growth every 4 weeks. [...] as of this encounter (statuses as of 04/25/2023) Resolved Problems Problem Noted Date Diagnosed Date [...] Overview: Failed 3hr GTT at 15 weeks. Benchroom Shop Optician/educator appt ordered, blood sugar supplies ordered Pt has not gotten MA active thus far (04/23/2012) states info is at MA office. Advised pt to call our office when MA is active so we can set up appt for mechanical assembly and she can get supplies at pharmacy. F/u at next visit to ensure this is done. Encounter for supervision of other normal 02/19/2012 06/18/2012 Overview: Urine culture contaminated at [facility], repeat next visit. Urine culture obtained 02/22/12 Ivy Olivas LPN UTI-rx given. KRIS next visit - contam, consider neg ICD-10 update of inactive term Hx of preeclampsia, prior pr egnancy, currently 02/19/2012 09/26/2014 Overview: Preeclampsia labs ordered at [facility]--WNL. 24hr urine protein 0.07 Obesity in 02/19/2012 012 Overview: Early glucola 175- 3hr GTT ordered documented as of this encounter (statuses as of 04/25/2023) Immunizations Name Administration Dates Next Due COVID-19 mRNA, LNP-s, No Pre serve, 2-Dose Series (Moderna) 11/23/2020,10/24/2020 DT - Diptheria/Tetanus (PEDS) 06/24/2009, 006 DTaP Dipth/Tet/Acell Pertussis (Infanrix), Peds 02/27/1996,10/27/1992,02/16/1991,12/21,1990 Diptheria/Tetanus (Adult) 06/24/2009 Hepatitis B, 0-19 yrs 09/12/2003, 003,08/13/2002,07/16 Hepatitis B, 20+ yrs 09/09/2019,02/26/2019,01/22 IPV - Polio Virus Vaccine (Inact) 1995,10/27/1992,1990,11/03 MMR - Measles/Mumps/Rubella Vaccine 08/28,08/11/2017,02/27/1996,12/22 PPD 08/11/2017,08/04/2017 Pneumococcal Conjugate Vacci ne, 20-valent ([id number]) 06/13/2022 Pneumococcal Polysaccharide PPV23 (Pneumovax) 07/28/2018 SEASONAL [...] Care Team (Late st Contact Info) Description 04/26/2023 10:00 AM EDT Hospital Encounter Radiology, [facility] [address] [facility] [place] [address] 06/26/2023 9:30 AM EST Appointment Radiology, [facility] [address] [facility] [place] [phone] 07/01/2023 11:00 AM EST Office Visit Otolaryngology [facility] [address] [facility] [place] [address] Rhea Baker MD 132 [facility] [place] [address] 07/01/2023 11:00 AM EST Rehab Services Voice Lab [facility] [address] [facility] [place] [address] [facility] REPORT[facility] CONSULTANT [address] [facility] [place] [address] 07/11/2023 11:00 AM EST Office Visit Family [facility] [place] [address] [place] [phone] Ashish Vicente MD 21 [facility] [place] [address] 02/19/2024 10:00 AM EDT Office Visit Endocrinology, [place] [address] [place] [address] Patricia Coffman MD [address] [place] [address] 03/31/2024 7:40 AM EDT Office Visit Neurology, [place] [address] [place] [address] Serenity Gandara PA-C [address] [facility] [place] [address] Pending Results Name Type Priority Associated Diagnoses Date /Time CREATININE Lab Routine Goiter Multinodular goiter 04/25/2023 9:45 AM EDT Health Maintenance Due Date Last Done [...] as of this encounter Visit Diagnoses Diagnosis Goiter Goiter, unspecified Multinodular goiter Nontoxic multinodular goiter documented in this encounter
--- OUTSIDE RECORDS SUMMARY | 2023-07-18 07:26 | External Medical Summary | Summary of Care ---
Author Name Unknown Organization [facility] Address [address] [place] [address] Phone [phone] Care Team Providers Care Pharmacy Technician Per Diem Name Role Phone Unavailable Primary Care Provider Unavailabl e Reason for Visit * Reason Comments Dosage Adjustment Via Phone (anticoag Cl inic) Encounter Details Date Type Department Care Team (Late st Contact Info) Description 05/05/2023 7:30 AM [facility] Pharmacy Neurology, [place] [address] [place] [address] [place], Pharmacist Neurology [address] [place] [address] Encounter for long-term current use of medication* Allergies No known active allergiesdocumented as of this encounter (statuses as of 05/05/2023) Medications Medication Sig Dispensed Refills Start Date [...] 3 07/12/2022 4 Active OneTouch Delica Plus [id number] USE TO TEST ONCE DAILY 100 Each [...] Nasal Solution (Astelin)Indications :Chronic rhinitis Administer 1 [place] into nostril in the morning and 1 [place] before bedtime. 30 mL 6 03/25/2023 Active Atorvastatin Calcium 20 MG Oral Tablet (Lipitor)Indications :Dyslipidemia, goal LDL below 100 TAKE ONE TABLET BY MOUTH EVERY DAY 90 Tablet 1 04/07/2023 4 Active Benzonatate 100 MG Oral Capsule Take 1 Capsule by mouth 3 times a day as needed for Cough. 30 Capsule 1 04/05/2023 Active documented as of this encounter (statuses as of 05/05/2023) Active Problems Problem Noted Date Diagnosed Date [...] Patients should report blood sugar levels to [facility] department weekly. - . Dietary consult to be done PANCHO to instruct patient on appropriate nutrition and diet to aid in control of blood sugars. - . If medication is required to control blood sugars, then should have [facility] ultrasound for growth every 4 weeks. . [...] as of this encounter (statuses as of 05/05/2023) Resolved Problems Problem Noted Date Diagnosed Date [...] baseline pre-eclamptic labs - wnl 4. Recommend [facility] ultrasound for anatomy screen at 20 weeks [...] Overview: Failed 3hr GTT at 15 weeks. Logistics And Planning Manager/educator appt ordered, blood sugar supplies ordered Pt has not gotten MA active thus far (04/23/2012) states info is at MA office. Advised pt to call our office when MA is active so we can set up appt for rivet maker and she can get supplies at pharmacy. [...] as of this encounter (statuses as of 05/05/2023) Immunizations Name Administration Dates Next Due COVID-19 mRNA, LNP-s, No Pre serve, 2-Dose Series (Moderna) 11/23/2020,10/24/2020 DT - Diptheria/Tetanus (PEDS) 06/24/2009, 006 DTaP Dipth/Tet/Acell Pertussis (Infanrix), Peds 02/27/1996,10/27/1992,02/16/1991,12/21,1990 Diptheria/Tetanus (Adult) 06/24/2009 Hepatitis B, 0-19 yrs 09/12/2003, 003,08/13/2002,07/16 Hepatitis B, 20+ yrs 09/09/2019,02/26/2019,01/22 IPV - Polio Virus Vaccine (Inact) 1995,10/27/1992,1990,11/03 MMR - Measles/Mumps/Rubella Vaccine 08/28,08/11/2017,02/27/1996,12/22 PPD 08/11/2017,08/04/2017 Pneumococcal Conjugate Vacci ne, 20-valent ([id number]) 06/13/2022 Pneumococcal Polysaccharide PPV23 (Pneumovax) 07/28/2018 SEASONAL [...] Notes * Angelika Mcelroy, PHARM Student - 05/05/2023 9:44 AM EST Attempt 3 documented in this encounter Plan of Treatment Upcoming Encounters Date Type Department Care Team (Late st Contact Info) Description 06/26/2023 9:30 AM EST Hospital Encounter Radiology, [facility] [address] [facility] [place] [phone] 07/01/2023 11:00 AM EST Office Visit Otolaryngology [facility] [address] [facility] [place] [address] Rhea Baker MD 132 [facility] [place] [address] 07/01/2023 11:00 AM EST Rehab Services Voice Lab [facility] [address] [place] [address] Ton Mcdermott, [facility] [address] [facility] [place] [address] 07/11/2023 11:00 AM EST Office Visit Family Practice, [place] [address] [place] [phone] Ashish Vicente MD 21 [place] [address] 02/19/2024 10:00 AM EDT Office Visit Endocrinology, [place] [address] [place], [place] [phone] Patricia Coffman MD [address] [place] [address] 03/31/2024 7:40 AM EDT Office Visit Neurology, [place] [address] [place] [address] Serenity Gandara PA-C [address] [place] [address] Health Maintenance Due Date Last Done Comments [...]
--- OUTSIDE RECORDS SUMMARY | 2023-07-18 07:26 | External Medical Summary | Summary of Care ---
Author Name Unknown Organization [facility] Address [address] [place] [address] Phone [phone] Care Team Providers Care Snuff Grinder Name Role Phone Unavailable Primary Care Provider Unavailabl e Reason for Visit * Reason Comments Dosage Adjustment Via Phone (anticoag Cl inic) Encounter Details Date Type Department Care Team (Late st Contact Info) Description 05/01/2023 7:30 AM EDT Pharmacy Neurology, [place] [address] [place] [address] [place], Pharmacist Neurology [address] [place] [address] Migraine without aura and without status migrainosus, not intractable* Allergies No known active allergiesdocumented as of this encounter (statuses as of 05/01/2023) Medications Medication Sig Dispensed Refills Start Date End Date Status Multiple Vitamins-Minerals (WOMENS MULTI VITAMIN & MINERAL) TABS Take 1 Tablet by mouth in the morning. 0 Active PureForgeTouch Verio IQ System w/Device Kit Test once [...] 3 07/12/2022 4 Active OneTouch Delica Plus [id number] USE TO TEST ONCE DAILY 100 Each [...] Nasal Solution (Astelin)Indications :Chronic rhinitis Administer 1 [place] into nostril in the morning and 1 [place] before bedtime. 30 mL 6 03/25/2023 Active Atorvastatin Calcium 20 MG Oral Tablet (Lipitor)Indications :Dyslipidemia, goal LDL below 100 TAKE ONE TABLET BY MOUTH EVERY DAY 90 Tablet 1 04/07/2023 4 Active Benzonatate 100 MG Oral Capsule Take 1 Capsule by mouth 3 times a day as needed for Cough. 30 Capsule 1 04/05/2023 Active documented as of this encounter (statuses as of 05/01/2023) Active Problems Problem Noted Date Diagnosed Date [...] Patients should report blood sugar levels to [facility] department weekly. - . Dietary consult to be done PANCHO to instruct patient on appropriate nutrition and diet to aid in control of blood sugars. - . If medication is required to control blood sugars, then should have [facility] ultrasound for growth every 4 weeks. [...] as of this encounter (statuses as of 05/01/2023) Resolved Problems Problem Noted Date Diagnosed Date [...] Overview: Failed 3hr GTT at 15 weeks. Applications Administrator/educator appt ordered, blood sugar supplies ordered Pt has not gotten MA active thus far (04/23/2012) states info is at MA office. Advised pt to call our office when MA is active so we can set up appt for parts product analyst and she can get supplies at pharmacy. F/u at next visit to ensure this is done. Encounter for supervision of other normal 02/19/2012 06/18/2012 Overview: Urine culture contaminated at [facility], repeat next visit. Urine culture obtained 02/22/12 Ivy Olivas LPN UTI-rx given. KRIS next visit - contam, consider neg ICD-10 update of inactive term Hx of preeclampsia, prior pr egnancy, currently 02/19/2012 09/26/2014 Overview: Preeclampsia labs ordered at [facility]--WNL. 24hr urine protein 0.07 Obesity in 02/19/2012 012 Overview: Early glucola 175- 3hr GTT ordered documented as of this encounter (statuses as of 05/01/2023) Immunizations Name Administration Dates Next Due COVID-19 mRNA, LNP-s, No Pre serve, 2-Dose Series (Moderna) 11/23/2020,10/24/2020 DT - Diptheria/Tetanus (PEDS) 06/24/2009, 006 DTaP Dipth/Tet/Acell Pertussis (Infanrix), Peds 02/27/1996,10/27/1992,02/16/1991,12/21,1990 Diptheria/Tetanus (Adult) 06/24/2009 Hepatitis B, 0-19 yrs 09/12/2003, 003,08/13/2002,07/16 Hepatitis B, 20+ yrs 09/09/2019,02/26/2019,01/22 IPV - Polio Virus Vaccine (Inact) 1995,10/27/1992,1990,11/03 MMR - Measles/Mumps/Rubella Vaccine 08/28,08/11/2017,02/27/1996,12/22 PPD 08/11/2017,08/04/2017 Pneumococcal Conjugate Vacci ne, 20-valent ([id number]) 06/13/2022 Pneumococcal Polysaccharide PPV23 (Pneumovax) 07/28/2018 SEASONAL [...] Notes * Angelika Mcelroy, PHARM Student - 05/01/2023 11:34 AM EDT Attempt 1 documented in this encounter Plan of Treatment Upcoming Encounters Date Type Department Care Team (Late st Contact Info) Description 05/02/2023 7:30 AM EDT Pharmacy Neurology, [place] [address] [place] [phone] [place], Pharmacist Neurology [address] [place] [address] 06/26/2023 9:30 AM EST Appointment Radiology, [address] [phone] 07/01/2023 11:00 AM EST Office Visit Otolaryngology [facility] [address] [facility] [place] [address] Rhea Baker MD 132 [facility] [place] [address] 07/01/2023 11:00 AM EST Rehab Services Voice Lab [facility] 132 [facility] [place] [address] Ton Mcdermott, [facility] 132 [place] [address] 07/11/2023 11:00 AM EST Office Visit Family [facility] [address] [place] [phone] Ashish Vicente MD [address] [place] [address] 02/19/2024 10:00 AM EDT Office Visit Endocrinology, [place] [address] [facility] [place] [address] Patricia Coffman MD [address] [place] [facility] [place] [address] 03/31/2024 7:40 AM EDT Office Visit Neurology [place] [address] [place] [address] Serenity Gandara PA-C [address] [place] [address] Health Maintenance Due Date Last Done Comments [...] as of this encounter Visit Diagnoses Diagnosis Migraine without aura and without status migrainosus, not intractable- Primary Migraine without aura, without mention of intractable migraine without mention of status migrainosus documented in this encounter
--- OUTSIDE RECORDS SUMMARY | 2023-07-18 07:26 | External Medical Summary | Summary of Care ---
Author Name Unknown Organization [facility] Address [address] [place] [address] Phone [phone] Care Team Providers Care Mixer Crane Operator Name Role Phone Unavailable Primary Care Provider Unavailabl e Reason for Visit * Precert (Within 10 days (routine)) - Pending Review Specialty Diagnoses / Procedures Referred By Laurie arana Referred To Contact Radiology Diagnoses Goiter Multinodular goiter Procedures CT NECK W CONTRAST Patricia Coffman MD [address] [place] [address] Referral ID Status Reason Start Date Expiration Date V isits Requested Visits Authorized [id number] Pending Review 04/23/2023 [id number] Encounter Details Date Type Department Care Team (Latest Contact Info) Description 04/26/2023 9:59 AM EDT - 04/26/2023 11:59 PM EDT Hospital Encounter Radiology, [address] [address] Arrived Discharge Disposition: Home - Self Care Allergies No known active allergiesdocumented as of this encounter (statuses as of 04/27/2023) Medications Medication Sig Dispensed Refills Start Date End Date Status Multiple Vitamins-Minerals (WOMENS MULTI VITAMIN & MINERAL) TABS Take 1 Tablet by mouth in the morning. 0 Active Asl AnalyticalToOpenCurriculumio IQ System w/Device Kit Test once a [...] 3 07/12/2022 4 Active OneTouch Delica Plus [id number] USE TO TEST ONCE DAILY 100 Each [...] Nasal Solution (Astelin)Indications :Chronic rhinitis Administer 1 [place] into nostril in the morning and 1 [place] before bedtime. 30 mL 6 03/25/2023 Active Atorvastatin Calcium 20 MG Oral Tablet (Lipitor)Indications :Dyslipidemia, goal LDL below 100 TAKE ONE TABLET BY MOUTH EVERY DAY 90 Tablet 1 04/07/2023 Active Benzonatate 100 MG Oral Capsule Take 1 Capsule by mouth 3 times a day as needed for Cough. 30 Capsule 1 04/05/2023 Active documented as of this encounter (statuses as of 04/27/2023) Active Problems Problem Noted Date Diagnosed Date [...] Patients should report blood sugar levels to [facility] department weekly. - . Dietary consult to be done PANCHO to instruct patient on appropriate nutrition and diet to aid in control of blood sugars. - . If medication is required to control blood sugars, then should have [facility] ultrasound for growth every 4 weeks. [...] as of this encounter (statuses as of 04/27/2023) Resolved Problems Problem Noted Date Diagnosed Date [...] baseline pre-eclamptic labs - wnl 4. Recommend [facility] ultrasound for anatomy screen at 20 [...] Overview: Failed 3hr GTT at 15 weeks. Make Up Operator/educator appt ordered, blood sugar supplies ordered Pt has not gotten MA active thus far (04/23/2012) states info is at MA office. Advised pt to call our office when MA is active so we can set up appt for valuation manager and she can get supplies at pharmacy. F/u at next visit to ensure this is done. Encounter for supervision of other normal 02/19/2012 06/18/2012 Overview: Urine culture contaminated at [facility], repeat next visit. Urine culture obtained 02/22/12 Ivy Olivas LPN UTI-rx given. KRIS next visit - contam, consider neg ICD-10 update of inactive term Hx of preeclampsia, prior pr egnancy, currently 02/19/2012 09/26/2014 Overview: Preeclampsia labs ordered at [facility]--WNL. 24hr urine protein 0.07 Obesity in 02/19/2012 012 Overview: Early glucola 175- 3hr GTT ordered documented as of this encounter (statuses as of 04/27/2023) Immunizations Name Administration Dates Next Due COVID-19 mRNA, LNP-s, No Pre serve, 2-Dose Series (Moderna) 11/23/2020,10/24/2020 DT - Diptheria/Tetanus (PEDS) 06/24/2009, 006 DTaP Dipth/Tet/Acell Pertussis (Infanrix), Peds 02/27/1996,10/27/1992,02/16/1991,12/21,1990 Diptheria/Tetanus (Adult) 06/24/2009 Hepatitis B, 0-19 yrs 09/12/2003, 003,08/13/2002,07/16 Hepatitis B, 20+ yrs 09/09/2019,02/26/2019,01/22 IPV - Polio Virus Vaccine (Inact) 1995,10/27/1992,1990,11/03 MMR - Measles/Mumps/Rubella Vaccine 08/28,08/11/2017,02/27/1996,12/22 PPD 08/11/2017,08/04/2017 Pneumococcal Conjugate Vacci ne, 20-valent ([id number]) 06/13/2022 Pneumococcal Polysaccharide PPV23 (Pneumovax) 07/28/2018 SEASONAL [...] Contact Info) Description 06/26/2023 9:30 AM EST Appointment [facility] [place] [phone] 07/01/2023 11:00 AM EST Office Visit Otolaryngology [facility] 132 [facility] [place] [address] Rhea Baker MD 132 [facility] [place] [address] 07/01/2023 11:00 AM EST Rehab Services Voice Lab [facility] [address] [facility] [place] [address] Ton Mcdermott, [facility] ARCHITECT 132 [facility] [place] [address] 07/11/2023 11:00 AM EST Office Visit Family Practice, [place] 21 [facility] [place] [place] [phone] Ashish [facility]ente [facility] [address] 02/19/2024 10:00 AM EDT Office Visit Endocrinology, [place] [address] [place] [address] Patricia Coffman MD [address] [place] [address] 03/31/2024 7:40 AM EDT Office Visit Neurology, [place] [address] [facility] [address] [place] [address] Serenity Gandara PA-C 21 [facility] [place], [place] [phone] Pending Results Name Type Priority Associated Diagnoses Date /Time CT NECK W CONTRAST Medical Imaging Routine Goiter Multinodular goiter 04/26/2023 10:18 AM EDT Health Maintenance Due Date Last [...] Nontoxic multinodular goiter documented in this encounter Administered Medications Inactive Administered Medications - up to 3 most recent administrations Medication Order MAR Action Action Date Dose Rate Site Ioversol (Optiray 320) inj 100 mL 100 mL, Intravenous, ONCE, On 04/26/23 at 1014, For 1 dose, Radiology Medication Routing (Non-IR) Given 04/26/2023 10:14 AM EDT 100 mL documented in this encounter
--- OUTSIDE RECORDS SUMMARY | 2023-07-18 07:27 | External Medical Summary | Summary of Care ---
Author Name Unknown Organization [facility] Address [address] [place] [address] Phone [phone] Care Team Providers Care Fire Management Officer Name Role Phone LibradoBerkley Digna PENALOZA Primary Care Provider [phone] Reason for Visit * Reason Onset Date Comments Cough Cough for 5 week s Medication Administration 04/05/2023 Flu an d/or Pneumo Inj Encounter Details Date Type Department Care Team Description 04/05/2023 Office Visit [facility] 21 [facility] [place] [address] Ramiro Carcamo MD 27 [facility] [place] [phone] Chronic cough*; Type 2 diabetes mellitus with other specified complication, without long-term current use of insulin (HCC); Need for prophylactic vaccination and inoculation against influenza Allergies No known active allergiesdocumented as of this encounter (statuses as of 04/05/2023) Medications Medication Sig Dispensed Refills Start Date End Date Status Multiple Vitamins-Minerals (WOMENS MULTI VITAMIN & MINERAL) TABS Take 1 Tablet by mouth in the morning. 0 Active 42Networksio IQ System w/Device Kit Test once a day e 1165 1 Kit 1 02/02/2021 Active Help Remediesuch Verio In Vitro Strip (Glucose Blood) Test [...] 3 07/12/2022 4 Active OneTouch Delica Plus [id number] USE TO TEST ONCE DAILY 100 Each [...] Nasal Solution (Astelin)Indications :Chronic rhinitis Administer 1 [place] into nostril in the morning and 1 [place] before bedtime. 30 mL 6 03/25/2023 Active [...] as of this encounter (statuses as of 04/05/2023) Active Problems Problem Noted Date Body mass [...] should report blood sugar levels to [facility] department weekly. - . Dietary consult to be done PANCHO to instruct patient on appropriate nutrition and diet to aid in control of blood sugars. - . If medication is required to control blood sugars, then should have [facility] ultrasound for growth every 4 weeks. [...] as of this encounter (statuses as of 04/05/2023) Resolved Problems Problem Noted Date Resolved Date [...] Overview: Failed 3hr GTT at 15 weeks. Rope Cutter/educator appt ordered, blood sugar supplies ordered Pt has not gotten MA active thus far (04/23/2012) states info is at MA office. Advised pt to call our office when MA is active so we can set up appt for production assembly operator and she can get supplies at pharmacy. F/u at next visit to ensure this is done. Encounter for supervision of other normal pregna ncy 02/19/2012 06/18/2012 Overview: Urine culture contaminated at [facility], repeat next visit. Urine culture obtained 02/22/12 Ivy Olivas, LOG BRANDER UTI-rx given. KRIS next visit - contam, consider neg ICD-10 update of inactive term Hx of preeclampsia, prior , currently p regnant 02/19/2012 09/26/2014 Overview: Preeclampsia labs ordered at [facility]--WNL. 24hr urine protein 0.07 Obesity in 02/19/2012 06/18/2012 Overview: Early glucola 175- 3hr GTT ordered documented as of this encounter (statuses as of 04/05/2023) Immunizations Name Administration Dates Next Due COVID-19 mRNA, LNP-s, No Pre serve, 2-Dose Series (Moderna) 11/23/2020,10/24/2020 DT - Diptheria/Tetanus (PEDS) 06/24/2009, 006 DTaP Dipth/Tet/Acell Pertussis (Infanrix), Peds 02/27/1996,10/27/1992,02/16/1991,12/21,1990 Diptheria/Tetanus (Adult) 06/24/2009 Hepatitis B, 0-19 yrs 09/12/2003, 003,08/13/2002,07/16 Hepatitis B, 20+ yrs 09/09/2019,02/26/2019,01/22 IPV - Polio Virus Vaccine (Inact) 1995,10/27/1992,1990,11/03 MMR - Measles/Mumps/Rubella Vaccine 08/28,08/11/2017,02/27/1996,12/22 PPD 08/11/2017,08/04/2017 Pneumococcal Conjugate Vacci ne, 20-valent ([id number]) 06/13/2022 Pneumococcal Polysaccharide PPV23 (Pneumovax) 07/28/2018 SEASONAL [...] symptoms or fever? No Have you had Guillain-Lodge Syndrome (an illness that causes paralysis) within [...] may have been completed in part utilizing Toopher Speech Voice Recognition Software. Due to technical [...] for 5 weeks documented in this encounter Plan of Treatment Upcoming Encounters Date Type Specialty Care Team Description 06/26/2023 Appointment Radiology 07/01/2023 Office Visit Otolaryngology Rhea Baker MD [address] [place] [address] 07/01/2023 Rehab Services Otolaryngology Ton Mcdermott [facility] ED[facility]ATION COORDINATOR [address] [address] 02/19/2024 Office Visit Endocrinology Patricia Coffman MD [address] [place] [facility] [place] [address] 03/31/2024 Office Visit Neurology Serenity Gandara PA-C 21 [facility] [place] [phone] Pending Results Name Type Priority Associated Diagnoses Date /Time ALBUMIN / CREATININE RATIO, URINE Lab Routine Type 2 diabetes mellitus with other specified complication, without long-term current use of insulin (HCC) 04/05/2023 3:37 PM EDT Scheduled Orders Name Type Priority Associated Diagnoses Orde r Schedule ALBUMIN / CREATININE RATIO, URINE Lab Routine Type 2 diabetes mellitus with other specified complication, without long-term current use of insulin (HCC) Expected: 04/05/2023 (Approximate), Expires: 04/04/2024 Health Maintenance Due Date Last Done Comments [...] influenza documented in this encounter Care Teams Fire Management Officer Relationship Specialty Start Date End Date Berkley Pavon, DO [address] [place] [address] PCP - General Family Medicine 02/18/23 documented as of this encounter
--- OUTSIDE RECORDS SUMMARY | 2023-07-18 07:27 | External Medical Summary ---
Author Name Unknown Address Unknown Organization [id number]:[facility] [address] [place] [address] Laboratory Report Ordering Provider Test Date Status NANCY SANFORD 04/06/2023 18:03:40 Final Normal: <30 mg/g creatinine< br/>High: 30-300 mg/g creatinine
Very High: >300 mg/g creatinine
Nephrotic: >2200 mg/g creatinine Observation Date Value Abnormality Reference (Units ) Status Albumin, Urine 04/06/2023 18:03:40 1.89 (mg/dL) Final Creatinine, Urine 04/06/2023 18:03:40 220 (mg/dL) Final Albumin/Creatinine [Mass Ratio] in Urine 04/06/2023 18:03:40 9 <30 (mg/g Creat) Final Performing Location [facility] [place] [address] [place] [address]
--- OUTSIDE RECORDS SUMMARY | 2023-07-18 07:27 | External Medical Summary | Summary of Care ---
Author Name Unknown Organization [facility] Address [address] [place] [address] Phone [phone] Care Team Providers Care Metal Miner Name Role Phone LibradoBerkley Digna PENALOZA Primary Care Provider [phone] Reason for Visit * Reason Onset Date Comments Cough Cough for 5 week s Medication Administration 04/05/2023 Flu an d/or Pneumo Inj Encounter Details Date Type Department Care Team Description 04/05/2023 Office Visit [facility] [address] [facility] [place] [address] Ramiro Carcamo MD [address] [facility] [place] [id number] Chronic cough*; Type 2 diabetes mellitus with [...] by mouth in the morning. 0 Active Amromco Energyio IQ System w/Device Kit Test once a day e 1165 1 Kit 1 02/02/2021 Active BuySimpleuch Verio In Vitro Strip (Glucose Blood) Test [...] 3 07/12/2022 4 Active OneTouch Delica Plus [id number] USE TO TEST ONCE DAILY 100 Each [...] Nasal Solution (Astelin)Indications :Chronic rhinitis Administer 1 [place] into nostril in the morning and 1 [place] before bedtime. 30 mL 6 03/25/2023 Active [...] Overview: Failed 3hr GTT at 15 weeks. Health And Safety Advisor/educator appt ordered, blood sugar supplies ordered Pt has not gotten MA active thus far (04/23/2012) states info is at MA office. Advised pt to call our office when MA is active so we can set up appt for exceptional needs teacher and she can get supplies at pharmacy. F/u at next visit to ensure this is done. Encounter for supervision of other normal pregna ncy 02/19/2012 06/18/2012 Overview: Urine culture contaminated at [facility], repeat next visit. Urine culture obtained 02/22/12 Ivy Olivas, BUSINESS SERVICES DIRECTOR UTI-rx given. KRIS next visit - contam, consider neg ICD-10 update of inactive term Hx of preeclampsia, prior , currently p regnant 02/19/2012 09/26/2014 Overview: Preeclampsia labs ordered at [facility]--WNL. 24hr urine protein 0.07 Obesity [...] PPD 08/11/2017,08/04/2017 Pneumococcal Conjugate Vacci ne, 20-valent ([id number]) 06/13/2022 Pneumococcal Polysaccharide PPV23 (Pneumovax) 07/28/2018 SEASONAL [...] symptoms or fever? No Have you had Guillain-Austin Syndrome (an illness that causes paralysis) within [...] may have been completed in part utilizing [employer] Speech Voice Recognition Software. Due to technical [...] in this encounter Nursing Notes * Sherrill Hlil LPN - 04/05/2023 3:13 PM EDT Chief [...] Otolaryngology Rhea Baker MD [address] [address] 07/01/2023 Rehab Services Otolaryngology Ton Mcdermott, [facility]-SORT MANAGER [address] [place] [address] 02/19/2024 Office Visit Endocrinology Patricia Coffman [facility] [address] [facility] [place] [place] [address] 03/31/2024 Office Visit Neurology Serenity Gandara PA-C [address] [place] [address] Scheduled Orders Name Type Priority Associated Diagnoses Orde r Schedule ALBUMIN / CREATININE RATIO, URINE Lab Routine Type 2 diabetes mellitus with other specified complication, without long-term current use of insulin (HCC) Ordered: 04/06/2023 Health Maintenance Due Date Last Done Comments [...] influenza documented in this encounter Care Teams Metal Miner Relationship Specialty Start Date End Date Berkley Pavon, DO [address] [place] [address] PCP - General Family Medicine 02/18/23 documented as of this encounter
--- OUTSIDE RECORDS SUMMARY | 2023-07-18 07:27 | External Medical Summary | Summary of Care ---
Author Name Unknown Organization [facility] Address [address] [place] [address] Phone [phone] Care Team Providers Care Stripping And Booking Machine Operator Name Role Phone LibradoBerkley Digna PENALOZA Primary Care Provider [phone] Reason for Visit * Reason Onset Date Comments Cough Cough for 5 week s Medication Administration 04/05/2023 Flu an d/or Pneumo Inj Encounter Details Date Type Department Care Team Description 04/05/2023 Office Visit [facility] [address] [facility] [place] [address] Ramiro Carcamo MD [address] [facility] [place] [phone] Chronic cough*; Type 2 diabetes mellitus with [...] by mouth in the morning. 0 Active Seevibesio IQ System w/Device Kit Test once a day e 1165 1 Kit 1 02/02/2021 Active [employer] Systemsuch Verio In Vitro Strip (Glucose Blood) Test [...] 3 07/12/2022 4 Active OneTouch Delica Plus [id number] USE TO TEST ONCE DAILY 100 Each [...] Nasal Solution (Astelin)Indications :Chronic rhinitis Administer 1 [place] into nostril in the morning and 1 [place] before bedtime. 30 mL 6 03/25/2023 Active [...] Patients should report blood sugar levels to [facility] department weekly. - . Dietary consult to be done PANCHO to instruct patient on appropriate nutrition and diet to aid in control of blood sugars. - . If medication is required to control blood sugars, then should have [facility] ultrasound for growth every 4 [...] Overview: Failed 3hr GTT at 15 weeks. Plastic Surgery Specialist/educator appt ordered, blood sugar supplies ordered Pt has not gotten MA active thus far (04/23/2012) states info is at MA office. Advised pt to call our office when MA is active so we can set up appt for trade union official and she can get supplies at pharmacy. F/u at next visit to ensure this is done. Encounter for supervision of other normal pregna ncy 02/19/2012 06/18/2012 Overview: Urine culture contaminated at [facility], repeat next visit. Urine culture obtained 02/22/12 Ivy Olivas, COOLER SERVICE SUPERVISOR UTI-rx given. KRIS next visit - contam, consider neg ICD-10 update of inactive term Hx of preeclampsia, prior , currently p regnant 02/19/2012 09/26/2014 Overview: Preeclampsia labs ordered at [facility]--WNL. 24hr urine protein 0.07 [...] PPD 08/11/2017,08/04/2017 Pneumococcal Conjugate Vacci ne, 20-valent ([id number]) 06/13/2022 Pneumococcal Polysaccharide PPV23 (Pneumovax) 07/28/2018 SEASONAL [...] symptoms or fever? No Have you had Guillain-Milnor Syndrome (an illness that causes paralysis) within [...] may have been completed in part utilizing [employer] Speech Voice Recognition Software. Due to technical [...] Otolaryngology Rhea Baker MD [address] [place] [address] 07/01/2023 Rehab Services Otolaryngology Ton Mcdermott [facility]-PORT[facility] ROUTER OPERATOR [address] [place] [address] 02/19/2024 Office Visit Endocrinology Patricia Coffman MD [address] [facility] [place] [address] 03/31/2024 Office Visit Neurology Serenity Gandara PA-C [address] [facility] [place] [phone] Health Maintenance Due Date Last Done Comments [...] influenza documented in this encounter Care Teams Stripping And Booking Machine Operator Relationship Specialty Start Date End Date Berkley Pavon, DO [address] [place] [address] PCP - General Family Medicine 02/18/23 documented as of this encounter
--- OUTSIDE RECORDS SUMMARY | 2023-07-18 07:27 | External Medical Summary | Summary of Care ---
Author Name Unknown Organization [facility] Address [address] [place] [address] Phone [phone] Care Team Providers Care Brazing Furnace Feeder Name Role Phone LibradoBerkley Digna PENALOZA Primary Care Provider [phone] Reason for Visit * Reason Onset Date Comments Cough Cough for 5 week s Medication Administration 04/05/2023 Flu an d/or Pneumo Inj Encounter Details Date Type Department Care Team Description 04/05/2023 Office Visit [facility] [address] [facility] [place] [address] Ramiro Carcamo MD [address] [facility] [place] [phone] Chronic cough*; Type 2 diabetes mellitus with [...] by mouth in the morning. 0 Active ÜberResearchio IQ System w/Device Kit Test once a day e 1165 1 Kit 1 02/02/2021 Active Ingk Labsuch Verio In Vitro Strip (Glucose Blood) Test [...] 3 07/12/2022 4 Active OneTouch Delica Plus [id number] USE TO TEST ONCE DAILY 100 Each [...] Nasal Solution (Astelin)Indications :Chronic rhinitis Administer 1 [place] into nostril in the morning and 1 [place] before bedtime. 30 mL 6 03/25/2023 Active [...] Patients should report blood sugar levels to [facility] department weekly. - . Dietary consult to be done PANCHO to instruct patient on appropriate nutrition and diet to aid in control of blood sugars. - . If medication is required to control blood sugars, then should have [facility] ultrasound for growth every 4 weeks. [...] Overview: Failed 3hr GTT at 15 weeks. Plodding Operator/educator appt ordered, blood sugar supplies ordered Pt has not gotten MA active thus far (04/23/2012) states info is at MA office. Advised pt to call our office when MA is active so we can set up appt for costumer and she can get supplies at pharmacy. F/u at next visit to ensure this is done. Encounter for supervision of other normal pregna ncy 02/19/2012 06/18/2012 Overview: Urine culture contaminated at [facility], repeat next visit. Urine culture obtained 02/22/12 Ivy Olivas, STEEL TIER UTI-rx given. KRIS next visit - contam, consider neg ICD-10 update of inactive term Hx of preeclampsia, prior , currently p regnant 02/19/2012 09/26/2014 Overview: Preeclampsia labs ordered at [facility]--WNL. 24hr urine protein 0.07 Obesity in 02/19/2012 [...] PPD 08/11/2017,08/04/2017 Pneumococcal Conjugate Vacci ne, 20-valent ([id number]) 06/13/2022 Pneumococcal Polysaccharide PPV23 (Pneumovax) 07/28/2018 SEASONAL [...] symptoms or fever? No Have you had Guillain-Gordon Syndrome (an illness that causes paralysis) within [...] may have been completed in part utilizing [employer] Speech Voice Recognition Software. Due to technical [...] Otolaryngology Rhea Baker MD [address] [place] [address] 07/01/2023 Rehab Services Otolaryngology Ton Mcdermott [facility]-HAND SPRAY OPERATOR [address] [place] [address] 02/19/2024 Office Visit Endocrinology Patricia Coffman MD [address] [place] [facility] [place] [address] 03/31/2024 Office Visit Neurology Serenity Gandara PA-C [address] [facility] [place] [phone] Pending Results Name Type Priority Associated Diagnoses [...] influenza documented in this encounter Care Teams Brazing Furnace Feeder Relationship Specialty Start Date End Date Berkley Pavon, DO [address] [place] [address] PCP - General Family Medicine 02/18/23 documented as of this encounter
--- OUTSIDE RECORDS SUMMARY | 2023-07-18 07:27 | External Medical Summary | Summary of Care ---
Author Name Unknown Organization [facility] Address [address] [place] [address] Phone [phone] Care Team Providers Care Bundler Name Role Phone EdisBerkley arzate Digna DO Primary Care Provider [phone] Reason for Visit * Reason Comments Headache * Precert (Within 10 days (routine)) - Authorized Specialty Diagnoses / Procedures Referred By Laurie t Referred To Contact Pharmacy Diagnoses Migraine without aura, not intractable, without status migrainosus Procedures Galcanezumab-gnlm 120 MG/ML Subcutaneous Solution Auto-injector (Emgality) Serenity Gandara PA-C [address] [place] [id number] Referral ID Status Reason Start Date Expiration Date V isits Requested Visits Authorized [id number] Authorized Precert 09/17/2022 09/19/[phone] Encounter Details Date Type Department Care Team Description 03/31/2023 Office Visit Neurology, [address] [place] [address] Serenity Gandara PA-C [address] [place] [address] Migraine without aura and without status migrainosus, not intractable* Allergies No known active allergiesdocumented as of this encounter (statuses as of 03/31/2023) Medications Medication Sig Dispensed Refills Start Date End Date Status Multiple Vitamins-Minerals (WOMENS MULTI VITAMIN & MINERAL) TABS Take 1 Tablet by mouth in the morning. 0 Active Docebo IQ System w/Device Kit Test once a [...] as directed 5 Kit 0 10/17/2022 Active Atorvastatin Calcium 20 MG Oral Tablet (Lipitor)Indication s:Dyslipidemia, goal LDL below 100 TAKE ONE TABLET BY MOUTH EVERY DAY 90 Tablet 1 09/09/2022 4 Active Topiramate 50 MG Oral Tablet (topAMAX) TAKE TWO TABLETS BY MOUTH AT BEDTIME 180 Tablet 3 07/12/2022 4 Active OneTouch Delica Plus [id number] USE TO TEST ONCE DAILY 100 Each 3 07/10/2022 4 Active Semaglutide (2 MG/DOSE) 8 MG/3ML Subcutaneous Solution Pen-injector (Ozempic) INJECT 2MG UNDER THE SKIN ONCE A WEEK 9 mL 6 04/25/2022 3 Active Emgality 120 MG/ML Subcutaneous Solution Auto-injector (Galcanezumab-[facility]) Inject 1 mL under the skin [...] Nasal Solution (Astelin)Indication s:Chronic rhinitis Administer 1 [place] into nostril in the morning and 1 [place] before bedtime. 30 mL 6 03/25/2023 Active Fluticasone Propionate 50 MCG/ACT Nasal Suspension Administer into each nostril 2 Sprays in the morning. 30 mL 1 08/17/2021 3 Discontinue d(Medicatio n List Clean Up) Azithromycin 250 MG Oral Tablet (Zithromax) Take 2 tabs by mouth on the first day, then 1 tab daily on days two through five 6 Tablet 0 03/22/2023 3 Discontinue d(Medicatio n List Clean Up) predniSONE 20 MG Oral Tablet (Deltasone) Take 2 Tablets by mouth in the morning for 5 days. 10 Tablet 0 03/22/2023 3 Discontinue d(Medicatio n List Clean Up) documented as of this encounter (statuses as of 03/31/2023) Active Problems Problem Noted Date Body mass index (BMI) of 45.0 to 49.9 in adult 10/07/2022 Overview: Per Obesity protocol - bmi= 49.00 01/13/13 Migraine without aura and without status migrainosus, not intractable 05/07/2022 Morbid obesity due to excess calories Iron deficiency anemia due to chronic bl ood loss 07/14/2018 Major depressive disorder, recurrent epi sode, moderate 04/24/2018 PCOS (polycystic ovarian syndrome) 03/06 Iron deficiency anemia 11/07/2014 Fatty liver 09/15/2014 Anxiety 11/26/2013 Type 2 diabetes mellitus 05/28/2012 Overview: GESTATIONAL DIABETES -. Recommend monitoring blood sugars four times daily with Fasting Blood Sugar (FBS) and 1 hour postprandial measurements, with goal of keeping FBS <90 and 1h PP <140. Patients should report blood sugar levels to M department weekly. - . Dietary consult to be done PANCHO to instruct patient on appropriate nutrition and diet to aid in control of blood sugars. - . If medication is required to control blood sugars, then should have MFM ultrasound for growth every 4 weeks. . [...] as of this encounter (statuses as of 03/31/2023) Resolved Problems Problem Noted Date Resolved Date Body mass index (BMI) of 50.0 to [...] placed 06/22/12.) Supervision of high-risk of emerita brandt 06/11/2012 09/26/2014 Overview: Sign permit for Bt Induction scheduled 09/14 at 39 1/7. Abnormal maternal glucose to lerance, complicating , childbirth, or the puerperium, unspecified as to episode of care 04/03/2012 06/18/2012 Overview: Failed 3hr GTT at 15 weeks. Trap Puller/educator appt ordered, blood sugar supplies ordered Pt has not gotten MA active thus far (04/23/2012) states info is at MA office. Advised pt to call our office when MA is active so we can set up appt for sow manager and she can get supplies at pharmacy. F/u at next visit to ensure this is done. Encounter for supervision of other normal pregna ncy 02/19/2012 06/18/2012 Overview: Urine culture contaminated at [facility], repeat next visit. Urine culture obtained 02/22/12 Ivy Olivas LPN UTI-rx given. KRIS next visit - contam, consider neg ICD-10 update of inactive term Hx of preeclampsia, prior , currently p regnant 02/19/2012 09/26/2014 Overview: Preeclampsia labs ordered at [facility]--WNL. 24hr urine protein 0.07 Obesity in 02/19/2012 06/18/2012 Overview: Early glucola 175- 3hr GTT ordered documented as of this encounter (statuses as of 03/31/2023) Immunizations Name Administration Dates Next Due COVID-19 mRNA, LNP-s, No Pre serve, 2-Dose Series (Moderna) 11/23/2020,10/24/2020 DT - Diptheria/Tetanus (PEDS) 06/24/2009, 006 DTaP Dipth/Tet/Acell Pertussis (Infanrix), Peds 02/27/1996,10/27/1992,02/16/1991,12/21,1990 Diptheria/Tetanus (Adult) 06/24/2009 Hepatitis B, 0-19 yrs 09/12/2003, 003,08/13/2002,07/16 Hepatitis B, 20+ yrs 09/09/2019,02/26/2019,01/22 IPV - Polio Virus Vaccine (Inact) 1995,10/27/1992,1990,11/03 MMR - Measles/Mumps/Rubella Vaccine 08/28,08/11/2017,02/27/1996,12/22 PPD 08/11/2017,08/04/2017 Pneumococcal Conjugate Vacci ne, 20-valent ([id number]) 06/13/2022 Pneumococcal Polysaccharide PPV23 (Pneumovax) 07/28/2018 SEASONAL INFLUENZA, PF, 6 M & Above, IM , (FLULAVAL or FLUZONE) 04/03/2022,04/04/2020,03/09/2019,04/17 Seasonal Influenza Virus Vac cine, Unspecified Formulation [...] Sign Reading Time Taken Comments Blood Pressure 118/75 03/31/2023 8:30 AM EDT Pulse 76 03/31/2023 8:30 AM EDT Temperature 36.6 C (97.9 F) 03/31/2023 8:30 AM ED T Respiratory Rate - - Oxygen Saturation 99% 03/31/2023 8:30 AM EDT Inhaled Oxygen Concentration - - Weight 127.6 kg (281 lb 4.8 oz) 03/31/2023 8:30 AM EDT Height - - Body Mass Index 47.56 03/25/2023 1:13 PM EDT documented in this encounter Progress Notes * Serenity Gandara PA-C - 03/31/2023 8:40 AM EDT HISTORY & PHYSICAL EXAMINATION - NEUROLOGY Name: Yvonne Johansen Date: 03/28/2023 Time: 11:22 AM Chief Complaint Patient presents with Headache SUBJECTIVE: Yvonne Johansen is a 32 year old woman who returns today for follow up of chronic migraine without aura. She was last seen 09/18/22. Was taking Emgality monthly and Topamax 100mg at bedtime. Attempted to taper off Topamax however she had rebound headaches. Tapered back up. Today states she has maybe 2 migraines/ month. They are easily relieved by Maxalt. Generally tries taking an Aleve first and then takes Maxalt. Rarely has to take a second dose. Denies numbness/tinging of hands or feet, taste change, cognitive slowing and kidney stones. Headache History Front of head Pulsatile +Nausea +Photophobia/phonophobia No aura 5-6 migraines/month that last 2-3 days MRI brain, MRA head/neck, EEG and eye exam all noncontributory. Previous Medications: Amitriptyline (weight gain), Inderal (hypotension), Imitrex Allergies: Patient has no known allergies. Problem list: Patient Active Problem List Diagnosis Code Type 2 diabetes mellitus ([facility]) E11.9 Anxiety F41.9 Fatty liver K76.0 Iron deficiency anemia D50.9 PCOS (polycystic ovarian syndrome) E28.2 Major depressive disorder, recurrent episode, moderate ([facility]) F33.1 Iron deficiency anemia due to chronic blood loss D50.0 Morbid obesity due to excess calories ([facility]) E66.01 Migraine without aura and without status migrainosus, not intractable G43.009 Body mass index (BMI) of 45.0 to 49.9 in adult ([facility]) Z68.42 Past Medical History: Past Medical History: Diagnosis Date Abnormal finding on Pap smear 2009, 2010 colpo WNL, paps WNL since then Depression 2008 prev on Celexa Endometriosis Hyperlipidemia Migraine Obesity, morbid (more than 100 lbs over ideal weight or BMI > 40) ([facility]) 06/18/2012 1. Recommend restricting weight gain during to 11-20 pounds. Consider referral for nutrition consult. (consult placed) 2. For patients with Class 3 obesity, we recommend baseline pre-eclamptic labs - wnl 4. Recommend [facility] ultrasound for anatomy screen at 20 [...] syndrome) 2010 Metformin for short time Pre-eclampsia 2008 labor 07/10/2012 + FFN 07/08. Cervix closed, +contractions 07/10: Betamethasone 12mg, started on procardia 10mg q4h. Ptadvised to have 2nd betamethasone at L&D on 07/11. Current Outpatient Medications: Current Outpatient Medications Medication Sig Dispense Refill Multiple Vitamins-Minerals (WOMENS MULTI VITAMIN & MINERAL) TABS Take 1 Tablet by mouth in the morning. Docebo IQ System w/Device Kit Test once a day e 1165 1 Kit 1 Sensorionuch Rollbase (acquired by [employer]) In Vitro Strip (Glucose Blood) Test once [...] affected area of skin. 60 g 11 Clinitest Rapid COVID-19 Test In Vitro Kit (COVID-19 At Home Antigen Test) test as directed 5 Kit 0 Atorvastatin Calcium 20 MG Oral Tablet (Lipitor) TAKE ONE TABLET BY MOUTH EVERY DAY 90 Tablet 1 Topiramate 50 MG Oral Tablet (topAMAX) TAKE TWO TABLETS BY MOUTH AT BEDTIME 180 Tablet 3 OneTouch Delica Plus [id number] USE TO TEST ONCE DAILY 100 Each 3 Semaglutide (2 MG/DOSE) 8 MG/3ML Subcutaneous Solution Pen-injector (Ozempic) INJECT 2MG UNDER THE SKIN ONCE A WEEK 9 mL 6 Emgality 120 MG/ML Subcutaneous Solution Auto-injector (Galcanezumab-[facility]) Inject 1 mL under the skin [...] 0.1 % Nasal Solution (Astelin) Administer 1 [place] into nostril in the morning and 1 [place] before bedtime. 30 mL 6 No current facility-administered medications for this visit. Family History: Family History Problem Relation Age of Onset [...] Diabetes Aunt (Unspecified) Breast Cancer Aunt (Unspecified) SOCIAL HISTORY: Social History Tobacco Use Smoking status: Never Smokeless tobacco: Never Substance Use Topics Alcohol use: No Drug use: No Comment: denies REVIEW OF SYSTEMS: As above OBJECTIVE: Physical Examination: BP 118/75 | Pulse 76 | Temp 36.6 C (97.9 F) | Wt 127.6 kg (281 lb 4.8 oz) | SpO2 99% | BMI 47.56 kg/m | BSA 2.41 m General appearance: healthy, alert, no distress Physical Exam: Constitutional: Appearance normally developed,well nourished,no deformities,well groomed Head and face: normocephalic,atraumatic Respiratory: normal effort,clear to auscultation Cardiovascular: normal heart sounds and regular rhythm Psychiatric: normal judgement and insight,normal mood,normal affect NEUROLOGIC EXAMINATION: Mental Status Exam: alert,oriented to time, place, person,normal recent memory,normal remote memory,normal attention span,normal concentration,normal language,normal fund of knowledge Cranial Nerves: CN 2,3 - PERRL CN 3, 4, 6 - Extra-ocular Movements Intact,no nystagmus CN 5 - Facial sensation intact and equal bilaterally CN 7 - no facial assymetry CN 8 - hearing grossly intact Coordination: normal to [id number] Reflexes: Biceps BR Patellar Right 2+ 2+ 1 Left 2+ 2+ 1 LABORATORY: Lab Results Component Value Date/Time HEMOGLOBIN A1C - [facility] 5.7 (H) 02/18/2023 11:42 AM HEMOGLOBIN A1C - [facility] 6.6 (H) 04/09/2022 11:28 AM HEMOGLOBIN A1C - [facility] 7.3 (H) 09/28/2021 11:01 AM HEMOGLOBIN A1C - [facility] 6.7 (H) 04/06/2020 12:37 PM HEMOGLOBIN A1C - [facility] 7.1 (H) 11/26/2019 03:59 PM HEMOGLOBIN A1C - [facility] 9.2 (H) 07/23/2019 04:15 PM Lab Results Component Value Date/Time TSH - [facility] 2.05 02/18/2023 11:42 AM TSH - [facility] 2.03 04/09/2022 11:28 AM TSH - [facility] 2.49 09/28/2021 11:01 AM TSH - [facility] 1.36 04/06/2020 12:37 PM TSH - [facility] 3.09 01/01/2018 11:42 AM TSH - [facility] 1.62 05/20/2017 09:34 AM TSH RECEPTOR AB 2.40 (H) 04/27/2020 12:19 PM Review of prior Studies: ASSESSMENT/PLAN: Yvonne Johansen is a 32 year old woman who returns today for follow up of chronic migraine without aura. Continue monthly Emgality, and Topamax 100mg nightly. Prior attempt to taper off Topamax was unsuccessful. Maxalt for rescue. Follow up in 12 months or sooner if needed. I spent a total of 20 minutes on the date of service inpreparation, delivery, and documentation of the care provided to Yvonne Johansen. Cruz Teran DO available for direct consultation. Serenity Gandara PA-C, Neurology, [place] [address] [facility] [place] [address] 03/31/23 8:49 AM documented in this encounter Plan of Treatment Upcoming Encounters Date Type Specialty Care Team Description 07/01/2023 Office Visit Otolaryngology Rhea Baker MD [address] [place] [address] 07/01/2023 Rehab Services Otolaryngology Ton Mcdermott, [facility] [address] [place] [address] 02/19/2024 Office Visit Endocrinology Patricia Coffman MD [address] [facility] [place] [address] 03/31/2024 Office Visit Neurology Serenity Gandara PA-C [address] [facility] [place] [address] Health Maintenance Due Date Last Done Comments HPV/Co-Test 2020 COVID-19 Vaccine (3 - Moderna series) 01/18/2021 11/23/2020, 10/24/2020 Diabetic Foot Exam 02/01/2021 02/02/2020, 03/09/2019 Albumin/Creatinine Ratio 09/28/2022 022, 09/07/2020, 08/19/2019 DIABETES-EYE EXAM 12/18/2022 12/18/2021, 04/06/2020 Influenza Vaccine (FLU shot) (#1) 2023 04/03/2022, 04/04/2020, 04/04/2020, Additional history exists Cervical Cancer Screening 04/07/2023 Pap Smear 04/07/2023 [...] (6 to 64 Years) Completed 06/13/2022, 07/28/2018 GARDASIL-HPV IMMUNIZATION SERIES Aged Out No longer [...] of status migrainosus documented in this encounter Care Teams Bundler Relationship Specialty Start Date End Date Berkley Pavon, DO [address] [place] [address] PCP - General Family Medicine 02/18/23 documented as of this encounter
--- OUTSIDE RECORDS SUMMARY | 2023-07-18 07:28 | External Medical Summary | Summary of Care ---
Author Name Unknown Organization [facility] Address [address] [place] [address] Phone [phone] Care Team Providers Care Etl Informatica Developer Name Role Phone Berkley Pavon DO Primary Care Provider [phone] Encounter Details Date Type Department Care Team Description 03/11/2023 Hospital Encounter Radiology, [address] [address] Arrived Allergies No known active allergiesdocumented as of this encounter (statuses as of 03/12/2023) Medications Medication Sig Dispensed Refills Start Date End Date Status Multiple Vitamins-Minerals (WOMENS MULTI VITAMIN & MINERAL) TABS Take 1 Tablet by mouth in the morning. 0 Active [employer] IQ System w/Device Kit Test once a day e 1165 1 Kit 1 02/02/2021 Active Fluticasone Propionate 50 MCG/ACT Nasal Suspension Administer into each nostril 2 Sprays in the morning. 30 mL 1 08/17/2021 Active [employer] Verio In Vitro Strip (Glucose Blood) Test [...] as directed 5 Kit 0 10/17/2022 Active predniSONE 20 MG Oral Tablet (Deltasone)Indicatio ns:Medication overuse headache Take 60mg x 3 days, then 40mg x 3 days, then 20mg x 3 days, then 10mg (1/2 tablet) x 3 days then stop. 20 Tablet 0 10/29/2022 Active Additional Information Patient not taking.Reported on 02/18/2023 Atorvastatin Calcium 20 MG Oral Tablet (Lipitor)Indications :Dyslipidemia, goal LDL below 100 TAKE ONE TABLET BY MOUTH EVERY DAY 90 Tablet 1 09/09/2022 4 Active Topiramate 50 MG Oral Tablet (topAMAX) TAKE TWO TABLETS BY MOUTH AT BEDTIME 180 Tablet 3 07/12/2022 4 Active OneTouch Delica Plus [id number] USE TO TEST ONCE DAILY 100 Each 3 07/10/2022 4 Active Semaglutide (2 MG/DOSE) 8 MG/3ML Subcutaneous Solution Pen-injector (Ozempic) INJECT 2MG UNDER THE SKIN ONCE A WEEK 9 mL 6 04/25/2022 3 Active Emgality 120 MG/ML Subcutaneous Solution Auto-injector (Galcanezumab-gnlm) Inject 1 mL under the skin every month. 1 mL 5 03/07/2023 Active documented as of this encounter (statuses as of 03/12/2023) Active Problems Problem Noted Date Body mass [...] should report blood sugar levels to [facility] department weekly. - . Dietary consult to be done PANCHO to instruct patient on appropriate nutrition and diet to aid in control of blood sugars. - . If medication is required to control blood sugars, then should have [facility] ultrasound for growth every 4 weeks. [...] as of this encounter (statuses as of 03/12/2023) Resolved Problems Problem Noted Date Resolved Date [...] Overview: Failed 3hr GTT at 15 weeks. [employer] Report Developer/educator appt ordered, blood sugar supplies ordered Pt has not gotten MA active thus far (04/23/2012) states info is at MA office. Advised pt to call our office when MA is active so we can set up appt for child caregiver and she can get supplies at pharmacy. F/u at next visit to ensure this is done. Encounter for supervision of other normal pregna ncy 02/19/2012 06/18/2012 Overview: Urine culture contaminated at [facility], repeat next visit. Urine culture obtained 02/22/12 Ivy Olivas, PHOTOGRAPHY SPOTTER UTI-rx given. RKIS next visit - contam, consider neg ICD-10 update of inactive term Hx of preeclampsia, prior , currently p regnant 02/19/2012 09/26/2014 Overview: Preeclampsia labs ordered at [facility]--WNL. 24hr urine protein 0.07 Obesity in 02/19/2012 06/18/2012 Overview: Early glucola 175- 3hr GTT ordered documented as of this encounter (statuses as of 03/12/2023) Immunizations Name Administration Dates Next Due COVID-19 mRNA, LNP-s, No Pre serve, 2-Dose Series (Moderna) 11/23/2020,10/24/2020 DT - Diptheria/Tetanus (PEDS) 06/24/2009, 006 DTaP Dipth/Tet/Acell Pertussis (Infanrix), Peds 02/27/1996,10/27/1992,02/16/1991,12/21,1990 Diptheria/Tetanus (Adult) 06/24/2009 Hepatitis B, 0-19 yrs 09/12/2003, 003,08/13/2002,07/16 Hepatitis B, 20+ yrs 09/09/2019,02/26/2019,01/22 IPV - Polio Virus Vaccine (Inact) 1995,10/27/1992,1990,11/03 MMR - Measles/Mumps/Rubella Vaccine 08/28,08/11/2017,02/27/1996,12/22 PPD 08/11/2017,08/04/2017 Pneumococcal Conjugate Vacci ne, 20-valent ([id number]) 06/13/2022 Pneumococcal Polysaccharide PPV23 (Pneumovax) 07/28/2018 Seasonal Influenza Virus Vac cine, Unspecified Formulation 04/04/2020,03/09/2019,04/17/2018 Seasonal Influenza, PF, 6 mo ns & Above, IM , (Flulaval) 04/03/2022,04/04/2020,03/09/2019,04/17 Seasonal Influenza, Split, I IV3, With [...] Encounters Date Type Specialty Care Team Description 03/31/2023 Office Visit Neurology Serenity Gandara PA-C [address] [place] [address] 05/28/2023 Office Visit Otolaryngology Bernabe Hinkle MD [address] [place] [address] 02/19/2024 Office Visit Endocrinology Patricia Coffman MD [address] [place] [address] Pending Results Name Type Priority Associated Diagnoses Date /Time US HEAD AND NECK Medical Imaging Routine Left thyroid nodule Type 2 diabetes mellitus without complication, without long-term current use of insulin (HCC) Goiter Multinodular goiter Hyperlipidemia, unspecified hyperlipidemia type 03/11/2023 4:16 PM EDT Health Maintenance Due Date Last [...] 07/28/2018, 06/24/2009, 06/24/2009, Additional history exists Hepatitis C Screening Completed 09/22/2015 Hepatitis B Completed 09/09/2019, 01/30, 01/22/2019, Additional [...] filedocumented as of this encounter Care Teams Etl Informatica Developer Relationship Specialty Start Date End Date Berkley Pavon, DO [address] [place] [address] PCP - General Family Medicine 02/18/23 documented as of this encounter
--- OUTSIDE RECORDS SUMMARY | 2023-07-18 07:28 | External Medical Summary | Summary of Care ---
Author Name Unknown Organization [facility] Address [address] [place] [address] Phone [phone] Care Team Providers Care Employee Relations Assistant Name Role Phone Bakari Pavona [place] DO Primary Care Provider [phone] Encounter Details Date Type Department Care Team Description 03/25/2023 [facility] [place] [address] Isidra Oliveira AuAlicia [address] [facility] [place] [address] Auditory effects of both ears* Allergies No known active allergiesdocumented as of this encounter (statuses as of 03/25/2023) Medications Medication Sig Dispensed Refills Start Date End Date Status Multiple Vitamins-Minerals (WOMENS MULTI VITAMIN & MINERAL) TABS Take 1 Tablet by mouth in the morning. 0 Active Vision[employer]uch Verio IQ System w/Device Kit Test once a day e 1165 1 Kit 1 02/02/2021 Active Fluticasone Propionate 50 MCG/ACT Nasal Suspension Administer into each nostril 2 Sprays in the morning. 30 mL 1 08/17/2021 Active Additional Information Patient not taking.Reported on 03/22/2023 OneTouch Verio In Vitro Strip (Glucose Blood) [...] 3 07/12/2022 4 Active OneTouch Delica Plus [id number] USE TO TEST ONCE DAILY 100 Each 3 07/10/2022 4 Active Semaglutide (2 MG/DOSE) 8 MG/3ML Subcutaneous Solution Pen-injector (Ozempic) INJECT 2MG UNDER THE SKIN ONCE A WEEK 9 mL 6 04/25/2022 3 Active Emgality 120 MG/ML Subcutaneous Solution Auto-injector (Galcanezumab-gnlm) Inject 1 mL under the skin every month. 1 mL 5 03/07/2023 Active Azithromycin 250 MG Oral Tablet (Zithromax) Take 2 tabs by mouth on the first day, then 1 tab daily on days two through five 6 Tablet 0 03/22/2023 3 Active predniSONE 20 MG Oral Tablet (Deltasone) Take 2 Tablets by mouth in the morning for 5 days. 10 Tablet 0 03/22/2023 3 Active Ventolin HFA 108 (90 Base) MCG/ACT Inhalation Aerosol Solution Inhale 2 Puffs by mouth in the morning and 2 Puffs at noon and 2 Puffs in the evening and 2 Puffs before bedtime. 18 g 2 03/22/2023 Active documented as of this encounter (statuses as of 03/25/2023) Active Problems Problem Noted Date Body mass [...] Patients should report blood sugar levels to [facility] department weekly. - . Dietary consult to be done PANCHO to instruct patient on appropriate nutrition and diet to aid in control of blood sugars. - . If medication is required to control blood sugars, then should have [facility] ultrasound for growth every 4 weeks. [...] as of this encounter (statuses as of 03/25/2023) Resolved Problems Problem Noted Date Resolved Date [...] Overview: Failed 3hr GTT at 15 weeks. Assembling Inspector/educator appt ordered, blood sugar supplies ordered Pt has not gotten MA active thus far (04/23/2012) states info is at MA office. Advised pt to call our office when MA is active so we can set up appt for process area supervisor and she can get supplies at pharmacy. [...] as of this encounter (statuses as of 03/25/2023) Immunizations Name Administration Dates Next Due COVID-19 mRNA, LNP-s, No Pre serve, 2-Dose Series (Moderna) 11/23/2020,10/24/2020 DT - Diptheria/Tetanus (PEDS) 06/24/2009, 006 DTaP Dipth/Tet/Acell Pertussis (Infanrix), Peds 02/27/1996,10/27/1992,02/16/1991,12/21,1990 Diptheria/Tetanus (Adult) 06/24/2009 Hepatitis B, 0-19 yrs 09/12/2003, 003,08/13/2002,07/16 Hepatitis B, 20+ yrs 09/09/2019,02/26/2019,01/22 IPV - Polio Virus Vaccine (Inact) 1995,10/27/1992,1990,11/03 MMR - Measles/Mumps/Rubella Vaccine 08/28,08/11/2017,02/27/1996,12/22 PPD 08/11/2017,08/04/2017 Pneumococcal Conjugate Vacci ne, 20-valent ([id number]) 06/13/2022 Pneumococcal Polysaccharide PPV23 (Pneumovax) 07/28/2018 Seasonal [...] as of this encounter Progress Notes * Neha Diamond - 03/25/2023 1:52 PM EDT Images from the original note were not included. Audiologic evaluation was completed on referral from Otolaryngology clinic. Standard audiometric testing 68571 ABSD supra-aural earphones Good reliability Right: Hearing thresholds are within normal limits Left: Hearing thresholds are within normal limits Speech recognition thresholds were consistent with hearing thresholds. Word recognition scores, obtained via monitored live voice were: right 100%, left 100% Neha Osborne, CCC-A 03/25/2023 1:52 PM Scan: audiogram documented in this encounter Plan of Treatment Upcoming Encounters Date Type Specialty Care Team Description 03/31/2023 Office Visit Neurology Serenity Gandara PA-C [address] [facility] [place] [address] 07/01/2023 Office Visit Otolaryngology Rhea Baker MD [address] [place] [address] 07/01/2023 Rehab Services Otolaryngology Ton Mcdermott, [facility] [address] [place] [address] 02/19/2024 Office Visit Endocrinology Patricia Coffman MD [address] [place] [address] Health Maintenance Due Date Last Done Comments HPV/Co-Test 2020 COVID-19 Vaccine (3 - Moderna series) 01/18/2021 11/23/2020, 10/24/2020 Diabetic Foot Exam 02/01/2021 02/02/2020, 03/09/2019 Albumin/Creatinine Ratio 09/28/2022 04/2 022, 09/07/2020, 08/19/2019 DIABETES-EYE EXAM 12/18/2022 12/18/2021, [...] Procedure Name Priority Date/Time Associated Diagnosis Comments AUDIOMETRIC RESULT 03/25/2023 documented in this encounter Results * AUDIOMETRIC RESULT (03/25/2023) 03/25/2023 Isidra Solomon [facility] documented in this encounter Visit Diagnoses Diagnosis Auditory effects of both ears- Primary documented in this encounter Care Teams Employee Relations Assistant Relationship Specialty Start Date End Date Berkley Pavon, DO [address] [place] [address] PCP - General Family Medicine 02/18/23 documented as of this encounter
--- OUTSIDE RECORDS SUMMARY | 2023-07-18 07:28 | External Medical Summary | Summary of Care ---
Author Name Unknown Organization [facility] Address [address] [place] [address] Phone [phone] Care Team Providers Care Asw/Asuw Tactical Air Controller Name Role Phone EdisBerkley arzate Primary Care Provider [phone] Reason for Visit * Reason Comments Cough Other SOB Encounter Details Date Type Department Care Team Description 03/22/[address] [facility] [address] [facility] [place] [address] [place] [address] Leandra Pierson PA-C [address] [facility] [place] [address] [place] [address] Bronchitis, complicated* Allergies No known active allergiesdocumented as of this encounter (statuses as of 03/22/2023) Medications Medication Sig Dispensed Refills Start Date End Date Status Multiple Vitamins-Minerals (WOMENS MULTI VITAMIN & MINERAL) TABS Take 1 Tablet by mouth in the morning. 0 Active Quik.iouch Verio IQ System w/Device Kit Test once a day e 1165 1 Kit 1 1 Active Fluticasone Propionate 50 MCG/ACT Nasal Suspension Administer into each nostril 2 Sprays in the morning. 30 mL 1 2 Active Additional Information Patient not taking.Reported on 03/22/2023 OneTouch Verio In Vitro Strip (Glucose Blood) Test once a day e 1165 100 Strip 3 2 Active Rizatriptan Benzoate 10 MG Oral Tablet Disintegrating Take 1 Tablet by mouth as needed for Migraine. May repeat in 2 hours if needed. Do not take more than 20mg in 24 hours. 10 Tablet 3 3 Active traZODone HCl 100 MG Oral Tablet (Desyrel) One tablet daily at bedtime 30 Tablet 5 3 Active Clindamycin Phosphate 1 % External Gel Apply topically to affected area 2 times a day. To affected area of skin. 60 g 11 3 Active Clinitest Rapid COVID-19 Test In Vitro Kit (COVID-19 At Home Antigen Test) test as directed 5 Kit 0 3 Active Atorvastatin Calcium 20 MG Oral Tablet (Lipitor)Indication s:Dyslipidemia, goal LDL below 100 TAKE ONE TABLET BY MOUTH EVERY DAY 90 Tablet 1 3 09/09/19 24 Active Topiramate 50 MG Oral Tablet (topAMAX) TAKE TWO TABLETS BY MOUTH AT BEDTIME 180 Tablet 3 3 07/12/19 24 Active OneTouch Delica Plus [id number] USE TO TEST ONCE DAILY 100 Each 3 3 07/10/19 24 Active Semaglutide (2 MG/DOSE) 8 MG/3ML Subcutaneous Solution Pen-injector (Ozempic) INJECT 2MG UNDER THE SKIN ONCE A WEEK 9 mL 6 2 06/13/20 23 Active Emgality 120 MG/ML Subcutaneous Solution Auto-injector (Galcanezumab-gnlm) Inject 1 mL under the skin every month. 1 mL 5 3 Active Azithromycin 250 MG Oral Tablet (Zithromax) Take 2 tabs by mouth on the first day, then 1 tab daily on days two through five 6 Tablet 0 3 03/27/20 23 Active predniSONE 20 MG Oral Tablet (Deltasone) Take 2 Tablets by mouth in the morning for 5 days. 10 Tablet 0 3 03/27/20 23 Active Ventolin HFA 108 (90 Base) MCG/ACT Inhalation Aerosol Solution Inhale 2 Puffs by mouth in the morning and 2 Puffs at noon and 2 Puffs in the evening and 2 Puffs before bedtime. 18 g 2 3 Active predniSONE 20 MG Oral Tablet (Deltasone)Indicati ons:Medication overuse headache Take 60mg x 3 days, then 40mg x 3 days, then 20mg x 3 days, then 10mg (1/2 tablet) x 3 days then stop. 20 Tablet 0 3 03/22/20 23 Discontinued documented as of this encounter (statuses as of 03/22/2023) Active Problems Problem Noted Date Body mass [...] Patients should report blood sugar levels to [facility] department weekly. - . Dietary consult to be done PANCHO to instruct patient on appropriate nutrition and diet to aid in control of blood sugars. - . If medication is required to control blood sugars, then should have [facility] ultrasound for growth every 4 weeks. [...] as of this encounter (statuses as of 03/22/2023) Resolved Problems Problem Noted Date Resolved Date [...] baseline pre-eclamptic labs - wnl 4. Recommend [facility] ultrasound for anatomy screen at 20 [...] placed 06/22/12.) Supervision of high-risk of emerita porteremmanuel 06/11/2012 09/26/2014 Overview: Sign permit for Bt Induction scheduled 09/14 at 39 1/7. Abnormal maternal glucose to lerance, complicating , childbirth, or the puerperium, unspecified as to episode of care 04/03/2012 06/18/2012 Overview: Failed 3hr GTT at 15 weeks. Director Emergency Services/educator appt ordered, blood sugar supplies ordered Pt has not gotten MA active thus far (04/23/2012) states info is at MA office. Advised pt to call our office when MA is active so we can set up appt for bobbin cleaner and she can get supplies at pharmacy. F/u at next visit to ensure this is done. Encounter for supervision of other normal pregna ncy 02/19/2012 06/18/2012 Overview: Urine culture contaminated at [facility], repeat next visit. Urine culture obtained 02/22/12 Ivy Olivas LPN UTI-rx given. KRIS next visit - contam, consider neg ICD-10 update of inactive term Hx of preeclampsia, prior , currently p regnant 02/19/2012 09/26/2014 Overview: Preeclampsia labs ordered at [facility]--WNL. 24hr urine protein 0.07 Obesity in 02/19/2012 06/18/2012 Overview: Early glucola 175- 3hr GTT ordered documented as of this encounter (statuses as of 03/22/2023) Immunizations Name Administration Dates Next Due COVID-19 mRNA, LNP-s, No Pre serve, 2-Dose Series (Moderna) 11/23/2020,10/24/2020 DT - Diptheria/Tetanus (PEDS) 06/24/2009, 006 DTaP Dipth/Tet/Acell Pertussis (Infanrix), Peds 02/27/1996,10/27/1992,02/16/1991,12/21,1990 Diptheria/Tetanus (Adult) 06/24/2009 Hepatitis B, 0-19 yrs 09/12/2003, 003,08/13/2002,07/16 Hepatitis B, 20+ yrs 09/09/2019,02/26/2019,01/22 IPV - Polio Virus Vaccine (Inact) 1995,10/27/1992,1990,11/03 MMR - Measles/Mumps/Rubella Vaccine 08/28,08/11/2017,02/27/1996,12/22 PPD 08/11/2017,08/04/2017 Pneumococcal Conjugate Vacci ne, 20-valent (Qzevlat15) 06/13/2022 Pneumococcal Polysaccharide PPV23 (Pneumovax) 07/28/2018 Seasonal [...] Never Smokeless Tobacco: Never Tobacco Cessation:Counseling Given: No Alcohol Use Standard Drinks/Week Comments No 0 [...] Sign Reading Time Taken Comments Blood Pressure 122/84 03/22/2023 11:12 AM EDT Pulse 79 03/22/2023 11:12 AM EDT Temperature 36.4 C (97.6 F) 03/22/2023 11:12 AM E DT Respiratory Rate 18 03/22/2023 11:12 AM EDT Oxygen Saturation 99% 03/22/2023 11:12 AM EDT Inhaled Oxygen Concentration - - Weight 131.1 kg (289 lb) 03/22/2023 11:12 AM EDT Height - - Body Mass Index 48.86 02/18/2023 10:49 AM EDT documented in this encounter Patient Instructions * Patient Instructions* Leandra Pierson PA-C - 03/22/2023 11:53 AM EDT Reassurance given. Viral illnesses can last 10-14 days before the symptoms resolve. Treatment is supportive. Rest Increase fluids. OK to take Tylenol or ibuprofen for any aches, pains, fever. Follow directions on package. OK to take over the counter pseudophedrine as needed for congestion. Advised patient this will needto be picked up at the pharmacy counter. OK to use nasal saline 2 spray in each nostril 3-4 times daily as needed. OK to use over the counter Claritin (loratidine) for allergies. Follow directions on package. OK to use over the counter Mucinex DM to help with cough. Follow directions on package. To ER if symptoms worsen including productive cough, or shortness of breath. documented in this encounter Progress Notes * Leandra Pierson PA-C - 03/22/2023 12:16 PM EDT Yvonne Johansen is a 32 year old female who presents with respiratory symptoms for 2 week(s) Patient was accompanied by Self. HPI Severity of Symptoms: mild to moderate Modifying Factors (what was done since onset of symptoms): Mucinex, Robitussin Timing (how often does it occur): daily Quality (feels like): runny/stuffy nose, post nasal drip, hacky cough, chest tightness, ? wheezing ROS Constitutional Symptoms: no fever, no weakness, no fatigue, and no chills Upper Respiratory Symptoms: + chest tightness, + cough-dry, + nasal discharge, clear, and - ear ache, - sore throat, + runny/stuffy nose, + post nasal drip Pulmonary: No sputum, or hemoptysis, +/- wheezing, No shortness of breath, and No recent change in breathing Cardiovascular: No chest pain, No shortness of breath, and No dyspnea on exertion Gastrointestional: No abdominal pain and No nausea, vomiting, diarrhea, or constipation Skin/Integumentary: No rash Symptom duration of 2 weeks Recent illnesses in household: No HISTORY Past Medical History: Diagnosis Date Abnormal finding on Pap smear 2009, 2010 colpo WNL, paps WNL since then Depression 2008 prev on Celexa Endometriosis Hyperlipidemia Migraine Obesity, morbid (more than 100 lbs over ideal weight or BMI > 40) ([facility]) 06/18/2012 1. Recommend restricting weight gain during to 11-20 pounds. Consider referral for nutrition consult. (consult placed) 2. For patients with Class 3 obesity, we recommend baseline pre-eclamptic labs - wnl 4. Recommend [facility] ultrasound for anatomy screen at 20 [...] by Claudio Mendez Jr., MD at [facility] REMOVE TONSILS & ADENOIDS, AGE 12+ 06/30/2007 no comps Social History Tobacco Use Smoking status: Never Smokeless tobacco: Never Substance Use Topics Alcohol use: No Vaping/E-Cigarette Use Vaping/E-Cigarette Substances Vaping/E-Cigarette Devices Current Outpatient Medications Medication Sig Dispense Refill Azithromycin 250 MG Oral Tablet (Zithromax) Take 2 tabs by mouth on the first day, then 1 tab dailyon days two through five 6 Tablet 0 predniSONE 20 MG Oral Tablet (Deltasone) Take 2 Tablets by mouth in the morning for 5 days. 10 Tablet 0 Ventolin HFA 108 (90 Base) MCG/ACT Inhalation Aerosol Solution Inhale 2 Puffs by mouth in the morning and 2 Puffs at noon and 2 Puffs in the evening and 2 Puffs before bedtime. 18 g 2 Multiple Vitamins-Minerals (WOMENS MULTI VITAMIN & MINERAL) TABS Take 1 Tablet by mouth in the morning. Vodat Internationalio IQ System w/Device Kit Test once a day e 1165 1 Kit 1 Fluticasone Propionate 50 MCG/ACT Nasal Suspension Administer into each nostril 2 Sprays in the morning. (Patient not taking: Reported on 03/22/2023) 30 mL 1 moka5Touch Verio In Vitro Strip (Glucose Blood) Test [...] BEDTIME 180 Tablet 3 OneTouch Delica Plus Xfmohs51M USE TO TEST ONCE DAILY 100 Each 3 Semaglutide (2 MG/DOSE) 8 MG/3ML Subcutaneous Solution Pen-injector (Ozempic) INJECT 2MG UNDER THE SKIN ONCE A WEEK 9 mL 6 Emgality 120 MG/ML Subcutaneous Solution Auto-injector (Galcanezumab-gn) Inject 1 mL under the skin every month. 1 mL 5 No current facility-administered medications for this visit. Review of patient's allergies indicates: No Known Allergies Family History Problem Relation Age of Onset [...] Diabetes Aunt (Unspecified) Breast Cancer Aunt (Unspecified) OBJECTIVE BP 122/84 | Pulse 79 | Temp 36.4 C (97.6 F) | Resp 18 | Wt 131.1 kg (289 lb) | SpO2 99% | BMI 48.86 kg/m | BSA 2.44 m Wt Readings from Last 1 Encounters: 03/22/23 131.1 kg (289 lb) General Appearance: awake, alert, no apparent distress HEENT: perrl and eomi tms - clear, normal light reflex, no erythema oral pharynx clear, mucus membranes moist Moderate amount of clear post nasal drip No sinus tenderness or facial pain to percussion + turbinate engorgement and discharge Neck: normal, supple, no adenopathy Respiratory: clear to auscultation, no rhonchi, no wheezes, no crackles, and + tight hacky cough noted Heart: regular rate, regular rhythm, no murmurs , no rubs, and no gallops Skin: skin color, texture, turgor are normal, no rashes or significant lesions Patient Instructions Reassurance given. Viral illnesses can last 10-14 days before the symptoms resolve. Treatment is supportive. Rest Increase fluids. OK to take Tylenol or ibuprofen for any aches, pains, fever. Follow directions on package. OK to take over the counter pseudophedrine as needed for congestion. Advised patient this will needto be picked up at the pharmacy counter. OK to use nasal saline 2 spray in each nostril 3-4 times daily as needed. OK to use over the counter Claritin (loratidine) for allergies. Follow directions on package. OK to use over the counter Mucinex DM to help with cough. Follow directions on package. To ER if symptoms worsen including productive cough, or shortness of breath. ASSESSMENT AND PLAN Bronchitis, complicated (Primary) Other orders - Azithromycin 250 MG Oral Tablet (Zithromax); Take 2 tabs by mouth on the first day, then 1 tab daily on days two through five - predniSONE 20 MG Oral Tablet (Deltasone); Take 2 Tablets by mouth in the morning for 5 days. - Ventolin HFA 108 (90 Base) MCG/ACT Inhalation Aerosol Solution; Inhale 2 Puffs by mouth in the morning and 2 Puffs at noon and 2 Puffs in the evening and 2 Puffs before bedtime. Follow Up: Return in about 1 week (around 03/29/2023) for If no better, follow up with PCP. | For: If no better, follow up with PCP Patient goals for plan of care were discussed Leandra Pierson PA-C [facility] [address] [address] * Concetta Sanders LPN - 03/22/2023 11:10 AM EDT Yvonne Johansen is a 32 year old female who presents to walk-in clinic today complaining of Chief Complaint Patient presents with Cough Other SOB Main Symptoms:cough and increased SOB Cough is productive Fever off and on Home tests negative-has been testing daily for the past week How lon week Tried: robitussin, mucinex, tylenol Pt accompanied by: n/a documented in this encounter Miscellaneous Notes * Pt Handout (on AVS) - Leandra Pierson PA-C - 03/22/2023 12:00 PM EDT Images from the original note were not included. [id number] Bronchitis, Antibiotics (Adult) Bronchitis is inflammation and swelling of the air passages (bronchial tubes) in your lungs. This is often caused by an infection. Symptoms include a dry, hacking cough that is worse at night. The cough may bring up yellow-green mucus. You may also feel short of breath or wheeze. Other symptoms mayinclude tiredness, chest discomfort, fever, and chills. This illness can be spread to other people in the first few days. It is spread through the air by coughing and sneezing. It is also spread by direct contact. This means touching the sick person and then touching your own eyes, nose, or mouth. Bronchitis is most often caused by a virus. It is not often treated with antibiotic medicine. But severe or long-term bronchitis may be treated with antibiotics. Other medicines may be given to help relieve symptoms. Symptoms can last up to 2 weeks. The cough may last much longer. Home care Follow these guidelines when caring for yourself at home: Take the antibiotic medicine exactly as directed. Do not stop taking it, even when you feel better. Finish all of the antibiotic medicine. If your symptoms are severe, rest at home for the first 2 to 3 days. When you go back to your daily tasks, don't let yourself get too tired. Don't smoke. Stay away from secondhand smoke. You may use fqvt-zaj-hlknswt medicines to control fever or pain. Or use another medicine as prescribed. If you have chronic liver or kidney disease or have ever had a stomach ulcer or bleeding in your stomach or intestines, talk with your healthcare provider before using these medicines. Also talk to your provider if you are taking medicine to prevent blood clots. Aspirin should never be takenby anyone younger than age 18 who has a virus or fever. It may cause severe liver or brain damage, or even . Your body needs a lot of fluids now. Drink 6 to 8 glasses of fluids per day. This includes water, soft drinks, sports drinks, juices, tea, or soup. Extra fluids will help loosen mucus in your noseand lungs. Your appetite may be low. A light diet is fine. Yovb-kwg-mrlcsas cough, cold, and sore-throat medicines will not shorten the length of the illness, but they may be helpful to reduce your symptoms. Don't use decongestants if you have high blood pressure. Follow-up care Follow up with your healthcare provider, as advised. If you had an X-ray or ECG (electrocardiogram), you will be told of any new test results that may affect your care. Ask your healthcare provider about the pneumococcal vaccines and a yearly flu shot. There are 2 kinds of pneumococcal vaccines. You may need both. You?re at higher risk of lung infection if any of these apply to you: You are age 65 or older You have a chronic lung disease You have condition that affects your immune system You smoke When to get medical care Call your healthcare provider right away if have any of these: Fever of 100.4F (38C) or higher Coughing up more mucus Facial pain or ear pain Mild weakness, drowsiness, headache, or a stiff neck Call 911 Call 911 if any of these occur: Coughing up blood Weakness, drowsiness, headache, or stiff neck that get worse Trouble breathing, wheezing, or pain with breathing Lips or skin looks blue, purple, or tompkins in color Feeling of doom Last Reviewed Date: 04/30/202119990527-7028 [employer]. All rights reserved. This information is not intended as a substitute for professional medical care. Always follow your healthcare professional's instructions. documented in this encounter Plan of Treatment Upcoming Encounters Date Type Specialty Care Team Description 03/25/2023 Office Visit Otolaryngology Rhea Baker MD [address] [place] [address] 03/31/2023 Office Visit Neurology Serenity Gandara PA-C [address] [facility] [place] [address] 02/19/2024 Office Visit Endocrinology Patricia Coffman MD [address] [facility] [place] [address] Health Maintenance Due Date Last Done [...] as of this encounter Visit Diagnoses Diagnosis Bronchitis, complicated- Primary Bronchitis, not specified as acute or chronic documented in this encounter Care Teams Asw/Asuw Tactical Air Controller Relationship Specialty Start Date End Date Berkley Pavon, DO [address] [place] [address] PCP - General Family Medicine 02/18/23 documented as of this encounter
--- OUTSIDE RECORDS SUMMARY | 2023-07-18 07:28 | External Medical Summary | Summary of Care ---
Author Name Unknown Organization [facility] Address [address] [place] [address] Phone [phone] Care Team Providers Care Extrusion Manager Name Role Phone EdisBerkley arzate Harrison DO Primary Care Provider [phone] Reason for Visit * Reason Comments Outpatient Testing Encounter Details Date Type Department Care Team Description 02/18/2023 Laboratory Outpatient Laboratory, [facility] [address] [place] [id number] [facility], Lab [address] [address] [place] [address] [employer] Other*[id number] Allergies No known active allergiesdocumented as of this encounter (statuses as of 02/18/2023) Medications Medication Sig Dispensed Refills Start Date [...] the morning. 30 mL 1 08/17/2021 Active OneTouch Verio In Vitro Strip (Glucose Blood) Test once a day e 1165 100 Strip 3 08/17/2021 Active Rizatriptan Benzoate 10 MG Oral Tablet Disintegrating Take 1 Tablet by mouth as needed for Migraine. May repeat in 2 hours if needed. Do not take more than 20mg in 24 hours. 10 Tablet 3 07/09/2022 Active Galcanezumab-gnlm 120 MG/ML Subcutaneous Solution Auto-injector (Emgality) INJECT 1 ML UNDER THE SKIN ONCE A MONTH 3 mL 3 07/12/2022 4 Active traZODone HCl 100 MG Oral Tablet [...] 3 07/12/2022 4 Active OneTouch Delica Plus [id number] USE TO TEST ONCE DAILY 100 Each 3 07/10/2022 4 Active Semaglutide (2 MG/DOSE) 8 MG/3ML Subcutaneous Solution Pen-injector (Ozempic) INJECT 2MG UNDER THE SKIN ONCE A WEEK 9 mL 6 04/25/2022 3 Active documented as of this encounter (statuses as of 02/18/2023) Active Problems Problem Noted Date Body mass index (BMI) of 45.0 to 49.9 in adult 10/07/2022 Overview: Per Obesity protocol - bmi= 49.00 01/13/13 Migraine without aura and without status migrainosus, not intractable 05/07/2022 Morbid obesity due to excess calories 03 /05/2020 Iron deficiency anemia due to chronic bl [...] Patients should report blood sugar levels to [facility] department weekly. - . Dietary consult to be done PANCHO to instruct patient on appropriate nutrition and diet to aid in control of blood sugars. - . If medication is required to control blood sugars, then should have [facility] ultrasound for growth every 4 [...] as of this encounter (statuses as of 02/18/2023) Resolved Problems Problem Noted Date Resolved Date [...] Overview: Failed 3hr GTT at 15 weeks. Electrical Integrator/educator appt ordered, blood sugar supplies ordered Pt has not gotten MA active thus far (04/23/2012) states info is at MA office. Advised pt to call our office when MA is active so we can set up appt for pest management supervisor and she can get supplies at pharmacy. F/u at next visit to ensure this is done. Encounter for supervision of other normal pregna ncy 02/19/2012 06/18/2012 Overview: Urine culture contaminated at [facility], repeat next visit. Urine culture obtained 02/22/12 Ivy Olivas LPN UTI-rx given. KRIS next visit - contam, consider neg ICD-10 update of inactive term Hx of preeclampsia, prior , currently p regnant 02/19/2012 09/26/2014 Overview: Preeclampsia labs ordered at [facility]--WNL. 24hr urine protein 0.07 Obesity in 02/19/2012 06/18/2012 Overview: Early glucola 175- 3hr GTT ordered documented as of this encounter (statuses as of 02/18/2023) Immunizations Name Administration Dates Next Due COVID-19 mRNA, LNP-s, No Pre serve, 2-Dose Series (Moderna) 11/23/2020,10/24/2020 DT - Diptheria/Tetanus (PEDS) 06/24/2009, 006 DTaP - Dipth/Tet/Acell Pertussis 996,10/27/1992,02/16/1991,12/21,1990 Diptheria/Tetanus (Adult) 06/24/2009 Hepatitis B, 0-19 yrs 09/12/2003, 003,08/13/2002,07/16 Hepatitis B, 20+ yrs 09/09/2019,02/26/2019,01/22 IPV - Polio Virus Vaccine (Inact) 1995,10/27/1992,1990,11/03 MMR - Measles/Mumps/Rubella Vaccine 08/28,08/11/2017,02/27/1996,12/22 PPD 08/11/2017,08/04/2017 Pneumococcal Conjugate Vacci ne, 20-valent ([id number]) 06/13/2022 Pneumococcal Polysaccharide PPV23 (Pneumovax) 07/28/2018 Seasonal [...] Encounters Date Type Specialty Care Team Description 03/17/2023 Office Visit Otolaryngology Miguel Heard MD [address] [place] [address] 03/31/2023 Office Visit Neurology Serenity Gandara [facility]-C [facility] [place] [id number] 04/01/2023 Appointment Radiology 02/19/2024 Office Visit Endocrinology Patricia Coffman MD [address] [facility] [place] [address] Pending Results Name Type Priority Associated Diagnoses Date /Time MYCODE SUBSEQUENT ADULT Lab Routine MyCode Research Other*[id number] 02/18/2023 11:42 AM EDT MYCODE SST1 Lab Routine MyCode Research Other*[id number] 02/18/2023 11:42 AM EDT MYCODE SST2 Lab Routine MyCode Research Other*[id number] 02/18/2023 11:42 AM EDT Health Maintenance Due Date Last Done Comments HPV/Co-Test 2020 COVID-19 Vaccine (3 - Moderna series) 01/18/2021 11/23/2020, 10/24/2020 DIABETES-FOOT EXAM 02/01/2021 02/02/2020, 03/09/2019 Albumin/Creatinine Ratio 09/28/2022 022, 09/07/2020, 08/19/2019 HbA1c 10/08/2022 04/09/2022, 04/0 06/2021, 03/09/2021, Additional history exists DIABETES-EYE EXAM 12/18/2022 12/18/2021, 04/06/2020 Influenza Vaccine (FLU shot) (#1) 2023 04/03/2022, 04/04/2020, 04/04/2020, Additional history exists Cervical Cancer Screening 04/07/2023 Pap Smear 04/07/2023 04/07/2020, 1002/2020, 05/20/2017, Additional history exists GFR 04/09/2023 04/09/2022, 040 06/2021, 03/09/2021, Additional history exists Depression Screening, Annual for Pts 12 and Over 06/11/2023 06/11/2022 DTaP,Tdap,and Td Vaccines (11 - Td or [...] this encounter Visit Diagnoses Diagnosis MyCode Research Other*[id number] documented in this encounter Care Teams Extrusion Manager Relationship Specialty Start Date End Date Berkley Pavon, DO [address] [place] [address] PCP - General Family Medicine 02/18/23 documented as of this encounter
--- OUTSIDE RECORDS SUMMARY | 2023-07-18 07:28 | External Medical Summary | Summary of Care ---
Author Name Unknown Organization [facility] Address [address] [place] [address] Phone [phone] Care Team Providers Care Bodywork Therapist Name Role Phone EdisBerkley arzate [place] PENALOZA Primary Care Provider [phone] Reason for Visit * Reason Comments Follow Up * Evaluate & Treat - Unlimited Visits (Within 10 days (routine)) - Authorized Specialty Diagnoses / Procedures Referred By Laurie arana Referred To Contact Otolaryngology Diagnoses Left thyroid nodule Multinodular goiter Hearing disorder, unspecified laterality Patricia Coffman MD [address] [place] [address] Referral ID Status Reason Start Date Expiration Date Visits Requested Visits Authorized [id number] Authorized Specialty Services Required 02/18/2023 999 999 Encounter Details Date Type Department Care Team Description 03/25/2023 Office Visit [facility] [place] [address] Rhea Baker MD [address] [place] [address] Otalgia, right*; Pharyngoesophageal dysphagia; Multinodular goiter; Chronic rhinitis; Reflux pharyngitis; Left thyroid nodule [E04.1 (ICD-10-CM)] Allergies No known active allergiesdocumented as of this encounter (statuses as of 03/25/2023) Medications Medication Sig Dispensed Refills Start Date End Date Status Multiple Vitamins-Minerals (WOMENS MULTI VITAMIN & MINERAL) TABS Take 1 Tablet by mouth in the morning. 0 Active [email or web address] IQ System w/Device Kit Test once a [...] 3 07/12/2022 4 Active OneTouch Delica Plus [id number] USE TO TEST ONCE DAILY 100 Each 3 07/10/2022 4 Active Semaglutide (2 MG/DOSE) 8 MG/3ML Subcutaneous Solution Pen-injector (Ozempic) INJECT 2MG UNDER THE SKIN ONCE A WEEK 9 mL 6 04/25/2022 3 Active Emgality 120 MG/ML Subcutaneous Solution Auto-injector (Galcanezumab-[facility]) Inject 1 mL under the skin every [...] Nasal Solution (Astelin)Indications :Chronic rhinitis Administer 1 Lake into nostril in the morning and 1 Lake before bedtime. 30 mL 6 03/25/2023 Active [...] should report blood sugar levels to [facility] department weekly. - . Dietary consult [...] Overview: Failed 3hr GTT at 15 weeks. Resistance Machine Welder Setter/educator appt ordered, blood sugar supplies ordered Pt has not gotten PR active thus far (04/23/2012) states info is at MA office. Advised pt to call our office when MA is active so we can set up appt for institution director and she can get supplies at pharmacy. [...] 02/19/2012 09/26/2014 Overview: Preeclampsia labs ordered at [facility]--WNL. 24hr urine protein 0.07 Obesity in [...] PPD 08/11/2017,08/04/2017 Pneumococcal Conjugate Vacci ne, 20-valent ([id number]) 06/13/2022 Pneumococcal Polysaccharide PPV23 (Pneumovax) 07/28/2018 Seasonal [...] - - Temperature 36.7 C (98.1 F) 03/25/2023 1:13 PM ED T Respiratory Rate - - Oxygen Saturation - - Inhaled Oxygen Concentration - - Weight 129.3 kg (285 lb 1.6 oz) 03/25/2023 1:13 PM EDT Height 163.8 cm (5' 4.49") 03/25/2023 1:13 PM ED T Body Mass Index 48.2 03/25/2023 1:13 PM EDT documented in this encounter Progress Notes * Jonny Johnston PA-C - 03/25/2023 1:00 PM EDT 03/25/2023 HISTORY OF PRESENT ILLNESS Nursing Notes: Esthela Heart LPN 03/25/23 1314 Signed Patient presents today for right sided goiter. Notes her Endocrine provider advised to get seen to discuss possible surgery. She notes right sided hearing loss. Has history of FNA which is benign. She has swallowing issues unable to eat bread. Has a recurrent sore throat. This 32 year old YO female is seen at the request of Patrciia Coffman MD (endocrinology) for the evaluation of [...] IMPRESSION: 1. No significant change in subcentimeter ([id number]) solid LEFT thyroid lobe nodule 2. Nonvisualization of the nodule in the RIGHT lobe identified on the previous exam. 07/11/2022 FNA of left thyroid nodule: A. Thyroid, Left, CT/US guided Fine Needle Aspiration: Adequacy: Satisfactory for evaluation. Category: Benign (Gerton classification II). Interpretation: Benign follicular nodule. Other: [...] List Diagnosis Code Type 2 diabetes mellitus ([facility]) E11.9 Anxiety F41.9 Fatty liver K76.0 Iron deficiency anemia D50.9 PCOS (polycystic ovarian syndrome) E28.2 Major depressive disorder, recurrent episode, moderate ([facility]) F33.1 Iron deficiency anemia due to chronic blood loss D50.0 Morbid obesity due to excess calories ([facility]) E66.01 Migraine without aura and without status migrainosus, not intractable G43.009 Body mass index (BMI) of 45.0 to 49.9 in adult ([facility]) Z68.42 Past Medical History: Diagnosis Date Abnormal finding on Pap smear 2009, 2010 colpo WNL, paps WNL since then Depression 2008 prev on Celexa Endometriosis Hyperlipidemia Migraine Obesity, morbid (more than 100 lbs over ideal weight or BMI > 40) ([facility]) 06/18/2012 1. Recommend restricting weight gain during [...] by Claudio Mendez Jr., MD at OR [facility] REMOVE TONSILS & ADENOIDS, AGE 12+ 06/30/2007 no comps Medications Current Outpatient Medications Medication Sig Dispense Refill Famotidine 10 MG Oral Tablet (Pepcid AC) Take 1 Tablet by mouth in the morning and 1 Tablet before bedtime. 30 Tablet 4 Azelastine HCl 0.1 % Nasal Solution (Astelin) Administer 1 Lake into nostril in the morning and 1 Lake before bedtime. 30 mL 6 Multiple Vitamins-Minerals (WOMENS MULTI VITAMIN & MINERAL) TABS Take 1 Tablet by mouth in the morning. [employer] Verio IQ System w/Device Kit Test once a day e 1165 1 Kit 1 Fluticasone Propionate 50 MCG/ACT Nasal Suspension Administer into each nostril 2 Sprays in the morning. (Patient not taking: Reported on 03/22/2023) 30 mL 1 OneTouch Verio In Vitro Strip (Glucose Blood) [...] BEDTIME 180 Tablet 3 OneTouch Delica Plus [id number] USE TO TEST ONCE DAILY 100 Each 3 Semaglutide (2 MG/DOSE) 8 MG/3ML Subcutaneous Solution Pen-injector (Ozempic) INJECT 2MG UNDER THE SKIN ONCE A WEEK 9 mL 6 Emgality 120 MG/ML Subcutaneous Solution Auto-injector (Galcanezumab-gn) Inject 1 mL under the skin every month. 1 mL 5 Azithromycin 250 MG Oral Tablet (Zithromax) Take [...] 2 Puffs before bedtime. 18 g 2 No current facility-administered medications for this visit. [...] List). PHYSICAL EXAMINATION: Vital Signs: Filed Vitals: 03/25/23 1313 Temp: 36.7 C (98.1 F) TempSrc: Tympanic Weight: 129.3 kg (285 lb 1.6 oz) Height: 1.638 m (5' [...] swallowing. Dr. Rhea Baker performed the procedure. Audiogram: ASSESSMENT: 1. Otalgia, right - AUDIOLOGY LAB 2. Pharyngoesophageal dysphagia - FLUORO SWALLOWING FUNCTION W VIDEO CINE - VOICE LAB 3. Multinodular goiter - FLUORO SWALLOWING FUNCTION W VIDEO CINE - VOICE LAB 4. Chronic rhinitis - Azelastine HCl 0.1 % Nasal Solution (Astelin); Administer 1 Lake into nostril in the morning and1 Lake before bedtime. Dispense: 30 mL; Refill: 6 [...] is reasonable with regards to thyroid nodule Jonny Johnston PA-C Attending Attestation: I performed a history and physical examination of the patient on 03/25/2023 , including specifically on physical exam - see above. I have discussed the patient's management with the advanced practitioner. Please refer to the physician home based assistant's note for the documented findings and plan of care. Rhea Baker MD 03/25/2023 1:40 PM documented in this encounter Nursing Notes * Esthela Heart LPN - 03/25/2023 1:11 PM EDT Patient presents today for right sided goiter. Notes her Endocrine provider advised to get seen to discuss possible surgery. She notes right sided hearing loss. Has history of FNA which is benign. She has swallowing issues unable to eat bread. Has a recurrent sore throat. documented in this encounter Plan of Treatment Upcoming Encounters Date Type Specialty Care Team Description 03/31/2023 Office [facility] [place] [address] 07/01/2023 Office Visit Otolaryngology Rhea Baker MD [address] [place] [address] 07/01/2023 Rehab Services Otolaryngology Ton Mcdermott, GEN-POLICE CAPTAIN SENIOR [address] [place] [address] 02/19/2024 Office Visit Endocrinology Patricia Coffman MD [address] [place] [address] (work) Scheduled Orders Name Type Priority Associated Diagnoses Orde r Schedule FLUORO SWALLOWING FUNCTION W VIDEO CINE Medical Imaging Routine Pharyngoesophageal dysphagia Multinodular goiter Ordered: 03/25/2023 VOICE LAB Procedures Routine Pharyngoesophageal dysphagia Multinodular goiter Ordered: 03/25/2023 AUDIOLOGY LAB Procedures Routine Otalgia, right Ordered: 03/25/2023 Health Maintenance Due Date Last Done Comments [...] as of this encounter Visit Diagnoses Diagnosis Otalgia, right- Primary Pharyngoesophageal dysphagia Dysphagia, pharyngoesophageal phase Multinodular goiter Nontoxic multinodular goiter Chronic rhinitis Reflux pharyngitis Acute pharyngitis Left thyroid nodule [E04.1 (ICD-10-CM)] Nontoxic uninodular goiter documented in this encounter Care Teams Bodywork Therapist Relationship Specialty Start Date End Date Berkley Pavon, DO [address] [place] [address] PCP - General Family Medicine 02/18/23 documented as of this encounter
--- OUTSIDE RECORDS SUMMARY | 2023-07-18 07:28 | External Medical Summary | Summary of Care ---
Author Name Unknown Organization [facility] Address [address] [place] [address] Phone [phone] Care Team Providers Care Hand Roller Name Role Phone Librado Berkley [place] DO Primary Care Provider [phone] Reason for Visit * Reason Comments eRx-Medication Refill Encounter Details Date Type Department Care Team Description 03/06/2023 Refill NeurologyKathy [address] [facility] [place] [address] Serenity Gandara PA-C [address] [facility] [place] [address] Allergies No known active allergiesdocumented as of this encounter (statuses as of 03/07/2023) Medications Medication Sig Dispensed Refills Start Date End Date Status Multiple Vitamins-Minerals (WOMENS MULTI VITAMIN & MINERAL) TABS Take 1 Tablet by mouth in the morning. 0 Active [employer] Verio IQ System w/Device Kit Test once a day e 1165 1 Kit 1 1 Active Fluticasone Propionate 50 MCG/ACT Nasal Suspension Administer into each nostril 2 Sprays in the morning. 30 mL 1 2 Active OneTouch Verio In Vitro Strip (Glucose [...] as directed 5 Kit 0 3 Active predniSONE 20 MG Oral Tablet (Deltasone)Indicati ons:Medication overuse headache Take 60mg x 3 days, then 40mg x 3 days, then 20mg x 3 days, then 10mg (1/2 tablet) x 3 days then stop. 20 Tablet 0 3 Active Additional Information Patient not taking.Reported on 02/18/2023 Atorvastatin Calcium 20 MG Oral Tablet (Lipitor)Indication s:Dyslipidemia, goal LDL below 100 TAKE ONE TABLET BY MOUTH EVERY DAY 90 Tablet 1 3 09/09/19 24 Active Topiramate 50 MG Oral Tablet (topAMAX) TAKE TWO TABLETS BY MOUTH AT BEDTIME 180 Tablet 3 3 07/12/19 24 Active OneTouch Delica Plus [id number] USE TO TEST ONCE DAILY 100 Each 3 3 07/10/19 24 Active Semaglutide (2 MG/DOSE) 8 MG/3ML Subcutaneous Solution Pen-injector (Ozempic) INJECT 2MG UNDER THE SKIN ONCE A WEEK 9 mL 6 2 04/25/20 23 Active Emgality 120 MG/ML Subcutaneous Solution Auto-injector (Galcanezumab-gnlm) Inject 1 ml under the skin monthly 1 mL 5 3 Active Galcanezumab-gnlm 120 MG/ML Subcutaneous Solution Auto-injector (Emgality) INJECT 1 ML UNDER THE SKIN ONCE A MONTH 3 mL 3 3 03/07/20 23 Discontinued documented as of this encounter (statuses as of 03/07/2023) Active Problems Problem Noted Date Body mass [...] Patients should report blood sugar levels to [facility] department weekly. - . Dietary consult to be done PANCHO to instruct patient on appropriate nutrition and diet to aid in control of blood sugars. - . If medication is required to control blood sugars, then should have [facility] ultrasound for growth every 4 [...] as of this encounter (statuses as of 03/07/2023) Resolved Problems Problem Noted Date Resolved Date [...] Overview: Failed 3hr GTT at 15 weeks. Global Safety Officer/educator appt ordered, blood sugar supplies ordered Pt has not gotten MA active thus far (04/23/2012) states info is at MA office. Advised pt to call our office when MA is active so we can set up appt for acid pump operator and she can get supplies at pharmacy. F/u at next visit to ensure this is done. Encounter for supervision of other normal pregna ncy 02/19/2012 06/18/2012 Overview: Urine culture contaminated at [facility], repeat next visit. Urine culture obtained 02/22/12 Ivy Olivas LPN UTI-rx given. KRIS next visit - contam, consider neg ICD-10 update of inactive term Hx of preeclampsia, prior , currently p regnant 02/19/2012 09/26/2014 Overview: Preeclampsia labs ordered at [facility]--WNL. 24hr urine protein 0.07 Obesity in 02/19/2012 06/18/2012 Overview: Early glucola 175- 3hr GTT ordered documented as of this encounter (statuses as of 03/07/2023) Immunizations Name Administration Dates Next Due COVID-19 mRNA, LNP-s, No Pre serve, 2-Dose Series (Moderna) 11/23/2020,10/24/2020 DT - Diptheria/Tetanus (PEDS) 06/24/2009, 006 DTaP Dipth/Tet/Acell Pertussis (Infanrix), Peds 02/27/1996,10/27/1992,02/16/1991,12/21,1990 Diptheria/Tetanus (Adult) 06/24/2009 Hepatitis B, 0-19 yrs 09/12/2003, 003,08/13/2002,07/16 Hepatitis B, 20+ yrs 09/09/2019,02/26/2019,01/22 IPV - Polio Virus Vaccine (Inact) 1995,10/27/1992,1990,11/03 MMR - Measles/Mumps/Rubella Vaccine 08/28,08/11/2017,02/27/1996,12/22 PPD 08/11/2017,08/04/2017 Pneumococcal Conjugate Vacci ne, 20-valent ([id number]) 06/13/2022 Pneumococcal Polysaccharide PPV23 (Pneumovax) 07/28/2018 Seasonal [...] encounter Miscellaneous Notes * Telephone Encounter - Madeline Mayer, [facility] - 03/07/2023 12:44 PM EDTSigned Prescriptions: Disp Refills Emgality 120 MG/ML Subcutaneous Solution A*1 mL 5 Sig: Inject 1 ml under the skin monthlyAuthorizing Provider: Sonja GANDARA User: MADELINE MAYER----- * Telephone Encounter - ROBIN Lunsford Tech - 03/07/2023 10:00 AM EDT Pending Prescriptions: Disp Refills Emgality 120 MG/ML Subcutaneous Solution A*1 mL 0 Sig: INJECT 2ML UNDER THE SKIN THE FIRST MONTH, THEN 1ML MONTHLY THEREAFTER * Telephone Encounter - ROBIN Lunsford Tech - 03/07/2023 9:59 AM EDT Patient is up to date for office visits. Pending Prescriptions: Disp Refills Emgality 120 MG/ML Subcutaneous Solution *1 mL 0 Sig: INJECT 2ML UNDER THE SKIN THE FIRST MONTH, THEN 1ML MONTHLY THEREAFTER Last Visit: 09/18/2022 (in office), Visit date not found (telemedicine) Next Visit: 03/31/2023 If no future appointments scheduled, and last appointment is greater than a year ago, please schedule patient for a follow-up appointment Last date the medication was ordered: 07/12 Pharmacy: [facility] [address] [place] [address] Is this request for a controlled substance?No it is not controlled. Urine Drug Screen: Results for orders placed or performed in visit on 08/07/17 TOX SCREEN, URINE, W/ CONFIRMATION Result Value Amphetamine NEGATIVE Barbiturates NEGATIVE Benzodiazepines NEGATIVE Cannabinoids NEGATIVE Cocaine Metabolite NEGATIVE Morphine / Codeine NEGATIVE METHADONE METABOLITE NEGATIVE OXYCODONE NEGATIVE TOX COMMENT THE ABOVE SCREENING RESULTS ARE PRESUMPTIVE AND CAN ONLY BE USED FOR MEDICAL PURPOSES. POSITIVE RESULTS REFLEX TO CONFIRMATORY TESTING. Cutoff Concentration *Note: Due to a large number of results and/or encounters for the requested time period, some results have not been displayed. A complete set of results can be found in Results Review. Patient Phone Numbers mobile [phone] Labs: Lab Results Component Value Date/Time CREAT 0.7 02/18/2023 11:42 AM CREAT 0.66 09/17/2020 12:00 AM CREAT 0.7 06/13/2020 09:49 AM POTASSIUM 4.2 02/18/2023 11:42 AM POTASSIUM 4.1 09/17/2020 12:00 AM POTASSIUM 4.8 06/13/2020 09:49 AM TSH 2.05 02/18/2023 11:42 AM TSH 1.36 04/06/2020 12:37 PM LDLCALC 71 11/26/2019 03:59 PM LDLDIRECT 74 04/09/2022 11:28 AM LDLDIRECT NOT APPLICABLE 11/26/2019 03:59 PM ALT 23 02/18/2023 11:42 AM ALT 45 (H) 05/01/2020 02:25 PM HGBA1C 5.7 (H) 02/18/2023 11:42 AM HGBA1C 6.7 (H) 04/06/2020 12:37 PM documented in this encounter Plan of Treatment Upcoming Encounters Date Type Specialty Care Team Description 03/11/2023 Appointment Radiology 03/17/2023 Office Visit Otolaryngology Miguel Heard MD [address] [place] [address] 03/31/2023 Office Visit Neurology Serenity Gandara PA-C [address] [facility] [place] [address] 02/19/2024 Office Visit Endocrinology Patricia Coffman MD [address] [place] [address] Health Maintenance Due Date Last [...] filedocumented as of this encounter Care Teams Hand Roller Relationship Specialty Start Date End Date Berkley Pavon, DO [address] [place] [address] PCP - General Family Medicine 02/18/23 documented as of this encounter
--- OUTSIDE RECORDS SUMMARY | 2023-07-18 07:29 | External Medical Summary | Summary of Care ---
Author Name Unknown Organization [facility] Address [address] [place] [address] Phone [phone] Care Team Providers Care Welt Butter Hand Name Role Phone Berkley Pavon DO Primary Care Provider [phone] Reason for Referral * Evaluate & Treat - Unlimited Visits (Within 10 days (routine)) - Authorized Specialty Diagnoses / Procedures Referred By Laurie arana Referred To Contact Otolaryngology Diagnoses Left thyroid nodule Multinodular goiter Hearing disorder, unspecified laterality Fabricio Coffman MD [address] [place] [address] Referral ID Status Reason Start Date Expiration Date Visits Requested Visits Authorized [id number] Authorized Specialty Services Required 02/18/2023 999 999 Question Answer Referral Priority Within 10 days (routine) Reason for Referral Ear Conditions Specific Condition: Hearing Loss Is this sudden hearing loss or post chemotherapy hearing loss? No Reason for Visit * Reason Comments Follow Up Thyroid Status Encounter Details Date Type Department Care Team Description 02/18/2023 Office Visit Endocrinology, [place] [address] [place] [address] Fabricio Coffman MD [address] [place] [address] Left thyroid nodule*; Type 2 diabetes mellitus without complication, without long-term current use of insulin (HCC); Goiter; Multinodular goiter; Hyperlipidemia, unspecified hyperlipidemia type; Hearing disorder, unspecified laterality Allergies No known active allergiesdocumented as of this encounter (statuses as of 02/18/2023) Medications Medication Sig Dispensed Refills Start Date End Date Status Multiple Vitamins-Minerals (WOMENS MULTI VITAMIN & MINERAL) TABS Take 1 Tablet by mouth in the morning. 0 Active Azzure IT IQ System w/Device Kit Test once a day e 1165 1 Kit 1 02/02/2021 Active Fluticasone Propionate 50 MCG/ACT Nasal Suspension Administer into each nostril 2 Sprays in the morning. 30 mL 1 08/17/2021 Active AdsWizzuch Verio In Vitro Strip (Glucose Blood) Test [...] 3 07/12/2022 4 Active OneTouch Delica Plus Aofkii19H USE TO TEST ONCE DAILY 100 Each 3 07/10/2022 4 Active Semaglutide (2 MG/DOSE) 8 MG/3ML Subcutaneous Solution Pen-injector ([employer] INJECT 2MG UNDER THE SKIN ONCE A [...] Patients should report blood sugar levels to [facility] department weekly. - . Dietary consult to be done PANCHO to instruct patient on appropriate nutrition and diet to aid in control of blood sugars. - . If medication is required to control blood sugars, then should have [facility] ultrasound for growth every 4 [...] 03/06/2017 Contusion of knee, left 01/13/2013 03/06/20 Strain of knee and leg, left 01/13/201312/2016 [...] Overview: Failed 3hr GTT at 15 weeks. Collections Manager/educator appt ordered, blood sugar supplies ordered Pt has not gotten MA active thus far (04/23/2012) states info is at [facility] office. 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 F/u at next visit to ensure this is done. Encounter for supervision of other normal pregna ncy 02/19/2012 06/18/2012 Overview: Urine culture contaminated at [facility], repeat next visit. Urine culture obtained 02/22/12 Ivy Olivas LPN UTI-rx given. KRIS next visit - contam, consider neg ICD-10 update of inactive term Hx of preeclampsia, prior , currently p regnant 02/19/2012 09/26/2014 Overview: Preeclampsia labs ordered at [facility]--WNL. 24hr urine protein 0.07 Obesity in 02/19/2012 [...] PPD 08/11/2017,08/04/2017 Pneumococcal Conjugate Vacci ne, 20-valent ([id number]) 06/13/2022 Pneumococcal Polysaccharide PPV23 (Pneumovax) 07/28/2018 Seasonal [...] Sign Reading Time Taken Comments Blood Pressure 131/87 02/18/2023 10:49 AM EDT Pulse 79 02/18/2023 10:49 AM EDT Temperature 37 C (98.6 F) 02/18/2023 10:49 AM EDT Respiratory Rate - - Oxygen Saturation - - Inhaled Oxygen Concentration - - Weight 129.7 kg (286 lb) 02/18/2023 10:49 AM EDT Height 163.8 cm (5' 4.49") 02/18/2023 10:49 AM E DT Body Mass Index 48.35 02/18/2023 10:49 AM EDT documented in this encounter Progress Notes * Fabricio Coffman MD - 02/18/2023 11:07 AM EDT Images from the original note were not included. Follow-up of Nodular thyroid disease Thyroid goiter Dysphagia--not suggestive of compressive symptoms from goiter Type 2 diabetes mellitus Referred by: Augustina Dawkins PA-C History: Goiter Subcentimeter nodules Had a thyroid ultrasound performed on 04/14/2020 Showed: RIGHT LOBE measures 5.4 x 2.2 x 2.3 cm. LEFT LOBE measures 5.6 x 1.9 x 2.4 cm. ISTHMUS measures 0.4 cm AP. IMPRESSION Is diffusely enlarged and heterogeneous in echogenicity thyroid. Several subcentimeter nodules in the left lobe. No prior FNA. No history of head/neck irradiation No history of hyper/hypothyroidism. Hyper or hypothyroid treatment :No. Family history: Thyroid disease: Sister- hypothyroidism Thyroid cancer: Mother- thyroid cancer Mother- ovarian cancer US thyroid: R thyroid lobe: L lobe: Has seen ENT due to her neck symptoms: ENT provided the same recommendations as endocrinology evaluation/ recommendations: Per ENT: Called and spoke with Sterling Haily, reviewed recent ultrasound results. Dr. Sage does not feel that the size of the thyroid gland is not causing her compressive symptoms. Recommending to continue surveillance as recommended by endocrinology. No surgical intervention atthis time. 11/13/2020 ACTH stim test done---due to her [...] 1.36 07/2020 Normal dexamethasone suppression test----ruling out Michelle syndrome Cortisol, Post 1mg Dexamethasone supression <=1.8 ug/dL 0.7 --normal FSH, LH, estradiol Normal thyroid function test DHEA-SULFATE 18 - 391 mcg/dL 150 Interval history: Type 2 DM: Checks BS on and off --does not have a PCP currently to manage diabetes Hemoglobin AIC Results: Lab Results Component Value Date/Time HEMOGLOBIN A1C - [facility] 6.6 (H) 04/09/2022 11:28 AM HEMOGLOBIN A1C - [facility] 7.3 (H) 09/28/2021 11:01 AM HEMOGLOBIN A1C - [facility] 6.7 (H) 03/09/2021 03:26 PM HEMOGLOBIN A1C - [facility] 6.7 (H) 04/06/2020 12:37 PM HEMOGLOBIN A1C - [facility] 7.1 (H) 11/26/2019 03:59 PM HEMOGLOBIN A1C - [facility] 9.2 (H) 07/23/2019 04:15 PM -on Ozempic 1 mg per week -Jardiance 10 mg daily--stopped- [...] of thyroid cancer (mother with lymphnode Mets) -she would like to have the biopsy done Status post FNA: 07/11/2022: A. Thyroid, Left, CT/US guided Fine Needle Aspiration: Adequacy: Satisfactory for evaluation. Category: Benign (Keyes classification II). Interpretation: Benign follicular nodule. Other: Cellblock: The histological sections of the cellblock preparation are hypocellular. Evaluations: TSH Results: Lab Results Component Value Date/Time TSH - [facility] 2.03 04/09/2022 11:28 AM TSH - [facility] 2.49 09/28/2021 11:01 AM TSH - [facility] 2.62 03/09/2021 03:26 PM TSH - [facility] 1.36 04/06/2020 12:37 PM TSH - [facility] 3.09 01/01/2018 11:42 AM TSH - [facility] 1.62 05/20/2017 09:34 AM TSH RECEPTOR AB 2.40 (H) 04/27/2020 12:19 PM Imagin03/2022: FINDINGS: Right thyroid lobe: 3.5 x 2.4 [...] and/or repeat FNA of the dominant nodule. 11/02/2020: Ultrasound neck: FINDINGS The thyroid is enlarged and heterogeneous in echotexture. The right lobe measures 6.0 x 1.8 x 2.1 cm. The isthmus measures 3 mm. The left lobe measures 5.6 x 1.6 x 2.2 cm. Left subcentimeter thyroid nodules are noted. IMPRESSION Enlarged heterogeneous thyroid gland with several subcentimeter left nodules. 05/03/2020 CT neck:----did not show any airway [...] 1 Tablet by mouth in the morning. Azzure IT IQ System w/Device Kit Test once a day e 1165 1 Kit 1 Fluticasone Propionate 50 MCG/ACT Nasal Suspension Administer into each nostril 2 Sprays in the morning. 30 mL 1 SproutelTouch Verio In Vitro Strip (Glucose Blood) Test once a day e 1165 100 Strip 3 Rizatriptan Benzoate 10 MG Oral Tablet Disintegrating Take 1 Tablet by mouth as needed for Migraine. May repeat in 2 hours if needed. Do not take more than 20mg in 24 hours. 10 Tablet 3 Galcanezumab-gnlm 120 MG/ML Subcutaneous Solution Auto-injector ([employer]) INJECT 1 ML UNDER THE SKIN ONCE A MONTH 3 mL 3 traZODone HCl 100 MG Oral Tablet (Desyrel) One tablet daily at bedtime 30 Tablet 5 Clindamycin Phosphate 1 % External Gel Apply topically to affected area 2 times a day. To affected area of skin. 60 g 11 Atorvastatin Calcium 20 MG Oral Tablet (Lipitor) TAKE ONE TABLET BY MOUTH EVERY DAY 90 Tablet 1 Topiramate 50 MG Oral Tablet (topAMAX) TAKE TWO TABLETS BY MOUTH AT BEDTIME 180 Tablet 3 OneTouch Delica Plus Uhijrp44L USE TO TEST ONCE DAILY 100 Each 3 Semaglutide (2 MG/DOSE) 8 MG/3ML Subcutaneous Solution Pen-injector (Ozempic) INJECT 2MG UNDER THE SKIN ONCE A WEEK 9 mL 6 Clinitest Rapid COVID-19 Test In Vitro Kit (COVID-19 At Home Antigen Test) test as directed 5 Kit 0 predniSONE 20 MG Oral Tablet (Deltasone) Take 60mg x 3 days, then 40mg x 3 days, then 20mg x 3 days, then 10mg (1/2 tablet) x 3 days then stop. (Patient not taking: Reported on 02/18/2023) 20 Tablet 0 No current facility-administered medications for this visit. ROS As above in HPI PE Filed Vitals: 02/18/23 1049 BP: 131/87 Pulse: 79 Temp: 37 C (98.6 F) Weight: 129.7 kg (286 lb) Height: 1.638 m (5' 4.49") Body mass index is 48.35 kg/m. General appearance: Well-developed, well-nourished, not in [...] above. Labs and imaging as above IMP 1. Goiter 2. Subcentimeter thyroid nodules 3. Dysphagia 4. Obesity, weight gain--Michelle syndrome is ruled out by normal dexamethasone suppression 5. Type 2 diabetes mellitus at young age Excellent diabetes control now -updated labs 6. 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 Details as above --due for updated labs and repeat ultrasound neck PLAN/patient instructions: As above Reviewed all the testing, imaging in detail with the patient -get the updated labs -plan to repeat ultrasound neck around March 2023 -ENT evaluation for your pain and hearing exam--referral is placed Follow-up in 1 year or sooner based on the above If she will need assistance with diabetes management in between we could place a referral to be seen at [facility] clinic Plan Hemoglobin A1C Comprehensive Metabolic Panel TSH with Free T4 if indicated US Head and Neck Otolaryngology Referral Op Follow-up: Return in about 1 year (around 02/19/2024). | Check-out note: With me I spent a total of 30-39 minutes (exact time 30 mins) on the date of service in preparation, delivery, and documentation of the care provided to Yvonne Johansen excluding any time spent in the performance of separately billed services. Thank you for allowing us to participate in the care of this patient FABRICIO COFFMAN MD Division of endocrinology documented in this encounter Nursing Notes * YENNIFER Courtney ASSIST - 02/18/2023 10:42 AM EDT Patient was instructed to not get up [...] Encounters Date Type Specialty Care Team Description 02/18/2023 Laboratory Laboratory [facility], [facility] [address] [place], [place] [id number] [employer] Other*[id number] 03/17/2023 Office Visit Otolaryngology Miguel Heard MD [address] [place], [place] [id number] 03/31/2023 Office Visit Neurology Serenity Gandara PA-C [address] [place] [address] 04/01/2023 Appointment Radiology 02/19/2024 Office Visit Endocrinology Fabricio Coffman MD [address], [place] [id number] Scheduled Orders Name Type Priority Associated Diagnoses Orde r Schedule HEMOGLOBIN A1C Lab Routine Left thyroid nodule Type 2 diabetes mellitus without complication, without long-term current use of insulin (HCC) Goiter Multinodular goiter Hyperlipidemia, unspecified hyperlipidemia type Ordered: 02/18/2023 COMPREHENSIVE METABOLIC PANEL Lab Routine Left thyroid nodule Type 2 diabetes mellitus without complication, without long-term current use of insulin (HCC) Goiter Multinodular goiter Hyperlipidemia, unspecified hyperlipidemia type Ordered: 02/18/2023 TSH WITH FREE T4 IF INDICATED Lab Routine Left thyroid nodule Type 2 diabetes mellitus without complication, without long-term current use of insulin (HCC) Goiter Multinodular goiter Hyperlipidemia, unspecified hyperlipidemia type Ordered: 02/18/2023 US HEAD AND NECK Medical Imaging Routine Left thyroid nodule Type 2 diabetes mellitus without complication, without long-term current use of insulin (HCC) Goiter Multinodular goiter Hyperlipidemia, unspecified hyperlipidemia type Ordered: 02/18/2023 Scheduled Referrals Name Type Priority Associated Diagnoses Orde r Schedule OTOLARYNGOLOGY REFERRAL OP Referral Within 10 days (routine) Left thyroid nodule Multinodular goiter Hearing disorder, unspecified laterality Ordered: 02/18/2023 Health Maintenance Due Date Last Done Comments [...] 05/20/2017, Additional history exists GFR 04/09/2023 04/09/2022, 04/0 06/2021, 03/09/2021, Additional history exists Depression Screening, [...] as of this encounter Visit Diagnoses Diagnosis Left thyroid nodule- Primary Nontoxic uninodular goiter Type 2 diabetes mellitus without complication, without long-term current use of insulin (HCC) Goiter Goiter, unspecified Multinodular goiter Nontoxic multinodular goiter Hyperlipidemia, unspecified hyperlipidemia type Hearing disorder, unspecified laterality [employer] Other*[id number] documented in this encounter Care Teams Welt Butter Hand Relationship Specialty Start Date End Date Berkley Pavon, DO [address] [place] [address] PCP - General Family Medicine 02/18/23 documented as of this encounter
--- OUTSIDE RECORDS SUMMARY | 2023-07-18 07:29 | External Medical Summary ---
Author Name Unknown Address Unknown Organization [id number]:LABORATORY [facility] [place] - [address] [place] [address] Laboratory Report Ordering Provider Test Date Status TARYNCAMDENVALENTIN 02/18/2023 11:42:07 Final Observation Date Value Abnormality Reference (Units ) Status TSH 02/18/2023 11:42:07 2.05 0.27-4.20 (uIU/mL) Final Performing Location LABORATORY [facility] - [address] [place] [address]
--- OUTSIDE RECORDS SUMMARY | 2023-07-18 07:29 | External Medical Summary ---
Author Name Unknown Address Unknown Organization [id number]:LABORATORY [facility] [place] - [address] [place] [address] Laboratory Report Ordering Provider Test Date Status JOSE LU 02/18/2023 11:42:07 Final Observation Date Value Abnormality Reference (Units ) Status MYCODE SPECIMEN-SST 02/18/2023 11:42:07 Freezing of extracted DNA, whole blood and/or serum. Final Performing Location LABORATORY [facility] [place] - [address] [place] [address]
--- OUTSIDE RECORDS SUMMARY | 2023-07-18 07:29 | External Medical Summary ---
Author Name Unknown Address Unknown Organization [id number]:[facility]ATORY [facility] [place] [address] [place] [address] Laboratory Report Ordering Provider Test Date Status VALENTIN REGALADO 02/18/2023 11:42:07 Final Observation Date Value Abnormality Reference (Units ) Status BUN 02/18/2023 11:42:07 12 6-20 (mg/dL) Final Creatinine 02/18/2023 11:42:07 0.7 0.5-1.0 (mg/dL) Final Glomerular filtration rate/1.73 sq M.predicted [Volume Rate/Area] in Serum, Plasma or Blood by Creatinine-based formula (CKD-EPI) 02/18/2023 11:42:07 >90 >=60 (mL/min) Final eGFR is calculated based on the CKD-EPI 2020 equation SODIUM 02/18/2023 11:42:07 142 135-146 (m mol/L) Final Potassium 02/18/2023 11:42:07 4.2 3.5-5.1 (m mol/L) Final Cl 02/18/2023 11:42:07 110 Above high normal 98 -107 (mmol/L) Final CO2 02/18/2023 11:42:07 24 22-32 (mmo l/L) Final Anion gap 02/18/2023 11:42:07 8 7-15 (mmol /L) Final Glucose 02/18/2023 11:42:07 96 70-120 (mg /dL) Final Albumin 02/18/2023 11:42:07 4.1 3.8-5.0 (g /dL) Final AST (Aspartate aminotransferase) 02/18/2023 11:42:07 19 10-35 (U/L) Fin al Alk Phos 02/18/2023 11:42:07 99 35-130 (U/ L) Final Bilirubin, Total 02/18/2023 11:42:07 0.7 <=1 .2 (mg/dL) Final Calcium 02/18/2023 11:42:07 9.5 8.4-10.2 ( mg/dL) Final Protein 02/18/2023 11:42:07 6.9 6.0-8.3 (g /dL) Final ALT (Alanine aminotransferase) 02/18/2023 11:42:07 23 10-35 (U/L) Kenroy arechiga Performing Location LABORATORY [facility] [place] [address] [facility] [address]
--- OUTSIDE RECORDS SUMMARY | 2023-07-18 07:29 | External Medical Summary ---
Author Name Unknown Address Unknown Organization K01:LABORATORY [facility] [place] - [address] [place] [id number] Laboratory Report Ordering Provider Test Date Status JOSE LU 02/18/2023 11:42:07 Final Observation Date Value Abnormality Reference (Units ) Status MYCODE SPECIMEN-SST 02/18/2023 11:42:07 Freezing of extracted DNA, whole blood and/or serum. Final Performing Location LABORATORY [facility] [place] - [address] [place] [address]
[2023-07-18] MEDS ORDERED: ACETAMINOPHEN 1000 MG/100 ML IV IV ONE (07:30)
[2023-07-18] MEDS ORDERED: ROCURONIUM BROMIDE 10 MG/ML 5 ML VIAL IV ONE ×2 (08:10→08:25)
[2023-07-18] MEDS ORDERED: SUGAMMADEX SODIUM 200 MG/2 ML VIAL IV ONE (08:10)
[2023-07-18] MEDS ORDERED: GLYCOPYRROLATE 0.2 MG/ML VIAL ONE (08:10)
[2023-07-18] MEDS ORDERED: FLOSEAL HEMOSTATIC MATRIX 10ML TOP ONE (09:19)
[2023-07-18] MEDS ORDERED: ALBUTEROL HFA 8 GM INHALER INH ONE (09:21)
[2023-07-18] MEDS ORDERED: KETOROLAC 30 MG/ML VIAL ONE (09:31)
[2023-07-18] MEDS: fentaNYL citrate PF 100 MCG/2 ML VIAL IV PRN ×4 (10:10→10:30)
[2023-07-18] MEDS ORDERED: SIMETHICONE 80 MG CHEW PO PRN (10:29)
[2023-07-18] MEDS ORDERED: ACETAMINOPHEN 325 MG TAB PO PRN (10:29)
[2023-07-18] MEDS ORDERED: bisacodyL 10 MG SUPP PR PRN (10:29)
[2023-07-18] MEDS ORDERED: oxyCODONE/ACETAMINOPHEN 5mg/325mg TAB PO PRN ×2 (10:29)
[2023-07-18] MEDS ORDERED: KETOROLAC 30 MG/ML VIAL IV PRN (10:29)
[2023-07-18] MEDS ORDERED: MAGNESIUM HYDROXIDE SUSP 30 ML UDC PO PRN (10:29)
[2023-07-18] MEDS ORDERED: PROMETHAZINE HCL 12.5 MG in SODIUM CHLORIDE 0.9% 50 ML IV PRN (10:29)
[2023-07-18] MEDS ORDERED: SIMETHICONE 80 MG CHEW PO SCH (10:30)
--- NOTE | 2023-07-18 10:33 | Post Operative Brief Note ---
Immediate Post Op Note v1 Date of Surgery July 18, 2023 Pre & Post Diagnosis Operation Date: 07/18/23 07:00 Pre-Op Diagnosis: Failed Endometrial Ablation and Menorrhagia Post-Op Diagnosis: Failed Endometrial Ablation and Menorrhagia I identified the patient and participated in the time-out.: Yes Procedure Operation Date: 07/18/23 07:00 Actual Procedures p Total Laparoscopic Hysterectomy, Bilateral Salpingectomy and Cystoscopy(Not Applicable) - Demetrio Ge MD Surgeon Demetrio Ge MD Degreaser Operator [email or web address] story Estimated Blood Loss 10 Findings Consistent with Post-Op Diagnosis Drains Potts Catheter
--- NOTE | 2023-07-18 10:39 | Anesthesiology Progress Note ---
Date of Service July 18, 2023 Anesthesia Post Procedure Vital Signs Vital Signs: Temp Pulse Pulse Resp BP Pulse Ox O2 Del Method 07/18/23 10:30 70 12 129/82 100 Oxymask 07/18/23 10:20 60 19 126/87 98 Oxymask 07/18/23 10:10 75 15 121/85 100 Oxymask 07/18/23 10:00 66 23 131/80 100 Oxymask 07/18/23 09:53 36.6 C 80 16 137/81 97 Oxymask 07/18/23 05:59 36.7 C 82 20 133/83 99 Room Air O2 Flow Rate 07/18/23 10:30 3 07/18/23 10:20 3 07/18/23 10:10 3 07/18/23 10:00 5 07/18/23 09:53 5 07/18/23 05:59 Pain Intensity Bilateral Lower Abdomen: Pain Intensity: 4 Bilateral Abdomen: Pain Intensity: 4 Transfer of Care Handoff Completed per policy Notes Mental Status: alert / awake / arousable Patient Amnestic to Procedure: Yes Nausea / Vomiting: adequately controlled Pain: adequately controlled Airway Patency, RR, SpO2: stable & adequate BP & HR: stable & adequate Hydration State: stable & adequate Anesthetic Complications: no major complications apparent and Pt Satisfied with anesthetic care
[2023-07-18] MEDS ORDERED: IBUPROFEN 600 MG TAB PO SCH (13:00)
[2023-07-18] MEDS: IBUPROFEN 600 MG TAB PO PRN (13:17)
--- NOTE | 2023-07-18 13:55 | Operative Report ---
Post Operative Report Pre & Post Diagnosis Operation Date: 07/18/23 07:00 Pre-Op Diagnosis: Failed Endometrial Ablation and Menorrhagia Post-Op Diagnosis: Failed Endometrial Ablation and Menorrhagia I identified the patient and participated in the time-out.: Yes Procedure Operation Date: 07/18/23 07:00 Actual Procedures p Total Laparoscopic Hysterectomy, Bilateral Salpingectomy and Cystoscopy(Not Applicable) - Demetrio Ge MD Surgeon Demetrio Ge MD [employer] D[employer] vishnu Briones Estimated Blood Loss 10 Findings Consistent with Post-Op Diagnosis Normal female escutcheon no lesions in the vagina or vulva. Laparoscopic findings showed uterus about 12 to 14 weeks size. Ovaries Appeared cystic and enlarged. Patient is morbidly obese and has history of PCOS and diabetes. The ovaries have a grossly look normal. Both ureters are seen. Cystoscopic cystoscopy findings show Fluids IVF: 1000ml EBL; 10 ml Urine ; 400ml Specimens Cervix left and right fallopian tubes. Drains None Anesthesia Type General Complications none Disposition Accompanied Patient To Recovery: Yes Indications Menorrhagia failed endometrial ablation. Description of Procedure FINDINGS: DESCRIPTION OF PROCEDURE: The patient was prepped and draped in normal sterile fashion in the dorsal lithotomy position. Potts catheter was placed without difficulty. An [employer] uterine manipulator was placed in the uterus to help with colpotomy. Attention was paid to the abdominal part of the procedure where a supraumbilical incision was made and carried down to the fascia. Tere was used to grab the fascia. Veress needle was introduced into the abdomen at a 45-degree angle while tenting up the abdomen. Intra-abdominal placement was confirmed with a water-filled syringe. A water drop and suction test was performed. The abdomen was insufflated with CO2 gas. The Veress needle was removed and a 5 mm non bladed trocar was attached to a laparoscope was introduced into the abdomen under direct visualization. This was a non bladed trocar. Once inside the abd omen, laparoscope was repositioned. Inspection of the abdomen shows the findings as dictated above. Three more accessory ports were placed, two 5 mm accessory ports were placed in the lower abdomen on the contralateral side, in addition, an 11 mm trocar was placed on the left upper quadrant. General inspection of the abdomen and pelvis was performed as dictated above. There was an adhesion of omentum to the umbilicus. This omentum was examined. There was no bowel in the omentum, so the LigaSure was passed through one of the contralateral port and dissection of the omentum from the abdominal wall was performed. There was good hemostasis. Left and right fallopian tubes, the ureters, uterosacrals, bowels, appendix were examined and identified. LigaSure was passed through the left accessory port. The fallopian tube was identified and grabbed 4 cm from the cornua of the uterus with the LigaSure and transected. This was followed by opening of the left anterior leaf of the broad ligament. This allowed for fenestration of the posterior left broad ligament. The mid-section of the left fallopian tube, utero-ovarian and meso-ovarian pedicles were transected as well. Same procedure was performed on the contralateral side. The anterior broad ligament dissection was carried to the mid-section of the vesicouterine peritoneum over the bladder using the Harmonic scalpel. Same procedure was carried out on the contralateral side. The posterior broad ligament peritoneum was carefully dissected also from both sides over the uterosacral arch in order to displace the ureters laterally. Using traction and countertraction, the [place] retractor and irrigation probe was used to further dissect the bladder off the lower segment of the uterus. Bladder pillars and pubovesical fascia was dissected as well. Harmonic scalpel was used to obtain hemostasis where needed. Uterine manipulator was now palpable over the vaginal tissue. The right uterine pedicles were skeletonized and coagulated with the LigaSure. Good hemostasis was obtained. Same procedure was performed on the contralateral side. Cardinal ligaments were transected on both sides. Once good hemostasis was obtained, colpotomy was performed using the LigaSure hook from both sides. Uterus was removed through the vagina while still attached to the uterine manipulator. The bulb was attached to the uterine manipulator was reinserted into the vagina to establish pneumoperitoneum. With a grasper, the remaining section of the left ovary and tube were positioned anteromedially. Both tube and ovary was removed. Same procedure was performed on both sides. EndoStitch closure device was passed through the 11 mm port on the left. Using the [place] grasper for traction, colpotomy closure was performed. The uterosacral ligaments incorporated into the closure in order to decrease the risk of prolapse. Lapro ties were used with the EndoStitch. The 11-mm trocar site was closed with a Avelino-Turner under direct visualization. Attention was paid to the cystoscopy part of the procedure where a cystoscope was introduced into the bladder. There are no sutures seen in the bladder. There were no gross blood seen in the bladder as well. The bubble sign is noted showing the bladder was a close cavity. Both ureters were seen and there was efflux from both uterus. The skin incisions are closed with Dermabond, except for the 11-mm trocar site, which was closed with 4-0 Monocryl. The patient was returned to recovery in stable condition. Inspection of the vagina shows the vaginal cuff was intact. All instruments were removed from the vagina and the bladder and accounted for x2. I attest to the content of the Intraoperative Record and any orders documented therein. Any exceptions are noted below. [employer] was necessary for retraction and manipulation of instruments in order to provide for a safe operation
--- OUTSIDE RECORDS SUMMARY | 2023-07-18 15:48 | External Medical Summary | Summary of Care ---
Author Name Unknown Organization [facility] Address [address] [place] [address] Phone [phone] Care Team Providers Care Manager Solution Name Role Phone Unavailable Primary Care Provider Unavailabl e Encounter Details Date Type Department Care Team (Late st Contact Info) Description 07/18/2023 Result Scan Unspecified Department Demetrio Ge MD [address] [place] [address] <No scans attached> Allergies No known active allergiesdocumented as of this encounter (statuses as of 07/18/2023) Medications Medication Sig Dispensed Refills Start Date End Date Status Multiple Vitamins-Minerals (WOMENS MULTI VITAMIN & MINERAL) TABS Take 1 Tablet by mouth in the morning. 0 Active [employer] Verio IQ System w/Device Kit Test once [...] BEDTIME 180 Tablet 3 07/12/2022 4 Active Emgality 120 MG/ML Subcutaneous Solution [...] Nasal Solution (Astelin)Indications :Chronic rhinitis Administer 1 Eleroy into nostril in the morning and 1 Eleroy before bedtime. 30 mL 6 03/25/2023 Active [...] 06/24/2023 Active Vitamin D (Ergocalciferol) 1.25 MG (72120 UT) Oral Capsule (Drisdol) Take 1 Capsule by mouth once a week. 8 Capsule 0 06/24/2023 Active documented as of this encounter (statuses as of 07/18/2023) Active Problems Problem Noted Date Diagnosed Date [...] macrosomia/IUGR exist, then recommend twice weekly NST/weekly LOIVA starting at 32 weeks and delivery after [...] as of this encounter (statuses as of 07/18/2023) Resolved Problems Problem Noted Date Diagnosed Date [...] pre-eclamptic labs - wnl 4. Recommend [facility] ultrasound for anatomy screen at 20 [...] Overview: Failed 3hr GTT at 15 weeks. House Rn/educator appt ordered, blood sugar supplies ordered Pt has not gotten MA active thus far (04/23/2012) states info is at [facility] office. Advised pt to call our office when MA is active so we can set up appt for reconciliation clerk and she can get supplies at pharmacy. [...] as of this encounter (statuses as of 07/18/2023) Immunizations Name Administration Dates Next Due COVID-19 mRNA, LNP-s, No Pre serve, 2-Dose Series (Moderna) 11/23/2020,10/24/2020 DT - Diptheria/Tetanus (PEDS) 06/24/2009, 006 DTaP Dipth/Tet/Acell Pertussis (Infanrix), Peds 02/27/1996,10/27/1992,02/16/1991,12/21,1990 Diptheria/Tetanus (Adult) 06/24/2009 Hepatitis B, 0-19 yrs 09/12/2003, 003,08/13/2002,07/16 Hepatitis B, 20+ yrs 09/09/2019,02/26/2019,01/22 IPV - Polio Virus Vaccine (Inact) 1995,10/27/1992,1990,11/03 MMR - Measles/Mumps/Rubella Vaccine 08/28,08/11/2017,02/27/1996,12/22 PPD 08/11/2017,08/04/2017 Pneumococcal Conjugate Vacci ne, 20-valent ([id number]) 06/13/2022 Pneumococcal Polysaccharide PPV23 (Pneumovax) 07/28/2018 Seasonal [...] Description 07/22/2023 11:20 AM EST Office Visit [facility] [address] [place] [phone] Ashish Vicente MD [address] [place] [address] 08/04/2023 11:30 AM EST Office Visit Gynecology/Obstetrics Miguelito Ashraf [address] [facility] [place] [address] Demetrio eG MD [address] [place] [address] 12/02/2023 7:00 AM EDT Appointment Radiology, [facility] [address] [facility] [place] [address] 12/19/2023 11:30 AM EDT Office Visit Endocrinology, [place] [address] [place] [address] Edgar Suazo CRNP [address] [place] [address] 02/19/2024 10:00 AM EDT Office Visit Endocrinology, [address] [address] Patricia Coffman MD 03/31/2024 7:40 AM EDT Office Visit Neurology, [place] [address] [facility] [place] [address] Serenity Gandara PA-C [address] [facility] [place] [address] Health Maintenance Due Date Last Done Comments [...] Procedure Name Priority Date/Time Associated Diagnosis Comments OUTSIDE LAB RESULTS 07/18/2023 documented in this encounter Results * OUTSIDE LAB RESULTS (07/18/2023) 07/18/2023 Demetrio Ge MD LABORATORY documented in this encounter
[2023-07-18] MEDS: oxyCODONE/ACETAMINOPHEN 5mg/325mg TAB PO PRN (16:11)
[2023-07-18] MEDS: CHECK SCOPOLAMINE PATCH PLACEMENT SCH (16:22)
--- NOTE | 2023-07-18 18:56 | Electrocardiogram Report ---
Test Reason : Blood Pressure : / mmHG Vent. Rate : 077 BPM Atrial Rate : 077 BPM P-R Int : 186 ms QRS Dur : 090 ms QT Int : 386 ms P-R-T Axes : 026 017 033 degrees QTc Int : 436 ms Normal sinus rhythm Normal ECG When compared with ECG of 03-NOV-2020 10:27, No significant change was found Confirmed by Best Saez ([id number]) on 07/18/2023 6:55:47 PM Referred By: Demetrio Ge Confirmed By:Best Saez
[2023-07-18] MEDS: DOCUSATE SODIUM 100 MG CAP PO SCH (20:23)
[2023-07-18] MEDS ORDERED: DOCUSATE SODIUM 100 MG CAP PO SCH (21:00)
[2023-07-19] MEDS: CHECK SCOPOLAMINE PATCH PLACEMENT SCH ×2 (00:30→09:24)
--- NOTE | 2023-07-19 00:45 | Gynecologic Progress Note ---
Date of Service July 19, 2023 Assessment & Plan Admission and Anticipated Discharge Date Admission Date: July 18, 2023 Subjective Postop day # 1 Patient is seen and examined Feels well, no complaints Pain is under control with oral meds No CP/ SOB/ Dizziness/ N&V/ VB/ Leg pain OOB to BR and hallway many times Tolerating regular diet Flatus neg Vital Signs Temp Pulse Resp BP BP Pulse Ox O2 Del Method 07/18/23 19:20 37.1 C 77 16 93/63 L Room Air 07/18/23 14:30 36.6 C 72 18 133/84 96 Room Air 07/18/23 13:07 36.4 C L 68 20 130/86 97 Room Air Lab Results 07/18/23 07/18/23 07/18/23 Range/Units 05:43 05:52 09:57 Sodium 141 (136-145) mmol/L Potassium 3.4 L (3.5-5.1) mmol/L Chloride 110 H (98-107) mmol/L Carbon Dioxide 26 (21-32) mmol/L Anion Gap 5 (3-11) BUN 12 (6-23) mg/dl Creatinine 0.71 (0.6-1.2) mg/dl Est Cr Clr Drug Dosing 154.4 ml/min Est GFR ( Amer) 130.6 ml/min Est GFR (Non-Af Amer) 112.7 ml/min BUN/Creatinine Ratio 16.9 (10-20) Glucose 136 H (70-99(Fasting)) mg/dl POC Glucose 135 H 210 H (70-99) mg/dl Calcium 8.8 (8.6-10.3) mg/dl POC Ur Test NEG (NEG) Blood Type A Positive Antibody Screen NEGATIVE 07/18/23 Range/Units 17:08 Sodium (136-145) mmol/L Potassium (3.5-5.1) mmol/L Chloride (98-107) mmol/L Carbon Dioxide (21-32) mmol/L Anion Gap (3-11) BUN (6-23) mg/dl Creatinine (0.6-1.2) mg/dl Est Cr Clr Drug Dosing ml/min Est GFR ( Amer) ml/min Est GFR (Non-Af Amer) ml/min BUN/Creatinine Ratio (10-20) Glucose (70-99(Fasting)) mg/dl POC Glucose 147 H (70-99) mg/dl Calcium (8.6-10.3) mg/dl POC Ur Test (NEG) Blood Type Antibody Screen PE: General: Alert, orientedx3, NAD CVS: S1S2 RRR Lungs: CTAB Abd: soft, NT, ND, BS+, Incisions C/D/I No VB Ext: NT, no edema/ erythema AP: 32 yo female s/p TLH , pod#1 VSS Afebrile doing well Continue to routine postop care Encourage PO intake, may ambulate Anticipate DC after breakfast Discussed when to call Results & Data Vital Signs (Past 12 Hours) Vital Signs Temp Pulse Resp BP BP Pulse Ox O2 Del Method 07/18/23 19:20 37.1 C 77 16 93/63 L Room Air 07/18/23 14:30 36.6 C 72 18 133/84 96 Room Air 07/18/23 13:07 36.4 C L 68 20 130/86 97 Room Air
[2023-07-19] MEDS: IBUPROFEN 600 MG TAB PO PRN ×2 (04:44→09:22)
[2023-07-19 08:20] LABS: Basophils # (auto) 0.04 K/uL (0.00-0.20); Basophils % (auto) 0.3 %; Eosinophils # (auto) 0.03 K/uL (0.00-0.50); Eosinophils % (auto) 0.3 %; Hematocrit (blood only) 36.5 % (37.0-47.0); Hemoglobin 12.3 g/dl (12.0-16.0); Immature Granulocytes # (auto) 0.05 K/uL (0.01-0.20); Immature Granulocytes % (auto) 0.4 %; Lymphocytes # (auto) 2.47 K/uL (1.20-3.40); Lymphocytes % (auto) 21.3 %; Mean Corpuscular Hemoglobin 28.9 pg (25.0-34.0); Mean Corpuscular Hgb Conc 33.7 g/dL (32.0-36.0); Mean Corpuscular Volume 85.7 fL (80.0-100.0); Mean Platelet Volume 9.8 fL (9.4-12.4); Monocytes # (auto) 0.72 K/uL (0.11-0.59); Monocytes % (auto) 6.2 %; Neutrophils # (auto) 8.29 K/uL (1.40-6.50); Neutrophils % (auto) 71.5 %; Platelet Count 262 K/uL (130-400); RDW Coefficient of Variation 12.6 % (11.5-14.5); Red Blood Count 4.26 M/uL (4.20-5.40)
[2023-07-19 08:42] LABS: BUN Creatinine Ratio 15.9 (10-20); Calcium 8.7 mg/dl (8.6-10.3); Creatinine Clr Calc Pharmacy 133.7 ml/min; Est GFR (African American) 109.7 ml/min; Est GFR (Non-African American) 94.7 ml/min; Potassium 4.2 mmol/L (3.5-5.1)
[2023-07-19] MEDS ORDERED: ENOXAPARIN INJ 40 MG/0.4 ML SYR SQ SCH (09:00)
[2023-07-19] MEDS: DOCUSATE SODIUM 100 MG CAP PO SCH (09:22)
[2023-07-19] MEDS: oxyCODONE/ACETAMINOPHEN 5mg/325mg TAB PO PRN (09:26)
--- NOTE | 2023-07-19 17:49 | Discharge Summary ---
Date of Service July 19, 2023 Admission HPI Per Admitting Provider Patient was admitted on 07/18/2023 and underwent total laparoscopic hysterectomy, bilateral salpingectomy and cystoscopy. Details of procedure as in the procedure note. Postop care was unremarkable patient is discharged home today with instructions. Discharge Data Procedures Performed Operation Date: 07/18/23 07:00 Actual Procedures p Total Laparoscopic Hysterectomy, Bilateral Salpingectomy and Cystoscopy(Not Applicable) - Demetrio Ge MD Hospital Course (1) Obesity: (2) Menorrhagia: Discharge Instructions Post op course was unremarkable and pt is discharges home in stable condition. Discharge instructions including medications,diet, activity and follow up appointments are reviewed with pt.
== END 2023-07-19 09:54 | disposition home health service (06) ==
LOC: ASU 05:30 → 4E1 05:30